=== PATIENT | female | born 1950 ===

== ENCOUNTER 2020-08-11 16:35 | Emergency (ER) | payer OTHER, SELFPAY ==
--- NOTE | ~2020-08-11 | CT_ITS ---
EXAMINATION: CT ABDOMEN AND PELVIS WITHOUT CONTRAST CLINICAL INFORMATION: Left lower quadrant pain and rectal bleeding COMPARISON: Previous CT of the abdomen and pelvis July 2017 TECHNIQUE: Multidetector volumetric imaging was performed from the superior aspect of the liver through the pubic symphysis. Sagittal and coronal reformatted images were obtained on the technologist's workstation. This CT examination was performed using dose optimization techniques as appropriate, variously including the following: *Automated exposure control *Adjustment of mA and/or kV according to patient size (this includes techniques or standardized protocols for targeted exams where dose is matched to indication/reason for exam; i.e. extremities or head) *Use of iterative reconstruction technique DLP: 517 mGy-cm FINDINGS: LUNG BASES: The visualized lung bases are unremarkable. LIVER, GALLBLADDER, AND BILIARY TREE: There is a small calcification in the central liver. There are changes of cirrhosis. The gallbladder has been removed. There is no biliary duct dilatation. The gallbladder is unremarkable with no evidence of radiopaque gallstones, gallbladder wall thickening, or obvious pericholecystic inflammatory changes. PANCREAS: Unremarkable. SPLEEN: Unremarkable. ADRENAL GLANDS: Unremarkable. KIDNEYS AND URETERS: The kidneys are normal in size, shape, and attenuation. No hydronephrosis, hydroureter, or calculi seen. No perinephric stranding. BLADDER: Not optimally distended. GASTROINTESTINAL TRACT: There is diverticulosis of the colon. No evidence of diverticulitis is seen. Small and large bowel is otherwise unremarkable. The appendix is unremarkable. ABDOMINAL WALL: No significant hernia is appreciated. LYMPH NODES: Normal. VASCULAR: Unremarkable. PELVIC VISCERA: There is an enlarged fibroid uterus. OSSEOUS STRUCTURES: There are degenerative changes of the spine. There is a mild old-appearing L5 body compression fracture. This is new in the interval from [address]/CT abdomen pelvis wo con IMPRESSION: Cirrhotic-appearing liver. No focal liver lesion appreciated on noncontrast enhanced exam. Diverticulosis of the colon. No evidence of diverticulitis. Enlarged fibroid uterus.
[2020-08-11 16:39] VITALS: BP 126/68; PULSE 71; RESP 18; TEMP 36.7; O2SAT 97; BMI 32.3
[2020-08-11 17:03] LABS: Hematocrit 38.1 % (37-47); Hemoglobin 12.2 g/dl (12.0-16.0); Mean Corpuscular Hemoglobin 29.2 pg (27.0-33.0); Mean Corpuscular Volume 91.1 fL (80-98); Mean Platelet Volume 10.5 fL (9.4-12.3); Platelet Count 240 X10*3/uL (160-400); Red Blood Count 4.18 X10*6/uL (4.20-5.50); Red Cell Distribution Width 12.5 % (11.0-16.0); White Blood Count 6.3 X10*3/uL (4.8-10.8)
[2020-08-11 17:26] LABS: Anion Gap 13 (12-20); Blood Urea Nitrogen 18 mg/dL (9-16); Calcium 9.3 mg/dL (8.4-10.2); Carbon Dioxide 26 mmol/L (22-29); Chloride 103 mmol/L (96-108); Creatinine Clr Calc Pharmacy 47.4; Estimated Glomerular Filt Rate > 60; Glucose Random 180 mg/dL (60-115); Potassium 3.8 mmol/L (3.3-5.1); Sodium 138 mmol/L (135-145)
[2020-08-11 18:58] VITALS: BP 113/67; PULSE 62; RESP 20; TEMP 37.1; O2SAT 97
--- NOTE | 2020-08-11 18:59 | ED.GIBLEED ---
HPI - GI Bleed General Chief complaint: Abdominal Pain Stated complaint: Vaginal bleeding Time Seen by Provider: 08/11/20 18:59 Source: patient History of Present Illness HPI Narrative: patient history of hemorrhoids had colonoscopy 5 years ago comes here for lower abdominal pain and bright red bleeding per rectum since yesterday stool was brown had small bright red blood in the commode no nausea no vomiting feels good otherwise Related Data Previous Rx's Medication Instructions Recorded hydrocortisone acetate [Anusol-HC] 25 mg LA BID #1 ea 08/11/20 Allergies Allergy/AdvReac Type Severity Reaction Status Date / Time No Known Allergies Allergy Unverified 07/15/20 14:53 [No Known Allergies*] Review of Systems Review of Systems: Yes all other systems are reviewed and are negative FOR[facility]LY [facility] Past Medical History Medical History Arthritis Hypothyroid Social History Social History Advance Directives: No Advance Directives Information Provided: No Physical Exam Vital Signs: Vital Signs: Last Vital Signs Temp 98.7 F 08/11/20 18:58 Pulse 62 08/11/20 18:58 Resp 20 08/11/20 18:58 BP 113/67 08/11/20 18:58 Pulse Ox 97 08/11/20 18:58 Body Mass Index 32.3 Appearance: Alert. Oriented X3. No acute distress. Eyes: PERRLA, No Nystagmus ENT: Pharynx normal. Oral Mucosa moist Neck: Normal inspection. Neck supple. CVS: Normal heart rate and rhythm. Pulses normal. Respiratory: No respiratory distress. Equal air entry bilateral, no wheezing/rales/rhonchi Abdomen: Soft and mild tenderness left lower quadrant no rebound tenderness or guarding, Bowel sounds are present, no mass palpable, no CVA tenderness rectal; brown stool guaiac positive ,no hemorrhoids palpable Skin: Skin warm and dry. Normal skin color. Normal skin turgor. Extremities: No lower extremity edema. No calf tenderness Neuro: Oriented X 3. No motor deficit. No sensory deficit. MDM - GI Bleed MDM Narrative Medical decision making narrative: patient has stable H&H hemoglobin 12.[address] scan negative for any acute pathology showed only diverticulosis patient vitals stable will discharge patient home Differential Diagnosis Differential diagnosis: Likely hemorrhoids and Lower gastrointestinal hemorrhage Lab Data Attestation: I reviewed the patient's lab results. Result diagrams: 08/11/20 16:55 08/11/20 16:55 Labs: Lab Results 08/11/20 08/11/20 08/11/20 Range/Units 16:55 16:55 21:49 WBC 6.3 (4.8-10.8) X10*3/uL RBC 4.18 L (4.20-5.50) X10*6/uL Hgb 12.2 (12.0-16.0) g/dl Hct 38.1 (37-47) % MCV 91.1 (80-98) fL MCH 29.2 (27.0-33.0) pg MCHC 32.0 (31.0-35.0) g/dl RDW 12.5 (11.0-16.0) % Plt Count 240 (160-400) X10*3/uL MPV 10.5 (9.4-12.3) fL Absolute Nucleated RBC 0.000 (0.0-0.012) X10*3/uL Nucleated RBC % (auto) 0.0 (0.0-0.2) /100WBC Sodium 138 (135-145) mmol/L Potassium 3.8 (3.3-5.1) mmol/L Chloride 103 (96-108) mmol/L Carbon Dioxide 26 (22-29) mmol/L Anion Gap 13 (12-20) BUN 18 H (9-16) mg/dL Creatinine 0.81 (0.5-1.4) mg/dL Estim Creat Clear Calc 47.4 Estimated GFR > 60 Random Glucose 180 H (60-115) mg/dL Calcium 9.3 (8.4-10.2) mg/dL Urine Color YELLOW Urine Appearance CLEAR Urine pH 6.5 (5.0-8.0) Ur Specific [place] 1.015 (1.005-1.025) Urine Protein NEG (NEG-TRACE) MG/DL Urine Glucose (UA) 250 H (NEG) MG/DL Urine Ketones NEG (NEG) MG/DL Urine Blood NEG (NEG) Urine Nitrite NEG (NEG) Ur Leukocyte Esterase NEG (NEG) Stool Occult Blood (NEGATIVE) 08/11/20 Range/Units 21:49 WBC (4.8-10.8) X10*3/uL RBC (4.20-5.50) X10*6/uL Hgb (12.0-16.0) g/dl Hct (37-47) % MCV (80-98) fL MCH (27.0-33.0) pg MCHC (31.0-35.0) g/dl RDW (11.0-16.0) % Plt Count (160-400) X10*3/uL MPV (9.4-12.3) fL Absolute Nucleated RBC (0.0-0.012) X10*3/uL Nucleated RBC % (auto) (0.0-0.2) /100WBC Sodium (135-145) mmol/L Potassium (3.3-5.1) mmol/L Chloride (96-108) mmol/L Carbon Dioxide (22-29) mmol/L Anion Gap (12-20) BUN (9-16) mg/dL Creatinine (0.5-1.4) mg/dL Estim Creat Clear Calc Estimated GFR Random Glucose (60-115) mg/dL Calcium (8.4-10.2) mg/dL Urine Color Urine Appearance Urine pH (5.0-8.0) Ur Specific [place] (1.005-1.025) Urine Protein (NEG-TRACE) MG/DL Urine Glucose (UA) (NEG) MG/DL Urine Ketones (NEG) MG/DL Urine Blood (NEG) Urine Nitrite (NEG) Ur Leukocyte Esterase (NEG) Stool Occult Blood POSITIVE (NEGATIVE) Discharge Plan Discharge Clinical Impression: Bright red rectal bleeding Patient Disposition: Home, Self-Care Instructions: Hemorrhoids (ED), Rectal Bleeding (ED) Additional Instructions: Rectal bleeding is likely from internal hemorrhoids. Follow-up with PCP or report to ERif bleeding continues. Avoid constipation. Use suppository twice daily as advise Prescriptions: New hydrocortisone acetate [Anusol-HC] 25 mg suppository 25 mg LA BID Qty: 1 RF: 0
[2020-08-11 21:55] LABS: OBS Int Ctl Valid YES; OBS1 POSITIVE (NEGATIVE)
[2020-08-11 21:56] LABS: Glucose Urine UA 250 MG/DL (NEG); Leukocyte Esterase Urine NEG (NEG); Nitrite Urine NEG (NEG); PH 6.5 (5.0-8.0); Specific Gravity - Urine 1.015 (1.005-1.025); Urine Blood NEG (NEG); Urine Ketones NEG (NEG); Urine Protein NEG (NEG-TRACE)
[2020-08-11 21:57] LABS: Appearance Urine CLEAR; Color Urine YELLOW
[2020-08-11] MEDS: Acetaminophen 325 MG TABLET 650 MG PO (21:59)
[2020-08-11 22:00] VITALS: BP 139/70; PULSE 62; RESP 16; O2SAT 96
== END 2020-08-11 22:45 | disposition home or self-care (01) ==
PROVIDERS: Emergency Provider Internal Medicine; PCP Internal Medicine Geriatric Medicine
DX: K62.5 Hemorrhage of anus and rectum (principal); R10.30 Lower abdominal pain, unspecified; Z87.19 Personal history of other diseases of the digestive system
CPT/HCPCS: 36415; 74176; 80048; 81003; 82272; 85027; 99284

== ENCOUNTER 2021-07-04 14:06 | Outpatient (REF) | payer OTHER, SELFPAY ==
--- NOTE | ~2021-07-04 | MM_ITS ---
EXAMINATION: MM SCREENING DIGITAL BREAST TOMOSYNTHESIS, BILATERAL CLINICAL INFORMATION: Screening. Asymptomatic. The lifetime risk of breast cancer based on the Tyrer-Cuzick Model is 4%. COMPARISON: Mammography: 07/15/2018, 06/19/2017, 05/24/2016 TECHNIQUE: Digital breast tomosynthesis is performed in both the craniocaudal and mediolateral oblique views along with computer-aided detection (CAD). Synthesized 2D images are generated from the tomosynthesis. Additional right MLO view is provided. FINDINGS: There are scattered areas of fibroglandular density (ACR BI-RADS breast composition Category b). Left breast has grouped heterogeneous calcifications mid central breast approximately 4.5 cm from nipple. There are at least 10 calcifications. Calcifications may be circularly arranged which could suggest fibroadenomatous change. This represents change from prior exam 07/15/2018. Patient will be recalled for additional imaging with magnification views. There is no significant mass or architectural abnormality. Parenchymal pattern is otherwise similar to prior studies. The axilla are unremarkable. There is a dermal lesion again seen overlying the anterior upper left breast. MM/MM tomosynthesis screening BI IMPRESSION: Left: -Grouped heterogeneous calcifications central left breast. Right: -No mammographic evidence of malignancy. ASSESSMENT: BI-RADS 0: Incomplete - Need Additional Imaging Evaluation RECOMMENDATION: 1. Additional views of the left breast (magnification CC, magnification ML). 2. Targeted ultrasound if warranted after review of the additional views. 3. Radiology department staff will contact the patient for additional imaging. This patient's information was entered into a reminder system with a target due date for their next mammogram.
== END 2021-07-04 14:07 | disposition home or self-care (01) ==
LOC: HO.MAMMO 14:06
PROVIDERS: PCP Internal Medicine Geriatric Medicine; Visit Provider Internal Medicine Geriatric Medicine
DX: Z12.31 Encounter for screening mammogram for malignant neoplasm of breast (principal)
CPT/HCPCS: 77063; 77067

== ENCOUNTER 2021-07-21 14:19 | Outpatient (REF) | payer OTHER, SELFPAY ==
--- NOTE | ~2021-07-21 | US_ITS ---
EXAMINATION: MM DIAGNOSTIC DIGITAL MAMMOGRAPHY, LEFT US TARGETED BREAST, LEFT CLINICAL INFORMATION: Left breast calcifications. COMPARISON: Mammography: 07/04/2021 and studies dating back to 01/31/2011. TECHNIQUE: Digital mammography is performed in the following views: Spot magnification views of the left breast in craniocaudal and 90-degree mediolateral views. Targeted left breast ultrasound. FINDINGS: There are scattered areas of fibroglandular density (ACR BI-RADS breast composition category B). The grouping of calcifications about the slightly medial aspect of the left breast, approximately 4 cm from the nipple, has calcifications which are indeterminate in nature. There is a faint overlying soft tissue density seen and therefore, targeted left breast ultrasound was performed. Targeted ultrasound did not demonstrate any abnormal cystic or solid mass. No region of abnormal distal sound shadowing is identified. For this reason, stereotactic core biopsy of the calcifications is recommended. Results are discussed with the patient at time of visit. Regina at referring physician's office was notified of the above recommendation. US/US breast LT limited IMPRESSION: Indeterminate left breast calcifications for which stereotactic core biopsy is recommended. ASSESSMENT: BI-RADS 4: Suspicious RECOMMENDATION: Stereotactic core biopsy left breast calcifications.
== END 2021-07-21 14:20 | disposition home or self-care (01) ==
LOC: HO.MAMMO 14:19
PROVIDERS: Visit Provider Internal Medicine Geriatric Medicine
DX: R92.1 Mammographic calcification found on diagnostic imaging of breast (principal)
CPT/HCPCS: 76642; 77065

== ENCOUNTER 2021-07-27 08:47 | Outpatient (REF) | payer OTHER, SELFPAY ==
--- NOTE | ~2021-07-27 | MM_ITS ---
EXAMINATION: STEREOTACTIC TOMOSYNTHESIS-GUIDED VACUUM-ASSISTED BREAST BIOPSY, LEFT SPECIMEN RADIOGRAPH, LEFT POST PROCEDURE DIGITAL MAMMOGRAM, LEFT CLINICAL INFORMATION: Heterogeneous coarse calcifications central left breast. Age 70. TC score 4%. COMPARISON: Mammography 07/04/2021, 07/21/2021, ultrasound left breast 07/21/2021. TECHNIQUE/PROCEDURE: Informed consent was obtained from the patient after discussion of the benefits, risks, and alternatives to biopsy today. Patient appeared to understand. Gave opportunity for questions. Patient signed consent form. Hospital provided public relations director assisted for the consent and throughout the procedure. BIOPSY TABLE: [employer] Affirm Prone Biopsy System. LESION: Grouped heterogeneous coarse calcifications central left breast. LOCAL ANESTHESIA: 7 mL carbonated 1% lidocaine; 10 mL 1% lidocaine with epinephrine. DERMATOTOMY: Single skin velasquez dermatotomy performed. NEEDLE: [employer] 9-gauge vacuum assisted core biopsy device. APPROACH: Craniocaudal. TARGETING: Combination of digital breast tomosynthesis and stereotactic digital mammography used for targeting. CORES: 5. CLIP: [email or web address] T-shaped marker. SPECIMEN RADIOGRAPH: Specimen radiograph is taken in separate room using digital mammography. The index calcifications are in the excised cores. There are at least 5 calcifications in the cores. POST PROCEDURE UNILATERAL DIGITAL MAMMOGRAM: The post biopsy mammogram is performed in separate room using separate digital mammography equipment from the biopsy procedure. CC and ML views are obtained. There are scattered areas of fibroglandular density (breast composition category: b). The clip marker is in position. The calcifications are decreased at the biopsy site. No gross hematoma. The patient tolerated the procedure well. No immediate complications. Home instructions reviewed with the patient. Final pathology results are pending. MM/MM stereotactic biopsy LT IMPRESSION: 1. Digital tomosynthesis-guided core biopsy left breast with clip placement. 2. Specimen radiograph taken and post procedure mammogram. There is satisfactory positioning of the biopsy clip. 3. Final pathology results pending. An addendum report will be issued.
[2021-07-27] MEDS: Lidocaine HCl 1 % 20 ML VIAL 7 ML SUBCUT (10:20)
[2021-07-27] MEDS: Sodium Bicarbonate 8.4% 50 MEQ/50 ML VIAL SUBCUT (10:26)
== END 2021-07-27 08:48 | disposition home or self-care (01) ==
LOC: HO.MAMMO 08:47
PROVIDERS: Visit Provider Surgery
DX: R92.1 Mammographic calcification found on diagnostic imaging of breast (principal)
CPT/HCPCS: 19081; 88305; 99202; A4648

== ENCOUNTER → 2021-08-02 11:25 | Outpatient (BNVA) | payer OTHER, SELFPAY | PROVIDERS: PCP Internal Medicine Geriatric Medicine; Visit Provider Surgery | DX: R92.1 Mammographic calcification found on diagnostic imaging of breast (principal) | CPT/HCPCS: 99212 ==

== ENCOUNTER 2022-04-19 19:02 | Emergency (ER) | payer OTHER, SELFPAY ==
--- NOTE | ~2022-04-19 | CT_ITS ---
EXAMINATION: CT HEAD WITHOUT CONTRAST CT CERVICAL SPINE WITHOUT CONTRAST CLINICAL INFORMATION: Fall. COMPARISON: CT head 10/08/2019 TECHNIQUE: Imaging was performed from the skull base to vertex without intravenous administration of contrast. In addition, helical noncontrast CT imaging was acquired through the cervical spine and source images were reviewed along with axial reconstructions and sagittal and coronal MPRs. [This CT examination was performed using dose optimization techniques as appropriate, variously including the following: *Automated exposure control *Adjustment of mA and/or kV according to patient size (this includes techniques or standardized protocols for targeted exams where dose is matched to indication/reason for exam; i.e. extremities or head) *Use of iterative reconstruction technique] DLP: 890 mGy-cm FINDINGS: HEAD: No intracranial mass, hemorrhage, or midline shift is visualized. The ventricles and sulci are proportional. No extra-axial collections are identified. Retention cyst in right maxillary sinus measuring 1.7 cm. Mastoid air cells and middle ear cavities are normally aerated. CERVICAL SPINE: There is no evidence of acute cervical spine fracture. Vertebral bodies remain normal in height. Cervical vertebrae have normal alignment. Cervical disc heights are normal. Mild facet joint arthrosis at the left C4-C5 disc level. No pre- or paravertebral soft tissue abnormality is identified. Limited assessment of the lung apices is unremarkable. CT/CT cervical spine wo IV con IMPRESSION: 1. No acute intracranial pathology. 2. No CT evidence of acute cervical spine fracture or traumatic subluxation
--- NOTE | ~2022-04-19 | CT_ITS ---
EXAMINATION: CT HEAD WITHOUT CONTRAST CT CERVICAL SPINE WITHOUT CONTRAST CLINICAL INFORMATION: Fall. COMPARISON: CT head 10/08/2019 TECHNIQUE: Imaging was performed from the skull base to vertex without intravenous administration of contrast. In addition, helical noncontrast CT imaging was acquired through the cervical spine and source images were reviewed along with axial reconstructions and sagittal and coronal MPRs. [This CT examination was performed using dose optimization techniques as appropriate, variously including the following: *Automated exposure control *Adjustment of mA and/or kV according to patient size (this includes techniques or standardized protocols for targeted exams where dose is matched to indication/reason for exam; i.e. extremities or head) *Use of iterative reconstruction technique] DLP: 890 mGy-cm FINDINGS: HEAD: No intracranial mass, hemorrhage, or midline shift is visualized. The ventricles and sulci are proportional. No extra-axial collections are identified. Retention cyst in right maxillary sinus measuring 1.7 cm. Mastoid air cells and middle ear cavities are normally aerated. CERVICAL SPINE: There is no evidence of acute cervical spine fracture. Vertebral bodies remain normal in height. Cervical vertebrae have normal alignment. Cervical disc heights are normal. Mild facet joint arthrosis at the left C4-C5 disc level. No pre- or paravertebral soft tissue abnormality is identified. Limited assessment of the lung apices is unremarkable. CT/CT head/brain wo IV con IMPRESSION: 1. No acute intracranial pathology. 2. No CT evidence of acute cervical spine fracture or traumatic subluxation
[2022-04-19 19:14] VITALS: BP 110/70; BP 115/63; PULSE 74; PULSE 76; RESP 16; TEMP 36.9; O2SAT 95; O2SAT 96; BMI 27.2
--- NOTE | 2022-04-19 19:58 | ED.FALL ---
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 without using walker tripped and fell hitting her left side of the head to the edge of the table no loss of consciousness no other injuries no loss of consciousness no other injuries patient not on any blood thinner able to ambulate came with small laceration to the left part of the temporal scalp Related Data Previous Rx's Medication Instructions Recorded hydrocortisone acetate 25 mg 25 mg [place] BID #1 ea 08/11/20 rectal suppository (Anusol-HC) acetaminophen 325 mg tablet 650 mg PO Q6H PRN pain #60 tabs 04/19/22 (Tylenol) Allergies Allergy/AdvReac Type Severity Reaction Status Date / Time No Known Allergies Allergy Verified 04/19/22 19:28 [No Known Allergies*] Review of Systems Review of Systems: Yes all other systems are reviewed and are negative FORMERLY [facility], [facility] Past Medical History Medical History Arthritis Hypothyroid Family History Family History Family/Other Breast cancer Maternal Grandfather Throat cancer Social History Social History Advance Directives: No Advance Directives Information Provided: No Physical Exam Vital Signs: Vital Signs: Last Vital Signs Temp 98.1 F 04/19/22 20:41 Pulse 69 04/19/22 20:41 Resp 18 04/19/22 20:41 BP 117/54 L 04/19/22 20:41 Pulse Ox 98 04/19/22 20:41 O2 Del Method 04/19/22 20:41 BMI result Body Mass Index 27.2 Appearance: Alert. Oriented X3. No acute distress. Eyes: PERRLA, No Nystagmus HEENT: Pharynx normal. Oral Mucosa moist 1 cm laceration left temporal area no active bleeding Neck: Normal inspection. Neck supple. CVS: Normal heart rate and rhythm. Pulses normal. Respiratory: No respiratory distress. Equal air entry bilateral, no wheezing/rales/rhonchi Abdomen: Soft and nontender. Bowel sounds are present, no mass palpable, no CVA tenderness Skin: Skin warm and dry. Normal skin color. Normal skin turgor. Extremities: No lower extremity edema. No calf tenderness pelvis stable with movement at the hip area bilateral Neuro: Oriented X 3. No motor deficit. No sensory deficit.No cerebellar signs , cranial nerves II-XII intact Medications Administered Discontinued Medications Generic Name Dose Route Start Last Admin Trade Name Freq PRN Reason Stop Dose Admin Ibuprofen 600 mg 04/19/22 20:30 04/19/22 20:42 Ibuprofen 600 Mg Tablet PO 04/19/22 20:31 600 mg ONCE ONE Administration Procedures Laceration Laceration 1: Site: scalp Side (If applicable): left Size (cm): 1 Description: linear Depth: simple, single layer Skin layer closed with: other (Staple) Number of sutures: 2 Medical Decision Making Medical Decision Making MDM Narrative: Patient status post mechanical fall head CT C-spine CT negative laceration was stapled Discharge Plan Discharge Clinical Impression: Fall, Laceration of scalp Patient Disposition: Home, Self-Care Instructions: Laceration (ED), Fall Prevention for Older Adults (ED) Additional Instructions: Local care as advised staple removal in 7-10 days Prescriptions: New acetaminophen [Tylenol] 325 mg tablet 650 mg PO Q6H PRN (Reason: pain) Qty: 60 0RF No Action hydrocortisone acetate [Anusol-HC] 25 mg suppository 25 mg [place] BID Qty: 1 0RF Interventions: ED Discharge Assessment Last Done: 04/19/22 21:06 Discharge Date/Time: 04/19/22 21:06 Print Language: Indonesian
--- NOTE | 2022-04-19 20:12 | PC.NURSE ---
CT scan results came back negative. C-collar removed from pt at provider's request.
[2022-04-19 20:41] VITALS: BP 117/54; PULSE 69; RESP 18; TEMP 36.7; O2SAT 98
[2022-04-19] MEDS: Ibuprofen 600 MG TABLET PO (20:42)
== END 2022-04-19 21:06 | disposition home or self-care (01) ==
PROVIDERS: Emergency Provider Internal Medicine
DX: S01.01XA Laceration without foreign body of scalp, initial encounter (principal); M54.2 Cervicalgia; R51.9 Headache, unspecified; W01.0XXA Fall on same level from slipping, tripping and stumbling without subsequent striking against object, initial encounter; Y93.9 Activity, unspecified; Y92.9 Unspecified place or not applicable; Y99.9 Unspecified external cause status
CPT/HCPCS: 12001; 70450; 72125; 99284

== ENCOUNTER 2022-05-23 12:10 | Inpatient (IN) | payer OTHER, SELFPAY ==
[2022-05-23] VITALS (17 sets, daily range): BP systolic 103–156; BP diastolic 46–84; PULSE 79–98; RESP 16–36; TEMP 36.8–37.5; O2SAT 93–100; BMI 33.8
--- NOTE | ~2022-05-23 | XR_ITS ---
EXAMINATION: XR CHEST CLINICAL INFORMATION: Hypoxia. COMPARISON: Most recent chest CT dated 05/23/2022. TECHNIQUE: Frontal view of the chest was obtained. FINDINGS: Minimal patchy bibasilar opacities, unchanged. Previously seen trace pleural effusions are not appreciated on plain radiographs. No pneumothorax. Stable cardiomediastinal silhouette. XR/XR chest 1V IMPRESSION: 1. Minimal patchy bibasilar opacities, unchanged. 2. Previously seen trace pleural effusions are not appreciated on plain radiographs.
--- NOTE | ~2022-05-23 | XR_ITS ---
EXAMINATION: XR CHEST CLINICAL INFORMATION: Dyspnea on exertion COMPARISON: 10/08/2019 TECHNIQUE: 2 views of the chest were obtained. FINDINGS: Central vascular congestion with interstitial prominence and small bilateral pleural effusions. Stable cardiomediastinal silhouette. No focal consolidation. XR/XR chest 2V IMPRESSION: Probable mild CHF with small bilateral pleural effusions.
--- NOTE | ~2022-05-23 | CT_ITS ---
EXAMINATION: CT CHEST WITH IV CONTRAST CT ABDOMEN AND PELVIS WITHOUT AND WITH IV CONTRAST (GI BLEED) CLINICAL INFORMATION: Weight loss. Anemia. Diffuse abdominal pain for one month. Concern regarding GI bleed. COMPARISON: CT abdomen and pelvis from 08/11/2020. TECHNIQUE: Multidetector CT imaging examination of the chest, abdomen and pelvis was performed. The images of the chest are obtained after use of intravenous contrast. The images of the abdomen and pelvis are obtained prior to and following intravenous administration of the intravenous contrast with images acquired in the arterial and venous phases. Intravenous contrast: 80 mL Omnipaque 350. Axial images are displayed at 0.6 mm, 2 mm and 5 mm slice thickness. Coronal and sagittal reformatted images were generated at the technologist's workstation and submitted for review. This CT examination was performed using dose optimization techniques as appropriate, variously including the following: *Automated exposure control *Adjustment of mA and/or kV according to patient size (this includes techniques or standardized protocols for targeted exams where dose is matched to indication/reason for exam; i.e. extremities or head) *Use of iterative reconstruction technique DLP: 1365 mGy-cm FINDINGS: CHEST - LUNGS AND PLEURA: Trachea and central airways widely patent and normal in caliber. Mild thickening of the peribronchial interstitium and smooth thickening of interlobular septa in both lungs. Findings are consistent with mild interstitial edema. Small bilateral pleural effusions are present. Mild atelectasis in dependent aspect of each lower lobe as well as within lingula and right middle lobe adjacent to distal major fissure. No overt consolidation. No pneumothorax. There is no suspicious lung nodule or mass. MEDIASTINUM/LOWER NECK: Cardiac chambers are in the normal size range. No pericardial effusion. Pulmonary arteries are unremarkable. Mild atherosclerotic calcification of the thoracic aorta without aneurysm or dissection. LYMPHATICS: Borderline enlarged lower right paratracheal and right hilar lymph nodes are 1 cm short axis dimension. Note that mildly enlarged lymph nodes can be observed in patients with congestive failure. CHEST WALL/BONES OF THORAX: No chest wall mass or hematoma. No acute findings within the degenerated thoracic spine. Hemangioma of T7 vertebral body. Chronic mild concavity of the T9 superior endplate and chronic mild height loss of T11 vertebral body. No acute fractures. ABDOMEN AND PELVIS - HEPATOBILIARY: Liver has lobulated, nodular surface contour from cirrhosis. No focal liver lesion. Cholecystectomy. No dilated bile ducts. PANCREAS: No edema, mass or pancreatic ductal dilatation. SPLEEN: Normal. ADRENAL GLANDS: Normal. KIDNEYS AND URETERS: Kidneys are normal in size and attenuation. No nephrolithiasis, hydronephrosis or perinephric fluid collection. BOWEL AND PERITONEUM: No dilated bowel loops. Stomach is unremarkable. Diverticula of the sigmoid colon without evidence of diverticulitis. No pericolonic fat stranding, free fluid or free air. No evidence of contrast extravasation into the lumen of the gastrointestinal tract on the arterial or venous phase postcontrast images. ABDOMINAL WALL: Obese body habitus. No abdominal wall hernia or hematoma. VESSELS: Abdominal aorta is normal in size. The celiac artery, SMA, MERNA and renal arteries are widely patent. The common hepatic artery has origin from the SMA. Inferior vena cava is normal. No retroperitoneal hematoma. LYMPH NODES: No pathologic sized lymph nodes in the abdomen or pelvis. No inguinal lymphadenopathy. BLADDER AND PELVIC VISCERA: Urinary bladder has normal wall thickness. No bladder calculi or perivesical edema. Lobulated, calcified leiomyomatous uterus. No adnexal mass. No pelvic free fluid. OTHER MUSCULOSKELETAL: There is a hemangioma of the L3 vertebral body. Chronic mild height loss of L5 vertebral body. No acute fractures. Pelvic bones and proximal femurs are intact. CT/CT gi bleed abd pel wo/w IVcon IMPRESSION: * Interstitial pulmonary edema and small pleural effusions. * Cirrhotic liver without evidence of hepatocellular carcinoma. * No evidence of an active gastrointestinal bleed, hemoperitoneum or retroperitoneal bleed. * Diverticulosis of the sigmoid colon without diverticulitis. * Large, lobulated calcified leiomyomatous uterus.
--- NOTE | 2022-05-23 12:20 | ED_ITS ---
HPI - Abdominal Pain General Chief Complaint: Abdominal Pain <Blanca Patton NP - Last Filed: 05/30/22 11:10> Stated Complaint: Epigastric Pain <Blanca Patton NP - Last Filed: 05/30/22 11:10> Time Seen by Provider: 05/23/22 14:02 <Blanca Patton NP - Last Filed: 05/30/22 11:10> Source: patient and other (ENGINEERING INTERN) <Mame Mercedes MD - Last Filed: 05/23/22 20:05> Mode of arrival: ambulatory <Mame Mercedes MD - Last Filed: 05/23/22 20:05> Limitations: no limitations <Mame Mercedes MD - Last Filed: 05/23/22 20:05> History of Present Illness HPI narrative: Patient comes to the emergency room complaining of 1 month of diffuse abdominal pain, intermittent. Also, complaining of fatigue, generalized malaise that started even before the UTI. Her symptoms have gradually gotten worse over the last 2-3 weeks. At baseline, patient has trouble communicating her needs, patient comes in with her ENGINEERING INTERN who explains that all of her symptoms started approximately 1 month ago with a UTI. Patient was treated with antibiotics, patient started developing abdominal pain since then. Initially, it was thought that the patient's symptoms were secondary to intolerance to the antibiotics. However, patient completed her course of antibiotics and the abdominal pain continued. Patient states that is not necessarily related to food intake. Also, patient reports that she has had anemia in the past, several months ago she was prescribed iron but unclear reasons why she discontinued taking her medications. Patient also states that she has history of hemorrhoids. The ENGINEERING INTERN states that she was not aware that the patient has been having rectal bleeding until a day that the patient said that she has been seen blood intermittently in the stool when she wipes. Patient denies rectal pain. The ENGINEERING INTERN reports that the patient has lost 8 lb in approximately 2 months. Patient is eating less than usual. Normally, patient is active, gets out of bed and interacts with her ENGINEERING INTERN, but lately patient just wants to stay bed. According to the ENGINEERING INTERN, patient does not take ibuprofen or naproxen and large amounts, very seldom she takes 1-2 tablets. <Mame Mercedes MD - Last Filed: 05/23/22 20:05> Related Data Home Medications: Home Medications Medication Instructions Recorded Confirmed acetaminophen 500 mg tablet 500 mg PO Q8H PRN Mild Pain (Scale 05/23/22 05/23/22 Score 1-4) albuterol sulfate 90 mcg/actuation 2 puff inhalation Q6H PRN Wheezing 05/23/22 05/23/22 aerosol inhaler clotrimazole-betamethasone 1 1 appl topical BID 05/23/22 05/23/22 %-0.05 % topical cream cyanocobalamin (vitamin B-12) 1,000 mcg PO DAILY 05/23/22 05/23/22 1,000 mcg tablet diclofenac sodium 1 % topical gel 2 g topical BID PRN Pain 05/23/22 05/23/22 gabapentin 300 mg capsule 300 mg PO BEDTIME 05/23/22 05/23/22 levothyroxine 75 mcg tablet 75 mcg PO DAILY 05/23/22 05/23/22 omeprazole 20 mg capsule,delayed 20 mg PO DAILY 05/23/22 05/23/22 release trazodone 50 mg tablet 50 mg PO BEDTIME 05/23/22 05/23/22 Previous Rx's Medication Instructions Recorded omeprazole 40 mg capsule,delayed 40 mg PO DAILY@0630 30 days #30 05/27/22 release caps <Blanca Patton NP - Last Filed: 05/30/22 11:10> Allergies/Adverse Reactions: Allergies Allergy/AdvReac Type Severity Reaction Status Date / Time No Known Allergies Allergy Verified 04/19/22 19:28 [No Known Allergies*] <Blanca Patton NP - Last Filed: 05/30/22 11:10> Review of Systems Review of Systems Constitutional : Complaining of weight loss, no fever chills, complaining of fatigue and generalized malaise ENT/Mouth : No Hearing loss, No Ear Pain, No Nasal Congestion, No Sinus Pain, No Hoarseness, No sore throat, No Rhinorrhea, No Swallowing Difficulty Eyes: No Eye Pain, No Swelling, No Redness, No Foreign Body, No Discharge, No Vision Changes Cardiovascular : No Chest Pain, no palpitations, complaining of shortness of breath with exertion, no orthopnea Respiratory : No Cough, No Sputum, No Wheezing, No Smoke Exposure Gastrointestinal : No Nausea, No Vomiting, No Diarrhea, No Constipation, c omplaining of diffuse abdominal pain for 1 month, complaining of intermittent rectal bleeding Genitourinary : no irregular bleeding, complaining of Dysuria, No Urinary Frequency, No Hematuria, No Urinary Incontinence, No Urgency, No Flank Pain, No Urinary Flow Changes, No Hesitancy Musculoskeletal : No joint pain, No Myalgias, No Joint Swelling Skin : No Skin Lesions, No rash Neuro : No Weakness, No Numbness, No Paresthesias, No Loss of Consciousness, No Dizziness, No Headache Psych : No Anxiety/Panic, No Depression, No SI/HI/AH/VH, No Social Issues, Heme/Lymph: No Bruising, No Bleeding,No Lymphadenopathy Endocrine : No Polyuria, No Polydipsia, No Temperature Intolerance <Mame Mercedes MD - Last Filed: 05/23/22 20:05> [facility] Past Medical History Medical History: Medical History Arthritis FH: breast cancer FH: cholecystectomy Hepatic cirrhosis Hypothyroid <Blanca Patton NP - Last Filed: 05/30/22 11:10> Surgical History: Surgical History Hx of cholecystectomy <Blanca Patton NP - Last Filed: 05/30/22 11:10> Family History Family History: Family History Family/Other Breast cancer Maternal Grandfather Throat cancer <Blanca Patton NP - Last Filed: 05/30/22 11:10> Social History Social History: Social History Household Members: None Housing: Apartment Do you presently have visiting nurse or other home services: Yes (ENGINEERING INTERN every other day) Alcohol intake: never Patient Tobacco Use Status: Never used Tobacco Second Hand Smoke Exposure: No service: No Current occupational status: retired <Blanca Patton NP - Last Filed: 05/30/22 11:10> Physical Exam ED Vital Signs: Vital Signs - 24 hr 05/23/22 12:20 05/23/22 14:00 05/23/22 15:12 Temperature 98.2 F 98.8 F Pulse Rate 98 87 81 Respiratory Rate 20 16 23 H Blood Pressure 111/46 L 108/58 L 103/59 L Pulse Oximetry 95 96 93 Oxygen Delivery Method Room Air Room Air Room Air Oxygen Flow Rate 05/23/22 15:28 05/23/22 15:47 05/23/22 17:23 Temperature 98.6 F 98.7 F Pulse Rate 90 80 81 Respiratory Rate 30 H 36 H 30 H Blood Pressure 103/59 L 105/56 L 104/59 L Pulse Oximetry Oxygen Delivery Method Oxygen Flow Rate 05/23/22 18:04 05/23/22 18:38 05/23/22 18:50 Temperature 99.2 F 98.6 F Pulse Rate 79 90 91 Respiratory Rate 30 H 35 H 33 H Blood Pressure 156/84 H 139/75 123/60 Pulse Oximetry 100 Oxygen Delivery Method Non-Rebreather Mask Oxygen Flow Rate 15 05/23/22 18:51 Temperature 98.6 F Pulse Rate 91 Respiratory Rate 33 H Blood Pressure 123/60 Pulse Oximetry 97 Oxygen Delivery Method Oxymask Oxygen Flow Rate 7 BMI result Body Mass Index 33.8 <Blanca Patton SENIOR SUPPORT ANALYST - Last Filed: 05/30/22 11:10> Vital Signs - 24 hr 05/23/22 12:20 05/23/22 14:00 05/23/22 15:12 Temperature 98.2 F 98.8 F Pulse Rate 98 87 81 Respiratory Rate 20 16 23 H Blood Pressure 111/46 L 108/58 L 103/59 L Pulse Oximetry 95 96 93 Oxygen Delivery Method Room Air Room Air Room Air Oxygen Flow Rate 05/23/22 15:28 05/23/22 15:47 05/23/22 17:23 Temperature 98.6 F 98.7 F Pulse Rate 90 80 81 Respiratory Rate 30 H 36 H 30 H Blood Pressure 103/59 L 105/56 L 104/59 L Pulse Oximetry Oxygen Delivery Method Oxygen Flow Rate 05/23/22 18:04 05/23/22 18:38 05/23/22 18:50 Temperature 99.2 F 98.6 F Pulse Rate 79 90 91 Respiratory Rate 30 H 35 H 33 H Blood Pressure 156/84 H 139/75 123/60 Pulse Oximetry 100 Oxygen Delivery Method Non-Rebreather Mask Oxygen Flow Rate 15 05/23/22 18:51 Temperature 98.6 F Pulse Rate 91 Respiratory Rate 33 H Blood Pressure 123/60 Pulse Oximetry 97 Oxygen Delivery Method Oxymask Oxygen Flow Rate 7 BMI result Body Mass Index 33.8 <Mame Mercedes MD - Last Filed: 05/23/22 20:05> Const Other: Appearance: Alert. Oriented X3. No acute distress. Eyes: Pupils equal, round and reactive to light. ENT: Pharynx normal. Neck: Normal inspection. Neck supple. No lymph nodes noted. No crepitus CVS: Normal heart rate and rhythm. Pulses normal. Normal S1 and S2 Respiratory: No respiratory distress. Breath sounds normal. No Wheezing. No ral es Abdomen: Soft , no rigidity, no distention, no acute abdomen, mild discomfort to palpation in all 4 quadrants Skin: Skin warm and dry. pale Extremities: No lower extremity edema. No Lacerations. No Rash Neuro: Oriented X 3. No motor deficit. No sensory deficit. Moving all extremities. No slurred speech. CN 2 through 12 grossly intact Psych: calm, cooperative, normal affect <Mame Mercedes MD - Last Filed: 05/23/22 20:05> Course Course Course Narrative: This is a rapid medical exam. Defer additional HPI, ROS, PE to primary provider. 71 yo female with a history of hypothyroidism, asthma here with complaints of 2 weeks of upper abdominal pain, FAGAN/chest tightness with exertion. +nausea. No vomiting, diarrhea, fever, cough, leg swelling or pain. Will obtain labs, UA, COVID, EKG. VSS <Blanca Patton NP - Last Filed: 05/30/22 11:10> Medical Decision Making Medical Decision Making MDM Narrative: -I discussed with the patient and her ENGINEERING INTERN the risks versus benefits of a blood transfusion. Patient agreeable. -blood transfusion was started. As we started getting labs back, since the patient has mild CHF exacerbation. This is new to the patient. Patient will be given Lasix in between blood transfusions. -17:45, I was informed by the patient's nurse that the patient oxygen saturation dropped to the high 70s after the patient returned from CT scan and laying flat. Patient was put on a non-rebreather, oxygen improved to 100%, patient breathing comfortably. The desaturation likely secondary to pulmonary edema worsened by lying flat for the CT scan. Results pending -it is unclear why patient is having abdominal pain. -My interpretation of the CT scan of the chest and abdomen, patient has a large calcified uterine myoma, CT scan of the chest shows pulmonary edema. -patient was weaned off to an OxyMask, patient's saturation 97%, starting to feel better with the blood transfusion. -I discussed the patient with Dr. Morris, patient being admitted <Mame Mercedes MD - Last Filed: 05/23/22 20:05> Differential Diagnosis Differential Diagnoses: The differential diagnosis associated with the presentation includes (Internal hemorrhoids, GI bleed, iron deficiency anemia) <Mame Mercedes MD - Last Filed: 05/23/22 20:05> Admission/Observation Consideration of admission/observation: Escalation of care including admission/observation considered <Mame Mercedes MD - Last Filed: 05/23/22 20:05> Lab Data MDM Lab Attestation statement: I reviewed the patient's lab results. <Mame Mercedes MD - Last Filed: 05/23/22 20:05> Result Diagrams: 05/23/22 12:57 05/23/22 12:57 <Blanca Patton NP - Last Filed: 05/30/22 11:10> Labs: Lab Results 05/23/22 05/23/22 05/23/22 Range/Units 12:57 12:57 12:57 WBC 7.1 (4.8-10.8) X10*3/uL RBC 2.92 L (4.20-5.50) X10*6/uL Hgb 5.1 L* (12.0-16.0) g/dl Hct 18.7 L* (37.0-47.0) % MCV 64.0 L (80.0-98.0) fL MCH 17.5 L (27.0-33.0) pg MCHC 27.3 L (31.0-35.0) g/dl RDW 18.7 H (11.0-16.0) % Plt Count 405 H (160-400) X10*3/uL MPV 9.9 (9.4-12.3) fL Immature Gran % (Auto) 1.6 H (0.0-0.4) % Neut % (Auto) 79.2 H (45-73) % Lymph % (Auto) 8.1 L (20-40) % [place] % (Auto) 7.6 (2-11) % Eos % (Auto) 2.8 (0-4) % Baso % (Auto) 0.7 (0-2) % Lymph # (Auto) 0.6 L (1.2-4.9) X10*3/uL [place] # (Auto) 0.5 (0.1-1.2) X10*3/uL Eos # (Auto) 0.2 (0.0-0.4) X10*3/uL Baso # (Auto) 0.1 (0.0-0.2) X10*3/uL Abs Immat Gran (auto) 0.11 H (0.00-0.03) X10*3/uL Absolute Neuts (auto) 5.6 (2.0-8.3) x10*3/uL Absolute Nucleated RBC 0.040 H (0.0-0.012) X10*3/uL Nucleated RBC % (auto) 0.6 H (0.0-0.2) /100WBC Smear Path Review SEE NOTE PT (10.0-13.1) SEC INR (0.9-1.1) Sodium 136 (135-145) mmol/L Potassium 3.4 (3.3-5.1) mmol/L Chloride 103 (96-108) mmol/L Carbon Dioxide 25 (22-29) mmol/L Anion Gap 11 L (12-20) BUN 15 (9-16) mg/dL Creatinine 0.74 (0.5-1.4) mg/dL Estim Creat Clear Calc 68.0 Estimated GFR > 60 Random Glucose 207 H (60-115) mg/dL Calcium 8.7 D (8.4-10.2) mg/dL Iron 10 L (30-160) mcg/dL TIBC 358 (228-428) mcg/dL % Saturation 3 L (15-50) % Unsat Iron Binding 348 ug/dL Ferritin 7 L (10-250) ng/mL Total Bilirubin 0.6 (0.0-1.0) mg/dL Direct Bilirubin 0.2 (0.0-0.5) mg/dL AST 16 (5-31) U/L ALT 9 (0-31) U/L Alkaline Phosphatase 93 (39-117) U/L Troponin I High Sens (<3.5-17.0) ng/L B-Natriuretic Peptide (<100) pg/mL Total Protein 6.9 (6.5-8.0) g/dL Albumin 3.7 (3.5-5.0) g/dL Lipase 22 (8-78) U/L Urine Color Urine Appearance Urine pH (5.0-9.0) Ur Specific [place] (1.005-1.025) Urine Protein (Neg-Trace) mg/dL Urine Glucose (UA) (Negative) mg/dL Urine Ketones (Negative) mg/dL Urine Blood (Negative) Urine Nitrite (Negative) Ur Leukocyte Esterase (Negative) Urine RBC (0-2) /HPF Urine WBC (0-5) /HPF Ur Squamous Epith Cells (0-2) /HPF Urine Bacteria (None Seen) Hyaline Casts (0-2) /LPF Stool Occult Blood (NEGATIVE) COVID-19 ([facility]) Negative (Negative) COVID-19 Clin Com See Note Blood Type Antibody Screen Crossmatch 05/23/22 05/23/22 05/23/22 Range/Units 12:57 12:57 12:57 WBC (4.8-10.8) X10*3/uL RBC (4.20-5.50) X10*6/uL Hgb (12.0-16.0) g/dl Hct (37.0-47.0) % MCV (80.0-98.0) fL MCH (27.0-33.0) pg MCHC (31.0-35.0) g/dl RDW (11.0-16.0) % Plt Count (160-400) X10*3/uL MPV (9.4-12.3) fL Immature Gran % (Auto) (0.0-0.4) % Neut % (Auto) (45-73) % Lymph % (Auto) (20-40) % [place] % (Auto) (2-11) % Eos % (Auto) (0-4) % Baso % (Auto) (0-2) % Lymph # (Auto) (1.2-4.9) X10*3/uL [place] # (Auto) (0.1-1.2) X10*3/uL Eos # (Auto) (0.0-0.4) X10*3/uL Baso # (Auto) (0.0-0.2) X10*3/uL Abs Immat Gran (auto) (0.00-0.03) X10*3/uL Absolute Neuts (auto) (2.0-8.3) x10*3/uL Absolute Nucleated RBC (0.0-0.012) X10*3/uL Nucleated RBC % (auto) (0.0-0.2) /100WBC Smear Path Review PT 13.0 (10.0-13.1) SEC INR 1.1 (0.9-1.1) Sodium (135-145) mmol/L Potassium (3.3-5.1) mmol/L Chloride (96-108) mmol/L Carbon Dioxide (22-29) mmol/L Anion Gap (12-20) BUN (9-16) mg/dL Creatinine (0.5-1.4) mg/dL Estim Creat Clear Calc Estimated GFR Random Glucose (60-115) mg/dL Calcium (8.4-10.2) mg/dL Iron (30-160) mcg/dL TIBC (228-428) mcg/dL % Saturation (15-50) % Unsat Iron Binding ug/dL Ferritin (10-250) ng/mL Total Bilirubin (0.0-1.0) mg/dL Direct Bilirubin (0.0-0.5) mg/dL AST (5-31) U/L ALT (0-31) U/L Alkaline Phosphatase (39-117) U/L Troponin I High Sens < 2.7 (<3.5-17.0) ng/L B-Natriuretic Peptide 113 H (<100) pg/mL Total Protein (6.5-8.0) g/dL Albumin (3.5-5.0) g/dL Lipase (8-78) U/L Urine Color Urine Appearance Urine pH (5.0-9.0) Ur Specific [place] (1.005-1.025) Urine Protein (Neg-Trace) mg/dL Urine Glucose (UA) (Negative) mg/dL Urine Ketones (Negative) mg/dL Urine Blood (Negative) Urine Nitrite (Negative) Ur Leukocyte Esterase (Negative) Urine RBC (0-2) /HPF Urine WBC (0-5) /HPF Ur Squamous Epith Cells (0-2) /HPF Urine Bacteria (None Seen) Hyaline Casts (0-2) /LPF Stool Occult Blood (NEGATIVE) COVID-19 ([facility]) (Negative) COVID-19 Clin Com Blood Type Antibody Screen Crossmatch 05/23/22 05/23/22 05/23/22 Range/Units 14:11 14:11 14:15 WBC 8.3 (4.8-10.8) X10*3/uL RBC 3.03 L (4.20-5.50) X10*6/uL Hgb 5.2 L* (12.0-16.0) g/dl Hct 19.4 L* (37.0-47.0) % MCV 64.0 L (80.0-98.0) fL MCH 17.2 L (27.0-33.0) pg MCHC 26.8 L (31.0-35.0) g/dl RDW 18.9 H (11.0-16.0) % Plt Count 435 H (160-400) X10*3/uL MPV 9.6 (9.4-12.3) fL Immature Gran % (Auto) 1.5 H (0.0-0.4) % Neut % (Auto) 74.1 H (45-73) % Lymph % (Auto) 11.7 L (20-40) % [place] % (Auto) 8.8 (2-11) % Eos % (Auto) 3.1 (0-4) % Baso % (Auto) 0.8 (0-2) % Lymph # (Auto) 1.0 L (1.2-4.9) X10*3/uL [place] # (Auto) 0.7 (0.1-1.2) X10*3/uL Eos # (Auto) 0.3 (0.0-0.4) X10*3/uL Baso # (Auto) 0.1 (0.0-0.2) X10*3/uL Abs Immat Gran (auto) 0.12 H (0.00-0.03) X10*3/uL Absolute Neuts (auto) 6.1 (2.0-8.3) x10*3/uL Absolute Nucleated RBC 0.040 H (0.0-0.012) X10*3/uL Nucleated RBC % (auto) 0.5 H (0.0-0.2) /100WBC Smear Path Review PT (10.0-13.1) SEC INR (0.9-1.1) Sodium (135-145) mmol/L Potassium (3.3-5.1) mmol/L Chloride (96-108) mmol/L Carbon Dioxide (22-29) mmol/L Anion Gap (12-20) BUN (9-16) mg/dL Creatinine (0.5-1.4) mg/dL Estim Creat Clear Calc Estimated GFR Random Glucose (60-115) mg/dL Calcium (8.4-10.2) mg/dL Iron (30-160) mcg/dL TIBC (228-428) mcg/dL % Saturation (15-50) % Unsat Iron Binding ug/dL Ferritin (10-250) ng/mL Total Bilirubin (0.0-1.0) mg/dL Direct Bilirubin (0.0-0.5) mg/dL AST (5-31) U/L ALT (0-31) U/L Alkaline Phosphatase (39-117) U/L Troponin I High Sens (<3.5-17.0) ng/L B-Natriuretic Peptide (<100) pg/mL Total Protein (6.5-8.0) g/dL Albumin (3.5-5.0) g/dL Lipase (8-78) U/L Urine Color Yellow Urine Appearance Cloudy Urine pH 5.5 (5.0-9.0) Ur Specific [place] >= 1.030 H (1.005-1.025) Urine Protein 30 (1+) H (Neg-Trace) mg/dL Urine Glucose (UA) 500 H (Negative) mg/dL Urine Ketones Trace (Negative) mg/dL Urine Blood Negative (Negative) Urine Nitrite Negative (Negative) Ur Leukocyte Esterase Small (1+) H (Negative) Urine RBC 0-2 (0-2) /HPF Urine WBC 0-5 (0-5) /HPF Ur Squamous Epith Cells 3-5 (0-2) /HPF Urine Bacteria Trace (None Seen) Hyaline Casts 0-2 (0-2) /LPF Stool Occult Blood (NEGATIVE) COVID-19 ([facility]) (Negative) COVID-19 Clin Com Blood Type O Positive Antibody Screen NEGATIVE Crossmatch See Detail 05/23/22 Range/Units 14:30 WBC (4.8-10.8) X10*3/uL RBC (4.20-5.50) X10*6/uL Hgb (12.0-16.0) g/dl Hct (37.0-47.0) % MCV (80.0-98.0) fL MCH (27.0-33.0) pg MCHC (31.0-35.0) g/dl RDW (11.0-16.0) % Plt Count (160-400) X10*3/uL MPV (9.4-12.3) fL Immature Gran % (Auto) (0.0-0.4) % Neut % (Auto) (45-73) % Lymph % (Auto) (20-40) % [place] % (Auto) (2-11) % Eos % (Auto) (0-4) % Baso % (Auto) (0-2) % Lymph # (Auto) (1.2-4.9) X10*3/uL [place] # (Auto) (0.1-1.2) X10*3/uL Eos # (Auto) (0.0-0.4) X10*3/uL Baso # (Auto) (0.0-0.2) X10*3/uL Abs Immat Gran (auto) (0.00-0.03) X10*3/uL Absolute Neuts (auto) (2.0-8.3) x10*3/uL Absolute Nucleated RBC (0.0-0.012) X10*3/uL Nucleated RBC % (auto) (0.0-0.2) /100WBC Smear Path Review PT (10.0-13.1) SEC INR (0.9-1.1) Sodium (135-145) mmol/L Potassium (3.3-5.1) mmol/L Chloride (96-108) mmol/L Carbon Dioxide (22-29) mmol/L Anion Gap (12-20) BUN (9-16) mg/dL Creatinine (0.5-1.4) mg/dL Estim Creat Clear Calc Estimated GFR Random Glucose (60-115) mg/dL Calcium (8.4-10.2) mg/dL Iron (30-160) mcg/dL TIBC (228-428) mcg/dL % Saturation (15-50) % Unsat Iron Binding ug/dL Ferritin (10-250) ng/mL Total Bilirubin (0.0-1.0) mg/dL Direct Bilirubin (0.0-0.5) mg/dL AST (5-31) U/L ALT (0-31) U/L Alkaline Phosphatase (39-117) U/L Troponin I High Sens (<3.5-17.0) ng/L B-Natriuretic Peptide (<100) pg/mL Total Protein (6.5-8.0) g/dL Albumin (3.5-5.0) g/dL Lipase (8-78) U/L Urine Color Urine Appearance Urine pH (5.0-9.0) Ur Specific [place] (1.005-1.025) Urine Protein (Neg-Trace) mg/dL Urine Glucose (UA) (Negative) mg/dL Urine Ketones (Negative) mg/dL Urine Blood (Negative) Urine Nitrite (Negative) Ur Leukocyte Esterase (Negative) Urine RBC (0-2) /HPF Urine WBC (0-5) /HPF Ur Squamous Epith Cells (0-2) /HPF Urine Bacteria (None Seen) Hyaline Casts (0-2) /LPF Stool Occult Blood NEGATIVE (NEGATIVE) COVID-19 ([facility]) (Negative) COVID-19 Clin Com Blood Type Antibody Screen Crossmatch <Blanca Patton NP - Last Filed: 05/30/22 11:10> Lab Results 05/23/22 05/23/22 05/23/22 Range/Units 12:57 12:57 12:57 WBC 7.1 (4.8-10.8) X10*3/uL RBC 2.92 L (4.20-5.50) X10*6/uL Hgb 5.1 L* (12.0-16.0) g/dl Hct 18.7 L* (37.0-47.0) % MCV 64.0 L (80.0-98.0) fL MCH 17.5 L (27.0-33.0) pg MCHC 27.3 L (31.0-35.0) g/dl RDW 18.7 H (11.0-16.0) % Plt Count 405 H (160-400) X10*3/uL MPV 9.9 (9.4-12.3) fL Immature Gran % (Auto) 1.6 H (0.0-0.4) % Neut % (Auto) 79.2 H (45-73) % Lymph % (Auto) 8.1 L (20-40) % [place] % (Auto) 7.6 (2-11) % Eos % (Auto) 2.8 (0-4) % Baso % (Auto) 0.7 (0-2) % Lymph # (Auto) 0.6 L (1.2-4.9) X10*3/uL [place] # (Auto) 0.5 (0.1-1.2) X10*3/uL Eos # (Auto) 0.2 (0.0-0.4) X10*3/uL Baso # (Auto) 0.1 (0.0-0.2) X10*3/uL Abs Immat Gran (auto) 0.11 H (0.00-0.03) X10*3/uL Absolute Neuts (auto) 5.6 (2.0-8.3) x10*3/uL Absolute Nucleated RBC 0.040 H (0.0-0.012) X10*3/uL Nucleated RBC % (auto) 0.6 H (0.0-0.2) /100WBC Smear Path Review SEE NOTE PT (10.0-13.1) SEC INR (0.9-1.1) Sodium 136 (135-145) mmol/L Potassium 3.4 (3.3-5.1) mmol/L Chloride 103 (96-108) mmol/L Carbon Dioxide 25 (22-29) mmol/L Anion Gap 11 L (12-20) BUN 15 (9-16) mg/dL Creatinine 0.74 (0.5-1.4) mg/dL Estim Creat Clear Calc 68.0 Estimated GFR > 60 Random Glucose 207 H (60-115) mg/dL Calcium 8.7 D (8.4-10.2) mg/dL Iron 10 L (30-160) mcg/dL TIBC 358 (228-428) mcg/dL % Saturation 3 L (15-50) % Unsat Iron Binding 348 ug/dL Ferritin 7 L (10-250) ng/mL Total Bilirubin 0.6 (0.0-1.0) mg/dL Direct Bilirubin 0.2 (0.0-0.5) mg/dL AST 16 (5-31) U/L ALT 9 (0-31) U/L Alkaline Phosphatase 93 (39-117) U/L Troponin I High Sens (<3.5-17.0) ng/L B-Natriuretic Peptide (<100) pg/mL Total Protein 6.9 (6.5-8.0) g/dL Albumin 3.7 (3.5-5.0) g/dL Lipase 22 (8-78) U/L Urine Color Urine Appearance Urine pH (5.0-9.0) Ur Specific [place] (1.005-1.025) Urine Protein (Neg-Trace) mg/dL Urine Glucose (UA) (Negative) mg/dL Urine Ketones (Negative) mg/dL Urine Blood (Negative) Urine Nitrite (Negative) Ur Leukocyte Esterase (Negative) Urine RBC (0-2) /HPF Urine WBC (0-5) /HPF Ur Squamous Epith Cells (0-2) /HPF Urine Bacteria (None Seen) Hyaline Casts (0-2) /LPF Stool Occult Blood (NEGATIVE) COVID-19 ([facility]) Negative (Negative) COVID-19 Clin Com See Note Blood Type Antibody Screen Crossmatch 05/23/22 05/23/22 05/23/22 Range/Units 12:57 12:57 12:57 WBC (4.8-10.8) X10*3/uL RBC (4.20-5.50) X10*6/uL Hgb (12.0-16.0) g/dl Hct (37.0-47.0) % MCV (80.0-98.0) fL MCH (27.0-33.0) pg MCHC (31.0-35.0) g/dl RDW (11.0-16.0) % Plt Count (160-400) X10*3/uL MPV (9.4-12.3) fL Immature Gran % (Auto) (0.0-0.4) % Neut % (Auto) (45-73) % Lymph % (Auto) (20-40) % [place] % (Auto) (2-11) % Eos % (Auto) (0-4) % Baso % (Auto) (0-2) % Lymph # (Auto) (1.2-4.9) X10*3/uL [place] # (Auto) (0.1-1.2) X10*3/uL Eos # (Auto) (0.0-0.4) X10*3/uL Baso # (Auto) (0.0-0.2) X10*3/uL Abs Immat Gran (auto) (0.00-0.03) X10*3/uL Absolute Neuts (auto) (2.0-8.3) x10*3/uL Absolute Nucleated RBC (0.0-0.012) X10*3/uL Nucleated RBC % (auto) (0.0-0.2) /100WBC Smear Path Review PT 13.0 (10.0-13.1) SEC INR 1.1 (0.9-1.1) Sodium (135-145) mmol/L Potassium (3.3-5.1) mmol/L Chloride (96-108) mmol/L Carbon Dioxide (22-29) mmol/L Anion Gap (12-20) BUN (9-16) mg/dL Creatinine (0.5-1.4) mg/dL Estim Creat Clear Calc Estimated GFR Random Glucose (60-115) mg/dL Calcium (8.4-10.2) mg/dL Iron (30-160) mcg/dL TIBC (228-428) mcg/dL % Saturation (15-50) % Unsat Iron Binding ug/dL Ferritin (10-250) ng/mL Total Bilirubin (0.0-1.0) mg/dL Direct Bilirubin (0.0-0.5) mg/dL AST (5-31) U/L ALT (0-31) U/L Alkaline Phosphatase (39-117) U/L Troponin I High Sens < 2.7 (<3.5-17.0) ng/L B-Natriuretic Peptide 113 H (<100) pg/mL Total Protein (6.5-8.0) g/dL Albumin (3.5-5.0) g/dL Lipase (8-78) U/L Urine Color Urine Appearance Urine pH (5.0-9.0) Ur Specific [place] (1.005-1.025) Urine Protein (Neg-Trace) mg/dL Urine Glucose (UA) (Negative) mg/dL Urine Ketones (Negative) mg/dL Urine Blood (Negative) Urine Nitrite (Negative) Ur Leukocyte Esterase (Negative) Urine RBC (0-2) /HPF Urine WBC (0-5) /HPF Ur Squamous Epith Cells (0-2) /HPF Urine Bacteria (None Seen) Hyaline Casts (0-2) /LPF Stool Occult Blood (NEGATIVE) COVID-19 (YASMEEN) (Negative) COVID-19 Clin Com Blood Type Antibody Screen Crossmatch 05/23/22 05/23/22 05/23/22 Range/Units 14:11 14:11 14:15 WBC 8.3 (4.8-10.8) X10*3/uL RBC 3.03 L (4.20-5.50) X10*6/uL Hgb 5.2 L* (12.0-16.0) g/dl Hct 19.4 L* (37.0-47.0) % MCV 64.0 L (80.0-98.0) fL MCH 17.2 L (27.0-33.0) pg MCHC 26.8 L (31.0-35.0) g/dl RDW 18.9 H (11.0-16.0) % Plt Count 435 H (160-400) X10*3/uL MPV 9.6 (9.4-12.3) fL Immature Gran % (Auto) 1.5 H (0.0-0.4) % Neut % (Auto) 74.1 H (45-73) % Lymph % (Auto) 11.7 L (20-40) % [place] % (Auto) 8.8 (2-11) % Eos % (Auto) 3.1 (0-4) % Baso % (Auto) 0.8 (0-2) % Lymph # (Auto) 1.0 L (1.2-4.9) X10*3/uL [place] # (Auto) 0.7 (0.1-1.2) X10*3/uL Eos # (Auto) 0.3 (0.0-0.4) X10*3/uL Baso # (Auto) 0.1 (0.0-0.2) X10*3/uL Abs Immat Gran (auto) 0.12 H (0.00-0.03) X10*3/uL Absolute Neuts (auto) 6.1 (2.0-8.3) x10*3/uL Absolute Nucleated RBC 0.040 H (0.0-0.012) X10*3/uL Nucleated RBC % (auto) 0.5 H (0.0-0.2) /100WBC Smear Path Review PT (10.0-13.1) SEC INR (0.9-1.1) Sodium (135-145) mmol/L Potassium (3.3-5.1) mmol/L Chloride (96-108) mmol/L Carbon Dioxide (22-29) mmol/L Anion Gap (12-20) BUN (9-16) mg/dL Creatinine (0.5-1.4) mg/dL Estim Creat Clear Calc Estimated GFR Random Glucose (60-115) mg/dL Calcium (8.4-10.2) mg/dL Iron (30-160) mcg/dL TIBC (228-428) mcg/dL % Saturation (15-50) % Unsat Iron Binding ug/dL Ferritin (10-250) ng/mL Total Bilirubin (0.0-1.0) mg/dL Direct Bilirubin (0.0-0.5) mg/dL AST (5-31) U/L ALT (0-31) U/L Alkaline Phosphatase (39-117) U/L Troponin I High Sens (<3.5-17.0) ng/L B-Natriuretic Peptide (<100) pg/mL Total Protein (6.5-8.0) g/dL Albumin (3.5-5.0) g/dL Lipase (8-78) U/L Urine Color Yellow Urine Appearance Cloudy Urine pH 5.5 (5.0-9.0) Ur Specific [place] >= 1.030 H (1.005-1.025) Urine Protein 30 (1+) H (Neg-Trace) mg/dL Urine Glucose (UA) 500 H (Negative) mg/dL Urine Ketones Trace (Negative) mg/dL Urine Blood Negative (Negative) Urine Nitrite Negative (Negative) Ur Leukocyte Esterase Small (1+) H (Negative) Urine RBC 0-2 (0-2) /HPF Urine WBC 0-5 (0-5) /HPF Ur Squamous Epith Cells 3-5 (0-2) /HPF Urine Bacteria Trace (None Seen) Hyaline Casts 0-2 (0-2) /LPF Stool Occult Blood (NEGATIVE) COVID-19 ([facility]) (Negative) COVID-19 Clin Com Blood Type O Positive Antibody Screen NEGATIVE Crossmatch See Detail 05/23/22 Range/Units 14:30 WBC (4.8-10.8) X10*3/uL RBC (4.20-5.50) X10*6/uL Hgb (12.0-16.0) g/dl Hct (37.0-47.0) % MCV (80.0-98.0) fL MCH (27.0-33.0) pg MCHC (31.0-35.0) g/dl RDW (11.0-16.0) % Plt Count (160-400) X10*3/uL MPV (9.4-12.3) fL Immature Gran % (Auto) (0.0-0.4) % Neut % (Auto) (45-73) % Lymph % (Auto) (20-40) % [place] % (Auto) (2-11) % Eos % (Auto) (0-4) % Baso % (Auto) (0-2) % Lymph # (Auto) (1.2-4.9) X10*3/uL [place] # (Auto) (0.1-1.2) X10*3/uL Eos # (Auto) (0.0-0.4) X10*3/uL Baso # (Auto) (0.0-0.2) X10*3/uL Abs Immat Gran (auto) (0.00-0.03) X10*3/uL Absolute Neuts (auto) (2.0-8.3) x10*3/uL Absolute Nucleated RBC (0.0-0.012) X10*3/uL Nucleated RBC % (auto) (0.0-0.2) /100WBC Smear Path Review PT (10.0-13.1) SEC INR (0.9-1.1) Sodium (135-145) mmol/L Potassium (3.3-5.1) mmol/L Chloride (96-108) mmol/L Carbon Dioxide (22-29) mmol/L Anion Gap (12-20) BUN (9-16) mg/dL Creatinine (0.5-1.4) mg/dL Estim Creat Clear Calc Estimated GFR Random Glucose (60-115) mg/dL Calcium (8.4-10.2) mg/dL Iron (30-160) mcg/dL TIBC (228-428) mcg/dL % Saturation (15-50) % Unsat Iron Binding ug/dL Ferritin (10-250) ng/mL Total Bilirubin (0.0-1.0) mg/dL Direct Bilirubin (0.0-0.5) mg/dL AST (5-31) U/L ALT (0-31) U/L Alkaline Phosphatase (39-117) U/L Troponin I High Sens (<3.5-17.0) ng/L B-Natriuretic Peptide (<100) pg/mL Total Protein (6.5-8.0) g/dL Albumin (3.5-5.0) g/dL Lipase (8-78) U/L Urine Color Urine Appearance Urine pH (5.0-9.0) Ur Specific [place] (1.005-1.025) Urine Protein (Neg-Trace) mg/dL Urine Glucose (UA) (Negative) mg/dL Urine Ketones (Negative) mg/dL Urine Blood (Negative) Urine Nitrite (Negative) Ur Leukocyte Esterase (Negative) Urine RBC (0-2) /HPF Urine WBC (0-5) /HPF Ur Squamous Epith Cells (0-2) /HPF Urine Bacteria (None Seen) Hyaline Casts (0-2) /LPF Stool Occult Blood NEGATIVE (NEGATIVE) COVID-19 ([facility]) (Negative) COVID-19 Clin Com Blood Type Antibody Screen Crossmatch <Mame Mercedes MD - Last Filed: 05/23/22 20:05> Radiology Impression Discussion of test interpretation with radiology: I have reviewed the radiologist's reading. <Mame Mercedes MD - Last Filed: 05/23/22 20:05> Radiologist Impression: CHEST - LUNGS AND PLEURA:? Trachea and central airways widely patent and normal in caliber. Mild thickening of the peribronchial interstitium and smooth thickening of interlobular septa in both lungs. Findings are consistent with mild interstitial edema. Small bilateral pleural effusions are present. Mild atelectasis in dependent aspect of each lower lobe as well as within lingula and right middle lobe adjacent to distal major fissure. No overt consolidation. No pneumothorax. There is no suspicious lung nodule or mass. MEDIASTINUM/LOWER NECK: Cardiac chambers are in the normal size range. No pericardial effusion. Pulmonary arteries are unremarkable. Mild atherosclerotic calcification of the thoracic aorta without aneurysm or dissection. LYMPHATICS: Borderline enlarged lower right paratracheal and right hilar lymph nodes are 1 cm short axis dimension. Note that mildly enlarged lymph nodes can be observed in patients with congestive failure. CHEST WALL/BONES OF THORAX: No chest wall mass or hematoma. No acute findings within the degenerated thoracic spine. Hemangioma of T7 vertebral body. Chronic mild concavity of the T9 superior endplate and chronic mild height loss of T11 vertebral body. No acute fractures. ABDOMEN AND PELVIS - HEPATOBILIARY: Liver has lobulated, nodular surface contour from cirrhosis. No focal liver lesion. Cholecystectomy. No dilated bile ducts. PANCREAS: No edema, mass or pancreatic ductal dilatation. SPLEEN: Normal. ADRENAL GLANDS: Normal. KIDNEYS AND URETERS: Kidneys are normal in size and attenuation. No nephrolithiasis, hydronephrosis or perinephric fluid collection. BOWEL AND PERITONEUM: No dilated bowel loops. Stomach is unremarkable. Diverticula of the sigmoid colon without evidence of diverticulitis. No pericolonic fat stranding, free fluid or free air. No evidence of contrast extravasation into the lumen of the gastrointestinal tract on the arterial or venous phase postcontrast images. ABDOMINAL WALL: Obese body habitus. No abdominal wall hernia or hematoma. VESSELS: Abdominal aorta is normal in size. The celiac artery, SMA, MERNA and renal arteries are widely patent. The common hepatic artery has origin from the SMA. Inferior vena cava is normal. No retroperitoneal hematoma. LYMPH NODES: No pathologic sized lymph nodes in the abdomen or pelvis. No inguinal lymphadenopathy. BLADDER AND PELVIC VISCERA: Urinary bladder has normal wall thickness. No bladder calculi or perivesical edema. Lobulated, calcified leiomyomatous uterus. No adnexal mass. No pelvic free fluid. OTHER MUSCULOSKELETAL: There is a hemangioma of the L3 vertebral body. Chronic mild height loss of L5 vertebral body. No acute fractures. Pelvic bones and proximal femurs are intact. CT/CT gi bleed abd pel wo/w IVcon IMPRESSION: *? Interstitial pulmonary edema and small pleural effusions. *? Cirrhotic liver without evidence of hepatocellular carcinoma. *? No evidence of an active gastrointestinal bleed, hemoperitoneum or retroperitoneal bleed. *? Diverticulosis of the sigmoid colon without diverticulitis. *? Large, lobulated calcified leiomyomatous uterus.? ? <Mame Mercedes MD - Last Filed: 05/23/22 20:05> Medications Administered Discontinued Medications Generic Name Dose Route Start Last Admin Trade Name Freq PRN Reason Stop Dose Admin Acetaminophen 650 mg 05/23/22 21:03 05/26/22 23:47 Acetaminophen 325 Mg Tablet PO 650 mg Q6H PRN Administration Pain, Mild (Pain Scale 1-3) Bisacodyl 10 mg 05/24/22 17:00 05/24/22 16:09 Bisacodyl 5 Mg Tablet.Dr SCOTT 05/24/22 17:01 10 mg ONCE ONE Administration Cyanocobalamin 1,000 mcg 05/24/22 09:00 05/27/22 10:04 Cyanocobalamin (Vitamin B-12) 1,000 Mcg Tablet PO 1,000 mcg DAILY BRIE Administration Enoxaparin Sodium 40 mg 05/23/22 22:00 05/23/22 21:34 Enoxaparin Sodium 40 Mg/0.4 Ml Syringe SUBCUT 40 mg Q24H BRIE Administration Furosemide 40 mg 05/23/22 17:57 05/23/22 18:04 Furosemide 40 Mg/4 Ml Vial IVPUSH 05/23/22 17:58 40 mg ONCE ONE Administration Protocol Furosemide 40 mg 05/24/22 09:00 05/25/22 07:44 Furosemide 40 Mg/4 Ml Vial IVPUSH 40 mg DAILY BRIE Administration Protocol Furosemide 40 mg 05/23/22 21:24 05/23/22 21:34 Furosemide 40 Mg/4 Ml Vial IVPUSH 05/23/22 21:25 40 mg STAT STA Administration Protocol Gabapentin 300 mg 05/24/22 21:00 05/26/22 22:17 Gabapentin 300 Mg Capsule PO 300 mg BEDTIME BRIE Administration Potassium Chloride 10 meq in 100 mls @ 100 mls/hr 05/24/22 10:45 05/24/22 14:16 Potassium Chloride/H20 IV 05/24/22 14:44 Not Given Q1H BRIE Potassium Chloride 10 meq in 100 mls @ 100 mls/hr 05/25/22 08:00 05/25/22 18 :27 Potassium Chloride/H20 IV 05/25/22 11:59 Infused Q1H BRIE Infusion Lactated Ringer's 1,000 mls @ 50 mls/hr 05/25/22 14:00 05/26/22 07:16 Lr IVCONT Infused .Q20H BRIE Infusion Iohexol 100 ml 05/23/22 17:56 05/23/22 17:56 Iohexol 350 Mg/Ml 100 Ml Infus..Btl IV 05/23/22 17:57 80 ml ONCE ONE Administration Levothyroxine Sodium 75 mcg 05/24/22 06:30 05/27/22 06:36 Levothyroxine Sodium 75 Mcg Tablet PO 75 mcg DAILY@0630 [facility] Administration Morphine Sulfate 1 mg 05/23/22 18:05 05/23/22 20:03 Morphine Sulfate 2 Mg/Ml Cartridge IVPUSH 05/23/22 18:06 1 mg ONCE ONE Administration Protocol Nystatin 1 appl 05/26/22 21:20 05/27/22 10:54 Nystatin Ointment 15 Gm Tube TOPICAL 1 appl BID [facility] Administration Protocol Omeprazole 40 mg 05/25/22 16:27 05/27/22 06:36 Omeprazole 40 Mg Capsule.Dr PO 40 mg DAILY@0630 [facility] Administration Ondansetron HCl 4 mg 05/23/22 21:03 05/24/22 11:01 Ondansetron Hcl 4 Mg/2 Ml Vial IVPUSH 4 mg Q8H PRN Administration Nausea and Vomiting Ondansetron HCl 4 mg 05/24/22 16:36 05/24/22 17:05 Ondansetron Hcl 4 Mg/2 Ml Vial IVPUSH 4 mg Q4H PRN Administration Nausea and Vomiting Pantoprazole Sodium 80 mg 05/23/22 14:33 05/23/22 15:25 Pantoprazole Sodium 40 Mg/10 Ml Vial IVPUSH 05/23/22 14:34 80 mg ONCE ONE Administration Pantoprazole Sodium 40 mg 05/24/22 06:30 05/25/22 06:28 Pantoprazole Sodium 40 Mg/10 Ml Vial IVPUSH 40 mg BID@0630,1630 BRIE Administration Polyethylene Glycol/Electrolytes 4,000 ml 05/24/22 17:00 05/24/22 16:08 Peg 3350/Na Sulf,Bicarb,Cl/Kcl 4,000 Ml Soln.Recon PO 05/24/22 17:01 4,000 ml ONCE ONE Administration Potassium Chloride 40 meq 05/25/22 18:25 05/25/22 18:40 Potassium Chloride Packet 20 Meq Packet PO 05/25/22 18:26 40 meq ONCE ONE Administration Potassium Chloride 40 meq 05/26/22 09:10 05/26/22 10:35 Potassium Chloride Er 20 Meq Tab.Er.Prt PO 05/26/22 09:11 40 meq ONCE ONE Administration Sodium Chloride 3 ml 05/24/22 00:00 05/27/22 10:05 0.9 % Sodium Chloride Flush 3 Ml Syringe IVFLUSH 3 ml QSHIFT BRIE Administration Trazodone HCl 50 mg 05/24/22 21:00 05/26/22 22:17 Trazodone Hcl 50 Mg Tablet PO 50 mg BEDTIME BRIE Administration <Blanca Patton NP - Last Filed: 05/30/22 11:10> Medications Administered Discontinued Medications Generic Name Dose Route Start Last Admin Trade Name Freq PRN Reason Stop Dose Admin Acetaminophen 650 mg 05/23/22 21:03 05/26/22 23:47 Acetaminophen 325 Mg Tablet PO 650 mg Q6H PRN Administration Pain, Mild (Pain Scale 1-3) Bisacodyl 10 mg 05/24/22 17:00 05/24/22 16:09 Bisacodyl 5 Mg Tablet.Dr PO 05/24/22 17:01 10 mg ONCE ONE Administration Cyanocobalamin 1,000 mcg 05/24/22 09:00 05/27/22 10:04 Cyanocobalamin (Vitamin B-12) 1,000 Mcg Tablet PO 1,000 mcg DAILY BRIE Administration Enoxaparin Sodium 40 mg 05/23/22 22:00 05/23/22 21:34 Enoxaparin Sodium 40 Mg/0.4 Ml Syringe SUBCUT 40 mg Q24H BRIE Administration Furosemide 40 mg 05/23/22 17:57 05/23/22 18:04 Furosemide 40 Mg/4 Ml Vial IVPUSH 05/23/22 17:58 40 mg ONCE ONE Administration Protocol Furosemide 40 mg 05/24/22 09:00 05/25/22 07:44 Furosemide 40 Mg/4 Ml Vial IVPUSH 40 mg DAILY BRIE Administration Protocol Furosemide 40 mg 05/23/22 21:24 05/23/22 21:34 Furosemide 40 Mg/4 Ml Vial IVPUSH 05/23/22 21:25 40 mg STAT STA Administration Protocol Gabapentin 300 mg 05/24/22 21:00 05/26/22 22:17 Gabapentin 300 Mg Capsule PO 300 mg BEDTIME BRIE Administration Potassium Chloride 10 meq in 100 mls @ 100 mls/hr 05/24/22 10:45 05/24/22 14:16 Potassium Chloride/H20 IV 05/24/22 14:44 Not Given Q1H BRIE Potassium Chloride 10 meq in 100 mls @ 100 mls/hr 05/25/22 08:00 05/25/22 18:27 Potassium Chloride/H20 IV 05/25/22 11:59 Infused Q1H BRIE Infusion Lactated Ringer's 1,000 mls @ 50 mls/hr 05/25/22 14:00 05/26/22 07:16 Lr IVCONT Infused .Q20H BRIE Infusion Iohexol 100 ml 05/23/22 17:56 05/23/22 17:56 Iohexol 350 Mg/Ml 100 Ml Infus..Btl IV 05/23/22 17:57 80 ml ONCE ONE Administration Levothyroxine Sodium 75 mcg 05/24/22 06:30 05/27/22 06:36 Levothyroxine Sodium 75 Mcg Tablet PO 75 mcg DAILY@0630 BRIE Administration Morphine Sulfate 1 mg 05/23/22 18:05 05/23/22 20:03 Morphine Sulfate 2 Mg/Ml Cartridge IVPUSH 05/23/22 18:06 1 mg ONCE ONE Administration Protocol Nystatin 1 appl 05/26/22 21:20 05/27/22 10:54 Nystatin Ointment 15 Gm Tube TOPICAL 1 appl BID BRIE Administration Protocol Omeprazole 40 mg 05/25/22 16:27 05/27/22 06:36 Omeprazole 40 Mg Capsule. PO 40 mg DAILY@0630 BRIE Administration Ondansetron HCl 4 mg 05/23/22 21:03 05/24/22 11:01 Ondansetron Hcl 4 Mg/2 Ml Vial IVPUSH 4 mg Q8H PRN Administration Nausea and Vomiting Ondansetron HCl 4 mg 05/24/22 16:36 05/24/22 17:05 Ondansetron Hcl 4 Mg/2 Ml Vial IVPUSH 4 mg Q4H PRN Administration Nausea and Vomiting Pantoprazole Sodium 80 mg 05/23/22 14:33 05/23/22 15:25 Pantoprazole Sodium 40 Mg/10 Ml Vial IVPUSH 05/23/22 14:34 80 mg ONCE ONE Administration Pantoprazole Sodium 40 mg 05/24/22 06:30 05/25/22 06:28 Pantoprazole Sodium 40 Mg/10 Ml Vial IVPUSH 40 mg BID@0630,1630 BRIE Administration Polyethylene Glycol/Electrolytes 4,000 ml 05/24/22 17:00 05/24/22 16:08 Peg 3350/Na Sulf,Bicarb,Cl/Kcl 4,000 Ml Soln.Recon PO 05/24/22 17:01 4,000 ml ONCE ONE Administration Potassium Chloride 40 meq 05/25/22 18:25 05/25/22 18:40 Potassium Chloride Packet 20 Meq Packet PO 05/25/22 18:26 40 meq ONCE ONE Administration Potassium Chloride 40 meq 05/26/22 09:10 05/26/22 10:35 Potassium Chloride Er 20 Meq Tab.Er.Prt PO 05/26/22 09:11 40 meq ONCE ONE Administration Sodium Chloride 3 ml 05/24/22 00:00 05/27/22 10:05 0.9 % Sodium Chloride Flush 3 Ml Syringe IVFLUSH 3 ml QSHIFT BRIE Administration Trazodone HCl 50 mg 05/24/22 21:00 05/26/22 22:17 Trazodone Hcl 50 Mg Tablet PO 50 mg BEDTIME BRIE Administration <Mame Mercedes MD - Last Filed: 05/23/22 20:05> Critical Care Time Critical Care Time Critical Care Time: Yes <Mame Mercedes MD - Last Filed: 05/23/22 20:05> Total Critical Care Time: 60 <Mame Mercedes MD - Last Filed: 05/23/22 20:05> Attestation: I have personally provided critical care time. Time includes review of lab data, radiology results, discussion with consultants, and monitoring for potential decompensation. Intervention performed as documented. <Mame Mercedes MD - Last Filed: 05/23/22 20:05> Discharge Plan Discharge Clinical Impression: Anemia, New onset of congestive heart failure, Chronic abdominal pain <Blanca Patton NP - Last Filed: 05/30/22 11:10> Patient Disposition: Admitted As Inpatient <Blanca Patton NP - Last Filed: 05/30/22 11:10> Interventions: Admission Worksheet (ED) Last Done: 05/24/22 01:40 <Blanca Patton NP - Last Filed: 05/30/22 11:10> Discharge Date/Time: 05/24/22 01:45 <Blanca Patton NP - Last Filed: 05/30/22 11:10>
--- NOTE | 2022-05-23 12:21 | ECG_ITS ---
Test Reason : epigastric pain Blood Pressure : / mmHG Vent. Rate : 084 BPM Atrial Rate : 084 BPM P-R Int : 124 ms QRS Dur : 068 ms QT Int : 394 ms P-R-T Axes : 029 000 027 degrees QTc Int : 465 ms Normal sinus rhythm Normal ECG When compared with ECG of 08-OCT-2019 18:15, No significant change was found Referred By: Blanca Patton Electronically Signed By:FELISHA SCHMIDT MD
[2022-05-23 13:11] LABS: MANUAL DIFF FLAG NO
[2022-05-23 13:20] LABS: INTERNATIONAL NORM RATIO 1.1 (0.9-1.1)
[2022-05-23 13:22] LABS: Basophils Absolute Auto 0.1 X10*3/uL (0.0-0.2); Basophils Percent Auto 0.7 % (0-2); Eosinophils Absolute Auto 0.2 X10*3/uL (0.0-0.4); Eosinophils Percent Auto 2.8 % (0-4); Imm Gran Abs Auto 0.11 X10*3/uL (0.00-0.03); Imm Gran Pct Auto 1.6 % (0.0-0.4); Lymphocytes Absolute Auto 0.6 X10*3/uL (1.2-4.9); Lymphocytes Percent Auto 8.1 % (20-40); Mean Corpuscular HGB Conc 27.3 g/dl (31.0-35.0); Mean Corpuscular Hemoglobin 17.5 pg (27.0-33.0); Mean Platelet Volume 9.9 fL (9.4-12.3); Monocytes Absolute Auto 0.5 X10*3/uL (0.1-1.2); Monocytes Percent Auto 7.6 % (2-11); NRBC Pct Auto 0.6 /100WBC (0.0-0.2); Neutrophils Absolute Auto 5.6 x10*3/uL (2.0-8.3); Neutrophils Percent Auto 79.2 % (45-73); Platelet Count 405 X10*3/uL (160-400); Red Blood Count 2.92 X10*6/uL (4.20-5.50); Red Cell Distribution Width 18.7 % (11.0-16.0); White Blood Count 7.1 X10*3/uL (4.8-10.8)
[2022-05-23 13:27] LABS: COVID-19 Test Negative (Negative); Hematocrit 18.7 % (37.0-47.0); Hemoglobin 5.1 g/dl (12.0-16.0); IDNOW Serial# BCCEAD1C
[2022-05-23 13:31] LABS: Alanine Aminotransferase 9 U/L (0-31); Albumin Level 3.7 g/dL (3.5-5.0); Alkaline Phosphatase 93 U/L (39-117); Anion Gap 11 (12-20); Aspartate Amino Transferase 16 U/L (5-31); Bilirubin Direct 0.2 mg/dL (0.0-0.5); Bilirubin Total 0.6 mg/dL (0.0-1.0); Blood Urea Nitrogen 15 mg/dL (9-16); Calcium 8.7 mg/dL (8.4-10.2); Carbon Dioxide 25 mmol/L (22-29); Chloride 103 mmol/L (96-108); Estimated Glomerular Filt Rate > 60; Glucose Random 207 mg/dL (60-115); Lipase 22 U/L (8-78); Potassium 3.4 mmol/L (3.3-5.1); Sodium 136 mmol/L (135-145); Total Protein 6.9 g/dL (6.5-8.0)
[2022-05-23 13:34] LABS: B Type Natriuretic Peptide 113 pg/mL (<100)
[2022-05-23 13:51] LABS: Troponin-I High Sensitivity < 2.7 ng/L (<3.5-17.0)
[2022-05-23 14:27] LABS: MANUAL DIFF FLAG NO
[2022-05-23 14:30] LABS: Basophils Absolute Auto 0.1 X10*3/uL (0.0-0.2); Basophils Percent Auto 0.8 % (0-2); Eosinophils Absolute Auto 0.3 X10*3/uL (0.0-0.4); Eosinophils Percent Auto 3.1 % (0-4); Imm Gran Abs Auto 0.12 X10*3/uL (0.00-0.03); Imm Gran Pct Auto 1.5 % (0.0-0.4); Lymphocytes Percent Auto 11.7 % (20-40); Mean Corpuscular HGB Conc 26.8 g/dl (31.0-35.0); Mean Corpuscular Hemoglobin 17.2 pg (27.0-33.0); Mean Platelet Volume 9.6 fL (9.4-12.3); Monocytes Absolute Auto 0.7 X10*3/uL (0.1-1.2); Monocytes Percent Auto 8.8 % (2-11); NRBC Pct Auto 0.5 /100WBC (0.0-0.2); Neutrophils Absolute Auto 6.1 x10*3/uL (2.0-8.3); Neutrophils Percent Auto 74.1 % (45-73); Platelet Count 435 X10*3/uL (160-400); Red Blood Count 3.03 X10*6/uL (4.20-5.50); Red Cell Distribution Width 18.9 % (11.0-16.0); White Blood Count 8.3 X10*3/uL (4.8-10.8)
[2022-05-23 14:35] LABS: Appearance Urine Cloudy; Color Urine Yellow; Glucose Urine UA 500 mg/dL (Negative); Hematocrit 19.4 % (37.0-47.0); Hemoglobin 5.2 g/dl (12.0-16.0); Leukocyte Esterase Urine Small (1+) (Negative); Nitrite Urine Negative (Negative); PH 5.5 (5.0-9.0); Specific Gravity - Urine >= 1.030 (1.005-1.025); UMIC TRIGGER UACC YES; Urine Blood Negative (Negative); Urine Ketones Trace mg/dL (Negative); Urine Protein 30 (1+) mg/dL (Neg-Trace)
[2022-05-23 14:45] LABS: OBS Int Ctl Valid YES; OBS1 NEGATIVE (NEGATIVE)
[2022-05-23 14:48] LABS: Bacteria Urine Trace (None Seen); Hyaline Casts Urine 0-2 /LPF (0-2); RBC Urine 0-2 /HPF (0-2); UACC Culture Trigger YES; WBC Urine 0-5 /HPF (0-5)
[2022-05-23] MEDS: Pantoprazole Sodium 40 MG/10 ML VIAL 80 MG IVPUSH (15:25)
--- NOTE | 2022-05-23 15:32 | PC.NURSE ---
Blood transfusion started on patient, patient is calm and cooperative, resting on stretcher no s/s of distress at this time.
[2022-05-23] MEDS: iohexoL 350 MG/ML 100 ML INFUS..BTL IV (17:56)
--- NOTE | 2022-05-23 17:59 | PC.NURSE ---
PT NOTED ON MONITOR TO HAVE SPO2 DESAT TO 78%. PT PLACED ON NON REBREATHER, SECOND IV PLACED. PROVIDER TO BEDSIDE.
[2022-05-23] MEDS: Furosemide 40 MG/4 ML VIAL IVPUSH ×2 (18:04→21:34)
--- NOTE | 2022-05-23 18:07 | PC.NURSE ---
Patient went to CT for scan upon returning to the room patient was stating that she was having trouble feeling her legs and that she was feeling short of breath. service desk technician hooked patient up to monitor and noted that her O2 was low and pulse was high. This nurse was brought into room and noted that the patient looked like she was struggling to take a breath; patient placed on O2 via non-rebreather, respiratory and provider called to room as well. On the non-rebreather patient sat came up to 100% and patient started to breather lower and more evenly. Attempted to transition patient to Oxymask at a lower rate and patients sat started to decrease again. Patient placed back on Non-rebreather at this time starting at 15L, was able to decrease it to 10L. Lung sounds are diminished.
--- NOTE | 2022-05-23 18:40 | PC.NURSE ---
Lasix given per MD order. Patient started on 2 unit of blood. Patient breathing without issue on non-rebreather.
--- NOTE | 2022-05-23 18:51 | PC.NURSE ---
Patient transitioned to oxymask at 7L. Patient is sating 97% at this time.
--- NOTE | 2022-05-23 19:12 | PHA.MEDREC ---
MED REC COMPLETE, NO ISSUES Pharmacy Consult ? Medication Reconciliation Pharmacy has completed the medication reconciliation.
[2022-05-23] MEDS: Morphine Sulfate 2 MG/ML CARTRIDGE 1 MG IVPUSH (20:03)
--- NOTE | 2022-05-23 20:08 | MHC.EDTECH ---
2000 rounding done ,vitals sign taken ,900 ml urine empty from pure wick .
--- NOTE | 2022-05-23 20:39 | PC.NURSE ---
2nd unit PRBC transfused. pt tolerated well. vss. no s/s of transfusion reaction. pt resting on stretcher at this time
--- NOTE | 2022-05-23 21:09 | P.HPHOSP_ITS ---
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 She states when symptoms began, she was also diagnosed with UTI which she was treated for but the symptoms persisted. There has also been dyspnea on exertion, orthopnea. She does report bright red blood per rectum over the last week as well as diffuse at times severe abdominal pain that has been ongoing for several months. She has noted an 8 lb unintentional weight loss over 2 months with decreased appetite and p.o. intake. She denies any fevers, chills, nausea, vomiting, melena, diarrhea, constipation, vaginal bleeding, palpitations, or chest pain. No known history CHF. No personal or family history of GI cancer. No etoh use, has never smoked cigarettes, or drug use. She did have a colonoscopy about 4 years ago which showed hemorrhoids, but no other abnormality. On arrival, pt tachypneic to 36 and developed hypoxia placed on OxyMask at 7 L maintaining oximetry 97%. She is afebrile and without and hemodynamically stable. There is no leukocytosis. On arrival, H/H 5.1/18.7% (last recorded H/H 12.2/38.1% in 08/2020), MCV 64.0. Iron studies pending. Renal function normal, electrolyte levels normal. Troponin below detectable limits. BNP 113. Stool occult blood negative. UA showing 1+ leukocytes, negative nitrites, negative urinary sediment, trace bacteria. EKG showing NSR, rate 84, no ST/T-wave abnormality. CXR showing probable mild CHF with small bilateral pleural effus ions. Subsequent chest CT showing interstitial pulmonary edema and small bilateral pleural effusions. CT abdomen/pelvis showing cirrhotic liver without evidence of hepatocellular carcinoma and no evidence of an active GI bleed, hemoperitoneum, or retroperitoneal bleed. There is a large lobulated calcified leiomyomatous uterus and diverticulosis without diverticulitis. In the ED, transfused 3 units packed red blood cells with 40 mg furosemide administered between units 1 into and 20 units furosemide administered between units 2-3. Also given 80 mg IV PPI and 1 mg morphine. Review of Systems Review of Systems: General: No fevers. +fatigue, +malaise, + unintentional weight loss HEENT: No blurred vision, diplopia. No sore throat, nasal congestion, rhinorrhea, sinus pain, ear pain Cardiovascular: No chest pain, palpitations, or leg edema Respiratory: + dyspnea on exertion, + orthopnea. No wheezing, cough GI: +abd pain, + hematochezia. No nausea, vomiting, diarrhea, constipation, melena, hematochezia : No dysuria, hematuria, increased urinary frequency, decreased urinary output MSK: No myalgia, back pain Neuro: No headaches, weakness, paresthesias Skin: No rashes or lesions [facility] Medical History Arthritis FH: breast cancer FH: cholecystectomy Hepatic cirrhosis Hypothyroid Family History Family/Other Breast cancer Maternal Grandfather Throat cancer Surgical History Hx of cholecystectomy Social History Alcohol intake: never Smoked in Last 30 Days: No Use of substances other than those prescribed or required for medical reasons: No Advance Directives: No Meds Allergies Allergy/AdvReac Type Severity Reaction Status Date / Time No Known Allergies Allergy Verified 04/19/22 19:28 [No Known Allergies*] Active Medications: Current Medications Pharmacy Consult (Consult Rx Perform Med Rec) 1 each MISCELLANE ONCE PRN PRN Reason: Consult order Home Medications Medication Instructions Recorded Confirmed Last Taken Type acetaminophen 500 mg tablet 500 mg PO Q8H PRN Mild Pain (Scale 05/23/22 05/23/22 Unknown History Score 1-4) albuterol sulfate 90 mcg/actuation 2 puff inhalation Q6H PRN Wheezing 05/23/22 05/23/22 Unknown History aerosol inhaler clotrimazole-betamethasone 1 1 appl topical BID 05/23/22 05/23/22 Unknown History %-0.05 % topical cream cyanocobalamin (vitamin B-12) 1,000 mcg PO DAILY 05/23/22 05/23/22 Unknown History 1,000 mcg tablet diclofenac sodium 1 % topical gel 2 g topical BID PRN Pain 05/23/22 05/23/22 Unknown History gabapentin 300 mg capsule 300 mg PO BEDTIME 05/23/22 05/23/22 Unknown History levothyroxine 75 mcg tablet 75 mcg PO DAILY 05/23/22 05/23/22 Unknown History omeprazole 20 mg capsule,delayed 20 mg PO DAILY 05/23/22 05/23/22 Unknown Hist ory release trazodone 50 mg tablet 50 mg PO BEDTIME 05/23/22 05/23/22 Unknown History Physical Exam Vital Signs and Narrative: Vital Signs: Last Vital Signs Temp 99.4 F 05/23/22 20:39 Pulse 82 05/23/22 20:39 Resp 23 H 05/23/22 20:39 BP 124/67 05/23/22 20:39 Pulse Ox 98 05/23/22 20:00 O2 Del Method Oxymask 05/23/22 20:00 O2 Flow Rate 7 05/23/22 20:00 BMI result Body Mass Index 33.8 Constitutional - Awake and Alert, No apparent distress Eyes - PERRLA, EOMI Cardiovascular - S1S2, RRR, 1+ edema BLE Respiratory - Normal lung expansion, Normal respiratory effort, No respiratory distress, diffuse crackles bilateral lower lobes Gastrointestinal - moderately distended and diffusely ttp without guarding or rebound. +BS. No fluid wave - No CVA tenderness Extremities - no calf tenderness bilaterally, no swelling Skin - Warm/Dry Neurological - Alert & oriented x3, CN II-XII in tact, 5/5 strength BUE and BLE Results Labs 05/23/22 14:11 05/23/22 12:57 Labs: Laboratory Results - last 24 hr 05/23/22 05/23/22 05/23/22 12:57 12:57 12:57 MCV 64.0 L MCH 17.5 L MCHC 27.3 L RDW 18.7 H Plt Count 405 H MPV 9.9 Immature Gran % (Auto) 1.6 H Neut % (Auto) 79.2 H Lymph % (Auto) 8.1 L Gos[place] % (Auto) 7.6 Eos % (Auto) 2.8 Baso % (Auto) 0.7 Lymph # (Auto) 0.6 L Gos[place] # (Auto) 0.5 Eos # (Auto) 0.2 Baso # (Auto) 0.1 Abs Immat Gran (auto) 0.11 H Absolute Neuts (auto) 5.6 Absolute Nucleated RBC 0.040 H Nucleated RBC % (auto) 0.6 H PT INR Anion Gap 11 L Estim Creat Clear Calc 68.0 Estimated GFR > 60 Random Glucose 207 H Calcium 8.7 D Total Bilirubin 0.6 Direct Bilirubin 0.2 AST 16 ALT 9 Alkaline Phosphatase 93 Troponin I High Sens B-Natriuretic Peptide Total Protein 6.9 Albumin 3.7 Lipase 22 Urine Color Urine Appearance Urine pH Ur Specific [place] Urine Protein Urine Glucose (UA) Urine Ketones Urine Blood Urine Nitrite Ur Leukocyte Esterase Urine RBC Urine WBC Ur Squamous Epith Cells Urine Bacteria Hyaline Casts Stool Occult Blood COVID-19 (YASMEEN) Negative COVID-19 [employer] See Note Blood Type Antibody Screen Crossmatch 05/23/22 05/23/22 05/23/22 12:57 12:57 12:57 MCV MCH MCHC RDW Plt Count MPV Immature Gran % (Auto) Neut % (Auto) Lymph % (Auto) Gos[place] % (Auto) Eos % (Auto) Baso % (Auto) Lymph # (Auto) Gos[place] # (Auto) Eos # (Auto) Baso # (Auto) Abs Immat Gran (auto) Absolute Neuts (auto) Absolute Nucleated RBC Nucleated RBC % (auto) PT 13.0 INR 1.1 Anion Gap Estim Creat Clear Calc Estimated GFR Random Glucose Calcium Total Bilirubin Direct Bilirubin AST ALT Alkaline Phosphatase Troponin I High Sens < 2.7 B-Natriuretic Peptide 113 H Total Protein Albumin Lipase Urine Color Urine Appearance Urine pH Ur Specific [place] Urine Protein Urine Glucose (UA) Urine Ketones Urine Blood Urine Nitrite Ur Leukocyte Esterase Urine RBC Urine WBC Ur Squamous Epith Cells Urine Bacteria Hyaline Casts Stool Occult Blood COVID-19 (YASMEEN) COVID-19 [employer] Blood Type Antibody Screen Crossmatch 05/23/22 05/23/22 05/23/22 14:11 14:11 14:15 MCV 64.0 L MCH 17.2 L MCHC 26.8 L RDW 18.9 H Plt Count 435 H MPV 9.6 Immature Gran % (Auto) 1.5 H Neut % (Auto) 74.1 H Lymph % (Auto) 11.7 L Gos[place] % (Auto) 8.8 Eos % (Auto) 3.1 Baso % (Auto) 0.8 Lymph # (Auto) 1.0 L Gos[place] # (Auto) 0.7 Eos # (Auto) 0.3 Baso # (Auto) 0.1 Abs Immat Gran (auto) 0.12 H Absolute Neuts (auto) 6.1 Absolute Nucleated RBC 0.040 H Nucleated RBC % (auto) 0.5 H PT INR Anion Gap Estim Creat Clear Calc Estimated GFR Random Glucose Calcium Total Bilirubin Direct Bilirubin AST ALT Alkaline Phosphatase Troponin I High Sens B-Natriuretic Peptide Total Protein Albumin Lipase Urine Color Yellow Urine Appearance Cloudy Urine pH 5.5 Ur Specific [place] >= 1.030 H Urine Protein 30 (1+) H Urine Glucose (UA) 500 H Urine Ketones Trace Urine Blood Negative Urine Nitrite Negative Ur Leukocyte Esterase Small (1+) H Urine RBC 0-2 Urine WBC 0-5 Ur Squamous Epith Cells 3-5 Urine Bacteria Trace Hyaline Casts 0-2 Stool Occult Blood COVID-19 ([facility]ASMEEN) COVID-[facility] Blood Type O Positive Antibody Screen NEGATIVE Crossmatch See Detail 05/23/22 14:30 MCV MCH MCHC RDW Plt Count MPV Immature Gran % (Auto) Neut % (Auto) Lymph % (Auto) Gos[place] % (Auto) Eos % (Auto) Baso % (Auto) Lymph # (Auto) Gosper # (Auto) Eos # (Auto) Baso # (Auto) Abs Immat Gran (auto) Absolute Neuts (auto) Absolute Nucleated RBC Nucleated RBC % (auto) PT INR Anion Gap Estim Creat Clear Calc Estimated GFR Random Glucose Calcium Total Bilirubin Direct Bilirubin AST ALT Alkaline Phosphatase Troponin I High Sens B-Natriuretic Peptide Total Protein Albumin Lipase Urine Color Urine Appearance Urine pH Ur Specific [place] Urine Protein Urine Glucose (UA) Urine Ketones Urine Blood Urine Nitrite Ur Leukocyte Esterase Urine RBC Urine WBC Ur Squamous Epith Cells Urine Bacteria Hyaline Casts Stool Occult Blood NEGATIVE COVID-19 ([facility]ASMEEN) COVID-19 [facility] Blood Type Antibody Screen Crossmatch Imaging Radiologist's Impressions: Impressions Chest X-Ray 05/23/22 12:42 IMPRESSION: Probable mild CHF with small bilateral pleural effusions. Abdomen/Pelvis CT 05/23/22 18:02 IMPRESSION: * Interstitial pulmonary edema and small pleural effusions. * Cirrhotic liver without evidence of hepatocellular carcinoma. * No evidence of an active gastrointestinal bleed, hemoperitoneum or retroperitoneal bleed. * Diverticulosis of the sigmoid colon without diverticulitis. * Large, lobulated calcified leiomyomatous uterus. Chest CT 05/23/22 18:02 IMPRESSION: * Interstitial pulmonary edema and small pleural effusions. * Cirrhotic liver without evidence of hepatocellular carcinoma. * No evidence of an active gastrointestinal bleed, hemoperitoneum or retroperitoneal bleed. * Diverticulosis of the sigmoid colon without diverticulitis. * Large, lobulated calcified leiomyomatous uterus. Assessment and Plan (1) Anemia: Status: Acute (2) New onset of congestive heart failure: Status: Acute Plan 71-year-old female with history of hypothyroidism, GERD, and osteoarthritis of multiple sites admitted for management of suspected GI bleed with symptomatic anemia and new onset CHF. #Symptomatic blood loss anemia, unspecified chronicity -H/H 5.1/18.7% -Pt endorsing small amount hematochezia x1 week, stool occult blood negative -CT abdomen/pelvis negative for acute GI bleeding source -transfuse 3 units in the ED -appreciate GI input -IV PPI b.i.d. -clear liquid diet -admit to telemetry -Follow CBC # new onset CHF, unspecified EF -Given IV furosemide in between blood transfusion units in ED -Continue 40mg IV furosemide -Strict I&O -Advance to cardiac diet -Apprecaite cardiology input -Echo ordered -Monitor on telemetry #Unintentional weight loss -8 pounds x 2 months, with anorexia -Chest CT and CT abd/pelvis negative for malignancy -Appreciate GI input #New diagnosis hepatic cirrhosis- compensated -Appreciate GI input #GERD -continue ppi #hypothyroidism -continue levothyroxine #Calcified leiomyomas -no vaginal bleeding -outpt follow up DVT prophylaxis-Lovenox DNI Patient requires inpatient stay of at least 2 midnights for management of symptomatic anemia requiring blood transfusions with new onset CHF requiring IV diuresis, close monitoring for cardiopulmonary decompensation, close monitoring blood counts, and expert consultation. Time Spent With Patient Time: Total time managing care of this patient today ____ minutes. Quality Stroke Does the patient have a stroke diagnosis?: No VTE Prior VTE?: No VTE Risk Level:: Medical - moderate - high VTE Device Contraindication: Treatment Not Indicated VTE Drug Contraindication: N/A - Med Ordered
[2022-05-23] MEDS: Enoxaparin Sodium 40 MG/0.4 ML SYRINGE SUBCUT (21:34)
[2022-05-23 21:36] LABS: Iron 10 mcg/dL (30-160); Percent Iron Saturation 3 % (15-50); Total Iron Binding Capacity 358 mcg/dL (228-428); Unsaturated Iron Binding 348 ug/dL
[2022-05-23 21:56] LABS: Ferritin 7 ng/mL (10-250)
--- NOTE | 2022-05-23 22:00 | PC.NURSE ---
late entry- pt reports to this rn bilateral leg pain and numbness pt reports this happens on occasion, as well as mild sob and cp. bio medical technician utilized. this rn made dr hurley aware. pt medicated according to martell
--- NOTE | 2022-05-23 22:01 | PC.NURSE ---
3 rd unit of PRBC transfusion initiated VSS. pt resting on stretcher at this time. this rn remains at bedside
--- NOTE | 2022-05-23 22:06 | PC.NURSE ---
erwin wick remains in place. urinary output as pt utilized periwick at this time 150ml
--- NOTE | 2022-05-23 22:11 | PC.NURSE ---
3rd unit PRBC continues to transfuse. VSS. pt denies sob and itching. pt resting comfortably on stretcher at this time. temp 98.7 rr 20 bp 118/66 spo2 96% 2LPM NC
[2022-05-23] MEDS: Acetaminophen 325 MG TABLET 650 MG PO (22:34)
[2022-05-24] VITALS (9 sets, daily range): BP systolic 99–152; BP diastolic 53–73; PULSE 71–84; RESP 18–28; TEMP 36.4–37.2; O2SAT 90–96; BMI 22.8
[2022-05-24] MEDS: 0.9 % Sodium Chloride Flush 3 ML SYRINGE IVFLUSH ×4 (01:29→20:34)
--- NOTE | 2022-05-24 02:34 | PC.NURSE ---
Pt arrived on unit from ED ar 01:18. Pt A&OX3, pleasant and cooperative. [place] speaking. Admission assessment completed-see charting. VSS. Telemetry SR. IV's intact. Abdomen distended/round. No c/o pain/sob. Pt is 1 assist and walker. Voiding in BSC. I&O's maintained. Bed alarm on for patient safety. Pt sleeping at present time. Call tijerina within reach. Will continue to monitor.
[2022-05-24] MEDS: Pantoprazole Sodium 40 MG/10 ML VIAL IVPUSH ×2 (06:03→16:08)
[2022-05-24] MEDS: Levothyroxine Sodium 75 MCG TABLET PO (06:03)
[2022-05-24] MEDS: Acetaminophen 325 MG TABLET 650 MG PO (06:07)
--- NOTE | 2022-05-24 06:32 | PC.NURSE ---
When bathing pt this am, pt stating her back was itchey. At first it appeared she has large bruise on her back (that we did not see last night) but when we changed the lighting, it looks like she had either been scratching or her skin is becoming irritated by something. Will pass along in report to keep an eye on it.
--- NOTE | 2022-05-24 07:00 | CA_ITS ---
Transthoracic Echocardiogram Patient (Last, First, Middle): Lena Judd, Gender: Female Date of : 1950 Age: 71 Procedure Date: 05/24/2022 Procedure Type: Transthoracic Echocardiogram Location: [facility] [place] Height: 157.48 cm Weight: 56.25 kg BSA: 1.56 m2 Heart Rate: 72 bpm BP: 99 / 54 mmHg Shovel Engineer: OSEI Goodrich MD: Nesha RUBI Dedicated Local Truck Driver: Jeremias Pino MD Symptoms: new onset chf Study Quality: Adequate ECG Rhythm: Sinus Conclusions: - 1. Normal LV ejection fraction at 60 65% with normal filling pattern 2. Trivial aortic regurgitation 3. Normal RV systolic pressure 4. No gross pericardial effusion Findings Left Ventricle Normal left ventricular size, thickness, and systolic function. The visually estimated ejection fraction is between 60-65%. Spectral Doppler is indicative of a normal filling pattern. Right Ventricle Normal right ventricular cavity size and systolic function. Atria Both atria are normal in size. Interatrial shunt cannot be excluded. Aortic Valve There is mild calcification of the aortic valve. There is no aortic valve stenosis. There is trace (trivial) aortic valve regurgitation. Mitral Valve Likely normal mitral valve structure and function. There is trace mitral valve regurgitation. There is no mitral valve stenosis. Pulmonic Valve The pulmonic valve was not well visualized. Tricuspid Valve Normal tricuspid valve structure. There is trace tricuspid valve regurgitation. The right ventricular systolic pressure is normal. The right ventricular systolic pressure is 20 mmHg. Normal right atrial pressure. There is no evidence of pulmonary hypertension. Great Vessels All visible segments of the aorta are normal in size. The pulmonary artery was not well visualized. Venous The inferior vena cava is normal in size and collapses greater than 50% with inspiration. Pericardium/Pleural There is no evidence of pericardial effusion. Prior Study Comparison No prior study available for comparison. Measurements 2D Linear Measurements IVSd: 1.01 0.6-0.9/0.6-1.0 cm LVIDd: 4.40 3.9-5.3/4.2-5.9 cm LVIDd Index: 2.82 2.4-3.2/2.2-3.1 cm/m2 LVIDs: 2.61 2.0-3.6 cm LVPWd: 0.95 0.7-1.1 cm LA Diam: 3.00 2.7-3.8/3.0-4.0 cm LAIDs Index: 1.92 1.5-2.3 cm/m2 LV Mass: 179.08 67-162/88-224 g LV Mass Index: 114.80 43-95/49-115 g/m2 LVOT Diam: 1.80 3.0+(-)1.3 cm 2D Systolic Function EF 4C: 68.00 >55% EF 2C: 55.70 >55% EF BiP: 62.20 >55% Mitral Valve MV Pk E: 0.88 MV PK A: 0.72 MV Decel Time: 164.00 E/A: 1.20 E'Lateral: 8.92 E'Medial: 6.42 E/E' Med: 13.70 E/E' Lat: 9.80 PHT: 48.00 MVA PHT: 4.58 Decel [place]: 5.36 Aortic Valve AoV Pk Cristóbal: 1.56 AoV Mn Cristóbal: 1.09 AoV VTI: 0.33 AoV Pk Grad: 10.00 Aov Mn Grad: 5.00 LACY Cont.VTI: 1.77 LVOT LVOT Pk Cristóbal: 1.29 LVOT Mn Cristóbal: 0.85 LVOT VTI: 0.23 LVOT Pk Grad: 7.00 LVOT Mn Grad: 3.00 LVOT Diam: 1.80 LVOT Area: 2.54 Diastolic Function MV Pk E: 0.88 MV Pk A: 0.72 E/A: 1.20 E'Medial: 6.42 E/E' Med: 13.70 E' Laterial: 8.92 E/E' Lat: 9.80 Right Ventricle TAPSE (mm): 30.00 TVS' Cristóbal: 16.10 Tricuspid Valve TR Pk Cristóbal: 2.09 TR Pk Grad: 17.00 RA Press: 3.00 RVSP: 20.00 Great Vessels Aorta Sinus of Valsalva: 2.90 2.0-3.5 cm Ao Asc: 3.60 2.1-3.4 cm Pulmonary Valve PV Pk Cristóbal: 1.09 Peak PV Grad: 5.00 Updated in Other Vendor System with Status of Final Jeremias Pino MD electronically signed on 05/24/2022 5:03:07 PM with status of Final
[2022-05-24 07:25] LABS: MANUAL DIFF FLAG NO
[2022-05-24 07:29] LABS: Basophils Absolute Auto 0.1 X10*3/uL (0.0-0.2); Basophils Percent Auto 0.9 % (0-2); Eosinophils Absolute Auto 0.1 X10*3/uL (0.0-0.4); Hematocrit 31.8 % (37.0-47.0); Hemoglobin 9.9 g/dl (12.0-16.0); Imm Gran Abs Auto 0.33 X10*3/uL (0.00-0.03); Imm Gran Pct Auto 2.9 % (0.0-0.4); Lymphocytes Absolute Auto 0.9 X10*3/uL (1.2-4.9); Lymphocytes Percent Auto 8.1 % (20-40); Mean Corpuscular HGB Conc 31.1 g/dl (31.0-35.0); Mean Corpuscular Hemoglobin 22.4 pg (27.0-33.0); Mean Corpuscular Volume 71.9 fL (80.0-98.0); Mean Platelet Volume 9.5 fL (9.4-12.3); Monocytes Percent Auto 8.4 % (2-11); Neutrophils Absolute Auto 9.1 x10*3/uL (2.0-8.3); Neutrophils Percent Auto 78.7 % (45-73); Platelet Count 410 X10*3/uL (160-400); Red Blood Count 4.42 X10*6/uL (4.20-5.50); Red Cell Distribution Width 25.8 % (11.0-16.0); White Blood Count 11.6 X10*3/uL (4.8-10.8)
[2022-05-24 07:51] LABS: Alanine Aminotransferase 20 U/L (0-31); Albumin Level 3.9 g/dL (3.5-5.0); Alkaline Phosphatase 150 U/L (39-117); Anion Gap 12 (12-20); Aspartate Amino Transferase 39 U/L (5-31); Bilirubin Total 5.4 mg/dL (0.0-1.0); Blood Urea Nitrogen 17 mg/dL (9-16); Calcium 8.5 mg/dL (8.4-10.2); Carbon Dioxide 32 mmol/L (22-29); Chloride 96 mmol/L (96-108); Creatinine Clr Calc Pharmacy 53.6; Estimated Glomerular Filt Rate > 60; Glucose Random 107 mg/dL (60-115); Sodium 137 mmol/L (135-145); Total Protein 7.1 g/dL (6.5-8.0)
[2022-05-24] MEDS: Furosemide 40 MG/4 ML VIAL IVPUSH (09:08)
--- NOTE | 2022-05-24 10:35 | HO.PM.IMPN ---
Subjective Subjective Date of Service: 05/24/22 Interval History: feeling better Physical Exam Vital Signs: Vital Signs: Last Vital Signs Temp 97.9 F 05/24/22 07:52 Pulse 76 05/24/22 07:52 Resp 22 H 05/24/22 07:52 BP 108/53 L 05/24/22 07:52 Pulse Ox 96 05/24/22 07:52 O2 Del Method Room Air 05/24/22 07:52 O2 Flow Rate 2 05/24/22 04:00 BMI result Body Mass Index 22.8 General: AO X 3, no acute distress Resp: CTA bilateral, no accessory muscles used CVS: S1,S2,RRR GI: soft, non tender, non distended Objective Data Active Medications Acetaminophen (Acetaminophen 325 Mg Tablet) 650 mg PO Q6H PRN PRN Reason: Pain, Mild (Pain Scale 1-3) Last Admin: 05/24/22 06:07 Dose: 350 mg Documented By: DARNELL Comments: Pt was unable to swallow the second tablet-she was gagging. Albuterol Sulfate (Albuterol Sulfate 90 Mcg 8 Gm Inhaler) 2 puff INHALE Q6H PRN PRN Reason: Wheezing Cyanocobalamin (Cyanocobalamin (Vitamin B-12) 1,000 Mcg Tablet) 1,000 mcg PO DAILY [facility] Last Admin: 05/24/22 09:02 Dose: Not Given Documented By: YANDEL Non-Admin Reason: Physician Held Med Docusate Sodium (Docusate Sodium 100 Mg Capsule) 100 mg PO DAILY PRN PRN Reason: Constipation Furosemide (Furosemide 40 Mg/4 Ml Vial) 40 mg IVPUSH DAILY [facility]; Protocol Last Admin: 05/24/22 09:08 Dose: 40 mg Documented By: YANDEL Gabapentin (Gabapentin 300 Mg Capsule) 300 mg PO BEDTIME [facility] Potassium Chloride (Potassium Chloride/H20) 10 meq in 100 mls @ 100 mls/hr IV Q1H [facility] Stop: 05/24/22 14:44 Levothyroxine Sodium (Levothyroxine Sodium 75 Mcg Tablet) 75 mcg PO DAILY@0630 [facility] Last Admin: 05/24/22 06:03 Dose: 75 mcg Documented By: DARNELL Ondansetron HCl (Ondansetron Hcl 4 Mg/2 Ml Vial) 4 mg IVPUSH Q8H PRN PRN Reason: Nausea and Vomiting Pantoprazole Sodium (Pantoprazole Sodium 40 Mg/10 Ml Vial) 40 mg IVPUSH BID@9430,2310 [facility] Last Admin: 05/24/22 06:03 Dose: 40 mg Documented By: DARNELL Pharmacy Consult (Consult Rx Perform Med Rec) 1 each MISCELLANE ONCE PRN PRN Reason: Consult order Sodium Chloride (0.9 % Sodium Chloride Flush 3 Ml Syringe) 3 ml IVFLUSH QSHIFT [facility] Last Admin: 05/24/22 09:09 Dose: 3 ml Documented By: YANDEL Trazodone HCl (Trazodone Hcl 50 Mg Tablet) 50 mg PO BEDTIME [facility] Labs 05/24/22 06:45 05/24/22 06:45 Labs: Laboratory Results - last 24 hr 05/23/22 05/23/22 05/23/22 12:57 12:57 12:57 MCV 64.0 L MCH 17.5 L MCHC 27.3 L RDW 18.7 H Plt Count 405 H MPV 9.9 Immature Gran % (Auto) 1.6 H Neut % (Auto) 79.2 H Lymph % (Auto) 8.1 L Barton % (Auto) 7.6 Eos % (Auto) 2.8 Baso % (Auto) 0.7 Lymph # (Auto) 0.6 L Barton # (Auto) 0.5 Eos # (Auto) 0.2 Baso # (Auto) 0.1 Abs Immat Gran (auto) 0.11 H Absolute Neuts (auto) 5.6 Absolute Nucleated RBC 0.040 H Nucleated RBC % (auto) 0.6 H Smear Path Review SEE NOTE PT INR Anion Gap 11 L Estim Creat Clear Calc 68.0 Estimated GFR > 60 Random Glucose 207 H Calcium 8.7 D Iron 10 L TIBC 358 % Saturation 3 L Unsat Iron Binding 348 Ferritin 7 L Total Bilirubin 0.6 Direct Bilirubin 0.2 AST 16 ALT 9 Alkaline Phosphatase 93 Troponin I High Sens B-Natriuretic Peptide Total Protein 6.9 Albumin 3.7 Lipase 22 Urine Color Urine Appearance Urine pH Ur Specific Smoot Urine Protein Urine Glucose (UA) Urine Ketones Urine Blood Urine Nitrite Ur Leukocyte Esterase Urine RBC Urine WBC Ur Squamous Epith Cells Urine Bacteria Hyaline Casts Stool Occult Blood COVID-19 (YASMEEN) Negative COVID-19 Clin Com See Note Blood Type Antibody Screen Crossmatch 05/23/22 05/23/22 05/23/22 12:57 12:57 12:57 MCV MCH MCHC RDW Plt Count MPV Immature Gran % (Auto) Neut % (Auto) Lymph % (Auto) Barton % (Auto) Eos % (Auto) Baso % (Auto) Lymph # (Auto) Barton # (Auto) Eos # (Auto) Baso # (Auto) Abs Immat Gran (auto) Absolute Neuts (auto) Absolute Nucleated RBC Nucleated RBC % (auto) Smear Path Review PT 13.0 INR 1.1 Anion Gap Estim Creat Clear Calc Estimated GFR Random Glucose Calcium Iron TIBC % Saturation Unsat Iron Binding Ferritin Total Bilirubin Direct Bilirubin AST ALT Alkaline Phosphatase Troponin I High Sens < 2.7 B-Natriuretic Peptide 113 H Total Protein Albumin Lipase Urine Color Urine Appearance Urine pH Ur Specific Smoot Urine Protein Urine Glucose (UA) Urine Ketones Urine Blood Urine Nitrite Ur Leukocyte Esterase Urine RBC Urine WBC Ur Squamous Epith Cells Urine Bacteria Hyaline Casts Stool Occult Blood COVID-19 (YASMEEN) COVID-[address] [facility] Blood Type Antibody Screen Crossmatch 05/23/22 05/23/22 05/23/22 14:11 14:11 14:15 MCV 64.0 L MCH 17.2 L MCHC 26.8 L RDW 18.9 H Plt Count 435 H MPV 9.6 Immature Gran % (Auto) 1.5 H Neut % (Auto) 74.1 H Lymph % (Auto) 11.7 L Barton % (Auto) 8.8 Eos % (Auto) 3.1 Baso % (Auto) 0.8 Lymph # (Auto) 1.0 L Barton # (Auto) 0.7 Eos # (Auto) 0.3 Baso # (Auto) 0.1 Abs Immat Gran (auto) 0.12 H Absolute Neuts (auto) 6.1 Absolute Nucleated RBC 0.040 H Nucleated RBC % (auto) 0.5 H Smear Path Review PT INR Anion Gap Estim Creat Clear Calc Estimated GFR Random Glucose Calcium Iron TIBC % Saturation Unsat Iron Binding Ferritin Total Bilirubin Direct Bilirubin AST ALT Alkaline Phosphatase Troponin I High Sens B-Natriuretic Peptide Total Protein Albumin Lipase Urine Color Yellow Urine Appearance Cloudy Urine pH 5.5 Ur Specific Smoot >= 1.030 H Urine Protein 30 (1+) H Urine Glucose (UA) 500 H Urine Ketones Trace Urine Blood Negative Urine Nitrite Negative Ur Leukocyte Esterase Small (1+) H Urine RBC 0-2 Urine WBC 0-5 Ur Squamous Epith Cells 3-5 Urine Bacteria Trace Hyaline Casts 0-2 Stool Occult Blood COVID-19 (YASMEEN) COVID-19 Clin Com Blood Type O Positive Antibody Screen NEGATIVE Crossmatch See Detail 05/23/22 05/24/22 05/24/22 14:30 06:45 06:45 MCV 71.9 L D MCH 22.4 L MCHC 31.1 RDW 25.8 H Plt Count 410 H MPV 9.5 Immature Gran % (Auto) 2.9 H Neut % (Auto) 78.7 H Lymph % (Auto) 8.1 L Barton % (Auto) 8.4 Eos % (Auto) 1.0 Baso % (Auto) 0.9 Lymph # (Auto) 0.9 L Barton # (Auto) 1.0 Eos # (Auto) 0.1 Baso # (Auto) 0.1 Abs Immat Gran (auto) 0.33 H Absolute Neuts (auto) 9.1 H Absolute Nucleated RBC 0.120 H Nucleated RBC % (auto) 1.0 H Smear Path Review PT INR Anion Gap 12 Estim Creat Clear Calc 53.6 Estimated GFR > 60 Random Glucose 107 Calcium 8.5 Iron TIBC % Saturation Unsat Iron Binding Ferritin Total Bilirubin 5.4 H Direct Bilirubin AST 39 H ALT 20 Alkaline Phosphatase 150 H Troponin I High Sens B-Natriuretic Peptide Total Protein 7.1 Albumin 3.9 Lipase Urine Color Urine Appearance Urine pH Ur Specific Smoot Urine Protein Urine Glucose (UA) Urine Ketones Urine Blood Urine Nitrite Ur Leukocyte Esterase Urine RBC Urine WBC Ur Squamous Epith Cells Urine Bacteria Hyaline Casts Stool Occult Blood NEGATIVE COVID-19 (YASMEEN) COVID-19 Clin Com Blood Type Antibody Screen Crossmatch Microbiology Microbiology Results: Microbiology 05/23/22 Unknown Urine Culture - Final Urine clean catch - Urine whitman top Assessment and Plan (1) Anemia: Status: Acute Plan 71F PMH of hypothyroidism, GERD, and osteoarthritis presented with malaise, found to have severe iron defeciency anemia Symptomatic blood loss anemia, unspecified chronicity iv ppi hgb improved appropriately monitor cbc gi eval new onset CHF, unspecified EF iv lasix echo Unintentional weight loss -8 pounds x 2 months, with anorexia -Chest CT and CT abd/pelvis negative for malignancy liver cirrhosis noted on CT gi eval hypothyroidism -continue levothyroxine Calcified leiomyomas -no vaginal bleeding -outpt follow up DVT prophylaxis-mechanical due to gi bleed DNI reason for continued hospitalization:work up significant anemia Time Spent With Patient Time: Total time managing care of this patient today ____ minutes. Quality Stroke Does the patient have a stroke diagnosis?: No VTE Prior VTE?: No VTE Risk Level:: Medical - moderate - high VTE Device Contraindication: Treatment Not Indicated VTE Drug Contraindication: N/A - Med Ordered
--- NOTE | 2022-05-24 10:38 | PM.CNCAR ---
History of Present Illness History of Present Illness Date of Service: 05/24/22 Requesting physician: Manny Garcia Consult reason: congestive heart failure Chief complaint: Acute GI bleed,symptomatic anemia,new onset chf Narrative: I was consulted to see Lena in cardiology consultation today for congestive heart failure. History was obtained with help of a certified gas plant worker at bedside. Patient came to the hospital because she has been having symptoms of exertional fatigue, shortness of breath, tiredness all the last few weeks along with lightheadedness and myalgia. Patient also notice some bright red blood per rectum in the last few days. Patient denies any chest pain or palpitations. She has not had any syncopal episodes. She also complains of ongoing abdominal discomfort. On presentation she was noted to be markedly anemic with hemoglobin of 5.1. Chest x-ray as well as CT scan finding consistent with CHF although BNP was in the low 100 range. She has received multiple units of transfusion and hematocrit has improved. She feels better but still complains of abdominal pain. Still feels tired. She does not complain of any shortness of breath orthopnea. Her negative balance listed in the chart is at about 800 cc, not sure this is accurate. She denies any prior cardiac history Review of Systems Constitutional: Constitutional: Reports body ache(s), Reports malaise, Reports weakness and Reports weight loss Eyes: Eyes: Reports no additional eye complaints Cardiovascular: Cardiovascular: Denies chest pain, Reports lightheadedness, Denies Loss of Consciousness, Denies palpitations, Reports dyspnea on exertion and Denies orthopnea Respiratory: Respiratory: Reports no additional respiratory complaints and Reports dyspnea on exertion Gastrointestinal: Gastrointestinal: Reports abdominal pain and Reports hematochezia Musculoskeletal: Musculoskeletal: Reports no additional musculoskeletal complaints Neurologic: Reports system reviewed and no additional complaints, except as documented and Reports weakness Psychiatric: Psychiatric: Reports no additional psychiatric complaints Endocrine: Endocrine: Reports no additional endocrine complaints and Denies palpitations Hematologic/Lymphatic: Hematologic/Lymphatic: Reports no additional hematologic/lymphatic complaints Allergic/Immunologic: Allergic/Immunologic: Reports no additional allergic/immunologic complaints [facility] Past Medical History Medical History Arthritis FH: breast cancer FH: cholecystectomy Hepatic cirrhosis Hypothyroid Family History Family History Family/Other Breast cancer Maternal Grandfather Throat cancer Surgical History Surgical History Hx of cholecystectomy Social History Social History Household Members: None Housing: Apartment Do you presently have visiting nurse or other home services: Yes ([employer] every other day) Alcohol intake: never Patient Tobacco Use Status: Never used Tobacco Meds Allergies Allergy/AdvReac Type Severity Reaction Status Date / Time No Known Allergies Allergy Verified 04/19/22 19:28 [No Known Allergies*] Active Medications: Current Medications Acetaminophen (Acetaminophen 325 Mg Tablet) 650 mg PO Q6H PRN PRN Reason: Pain, Mild (Pain Scale 1-3) Last Admin: 05/24/22 06:07 Dose: 350 mg Albuterol Sulfate (Albuterol Sulfate 90 Mcg 8 Gm Inhaler) 2 puff INHALE Q6H PRN PRN Reason: Wheezing Cyanocobalamin (Cyanocobalamin (Vitamin B-12) 1,000 Mcg Tablet) 1,000 mcg PO DAILY [facility] Last Admin: 05/24/22 09:02 Dose: Not Given Docusate Sodium (Docusate Sodium 100 Mg Capsule) 100 mg PO DAILY PRN PRN Reason: Constipation Furosemide (Furosemide 40 Mg/4 Ml Vial) 40 mg IVPUSH DAILY [facility]; Protocol Last Admin: 05/24/22 09:08 Dose: 40 mg Gabapentin (Gabapentin 300 Mg Capsule) 300 mg PO BEDTIME [facility] Potassium Chloride (Potassium Chloride/H20) 10 meq in 100 mls @ 100 mls/hr IV Q1H [facility] Stop: 05/24/22 14:44 Levothyroxine Sodium (Levothyroxine Sodium 75 Mcg Tablet) 75 mcg PO DAILY@0630 [facility] Last Admin: 05/24/22 06:03 Dose: 75 mcg Ondansetron HCl (Ondansetron Hcl 4 Mg/2 Ml Vial) 4 mg IVPUSH Q8H PRN PRN Reason: Nausea and Vomiting Pantoprazole Sodium (Pantoprazole Sodium 40 Mg/10 Ml Vial) 40 mg IVPUSH BID@0630,1630 [facility] Last Admin: 05/24/22 06:03 Dose: 40 mg Pharmacy Consult (Consult Rx Perform Med Rec) 1 each MISCELLANE ONCE PRN PRN Reason: Consult order Sodium Chloride (0.9 % Sodium Chloride Flush 3 Ml Syringe) 3 ml IVFLUSH QSHIFT [facility] Last Admin: 05/24/22 09:09 Dose: 3 ml Trazodone HCl (Trazodone Hcl 50 Mg Tablet) 50 mg PO BEDTIME [facility] Home Medications Medication Instructions Recorded Confirmed Last Taken Type acetaminophen 500 mg tablet 500 mg PO Q8H PRN Mild Pain (Scale 05/23/22 05/23/22 Unknown History Score 1-4) albuterol sulfate 90 mcg/actuation 2 puff inhalation Q6H PRN Wheezing 05/23/22 05/23/22 Unknown History aerosol inhaler clotrimazole-betamethasone 1 1 appl topical BID 05/23/22 05/23/22 Unknown History %-0.05 % topical cream cyanocobalamin (vitamin B-12) 1,000 mcg PO DAILY 05/23/22 05/23/22 Unknown History 1,000 mcg tablet diclofenac sodium 1 % topical gel 2 g topical BID PRN Pain 05/23/22 05/23/22 Unknown History gabapentin 300 mg capsule 300 mg PO BEDTIME 05/23/22 05/23/22 Unknown History levothyroxine 75 mcg tablet 75 mcg PO DAILY 05/23/22 05/23/22 Unknown History omeprazole 20 mg capsule,delayed 20 mg PO DAILY 05/23/22 05/23/22 Unknown History release trazodone 50 mg tablet 50 mg PO BEDTIME 05/23/22 05/23/22 Unknown History Physical Exam Vital Signs: Vital Signs: Last Vital Signs Temp 97.9 F 05/24/22 07:52 Pulse 76 05/24/22 07:52 Resp 22 H 05/24/22 07:52 BP 108/53 L 05/24/22 07:52 Pulse Ox 96 05/24/22 07:52 O2 Del Method Room Air 05/24/22 07:52 O2 Flow Rate 2 05/24/22 04:00 BMI result Body Mass Index 22.8 Const: General: cooperative, comfortable, no acute distress, alert, awake and tired appearing Nutritional Appearance: thin Orientation/consciousness: patient oriented x3 HEENT: Head: Yes normocephalic and Yes atraumatic Neck: Neck: Yes trachea midline, Yes supple and Yes no JVD Resp: Effort & Inspection: normal respiratory effort Auscultation: clear to auscultation bilaterally Cardio: Jugular venous distension: no JVD Palpation: normal PMI Rate: regular rate Rhythm: regular rhythm Heart sounds: S1 normal heart sound present, S2 normal heart sound present, no click, no gallops, no murmurs and no rubs GI: Auscultation: normal bowel sounds Skin: General skin exam: no rashes or lesions noted Neuro: General: patient oriented x3 and no focal motor deficits Extrem: General: Yes no clubbing, cyanosis or edema Objective Labs and Meds 05/24/22 06:45 05/24/22 06:45 Lab results: Laboratory Results - last 24 hr 05/23/22 05/23/22 05/23/22 12:57 12:57 12:57 WBC 7.1 RBC 2.92 L Hgb 5.1 L* Hct 18.7 L* MCV 64.0 L MCH 17.5 L MCHC 27.3 L RDW 18.7 H Plt Count 405 H MPV 9.9 Immature Gran % (Auto) 1.6 H Neut % (Auto) 79.2 H Lymph % (Auto) 8.1 L Christian % (Auto) 7.6 Eos % (Auto) 2.8 Baso % (Auto) 0.7 Lymph # (Auto) 0.6 L Christian # (Auto) 0.5 Eos # (Auto) 0.2 Baso # (Auto) 0.1 Abs Immat Gran (auto) 0.11 H Absolute Neuts (auto) 5.6 Absolute Nucleated RBC 0.040 H Nucleated RBC % (auto) 0.6 H Smear Path Review SEE NOTE PT INR Sodium 136 Potassium 3.4 Chloride 103 Carbon Dioxide 25 Anion Gap 11 L BUN 15 Creatinine 0.74 Estim Creat Clear Calc 68.0 Estimated GFR > 60 Random Glucose 207 H Calcium 8.7 D Iron 10 L TIBC 358 % Saturation 3 L Unsat Iron Binding 348 Ferritin 7 L Total Bilirubin 0.6 Direct Bilirubin 0.2 AST 16 ALT 9 Alkaline Phosphatase 93 Troponin I High Sens B-Natriuretic Peptide Total Protein 6.9 Albumin 3.7 Lipase 22 Urine Color Urine Appearance Urine pH Ur Specific Herrick Urine Protein Urine Glucose (UA) Urine Ketones Urine Blood Urine Nitrite Ur Leukocyte Esterase Urine RBC Urine WBC Ur Squamous Epith Cells Urine Bacteria Hyaline Casts Stool Occult Blood COVID-19 (YASMEEN) Negative COVID-19 Clin Com See Note Blood Type Antibody Screen Crossmatch 05/23/22 05/23/22 05/23/22 12:57 12:57 12:57 WBC RBC Hgb Hct MCV MCH MCHC RDW Plt Count MPV Immature Gran % (Auto) Neut % (Auto) Lymph % (Auto) Christian % (Auto) Eos % (Auto) Baso % (Auto) Lymph # (Auto) Christian # (Auto) Eos # (Auto) Baso # (Auto) Abs Immat Gran (auto) Absolute Neuts (auto) Absolute Nucleated RBC Nucleated RBC % (auto) Smear Path Review PT 13.0 INR 1.1 Sodium Potassium Chloride Carbon Dioxide Anion Gap BUN Creatinine Estim Creat Clear Calc Estimated GFR Random Glucose Calcium Iron TIBC % Saturation Unsat Iron Binding Ferritin Total Bilirubin Direct Bilirubin AST ALT Alkaline Phosphatase Troponin I High Sens < 2.7 B-Natriuretic Peptide 113 H Total Protein Albumin Lipase Urine Color Urine Appearance Urine pH Ur Specific Herrick Urine Protein Urine Glucose (UA) Urine Ketones Urine Blood Urine Nitrite Ur Leukocyte Esterase Urine RBC Urine WBC Ur Squamous Epith Cells Urine Bacteria Hyaline Casts Stool Occult Blood COVID-19 (YASMEEN) COVID-19 Clin Com Blood Type Antibody Screen Crossmatch 05/23/22 05/23/22 05/23/22 14:11 14:11 14:15 WBC 8.3 RBC 3.03 L Hgb 5.2 L* Hct 19.4 L* MCV 64.0 L MCH 17.2 L MCHC 26.8 L RDW 18.9 H Plt Count 435 H MPV 9.6 Immature Gran % (Auto) 1.5 H Neut % (Auto) 74.1 H Lymph % (Auto) 11.7 L Christian % (Auto) 8.8 Eos % (Auto) 3.1 Baso % (Auto) 0.8 Lymph # (Auto) 1.0 L Christian # (Auto) 0.7 Eos # (Auto) 0.3 Baso # (Auto) 0.1 Abs Immat Gran (auto) 0.12 H Absolute Neuts (auto) 6.1 Absolute Nucleated RBC 0.040 H Nucleated RBC % (auto) 0.5 H Smear Path Review PT INR Sodium Potassium Chloride Carbon Dioxide Anion Gap BUN Creatinine Estim Creat Clear Calc Estimated GFR Random Glucose Calcium Iron TIBC % Saturation Unsat Iron Binding Ferritin Total Bilirubin Direct Bilirubin AST ALT Alkaline Phosphatase Troponin I High Sens B-Natriuretic Peptide Total Protein Albumin Lipase Urine Color Yellow Urine Appearance Cloudy Urine pH 5.5 Ur Specific Herrick >= 1.030 H Urine Protein 30 (1+) H Urine Glucose (UA) 500 H Urine Ketones Trace Urine Blood Negative Urine Nitrite Negative Ur Leukocyte Esterase Small (1+) H Urine RBC 0-2 Urine WBC 0-5 Ur Squamous Epith Cells 3-5 Urine Bacteria Trace Hyaline Casts 0-2 Stool Occult Blood COVID-19 ([facility]ASMEEN) COVID-19 Clin Com Blood Type O Positive Antibody Screen NEGATIVE Crossmatch See Detail 05/23/22 05/24/22 05/24/22 14:30 06:45 06:45 WBC 11.6 H RBC 4.42 D Hgb 9.9 L D Hct 31.8 L D MCV 71.9 L D MCH 22.4 L MCHC 31.1 RDW 25.8 H Plt Count 410 H MPV 9.5 Immature Gran % (Auto) 2.9 H Neut % (Auto) 78.7 H Lymph % (Auto) 8.1 L Christian % (Auto) 8.4 Eos % (Auto) 1.0 Baso % (Auto) 0.9 Lymph # (Auto) 0.9 L Christian # (Auto) 1.0 Eos # (Auto) 0.1 Baso # (Auto) 0.1 Abs Immat Gran (auto) 0.33 H Absolute Neuts (auto) 9.1 H Absolute Nucleated RBC 0.120 H Nucleated RBC % (auto) 1.0 H Smear Path Review PT INR Sodium 137 Potassium 3.0 L Chloride 96 Carbon Dioxide 32 H Anion Gap 12 BUN 17 H Creatinine 0.74 Estim Creat Clear Calc 53.6 Estimated GFR > 60 Random Glucose 107 Calcium 8.5 Iron TIBC % Saturation Unsat Iron Binding Ferritin Total Bilirubin 5.4 H Direct Bilirubin AST 39 H ALT 20 Alkaline Phosphatase 150 H Troponin I High Sens B-Natriuretic Peptide Total Protein 7.1 Albumin 3.9 Lipase Urine Color Urine Appearance Urine pH Ur Specific Herrick Urine Protein Urine Glucose (UA) Urine Ketones Urine Blood Urine Nitrite Ur Leukocyte Esterase Urine RBC Urine WBC Ur Squamous Epith Cells Urine Bacteria Hyaline Casts Stool Occult Blood NEGATIVE COVID-19 (YASMEEN) COVID-19 Clin Com Blood Type Antibody Screen Crossmatch EKG shows normal sinus rhythm with normal EKG Imaging Radiologist's impression: Impressions Chest X-Ray 05/23/22 12:42 IMPRESSION: Probable mild CHF with small bilateral pleural effusions. Abdomen/Pelvis CT 05/23/22 18:02 IMPRESSION: * Interstitial pulmonary edema and small pleural effusions. * Cirrhotic liver without evidence of hepatocellular carcinoma. * No evidence of an active gastrointestinal bleed, hemoperitoneum or retroperitoneal bleed. * Diverticulosis of the sigmoid colon without diverticulitis. * Large, lobulated calcified leiomyomatous uterus. Chest CT 05/23/22 18:02 IMPRESSION: * Interstitial pulmonary edema and small pleural effusions. * Cirrhotic liver without evidence of hepatocellular carcinoma. * No evidence of an active gastrointestinal bleed, hemoperitoneum or retroperitoneal bleed. * Diverticulosis of the sigmoid colon without diverticulitis. * Large, lobulated calcified leiomyomatous uterus. Assessment and Plan (1) New onset of congestive heart failure: Status: Acute New onset congestive heart failure with symptoms and radiographic findings are with minimally elevated BNP most likely precipitated by severe anemia. Clinically today appears to be without any evidence of heart failure. Does not require further diuresis at this point time. Would obtain an echocardiogram to assess LV systolic and diastolic function to see she would have congestive heart failure with severe anemia. May require ischemic workup at some point in time. For now focus on pursuing GI workup for her significant anemia and bleeding. her blood pressure is optimized. If echo is looking good, will sign of the case and follow-up as outpatient for ischemic workup. Will follow with you if need be. Thank you for allowing me to partake in the care Time Spent With Patient Time: Total time managing care of this patient today ____ minutes. Procedures Date of Service Date of Service: 05/24/22
--- NOTE | 2022-05-24 10:48 | MHC.CM.PN ---
CM met with Patient at bedside with [place] Translation and addressed IMM with Patient, providing her with the original and placing a copy on the chart. Patient lives alone in an apartment and has a [employer]IST 4 hours/day. Home/resume said services is the goal and CM has initiated and will follow for dc planning. Patient is covid vax'd and the PCP is Dr. [email or web address] Jaeger.
[2022-05-24] MEDS: Cyanocobalamin (Vitamin B-12) 1,000 MCG TABLET 1000 MCG PO (10:56)
[2022-05-24] MEDS: Potassium Chloride/H20 10 MEQ/100 ML PIGGYBACK 100 MEQ IV ×2 (10:57→12:14)
[2022-05-24] MEDS: ondansetron HCL 4 MG/2 ML VIAL IVPUSH ×2 (11:01→17:05)
--- NOTE | 2022-05-24 15:15 | MHC.SHP ---
Pre-Procedural Eval Section A Date of Service: 05/25/22 The patient is an INPATIENT: Yes The History & Physical has been completed within 30 days and I have reviewed it.: Yes Section B Chief Complaint: Acute GI bleed,symptomatic anemia,new onset chf Allergies: Allergies Allergy/AdvReac Type Severity Reaction Status Date / Time No Known Allergies Allergy Verified 04/19/22 19:28 [No Known Allergies*] Plan I have reviewed the history and physical and performed a pertinent physical examination on my patient. No changes have occurred unless specified. Time Spent With Patient Time: Total time managing care of this patient today ____ minutes.
--- NOTE | 2022-05-24 15:45 | PC.NURSE ---
Pt alert anfd oriented x43 but is mostly turkish speaking. Potassium ordered and started but the pt was unable to tolerate and C/O of significant burning. Rate reduced and Lines flushed with NS but was still unable to tolerate. notified.
[2022-05-24] MEDS: PEG 3350/Na Sulf,Bicarb,Cl/KCL 4,000 ML SOLN.RECON 4000 ML PO (16:08)
[2022-05-24] MEDS: bisacodyL 5 MG TABLET.DR 10 MG PO (16:09)
--- NOTE | 2022-05-24 19:37 | P.EN_ITS ---
Event Note Date of Service: 05/24/22 Event Note: GI Consult-Full note dictated-History via patient with a director medical economics, her RN, and the EMR. Imp: 71 yo female with an underlying diagnosis of cirrhosis presenting with a new microcytic anemia, anorexia, and reported GI bleeding with both melena and hematochezia. She denies any vomiting. She has been stable here in the hospital without any active bleeding. She does not use any aspirin/NSAIDs/alcohol. She had a nonrevealing upper endoscopy and colonoscopy with me in 2015. Diff dx: Portal gastropathy, PUD, GI neoplasm, AVM's. This does not sound like a variceal bleed. Rec: Upper endoscopy and colonoscopy on 05/25. Full consent obtained from her for this, including risks of bleeding and perforation. Monitor Hgb and transfuse PRN. D/W patient in detail and she is comfortable with this plan. Thanks Time Spent With Patient Time: Total time managing care of this patient today ____ minutes.
[2022-05-24] MEDS: traZODone HCL 50 MG TABLET PO (20:28)
[2022-05-24] MEDS: Gabapentin 300 MG CAPSULE PO (20:28)
[2022-05-25] VITALS (12 sets, daily range): BP systolic 93–117; BP diastolic 55–67; PULSE 71–80; RESP 14–20; TEMP 36.1–37; O2SAT 92–99
--- NOTE | 2022-05-25 01:44 | CONS_ITS ---
DATE OF SERVICE: 05/24/2022 REASON FOR CONSULTATION: GI bleeding and anemia. HISTORY OF PRESENT ILLNESS: This has been obtained from the patient with a medical accountant, from her nurse, and the medical record. The patient is a 71-year-old female, well known to me from previous office visits with underlying history of cirrhosis, gastroesophageal reflux, and now presenting with reported GI bleeding and anemia. I last saw the patient in 2015, at which time she underwent an upper endoscopy and colonoscopy. Both of these studies were nonrevealing. The upper endoscopy revealed only a small hiatal hernia, but no sign of any diverticular disease nor portal gastropathy. The colonoscopy was negative other than some diverticulosis. She does have a history of fatty liver and cirrhosis on an intraoperative liver biopsy in 2004. She does have a previous history of anemia in 2001 where she also underwent a colonoscopy and upper endoscopy. Duodenal biopsies at that time were negative for celiac disease. The patient has recently described some anorexia, some intermittent upper abdominal discomfort, and intermittent bleeding. She has been reported to have both hematochezia with bright red blood per rectum as well as occasional dark stool. She has had some anorexia with about 10-pound weight loss. The patient denies any significant heartburn nor dysphagia. There has been no significant nausea and there has been no vomiting. The patient denies any diarrhea nor significant constipation. She does not notice any jaundice. She denies any fevers. She does not use any significant amount of aspirin, NSAIDs nor alcohol. There is family history of GI malignancy. When the patient was admitted here yesterday, she had a hemoglobin of 5.1 as compared to a hemoglobin of 12.2 in August 2020. She subsequently has received a total of 3 units of blood and her hemoglobin at this point was 9.9. MEDICATIONS: At home included acetaminophen p.r.n., albuterol inhaler p.r.n., vitamins, topical diclofenac, gabapentin, levothyroxine, omeprazole, and trazodone. Her medications here in the hospital include acetaminophen p.r.n., albuterol inhaler p.r.n., vitamins, Lasix, gabapentin, levothyroxine, Zofran p.r.n., IV pantoprazole 40 mg b.i.d., and trazodone. PAST MEDICAL HISTORY: Cholecystectomy. Fatty liver and cirrhosis as above. Hypothyroidism. She denies any history of NM, diabetes, nor stroke. She does have history of reflux. FAMILY HISTORY: Negative for GI malignancies. SOCIAL HISTORY: She does not smoke nor use of any alcohol. She is single, but lives with her significant other. REVIEW OF SYSTEMS: CONSTITUTIONAL: She has been feeling somewhat weak and anorectic at home. SKIN: No rash. No pruritus. CARDIAC: No chest pain. PULMONARY: No coughing or hemoptysis. GI: As above. URINARY: No dysuria. No hematuria. NEUROLOGIC: No headache or seizures. PSYCHIATRIC: Negative. PHYSICAL EXAMINATION: GENERAL: The patient is a pleasant, alert, comfortable appearing female, in no distress. HEENT: Anicteric sclerae. Moist mucous membranes. NECK: Supple without lymphadenopathy. CHEST: Clear. CARDIAC: Normal S1 and S2. ABDOMEN: Soft, nondistended, nontender without palpable mass. EXTREMITIES: No edema. NEUROLOGIC: She is alert and oriented. LABORATORY DATA: As above. She had a CT scan of her chest and abdomen on admission. It describes some interstitial pulmonary edema and small pleural effusions, cirrhosis but without any sign of mass nor biliary disease, diverticulosis without diverticulitis, and a calcified leiomyoma in the uterus. CBC from today showed a white blood cell count of 11.6, hemoglobin 9.9, MCV 72, platelets 410,000. PT 13.0 with INR 1.1. Sodium 137, potassium 3.0, chloride 96, CO2 of 32, BUN 17, creatinine 0.7, calcium 8.5. Iron of 10, iron saturation 3%, ferritin at 7. Total bilirubin is 0.6. AST 16, ALT 9, alk phos 93. Total bilirubin today was 5.4. Albumin 3.9. Lipase 22. Stool was hemoccult negative. IMPRESSION: In regard to her anemia with associated iron deficiency, this does raise suspicion for some chronic blood loss in addition to the reported bleeding that she described on admission with some associated melena and/or hematochezia. This could raise possibility of some type of GI neoplasm. Other possibilities could be in relation to possible portal gastropathy that has developed since her upper endoscopy in 2016. She may have angiodysplasias or peptic ulcer disease. Previous workup for celiac disease with duodenal biopsies was negative. In regard to the anemia and reported bleeding, I have recommended she undergo upper endoscopy and colonoscopy tomorrow with monitored anesthesia care. Full consent has been obtained for that, including risks of bleeding and perforation. In the meantime, she will have continued monitoring of her hemoglobin and be transfused as needed. I would continue her PPI in the meantime. In regard to the underlying liver disease, it does appear that she does have good liver function. Her LFTs were normal yesterday, but her total bilirubin did increase today which might be related to the transfusions and any component of hemolysis. We shall check a repeat liver profile tomorrow including a direct and indirect bilirubin. This has all been discussed in detail with the patient with the medical accountant, and she is comfortable with this plan. Thank you for the consultation. MD NIA Herrmann/LIDA / [id number] MTDD
[2022-05-25 06:10] LABS: Hemoglobin 9.7 g/dl (12.0-16.0); Mean Corpuscular HGB Conc 30.3 g/dl (31.0-35.0); Mean Corpuscular Volume 72.6 fL (80.0-98.0); Mean Platelet Volume 9.3 fL (9.4-12.3); NRBC Pct Auto 0.3 /100WBC (0.0-0.2); Platelet Count 439 X10*3/uL (160-400); Red Blood Count 4.41 X10*6/uL (4.20-5.50); Red Cell Distribution Width 26.4 % (11.0-16.0); White Blood Count 11.3 X10*3/uL (4.8-10.8)
[2022-05-25 06:23] LABS: Alanine Aminotransferase 19 U/L (0-31); Albumin Level 3.8 g/dL (3.5-5.0); Alkaline Phosphatase 131 U/L (39-117); Anion Gap 14 (12-20); Aspartate Amino Transferase 28 U/L (5-31); Bilirubin Direct 0.4 mg/dL (0.0-0.5); Bilirubin Total 1.4 mg/dL (0.0-1.0); Blood Urea Nitrogen 20 mg/dL (9-16); Calcium 8.5 mg/dL (8.4-10.2); Carbon Dioxide 33 mmol/L (22-29); Chloride 99 mmol/L (96-108); Creatinine Clr Calc Pharmacy 48.9; Estimated Glomerular Filt Rate > 60; Glucose Fasting 101 mg/dL (60-99); Potassium 2.9 mmol/L (3.3-5.1); Sodium 143 mmol/L (135-145)
[2022-05-25] MEDS: Pantoprazole Sodium 40 MG/10 ML VIAL IVPUSH (06:28)
[2022-05-25] MEDS: Levothyroxine Sodium 75 MCG TABLET PO (06:28)
[2022-05-25] MEDS: Cyanocobalamin (Vitamin B-12) 1,000 MCG TABLET 1000 MCG PO (07:43)
[2022-05-25] MEDS: Furosemide 40 MG/4 ML VIAL IVPUSH (07:44)
[2022-05-25] MEDS: 0.9 % Sodium Chloride Flush 3 ML SYRINGE IVFLUSH ×2 (07:44→21:16)
[2022-05-25] MEDS: Potassium Chloride/H20 10 MEQ/100 ML PIGGYBACK 100 MEQ IV ×2 (09:33→11:43)
--- NOTE | 2022-05-25 09:53 | HO.PM.IMPN ---
Subjective Subjective Date of Service: 05/25/22 Interval History: feeling better Physical Exam Vital Signs: Vital Signs: Last Vital Signs Temp 97.6 F 05/25/22 07:14 Pulse 80 05/25/22 07:14 Resp 20 05/25/22 07:14 BP 105/58 L 05/25/22 07:14 Pulse Ox 95 05/25/22 07:14 O2 Del Method Nasal Cannula 05/25/22 07:14 O2 Flow Rate 2.5 05/25/22 07:14 BMI result Body Mass Index 22.8 Const: General: cooperative, comfortable, no acute distress, alert, awake and tired appearing Nutritional Appearance: thin Orientation/consciousness: patient oriented x3 HEENT: Head: Yes normocephalic and Yes atraumatic Neck: Neck: Yes trachea midline, Yes supple and Yes no JVD Resp: Effort & Inspection: normal respiratory effort Auscultation: clear to auscultation bilaterally Cardio: Jugular venous distension: no JVD Palpation: normal PMI Rate: regular rate Rhythm: regular rhythm Heart sounds: S1 normal heart sound present, S2 normal heart sound present, no click, no gallops, no murmurs and no rubs GI: Auscultation: normal bowel sounds Skin: General skin exam: no rashes or lesions noted Neuro: General: patient oriented x3 and no focal motor deficits Extrem: General: Yes no clubbing, cyanosis or edema Objective Data Active Medications Acetaminophen (Acetaminophen 325 Mg Tablet) 650 mg PO Q6H PRN PRN Reason: Pain, Mild (Pain Scale 1-3) Last Admin: 05/24/22 06:07 Dose: 350 mg Documented By: DARNELL Comments: Pt was unable to swallow the second tablet-she was gagging. Albuterol Sulfate (Albuterol Sulfate 90 Mcg 8 Gm Inhaler) 2 puff INHALE Q6H PRN PRN Reason: Wheezing Cyanocobalamin (Cyanocobalamin (Vitamin B-12) 1,000 Mcg Tablet) 1,000 mcg PO DAILY [facility] Last Admin: 05/25/22 07:43 Dose: 1,000 mcg Documented By: SONNY Docusate Sodium (Docusate Sodium 100 Mg Capsule) 100 mg PO DAILY PRN PRN Reason: Constipation Furosemide (Furosemide 40 Mg/4 Ml Vial) 40 mg IVPUSH DAILY [facility]; Protocol Last Admin: 05/25/22 07:44 Dose: 40 mg Documented By: SONNY Gabapentin (Gabapentin 300 Mg Capsule) 300 mg PO BEDTIME [facility] Last Admin: 05/24/22 20:28 Dose: 300 mg Documented By: PRIYANK Potassium Chloride (Potassium Chloride/H20) 10 meq in 100 mls @ 100 mls/hr IV Q1H [facility] Stop: 05/25/22 11:59 Last Admin: 05/25/22 09:33 Dose: 100 mls/hr Documented By: SONNY Levothyroxine Sodium (Levothyroxine Sodium 75 Mcg Tablet) 75 mcg PO DAILY@0630 [facility] Last Admin: 05/25/22 06:28 Dose: 75 mcg Documented By: PRIYANK Ondansetron HCl (Ondansetron Hcl 4 Mg/2 Ml Vial) 4 mg IVPUSH Q4H PRN PRN Reason: Nausea and Vomiting Last Admin: 05/24/22 17:05 Dose: 4 mg Documented By: YANDEL Pantoprazole Sodium (Pantoprazole Sodium 40 Mg/10 Ml Vial) 40 mg IVPUSH BID@0630,1630 [facility] Last Admin: 05/25/22 06:28 Dose: 40 mg Documented By: PRIYANK Pharmacy Consult (Consult Rx Perform Med Rec) 1 each MISCELLANE ONCE PRN PRN Reason: Consult order Sodium Chloride (0.9 % Sodium Chloride Flush 3 Ml Syringe) 3 ml IVFLUSH QSHIFT [facility] Last Admin: 05/25/22 07:44 Dose: 3 ml Documented By: SONNY Trazodone HCl (Trazodone Hcl 50 Mg Tablet) 50 mg PO BEDTIME [facility] Last Admin: 05/24/22 20:28 Dose: 50 mg Documented By: PRIYANK Labs 05/25/22 05:57 05/25/22 05:57 Labs: Laboratory Results - last 24 hr 05/25/22 05/25/22 05:57 05:57 MCV 72.6 L MCH 22.0 L MCHC 30.3 L RDW 26.4 H Plt Count 439 H MPV 9.3 L Absolute Nucleated RBC 0.030 H Nucleated RBC % (auto) 0.3 H Anion Gap 14 Estim Creat Clear Calc 48.9 Estimated GFR > 60 Fasting Glucose 101 H Calcium 8.5 Total Bilirubin 1.4 H Direct Bilirubin 0.4 AST 28 ALT 19 Alkaline Phosphatase 131 H Total Protein 7.0 Albumin 3.8 Microbiology Microbiology Results: Microbiology 05/23/22 Unknown Urine Culture - Final Urine clean catch - Urine whitman top Assessment and Plan (1) Anemia: Status: Acute Plan 71F PMH of hypothyroidism, GERD, and osteoarthritis presented with malaise, found to have severe iron defeciency anemia Symptomatic blood loss anemia, unspecified chronicity iv ppi hgb improved appropriately monitor cbc gi appreciated, plan for egd/colonoscopy hypokalemia replace, monitor new onset CHF, unspecified EF iv lasix echo Unintentional weight loss -8 pounds x 2 months, with anorexia -Chest CT and CT abd/pelvis negative for malignancy liver cirrhosis - compensated gi following hypothyroidism -continue levothyroxine Calcified leiomyomas -no vaginal bleeding -outpt follow up DVT prophylaxis-mechanical due to gi bleed DNI reason for continued hospitalization:work up significant anemia Time Spent With Patient Time: Total time managing care of this patient today ____ minutes. Quality Stroke Does the patient have a stroke diagnosis?: No VTE Prior VTE?: No VTE Risk Level:: Medical - moderate - high VTE Device Contraindication: Treatment Not Indicated VTE Drug Contraindication: N/A - Med Ordered
--- NOTE | 2022-05-25 10:04 | P.CONAN_ITS ---
[facility] Active Problems Active Problems: All Active Problems (Updated 05/23/22 @ 21:19 by GREYSON Wells) Anemia (Acute) New onset of congestive heart failure (Acute) Chronic abdominal pain (Acute) Breast calcification, left (Acute) Past Medical History Medical History Arthritis FH: breast cancer FH: cholecystectomy Hepatic cirrhosis Hypothyroid Family History Family History Family/Other Breast cancer Maternal Grandfather Throat cancer Family history of problems with anesthesia: No Surgical History Surgical History Hx of cholecystectomy History of Problems with Anesthesia: No Social History Social History Household Members: None Housing: Apartment Do you presently have visiting nurse or other home services: Yes ([employer] every other day) Alcohol intake: never Patient Tobacco Use Status: Never used Tobacco Second Hand Smoke Exposure: No service: No Current occupational status: [employer] Allergies Allergy/AdvReac Type Severity Reaction Status Date / Time No Known Allergies Allergy Verified 04/19/22 19:28 [No Known Allergies*] Active Medications: Current Medications Acetaminophen (Acetaminophen 325 Mg Tablet) 650 mg PO Q6H PRN PRN Reason: Pain, Mild (Pain Scale 1-3) Last Admin: 05/24/22 06:07 Dose: 350 mg Albuterol Sulfate (Albuterol Sulfate 90 Mcg 8 Gm Inhaler) 2 puff INHALE Q6H PRN PRN Reason: Wheezing Cyanocobalamin (Cyanocobalamin (Vitamin B-12) 1,000 Mcg Tablet) 1,000 mcg PO DAILY [facility] Last Admin: 05/25/22 07:43 Dose: 1,000 mcg Docusate Sodium (Docusate Sodium 100 Mg Capsule) 100 mg PO DAILY PRN PRN Reason: Constipation Furosemide (Furosemide 40 Mg/4 Ml Vial) 40 mg IVPUSH DAILY [facility]; Protocol Last Admin: 05/25/22 07:44 Dose: 40 mg Gabapentin (Gabapentin 300 Mg Capsule) 300 mg PO BEDTIME [facility] Last Admin: 05/24/22 20:28 Dose: 300 mg Potassium Chloride (Potassium Chloride/H20) 10 meq in 100 mls @ 100 mls/hr IV Q1H [facility] Stop: 05/25/22 11:59 Last Admin: 05/25/22 09:33 Dose: 100 mls/hr Levothyroxine Sodium (Levothyroxine Sodium 75 Mcg Tablet) 75 mcg PO DAILY@0630 [facility] Last Admin: 05/25/22 06:28 Dose: 75 mcg Ondansetron HCl (Ondansetron Hcl 4 Mg/2 Ml Vial) 4 mg IVPUSH Q4H PRN PRN Reason: Nausea and Vomiting Last Admin: 05/24/22 17:05 Dose: 4 mg Pantoprazole Sodium (Pantoprazole Sodium 40 Mg/10 Ml Vial) 40 mg IVPUSH BID@0630,1630 [facility] Last Admin: 05/25/22 06:28 Dose: 40 mg Pharmacy Consult (Consult Rx Perform Med Rec) 1 each MISCELLANE ONCE PRN PRN Reason: Consult order Sodium Chloride (0.9 % Sodium Chloride Flush 3 Ml Syringe) 3 ml IVFLUSH QSHIFT [facility] Last Admin: 05/25/22 07:44 Dose: 3 ml Trazodone HCl (Trazodone Hcl 50 Mg Tablet) 50 mg PO BEDTIME [facility] Last Admin: 05/24/22 20:28 Dose: 50 mg Home Medications Medication Instructions Recorded Confirmed Last Taken Type acetaminophen 500 mg tablet 500 mg PO Q8H PRN Mild Pain (Scale 05/23/22 05/23/22 Unknown History Score 1-4) albuterol sulfate 90 mcg/actuation 2 puff inhalation Q6H PRN Wheezing 05/23/22 05/23/22 Unknown History aerosol inhaler clotrimazole-betamethasone 1 1 appl topical BID 05/23/22 05/23/22 Unknown History %-0.05 % topical cream cyanocobalamin (vitamin B-12) 1,000 mcg PO DAILY 05/23/22 05/23/22 Unknown History 1,000 mcg tablet diclofenac sodium 1 % topical gel 2 g topical BID PRN Pain 05/23/22 05/23/22 Unknown History gabapentin 300 mg capsule 300 mg PO BEDTIME 05/23/22 05/23/22 Unknown History levothyroxine 75 mcg tablet 75 mcg PO DAILY 05/23/22 05/23/22 Unknown History omeprazole 20 mg capsule,delayed 20 mg PO DAILY 05/23/22 05/23/22 Unknown History release trazodone 50 mg tablet 50 mg PO BEDTIME 05/23/22 05/23/22 Unknown History Exam Exam Date and Time: May 25, 2022 1004 Height,Weight and Vital Signs: Height 5 ft 2 in Weight 56.6 kg Last Vital Signs Temp 97.6 F 05/25/22 07:14 Pulse 80 05/25/22 07:14 Resp 20 05/25/22 07:14 BP 105/58 L 05/25/22 07:14 Pulse Ox 95 05/25/22 07:14 O2 Del Method Nasal Cannula 05/25/22 07:14 O2 Flow Rate 2.5 05/25/22 07:14 Pertinent Lab Results Pertinent Lab Results: Laboratory Tests 05/23/22 05/23/22 05/23/22 12:57 12:57 12:57 WBC 7.1 RBC 2.92 L Hgb 5.1 L* Hct 18.7 L* MCV 64.0 L MCH 17.5 L MCHC 27.3 L RDW 18.7 H Plt Count 405 H MPV 9.9 Immature Gran % (Auto) 1.6 H Neut % (Auto) 79.2 H Lymph % (Auto) 8.1 L [place] % (Auto) 7.6 Eos % (Auto) 2.8 Baso % (Auto) 0.7 Lymph # (Auto) 0.6 L [place] # (Auto) 0.5 Eos # (Auto) 0.2 Baso # (Auto) 0.1 Abs Immat Gran (auto) 0.11 H Absolute Neuts (auto) 5.6 Absolute Nucleated RBC 0.040 H Nucleated RBC % (auto) 0.6 H Smear Path Review SEE NOTE PT INR Sodium 136 Potassium 3.4 Chloride 103 Carbon Dioxide 25 Anion Gap 11 L BUN 15 Creatinine 0.74 Estim Creat Clear Calc 68.0 Estimated GFR > 60 Random Glucose 207 H Fasting Glucose Calcium 8.7 D Iron 10 L TIBC 358 % Saturation 3 L Unsat Iron Binding 348 Ferritin 7 L Total Bilirubin 0.6 Direct Bilirubin 0.2 AST 16 ALT 9 Alkaline Phosphatase 93 Troponin I High Sens B-Natriuretic Peptide Total Protein 6.9 Albumin 3.7 Lipase 22 Urine Color Urine Appearance Urine pH Ur Specific [place] Urine Protein Urine Glucose (UA) Urine Ketones Urine Blood Urine Nitrite Ur Leukocyte Esterase Urine RBC Urine WBC Ur Squamous Epith Cells Urine Bacteria Hyaline Casts Stool Occult Blood COVID-19 ([facility]ASMEEN) Negative COVID-19 Clin Com See Note Blood Type Antibody Screen Crossmatch 05/23/22 05/23/22 05/23/22 12:57 12:57 12:57 WBC RBC Hgb Hct MCV MCH MCHC RDW Plt Count MPV Immature Gran % (Auto) Neut % (Auto) Lymph % (Auto) [place] % (Auto) Eos % (Auto) Baso % (Auto) Lymph # (Auto) [place] # (Auto) Eos # (Auto) Baso # (Auto) Abs Immat Gran (auto) Absolute Neuts (auto) Absolute Nucleated RBC Nucleated RBC % (auto) Smear Path Review PT 13.0 INR 1.1 Sodium Potassium Chloride Carbon Dioxide Anion Gap BUN Creatinine Estim Creat Clear Calc Estimated GFR Random Glucose Fasting Glucose Calcium Iron TIBC % Saturation Unsat Iron Binding Ferritin Total Bilirubin Direct Bilirubin AST ALT Alkaline Phosphatase Troponin I High Sens < 2.7 B-Natriuretic Peptide 113 H Total Protein Albumin Lipase Urine Color Urine Appearance Urine pH Ur Specific [place] Urine Protein Urine Glucose (UA) Urine Ketones Urine Blood Urine Nitrite Ur Leukocyte Esterase Urine RBC Urine WBC Ur Squamous Epith Cells Urine Bacteria Hyaline Casts Stool Occult Blood COVID-19 (YASMEEN) COVID-19 Clin Com Blood Type Antibody Screen Crossmatch 05/23/22 05/23/22 05/23/22 14:11 14:11 14:15 WBC 8.3 RBC 3.03 L Hgb 5.2 L* Hct 19.4 L* MCV 64.0 L MCH 17.2 L MCHC 26.8 L RDW 18.9 H Plt Count 435 H MPV 9.6 Immature Gran % (Auto) 1.5 H Neut % (Auto) 74.1 H Lymph % (Auto) 11.7 L [place] % (Auto) 8.8 Eos % (Auto) 3.1 Baso % (Auto) 0.8 Lymph # (Auto) 1.0 L [place] # (Auto) 0.7 Eos # (Auto) 0.3 Baso # (Auto) 0.1 Abs Immat Gran (auto) 0.12 H Absolute Neuts (auto) 6.1 Absolute Nucleated RBC 0.040 H Nucleated RBC % (auto) 0.5 H Smear Path Review PT INR Sodium Potassium Chloride Carbon Dioxide Anion Gap BUN Creatinine Estim Creat Clear Calc Estimated GFR Random Glucose Fasting Glucose Calcium Iron TIBC % Saturation Unsat Iron Binding Ferritin Total Bilirubin Direct Bilirubin AST ALT Alkaline Phosphatase Troponin I High Sens B-Natriuretic Peptide Total Protein Albumin Lipase Urine Color Yellow Urine Appearance Cloudy Urine pH 5.5 Ur Specific [place] >= 1.030 H Urine Protein 30 (1+) H Urine Glucose (UA) 500 H Urine Ketones Trace Urine Blood Negative Urine Nitrite Negative Ur Leukocyte Esterase Small (1+) H Urine RBC 0-2 Urine WBC 0-5 Ur Squamous Epith Cells 3-5 Urine Bacteria Trace Hyaline Casts 0-2 Stool Occult Blood COVID-19 ([facility]ASMEEN) COVID-19 Clin Com Blood Type O Positive Antibody Screen NEGATIVE Crossmatch See Detail 05/23/22 05/24/22 05/24/22 14:30 06:45 06:45 WBC 11.6 H RBC 4.42 D Hgb 9.9 L D Hct 31.8 L D MCV 71.9 L D MCH 22.4 L MCHC 31.1 RDW 25.8 H Plt Count 410 H MPV 9.5 Immature Gran % (Auto) 2.9 H Neut % (Auto) 78.7 H Lymph % (Auto) 8.1 L [place] % (Auto) 8.4 Eos % (Auto) 1.0 Baso % (Auto) 0.9 Lymph # (Auto) 0.9 L [place] # (Auto) 1.0 Eos # (Auto) 0.1 Baso # (Auto) 0.1 Abs Immat Gran (auto) 0.33 H Absolute Neuts (auto) 9.1 H Absolute Nucleated RBC 0.120 H Nucleated RBC % (auto) 1.0 H Smear Path Review PT INR Sodium 137 Potassium 3.0 L Chloride 96 Carbon Dioxide 32 H Anion Gap 12 BUN 17 H Creatinine 0.74 Estim Creat Clear Calc 53.6 Estimated GFR > 60 Random Glucose 107 Fasting Glucose Calcium 8.5 Iron TIBC % Saturation Unsat Iron Binding Ferritin Total Bilirubin 5.4 H Direct Bilirubin AST 39 H ALT 20 Alkaline Phosphatase 150 H Troponin I High Sens B-Natriuretic Peptide Total Protein 7.1 Albumin 3.9 Lipase Urine Color Urine Appearance Urine pH Ur Specific [place] Urine Protein Urine Glucose (UA) Urine Ketones Urine Blood Urine Nitrite Ur Leukocyte Esterase Urine RBC Urine WBC Ur Squamous Epith Cells Urine Bacteria Hyaline Casts Stool Occult Blood NEGATIVE COVID-19 ([facility]ASMEEN) COVID-19 Clin Com Blood Type Antibody Screen Crossmatch 05/25/22 05/25/22 05:57 05:57 WBC 11.3 H RBC 4.41 Hgb 9.7 L Hct 32.0 L MCV 72.6 L MCH 22.0 L MCHC 30.3 L RDW 26.4 H Plt Count 439 H MPV 9.3 L Immature Gran % (Auto) Neut % (Auto) Lymph % (Auto) [place] % (Auto) Eos % (Auto) Baso % (Auto) Lymph # (Auto) [place] # (Auto) Eos # (Auto) Baso # (Auto) Abs Immat Gran (auto) Absolute Neuts (auto) Absolute Nucleated RBC 0.030 H Nucleated RBC % (auto) 0.3 H Smear Path Review PT INR Sodium 143 Potassium 2.9 L Chloride 99 Carbon Dioxide 33 H Anion Gap 14 BUN 20 H Creatinine 0.81 Estim Creat Clear Calc 48.9 Estimated GFR > 60 Random Glucose Fasting Glucose 101 H Calcium 8.5 Iron TIBC % Saturation Unsat Iron Binding Ferritin Total Bilirubin 1.4 H Direct Bilirubin 0.4 AST 28 ALT 19 Alkaline Phosphatase 131 H Troponin I High Sens B-Natriuretic Peptide Total Protein 7.0 Albumin 3.8 Lipase Urine Color Urine Appearance Urine pH Ur Specific [place] Urine Protein Urine Glucose (UA) Urine Ketones Urine Blood Urine Nitrite Ur Leukocyte Esterase Urine RBC Urine WBC Ur Squamous Epith Cells Urine Bacteria Hyaline Casts Stool Occult Blood COVID-19 ([facility]) COVID-19 Clin Com Blood Type Antibody Screen Crossmatch Airway Mallampati Class: II TM Dist: >3cm Neck ROM: Full Denture: Upper and Lower Heart: rrr Lungs: cta Assessment and Plan Assessment Anesthesia Assessment: Anesthesia Plan Discussed and Chart Reviewed Final Anesthetic Review Family History of Problems with Anesthesia: No History of Problems with Anesthesia: No NPO: Yes ASA Class: III Final Preanesthetic Review: No Changes in Pt Med Stat, Meds/Allgs Chart Reviewed and Consent Obtained/Reviewed Patient Risk: Intermediate Procedure Risk: Intermediate Anesthetic Plan Anesthetic Plan: MAC: Disposition: Standard PACU
--- NOTE | 2022-05-25 10:10 | PM.PNCARD ---
Subjective Subjective Date of Service: 05/25/22 Principal diagnosis: CHF Interval history: Patient no cardiac symptoms today. Echocardiogram shows normal LV systolic function. She has been transfused and hematocrit is stable. She is scheduled to undergo endoscopy today. Review of Systems Constitutional: Reports fatigue Eyes: Reports no additional eye complaints Cardiovascular: Reports no additional cardiovascular complaints Respiratory: Reports no additional respiratory complaints Genitourinary: Reports no additional female genitourinary complaints Musculoskeletal: Reports no additional musculoskeletal complaints Endocrine: Reports fatigue Physical Exam Vital Signs: Last Vital Signs Temp 97.6 F 05/25/22 07:14 Pulse 80 05/25/22 07:14 Resp 20 05/25/22 07:14 BP 105/58 L 05/25/22 07:14 Pulse Ox 95 05/25/22 07:14 O2 Del Method Nasal Cannula 05/25/22 07:14 O2 Flow Rate 2.5 05/25/22 07:14 BMI result Body Mass Index 22.8 Const General: cooperative, comfortable, no acute distress, alert, awake and tired appearing Nutritional Appearance: thin Neck Neck: Yes trachea midline, Yes supple and Yes no JVD Resp Effort & Inspection: normal respiratory effort Auscultation: clear to auscultation bilaterally Cardio Jugular venous distension: no JVD Palpation: normal PMI Rate: regular rate Rhythm: regular rhythm Heart sounds: S1 normal heart sound present, S2 normal heart sound present, no click, no gallops, no murmurs and no rubs GI Auscultation: normal bowel sounds Extrem General: Yes no clubbing, cyanosis or edema Objective Labs and Meds 05/25/22 05:57 05/25/22 05:57 Lab results: Laboratory Results - last 24 hr 05/25/22 05/25/22 05:57 05:57 WBC 11.3 H RBC 4.41 Hgb 9.7 L Hct 32.0 L MCV 72.6 L MCH 22.0 L MCHC 30.3 L RDW 26.4 H Plt Count 439 H MPV 9.3 L Absolute Nucleated RBC 0.030 H Nucleated RBC % (auto) 0.3 H Sodium 143 Potassium 2.9 L Chloride 99 Carbon Dioxide 33 H Anion Gap 14 BUN 20 H Creatinine 0.81 Estim Creat Clear Calc 48.9 Estimated GFR > 60 Fasting Glucose 101 H Calcium 8.5 Total Bilirubin 1.4 H Direct Bilirubin 0.4 AST 28 ALT 19 Alkaline Phosphatase 131 H Total Protein 7.0 Albumin 3.8 Progress Note: A&P Assessment and plan (1) New onset of congestive heart failure: Status: Acute Assessment and Plan: New onset congestive heart failure most likely related to severe anemia. Ischemic etiology needs to be ruled out. Will follow-up as outpatient after myocardial perfusion imaging. No inpatient workup is required. Continue maintain hematocrit over 30. Continue to find a source for her acute anemia. No need for diuretic regimen. Heart failure syndrome has resolved. LV systolic function is normal. Will sign of the case and follow-up as outpatient. Time Spent With Patient Time: Total time managing care of this patient today ____ minutes. Progress Note: Quality Stroke Does the patient have a stroke diagnosis?: No Procedures Date of Service Date of Service: 05/25/22
--- NOTE | 2022-05-25 11:07 | PC.NURSE ---
advertising writer recieved a phone call from [facility] regarding a covid PCR test pt was given before coming to ED on 05/23. Result was positive. Dr. Garcia reccommended checking with infections disease, so Dr. Ellington was contacted. Infection control then decided that since pt tested negative upon arrival, precautions were not needed. , [place], etc aware.
--- NOTE | 2022-05-25 14:24 | PC.NURSE ---
1415-ONE FLEET ENEMA GIVEN PER MD DYE. LAYING ON LEFT LATERAL SIDE. SYLVIA WELL. YELLOW LIQUID OUTPUT SMALL AMOUNT. CROP FARM WORKERS BY BEDSIDE TO EXPLAIN THE PROCEDURE. NO BLOOD NOTED.
--- NOTE | 2022-05-25 15:49 | P.BOP_ITS ---
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
--- NOTE | 2022-05-25 15:54 | P.EN_ITS ---
Event Note Date of Service: 05/25/22 Event Note: GI-Full note dictated EGD 1. Inflammatory proximal gastric polyp--no bleeding 2. Minimal changes of gastric antral vascular ectasia and/or gastritis--no bleeding 3. Small hiatal hernia 4. No varices, no portal gastropathy Colonoscopy to the cecum and TI 1. Sigmoid diverticulosis 2. Internal hemorrhoids 3. No bleeding, no old blood Overall, I suspect the GI bleed was due to a diverticular bleed based on her history and today's findings, and perhaps some component of UGI blood loss from the EGD findings.. Rec: Advance diet, change to po PPI long term care phlebotomist, avoid aspirin/NSAIDs fpc. D/W her ELECTRICAL RESEARCH ENGINEER, Ana Rosa. Time Spent With Patient Time: Total time managing care of this patient today ____ minutes.
[2022-05-25] MEDS: Omeprazole 40 MG CAPSULE.DR PO (17:21)
[2022-05-25] MEDS: Lactated Ringers 1,000 ML 50 ML IVCONT (17:27)
[2022-05-25] MEDS: Potassium Chloride Packet 20 MEQ PACKET 40 MEQ PO (18:40)
[2022-05-25] MEDS: Gabapentin 300 MG CAPSULE PO (21:16)
[2022-05-25] MEDS: traZODone HCL 50 MG TABLET PO (21:16)
[2022-05-26] VITALS (8 sets, daily range): BP systolic 95–110; BP diastolic 52–58; PULSE 72–85; RESP 14–20; TEMP 36.1–36.8; O2SAT 93–98
--- NOTE | 2022-05-26 02:31 | OP_ITS ---
DATE OF SERVICE: 05/25/2022 SURGEON: Clarence Perry MD INDICATIONS: The patient presents for evaluation of GI bleeding and anemia. Full consent has been obtained from her for this, including risks of bleeding and perforation. PREOPERATIVE DIAGNOSIS: Gastrointestinal bleeding and anemia. POSTOPERATIVE DIAGNOSIS: PROCEDURE PERFORMED: Esophagogastroduodenoscopy and colonoscopy to the cecum and terminal ileum. ESTIMATED BLOOD LOSS: COMPLICATIONS: ANESTHESIA: Monitored anesthesia care. ASSISTANTS: SPECIMENS: POSTOPERATIVE DIAGNOSES: 1. Gastrointestinal bleeding and anemia. 2. Inflammatory proximal gastric polyp. 3. Small hiatal hernia. 4. Question of mild gastric antral vascular ectasia and/or mild gastric antral gastritis. 5. Diverticulosis. 6. Internal hemorrhoids. DESCRIPTION OF PROCEDURE: The patient was placed in the left lateral decubitus position. The Olympus video gastroscope was passed in the posterior oropharynx and upper esophagus under direct vision. The scope was passed slowly to the distal esophagus. The gastroesophageal junction appeared at 35 cm. There was no signs of any esophagitis nor any varices. The scope entered the stomach, there was a small hiatal hernia. Just beneath the EG junction was an approximately 5 mm inflammatory appearing gastric polyp but without any signs of visible vessel nor any sign of bleeding. The scope was advanced to the pylorus and the duodenum was cannulated to the descending portion. The duodenum including the bulb appeared normal without mass or ulceration. The scope was withdrawn back in the stomach. In the prepyloric antrum was some edema, erythema, and small areas of what appeared to be possible vascular ectasia. This may have also represented some mild gastritis. Biopsies were not obtained. There was good peristalsis. Scope was retroflexed visualizing the proximal stomach carefully, which appeared normal, other than the other mentioned inflammatory gastric polyp in the very proximal stomach. There were no varices nor portal gastropathy. The scope was straightened and withdrawn back in the esophagus. I opted not to biopsy the gastric polyp given its inflammatory appearance and her recent bleeding. The esophageal mucosa appeared normal. The scope was withdrawn from the patient. She was turned around for the colonoscopy. The digital rectal exam revealed no abnormalities. The Olympus video pediatric colonoscope was entered into the rectum and advanced easily to the cecum. Once in the cecum, I did identify normal-appearing cecal pouch with appendiceal orifice and a normal-appearing ileocecal valve. The terminal ileum was cannulated and appeared normal. The scope was withdrawn back from the colon. The entire cecum and ileocecal valve appeared normal. Scope was then slowly withdrawn assessing all mucosal surface carefully. Preparation was excellent. I did not visualize any signs of polyps, colitis, nor angiodysplasias. There was mild amount of sigmoid diverticulosis. There was no blood in the colon. In the rectum, scope was retroflexed visualizing internal hemorrhoids, but no other pathology. The rectal mucosa appeared normal. The scope was straightened and withdrawn from the patient. She tolerated the procedures well, and she was returned to the recovery area in stable condition. IMPRESSION: 1. Sigmoid diverticulosis. 2. Internal hemorrhoids. 3. Inflammatory proximal gastric polyp. 4. Minimal changes of either gastric antral vascular ectasia or antral gastritis but without bleeding. 5. Small hiatal hernia. PLAN: At this point, she has been stable and her blood count has been much improved and stable after the transfusion. Her diet will be advanced. She will be changed from IV PPI to p.o. omeprazole. She should avoid all aspirin and NSAIDs. I do suspect her bleeding was a combination of both the diverticulosis given the report of hematochezia as well as perhaps some chronic blood loss in relation to the upper endoscopy findings. If iron deficient, she should start iron supplements as well. This has been discussed with her CONTRACT ADMINISTRATION SPECIALIST, Ana Rosa. MD NIA Herrmann/LIDA / [id number] MTDD
[2022-05-26] MEDS: Levothyroxine Sodium 75 MCG TABLET PO (05:35)
[2022-05-26] MEDS: Omeprazole 40 MG CAPSULE.DR PO (05:35)
[2022-05-26 07:20] LABS: Hematocrit 31.4 % (37.0-47.0); Hemoglobin 9.4 g/dl (12.0-16.0); Mean Corpuscular HGB Conc 29.9 g/dl (31.0-35.0); Mean Corpuscular Volume 73.5 fL (80.0-98.0); Mean Platelet Volume 9.2 fL (9.4-12.3); NRBC Pct Auto 0.3 /100WBC (0.0-0.2); Platelet Count 433 X10*3/uL (160-400); Red Blood Count 4.27 X10*6/uL (4.20-5.50); Red Cell Distribution Width 27.4 % (11.0-16.0); White Blood Count 8.8 X10*3/uL (4.8-10.8)
[2022-05-26 07:40] LABS: Anion Gap 12 (12-20); Blood Urea Nitrogen 20 mg/dL (9-16); Calcium 8.8 mg/dL (8.4-10.2); Carbon Dioxide 33 mmol/L (22-29); Chloride 98 mmol/L (96-108); Creatinine Clr Calc Pharmacy 54.2; Estimated Glomerular Filt Rate > 60; Glucose Fasting 89 mg/dL (60-99); Potassium 3.2 mmol/L (3.3-5.1); Sodium 140 mmol/L (135-145)
[2022-05-26] MEDS: 0.9 % Sodium Chloride Flush 3 ML SYRINGE IVFLUSH ×2 (08:07→22:17)
[2022-05-26] MEDS: Cyanocobalamin (Vitamin B-12) 1,000 MCG TABLET 1000 MCG PO (08:07)
--- NOTE | 2022-05-26 08:53 | HO.POSTANES ---
Post Anesthesia Evaluation Post Anesthesia Evaluation Vital Signs: Vital Signs Temp Pulse Resp BP Pulse Ox O2 Del Method O2 Flow Rate 05/26/22 07:20 97.9 F 75 18 95/52 L 95 Nasal Cannula 2 05/26/22 03:26 96.9 F 79 20 102/58 L 96 Nasal Cannula 2 05/26/22 00:00 97.2 F 72 20 108/55 L 95 Room Air 05/25/22 21:30 96 Nasal Cannula 2 Anesthesia: Monitored Mental Status: Awake Pain Control: Satisfactory Nausea/Vomiting: None Hydration: Adequate Anesthesia-Related Issues: No Anes. Related Issues
--- NOTE | 2022-05-26 08:56 | PC.NURSE ---
BPs run soft, automated BP of 95/52 this morning, recheck by manual BP of 92/38. pt asymptomatic, vitals otherwise within parameters; T 97.9, HR75, RR8 95% 2L WON. notified.
--- NOTE | 2022-05-26 08:58 | PC.NURSE ---
per MD to trial pt w/o O2, pt sating at 87% RA, came back up to 93% on 2L NC
--- NOTE | 2022-05-26 09:11 | HO.PM.IMPN ---
Subjective Subjective Date of Service: 05/26/22 Interval History: hypoxia on exertion Physical Exam Vital Signs: Vital Signs: Last Vital Signs Temp 97.9 F 05/26/22 07:20 Pulse 75 05/26/22 07:20 Resp 18 05/26/22 07:20 BP 95/52 L 05/26/22 07:20 Pulse Ox 95 05/26/22 07:20 O2 Del Method Nasal Cannula 05/26/22 07:20 O2 Flow Rate 2 05/26/22 07:20 Oxygen Flow Rate 2 05/25/22 10:03 BMI result Body Mass Index 22.8 Const: General: cooperative, comfortable, no acute distress, alert, awake and tired appearing Nutritional Appearance: thin Neck: Neck: Yes trachea midline, Yes supple and Yes no JVD Resp: Effort & Inspection: normal respiratory effort Auscultation: clear to auscultation bilaterally Cardio: Jugular venous distension: no JVD Palpation: normal PMI Rate: regular rate Rhythm: regular rhythm Heart sounds: S1 normal heart sound present, S2 normal heart sound present, no click, no gallops, no murmurs and no rubs GI: Auscultation: normal bowel sounds Extrem: General: Yes no clubbing, cyanosis or edema Objective Data Active Medications Acetaminophen (Acetaminophen 325 Mg Tablet) 650 mg PO Q6H PRN PRN Reason: Pain, Mild (Pain Scale 1-3) Last Admin: 05/24/22 06:07 Dose: 350 mg Documented By: DARNELL Comments: Pt was unable to swallow the second tablet-she was gagging. Albuterol Sulfate (Albuterol Sulfate 90 Mcg 8 Gm Inhaler) 2 puff INHALE Q6H PRN PRN Reason: Wheezing Cyanocobalamin (Cyanocobalamin (Vitamin B-12) 1,000 Mcg Tablet) 1,000 mcg PO DAILY [facility] Last Admin: 05/26/22 08:07 Dose: 1,000 mcg Documented By: JCARLOS Docusate Sodium (Docusate Sodium 100 Mg Capsule) 100 mg PO DAILY PRN PRN Reason: Constipation Gabapentin (Gabapentin 300 Mg Capsule) 300 mg PO BEDTIME [facility] Last Admin: 05/25/22 21:16 Dose: 300 mg Documented By: NAZIARISSenait Levothyroxine Sodium (Levothyroxine Sodium 75 Mcg Tablet) 75 mcg PO DAILY@0630 [facility] Last Admin: 05/26/22 05:35 Dose: 75 mcg Documented By: DWIGHT Omeprazole (Omeprazole 40 Mg Capsule.) 40 mg PO DAILY@629 [facility] Last Admin: 05/26/22 05:35 Dose: 40 mg Documented By: DWIGHT Ondansetron HCl (Ondansetron Hcl 4 Mg/2 Ml Vial) 4 mg IVPUSH Q4H PRN PRN Reason: Nausea and Vomiting Last Admin: 05/24/22 17:05 Dose: 4 mg Documented By: YANDEL Pharmacy Consult (Consult Rx Perform Med Rec) 1 each MISCELLANE ONCE PRN PRN Reason: Consult order Potassium Chloride (Potassium Chloride Er 20 Meq Tab.Er.Prt) 40 meq PO ONCE ONE Stop: 05/26/22 09:11 Sodium Chloride (0.9 % Sodium Chloride Flush 3 Ml Syringe) 3 ml IVFLUSH QSHIFT [facility] Last Admin: 05/26/22 08:07 Dose: 3 ml Documented By: JCARLOS Trazodone HCl (Trazodone Hcl 50 Mg Tablet) 50 mg PO BEDTIME [facility] Last Admin: 05/25/22 21:16 Dose: 50 mg Documented By: DWIGHT Labs 05/26/22 07:00 05/26/22 07:00 Labs: Laboratory Results - last 24 hr 05/26/22 05/26/22 07:00 07:00 MCV 73.5 L MCH 22.0 L MCHC 29.9 L RDW 27.4 H Plt Count 433 H MPV 9.2 L Absolute Nucleated RBC 0.030 H Nucleated RBC % (auto) 0.3 H Anion Gap 12 Estim Creat Clear Calc 54.2 Estimated GFR > 60 Fasting Glucose 89 Calcium 8.8 Assessment and Plan (1) Anemia: Status: Acute Plan 71F PMH of hypothyroidism, GERD, and osteoarthritis presented with malaise, found to have severe iron defeciency anemia Symptomatic blood loss anemia, unspecified chronicity s/p egd/colono 05/25/22 EGD 1. Inflammatory proximal gastric polyp--no bleeding 2. Minimal changes of? gastric antral vascular ectasia and/or gastritis--no bleeding 3. Small hiatal hernia 4. No varices, no portal gastropathy Colonoscopy to the cecum and TI 1. Sigmoid diverticulosis 2. Internal hemorrhoids 3. No bleeding, no old blood continue ppi po, monitor hgb improved and stable hypokalemia replace, monitor acute diastolic chf with acute hypoxic repsiratory failure now euvolemic still hypoxic, check repeat cxr Unintentional weight loss -8 pounds x 2 months, with anorexia -Chest CT and CT abd/pelvis negative for malignancy liver cirrhosis - compensated gi following hypothyroidism -continue levothyroxine Calcified leiomyomas -no vaginal bleeding -outpt follow up DVT prophylaxis-mechanical due to gi bleed DNI reason for continued hospitalization:still hypoxic, work up ongoing Time Spent With Patient Time: Total time managing care of this patient today ____ minutes. Quality Stroke Does the patient have a stroke diagnosis?: No VTE Prior VTE?: No VTE Risk Level:: Medical - moderate - high VTE Device Contraindication: Treatment Not Indicated VTE Drug Contraindication: N/A - Med Ordered
[2022-05-26] MEDS: Potassium Chloride ER 20 MEQ TAB.ER.PRT 40 MEQ PO (10:35)
[2022-05-26] MEDS: traZODone HCL 50 MG TABLET PO (22:17)
[2022-05-26] MEDS: Gabapentin 300 MG CAPSULE PO (22:17)
[2022-05-26] MEDS: Nystatin Ointment 15 GM TUBE 1 APPL TOPICAL (22:17)
[2022-05-26] MEDS: Acetaminophen 325 MG TABLET 650 MG PO (23:47)
[2022-05-27] VITALS: BP 108/52; PULSE 74; RESP 20; TEMP 36.2; O2SAT 95
[2022-05-27 04:00] VITALS: BP 101/59; PULSE 67; RESP 20; TEMP 36.2; O2SAT 97
[2022-05-27] MEDS: Omeprazole 40 MG CAPSULE.DR PO (06:36)
[2022-05-27] MEDS: Levothyroxine Sodium 75 MCG TABLET PO (06:36)
[2022-05-27 06:56] LABS: Hematocrit 31.5 % (37.0-47.0); Hemoglobin 9.4 g/dl (12.0-16.0); Mean Corpuscular HGB Conc 29.8 g/dl (31.0-35.0); Mean Corpuscular Hemoglobin 22.3 pg (27.0-33.0); Mean Corpuscular Volume 74.8 fL (80.0-98.0); Mean Platelet Volume 9.5 fL (9.4-12.3); Platelet Count 406 X10*3/uL (160-400); Red Blood Count 4.21 X10*6/uL (4.20-5.50); Red Cell Distribution Width 28.6 % (11.0-16.0); White Blood Count 7.3 X10*3/uL (4.8-10.8)
[2022-05-27 07:04] LABS: Anion Gap 11 (12-20); Blood Urea Nitrogen 21 mg/dL (9-16); Carbon Dioxide 30 mmol/L (22-29); Chloride 102 mmol/L (96-108); Creatinine Clr Calc Pharmacy 56.6; Estimated Glomerular Filt Rate > 60; Glucose Fasting 84 mg/dL (60-99); Potassium 3.7 mmol/L (3.3-5.1); Sodium 139 mmol/L (135-145)
--- NOTE | 2022-05-27 07:23 | PC.NURSE ---
During assessment this RN noticed the pt had a rash under her R breast and R side of her groin. Notified Dr. Morris who put in an order for nystain cream. Will continue to monitor.
[2022-05-27 07:52] VITALS: BP 100/59; PULSE 66; RESP 16; TEMP 36.8; O2SAT 97
--- NOTE | 2022-05-27 08:57 | PM.DS ---
DS: Providers Provider Date of Service: 05/27/22 Date of admission: 05/23/22 21:03 Primary care physician: Joseluis Jaeger MD Consults: 05/23/22 21:03 Consult to Cardiology Routine Consulting Provider: [facility] Cardiovascular Services Reason for consultation: new onset chf Has provider been notified: Yes Consult to Gastroenterology Routine Consulting Provider: Clarence Perry Reason for consultation: GI bleed, new dx cirrhosis DS: Diagnosis Discharge Diagnosis (1) Anemia: Status: Acute DS: Summary Hospital Course Hospital Course: from initil hpi: 71-year-old female with history of hypothyroidism, GERD, and osteoarthritis of multiple sites presents to the ED today with her BOTTOM TURNER and anesthesiologist/physician patient registration supervisor for evaluation of lightheadedness, myalgia, and fatigue ongoing for 3 weeks.? She states when symptoms began, she was also diagnosed with UTI which she was treated for but the symptoms persisted.? There has also been dyspnea on exertion, orthopnea.? She does report bright red blood per rectum over the last week as well as diffuse at times severe abdominal pain that has been ongoing for several months.? She has noted an 8 lb unintentional weight loss over 2 months with decreased appetite and p.o. intake.? She denies any fevers, chills, nausea, vomiting, melena, diarrhea, constipation, vaginal bleeding, palpitations, or chest pain. No known history CHF. No personal or family history of GI cancer. No etoh use, has never smoked cigarettes, or drug use. She did have a colonoscopy about 4 years ago which showed hemorrhoids, but no other abnormality. On arrival, pt tachypneic to 36 and developed hypoxia placed on OxyMask at 7 L maintaining oximetry 97%.? She is afebrile and without and hemodynamically stable.? There is no leukocytosis.? On arrival, H/H 5.1/18.7% (last recorded H/H 12.2/38.1% in 08/2020), MCV 64.0.? Iron studies pending.? Renal function normal, electrolyte levels normal.? Troponin below detectable limits.? BNP 113.? Stool occult blood negative. UA showing 1+ leukocytes, negative nitrites, negative urinary sediment, trace bacteria.? EKG showing NSR, rate 84, no ST/T-wave abnormality.? CXR showing probable mild CHF with small bilateral pleural effusions.? Subsequent chest CT showing interstitial pulmonary edema and small bilateral pleural effusions.? CT abdomen/pelvis showing cirrhotic liver without evidence of hepatocellular carcinoma and no evidence of an active GI bleed, hemoperitoneum, or retroperitoneal bleed.? There is a large lobulated calcified leiomyomatous uterus and diverticulosis without diverticulitis.? In the ED, transfused 3 units packed red blood cells with 40 mg furosemide administered between units 1 into and 20 units furosemide administered between units 2-3.? Also given 80 mg IV PPI and 1 mg morphine. hospital course: Patient was admitted for symptomatic blood loss anemia of unspecified chronicity. She underwent EGD and colonoscopy on 05/25/2022 which showed inflammatory proximal gastric polyp without bleeding, minimal changes of gave and/or gastritis, small hiatal hernia, no varices. Her colonoscopy showed sigmoid diverticulosis, internal hemorrhoids without active bleeding or old blood. Recommendations were for PPI. Hemoglobin remained stable after transfusion. She had hypokalemia which was replaced. Course was complicated by acute diastolic CHF with acute hypoxic respiratory failure, after IV diuresis patient was able to be weaned off oxygen. For compensated liver cirrhosis patient will follow up with GI as outpatient. For hypothyroidism she was continued on Synthroid. For calcified leiomyoma she can follow up with telephone clerk telegraph office outpatient. Patient is now stable will be discharged home. Time Spent with Patient Time attestation: Total time managing care of this patient today ____ minutes. Discharge coordination time: Greater than 30 minutes Quality: Safe Use of Opioids Does Pt have an Active Cancer Diagnosis on the Problem List?: No Quality: Stroke Does the patient have a stroke diagnosis?: No Physical Exam Vital Signs: Vital Signs: Last Vital Signs Temp 98.2 F 05/27/22 07:52 Pulse 66 05/27/22 07:52 Resp 16 05/27/22 07:52 BP 100/59 L 05/27/22 07:52 Pulse Ox 97 05/27/22 07:52 O2 Del Method Nasal Cannula 05/27/22 07:52 O2 Flow Rate 2 05/27/22 07:52 Oxygen Flow Rate 1 05/26/22 13:52 BMI result Body Mass Index 22.8 Const: General: cooperative, comfortable, no acute distress, alert, awake and tired appearing Nutritional Appearance: thin Neck: Neck: Yes trachea midline, Yes supple and Yes no JVD Resp: Effort & Inspection: normal respiratory effort Auscultation: clear to auscultation bilaterally Cardio: Jugular venous distension: no JVD Palpation: normal PMI Rate: regular rate Rhythm: regular rhythm Heart sounds: S1 normal heart sound present, S2 normal heart sound present, no click, no gallops, no murmurs and no rubs GI: Auscultation: normal bowel sounds Extrem: General: Yes no clubbing, cyanosis or edema DS: Data Data Completed and Pending Labs on day of discharge: Laboratory Results - last 24 hr 05/27/22 05/27/22 06:32 06:32 WBC 7.3 RBC 4.21 Hgb 9.4 L Hct 31.5 L MCV 74.8 L MCH 22.3 L MCHC 29.8 L RDW 28.6 H Plt Count 406 H MPV 9.5 Absolute Nucleated RBC 0.000 Nucleated RBC % (auto) 0.0 Sodium 139 Potassium 3.7 Chloride 102 Carbon Dioxide 30 H Anion Gap 11 L BUN 21 H Creatinine 0.70 Estim Creat Clear Calc 56.6 Estimated GFR > 60 Fasting Glucose 84 Calcium 9.0 Discharge Plan Discharge Anticipated Discharge Date/Time: 05/27/22 08:54 Patient Disposition: Home Health Service Discharge Diagnosis: anemia Referrals: Name,MD Joseluis [Primary Care Provider] - 1 Week Discharge Medications: New omeprazole 40 mg Capsule,Delayed Release(Dr/Ec) 40 mg PO DAILY@0630 30 Days Qty: 30 0RF Continued trazodone 50 mg Tablet 50 mg PO BEDTIME cyanocobalamin (vitamin B-12) 1,000 mcg Tablet 1,000 mcg PO DAILY levothyroxine 75 mcg Tablet 75 mcg PO DAILY clotrimazole-betamethasone 1-0.05 % cream 1 appl topical BID omeprazole 20 mg Capsule,Delayed Release(Dr/Ec) 20 mg PO DAILY diclofenac sodium 1 % Gel 2 g TOPICAL BID PRN (Reason: Pain) Rx Instructions: apply to single elbow, wrist or hand; for hand includes palm/fingers/back of hand acetaminophen 500 mg Tablet 500 mg PO Q8H PRN (Reason: Mild Pain (Scale Score 1-4)) gabapentin 300 mg Capsule 300 mg PO BEDTIME albuterol sulfate 90 mcg/actuation Hfa Aerosol Inhaler 2 puff INHALATION Q6H PRN (Reason: Wheezing) Discharge Orders: Discharge Order (Routine); Ordered 05/27/22 Ordered By: Manny Garcia Diet: Advance to usual diet Activity on Discharge: As tolerated Stand Alone Forms: Patient Portal Discharge page Care Plan Goals: avoid bleeds Health Concerns: gi bleed Plan of Treatment: ppi, follow up gi Assessment: see above
[2022-05-27] MEDS: Cyanocobalamin (Vitamin B-12) 1,000 MCG TABLET 1000 MCG PO (10:04)
[2022-05-27] MEDS: 0.9 % Sodium Chloride Flush 3 ML SYRINGE IVFLUSH (10:05)
[2022-05-27] MEDS: Nystatin Ointment 15 GM TUBE 1 APPL TOPICAL (10:54)
--- NOTE | 2022-05-27 11:33 | W.MHC.F2F ---
Service Date Service Date: 05/27/22 Encounter Date of encounter: 05/27/22 Reasons for Services Signs and symptoms assessed: weakness Reason for intermediate: medication management, medication treatment and teach disease management Homebound: Leaving the home is medically contraindicated at this time without the asist of a device and/or another person due th the listed conditions above and below. Reason homebound: unsteady gait / fall risk Certification: Based on the above findings, I certify that this patient is confined to the home and needs intermittent intermediate care, physical therapy and/or speech therapy, or continues to need occupational therapy. The patient is under my care, and I have initiated the establishment of the plan of care. The patient will be followed by a physician who will periodically review the plan of care. Time Spent With Patient Time: Total time managing care of this patient today ____ minutes.
--- NOTE | 2022-05-27 11:48 | PC.NURSE ---
pt A&O, vitals stable with DELIVERY AND MAIL SORTER/proxy in room with translator and interpreter (Malgorzata) at bedside. discharge instructions given and both pt and DELIVERY AND MAIL SORTER verbalized understanding. Question and concerns addressed. IV out, Tele off. DELIVERY AND MAIL SORTER to transport pt upon discharge.
== END 2022-05-27 12:00 | disposition home health service (06) | DRG 377 ==
LOC: HO.ED 20:05 → HO.EDOVER 21:12 → HO.IMC 23:56
PROVIDERS: Internal Medicine; Nurse Practitioner Family; Physician Assistant; Admitting Provider Physician Assistant; Emergency Provider Emergency Medicine; PCP Internal Medicine Geriatric Medicine; Visit Provider Internal Medicine
PROC: 0DJ08ZZ Inspection of Upper Intestinal Tract, Via Natural or Artificial Opening Endoscopic (ICD-10-PCS; principal; 2022-05-25 13:20)
DX: K31.811 Angiodysplasia of stomach and duodenum with bleeding (principal); I50.31 Acute diastolic (congestive) heart failure; J96.01 Acute respiratory failure with hypoxia; K57.31 Diverticulosis of large intestine without perforation or abscess with bleeding; M15.9 Polyosteoarthritis, unspecified; K31.7 Polyp of stomach and duodenum; K44.9 Diaphragmatic hernia without obstruction or gangrene; K21.9 Gastro-esophageal reflux disease without esophagitis; D50.0 Iron deficiency anemia secondary to blood loss (chronic); E87.6 Hypokalemia; D25.9 Leiomyoma of uterus, unspecified; E03.9 Hypothyroidism, unspecified; K74.60 Unspecified cirrhosis of liver; Z20.822 Contact with and (suspected) exposure to COVID-19; Z91.148 Patient's other noncompliance with medication regimen for other reason; Z79.890 Hormone replacement therapy; Z79.899 Other long term (current) drug therapy
CPT/HCPCS: 36415; 71045; 71046; 71260; 74178; 80048; 80053; 80076; 81001; 82272; 82728; 83540; 83690; 83880; 84484; 85025; 85027; 85610; 86850; 86900; 86901; 86923; 87086; 87635; 93005; 93306; 99285; J1650; J1940; J2270; J2405; P9016; Q9957; Q9967

== ENCOUNTER 2022-06-05 10:23 | Emergency (ER) | payer OTHER, SELFPAY ==
[2022-06-05 10:57] VITALS: BP 118/59; PULSE 79; RESP 16; TEMP 36.6; O2SAT 97; BMI 30.2
--- NOTE | 2022-06-05 11:30 | MHC.EDTECH ---
Labs drawn and sent
[2022-06-05 11:33] LABS: MANUAL DIFF FLAG NO
[2022-06-05 11:34] LABS: Basophils Absolute Auto 0.1 X10*3/uL (0.0-0.2); Basophils Percent Auto 1.7 % (0-2); Eosinophils Absolute Auto 0.4 X10*3/uL (0.0-0.4); Eosinophils Percent Auto 5.7 % (0-4); Hemoglobin 9.7 g/dl (12.0-16.0); Imm Gran Abs Auto 0.04 X10*3/uL (0.00-0.03); Imm Gran Pct Auto 0.6 % (0.0-0.4); Lymphocytes Absolute Auto 0.8 X10*3/uL (1.2-4.9); Lymphocytes Percent Auto 10.8 % (20-40); Mean Corpuscular HGB Conc 29.4 g/dl (31.0-35.0); Mean Corpuscular Hemoglobin 22.9 pg (27.0-33.0); Mean Platelet Volume 9.8 fL (9.4-12.3); Monocytes Absolute Auto 0.7 X10*3/uL (0.1-1.2); Neutrophils Absolute Auto 5.2 x10*3/uL (2.0-8.3); Neutrophils Percent Auto 71.2 % (45-73); Platelet Count 431 X10*3/uL (160-400); Red Blood Count 4.23 X10*6/uL (4.20-5.50); White Blood Count 7.2 X10*3/uL (4.8-10.8)
[2022-06-05 11:46] LABS: Anion Gap 10 (12-20); Blood Urea Nitrogen 13 mg/dL (9-16); Calcium 9.2 mg/dL (8.4-10.2); Carbon Dioxide 29 mmol/L (22-29); Chloride 103 mmol/L (96-108); Creatinine Clr Calc Pharmacy 50.7; Estimated Glomerular Filt Rate > 60; Glucose Random 143 mg/dL (60-115); Potassium 3.8 mmol/L (3.3-5.1); Sodium 138 mmol/L (135-145)
--- NOTE | 2022-06-05 13:22 | ED.GENADULT ---
HPI - General Adult General Chief complaint: General Medical Stated complaint: R leg pain Time Seen by Provider: 06/05/22 12:09 Source: patient and cloth weigher Mode of arrival: ambulatory History of Present Illness HPI narrative: 71-year-old female is brought in for complaints of back pain, reports of blood in stool yesterday, bilateral leg discomfort every day for weeks, occasional abdominal discomfort. Patient otherwise denies any fever, chills, chest pain. Related Data Home Medications Medication Instructions Recorded Confirmed acetaminophen 500 mg tablet 500 mg PO Q8H PRN Mild Pain (Scale 05/23/22 05/23/22 Score 1-4) albuterol sulfate 90 mcg/actuation 2 puff inhalation Q6H PRN Wheezing 05/23/22 05/23/22 aerosol inhaler clotrimazole-betamethasone 1 1 appl topical BID 05/23/22 05/23/22 %-0.05 % topical cream cyanocobalamin (vitamin B-12) 1,000 mcg PO DAILY 05/23/22 05/23/22 1,000 mcg tablet diclofenac sodium 1 % topical gel 2 g topical BID PRN Pain 05/23/22 05/23/22 gabapentin 300 mg capsule 300 mg PO BEDTIME 05/23/22 05/23/22 levothyroxine 75 mcg tablet 75 mcg PO DAILY 05/23/22 05/23/22 omeprazole 20 mg capsule,delayed 20 mg PO DAILY 05/23/22 05/23/22 release trazodone 50 mg tablet 50 mg PO BEDTIME 05/23/22 05/23/22 Previous Rx's Medication Instructions Recorded omeprazole 40 mg capsule,delayed 40 mg PO DAILY@0630 30 days #30 05/27/22 release caps cephalexin 500 mg capsule 500 mg PO BID 5 days #10 caps 06/05/22 Allergies Allergy/AdvReac Type Severity Reaction Status Date / Time No Known Allergies Allergy Verified 04/19/22 19:28 [No Known Allergies*] Review of Systems Review of Systems: Pertinent positives and negatives as stated in HPI [facility] Past Medical History Source: nursing notes reviewed Medical History Arthritis FH: breast cancer FH: cholecystectomy Hepatic cirrhosis Hypothyroid Surgical History Hx of cholecystectomy Family History Family History Family/Other Breast cancer Maternal Grandfather Throat cancer Social History Social History Household Members: None Housing: Apartment Do you presently have visiting nurse or other home services: Yes ([employer] OPER[employer] every other day) Alcohol intake: never Patient Tobacco Use Status: Never used Tobacco Second Hand Smoke Exposure: No Advance Directives: Yes Advance Directives Information Provided: Yes Advance Directives on File: No service: No Current occupational status: retired Physical Exam ED Vital Signs: Vital Signs - 24 hr 06/05/22 10:57 06/05/22 15:02 Temperature 97.8 F 98.6 F Pulse Rate 79 68 Respiratory Rate 16 13 Blood Pressure 118/59 L 106/56 L Pulse Oximetry 97 94 Oxygen Delivery Method Room Air Room Air BMI result Body Mass Index 30.2 VITAL SIGNS: Reviewed. GENERAL: Well developed, well nourished, in no acute distress. HEAD: Normocephalic/atraumatic EYES: PERRLA, EOMI EARS: Ext canals without abnormality NOSE: Nares patent bilateral OROPHARYNX: no oral lesions noted, posterior pharynx clear NECK: Supple, no adenopathy LUNGS: Normal breath sounds. No adventitious sounds or accessory muscle use. SpO2<97> CARDIOVASCULAR: Regular rate and rhythm without noted murmurs, no JVD or lower extremity edema. ABDOMEN: Soft, non-tender, non-distended with bowel sounds. GINA: Heart brown stool within the rectal vault, no gross blood MUSCULOSKELETAL: No tenderness, deformities, or effusions noted on gross inspection. EXTREMITIES: No cyanosis, clubbing or edema. SKIN: Inspection of the skin reveals no rashes NEUROLOGIC: Alert and oriented x 3. Strength and sensation to light touch were grossly intact x 4. Medical Decision Making Medical Decision Making MDM Narrative: 71-year-old female with history and clinical presentation appears to be some chronic bilateral lower leg discomfort but of reports of blood in stool, rectal exam was negative with hard brown stool in the rectal vault. Will obtain initial labs and reassess. I did review prior lab work which shows is chronically stable hemoglobin values from 05/24-05/27. I reviewed all investigations, patient's lab work is chronically stable with what appears to be suggestion of a UTI and will be started on cephalexin 500 mg b.i.d. for 5 days. Patient was also offered combination analgesics for chronic pain, guaiac was noted to be negative and hemoglobin is otherwise stable. All results discussed with her bedside she is discharged home in stable condition. Differential Diagnosis Please see the discussion above Lab Data Please see the discussion above 06/05/22 11:28 06/05/22 11:28 Labs: Lab Results 06/05/22 06/05/22 06/05/22 Range/Units 11:28 11:28 11:28 WBC 7.2 (4.8-10.8) X10*3/uL RBC 4.23 (4.20-5.50) X10*6/uL Hgb 9.7 L (12.0-16.0) g/dl Hct 33.0 L (37.0-47.0) % MCV 78.0 L (80.0-98.0) fL MCH 22.9 L (27.0-33.0) pg MCHC 29.4 L (31.0-35.0) g/dl RDW Not Reportable Plt Count 431 H (160-400) X10*3/uL MPV 9.8 (9.4-12.3) fL Immature Gran % (Auto) 0.6 H (0.0-0.4) % Neut % (Auto) 71.2 (45-73) % Lymph % (Auto) 10.8 L (20-40) % Burleigh % (Auto) 10.0 (2-11) % Eos % (Auto) 5.7 H (0-4) % Baso % (Auto) 1.7 (0-2) % Lymph # (Auto) 0.8 L (1.2-4.9) X10*3/uL [place]leigh # (Auto) 0.7 (0.1-1.2) X10*3/uL Eos # (Auto) 0.4 (0.0-0.4) X10*3/uL Baso # (Auto) 0.1 (0.0-0.2) X10*3/uL Abs Immat Gran (auto) 0.04 H (0.00-0.03) X10*3/uL Absolute Neuts (auto) 5.2 (2.0-8.3) x10*3/uL Absolute Nucleated RBC 0.000 (0.0-0.012) X10*3/uL Nucleated RBC % (auto) 0.0 (0.0-0.2) /100WBC Sodium 138 (135-145) mmol/L Potassium 3.8 (3.3-5.1) mmol/L Chloride 103 (96-108) mmol/L Carbon Dioxide 29 (22-29) mmol/L Anion Gap 10 L (12-20) BUN 13 (9-16) mg/dL Creatinine 0.69 (0.5-1.4) mg/dL Estim Creat Clear Calc 50.7 Estimated GFR > 60 Random Glucose 143 H (60-115) mg/dL Calcium 9.2 (8.4-10.2) mg/dL B-Natriuretic Peptide 26 (<100) pg/mL Urine Color Urine Appearance Urine pH (5.0-9.0) Ur Specific [place] (1.005-1.025) Urine Protein (Neg-Trace) mg/dL Urine Glucose (UA) (Negative) mg/dL Urine Ketones (Negative) mg/dL Urine Blood (Negative) Urine Nitrite (Negative) Ur Leukocyte Esterase (Negative) Urine RBC (0-2) /HPF Urine WBC (0-5) /HPF Ur Squamous Epith Cells (0-2) /HPF Urine Bacteria (None Seen) Hyaline Casts (0-2) /LPF Stool Occult Blood (NEGATIVE) 06/05/22 06/05/22 Range/Units 13:21 15:10 WBC (4.8-10.8) X10*3/uL RBC (4.20-5.50) X10*6/uL Hgb (12.0-16.0) g/dl Hct (37.0-47.0) % MCV (80.0-98.0) fL MCH (27.0-33.0) pg MCHC (31.0-35.0) g/dl RDW Plt Count (160-400) X10*3/uL MPV (9.4-12.3) fL Immature Gran % (Auto) (0.0-0.4) % Neut % (Auto) (45-73) % Lymph % (Auto) (20-40) % Burleigh % (Auto) (2-11) % Eos % (Auto) (0-4) % Baso % (Auto) (0-2) % Lymph # (Auto) (1.2-4.9) X10*3/uL [place]leigh # (Auto) (0.1-1.2) X10*3/uL Eos # (Auto) (0.0-0.4) X10*3/uL Baso # (Auto) (0.0-0.2) X10*3/uL Abs Immat Gran (auto) (0.00-0.03) X10*3/uL Absolute Neuts (auto) (2.0-8.3) x10*3/uL Absolute Nucleated RBC (0.0-0.012) X10*3/uL Nucleated RBC % (auto) (0.0-0.2) /100WBC Sodium (135-145) mmol/L Potassium (3.3-5.1) mmol/L Chloride (96-108) mmol/L Carbon Dioxide (22-29) mmol/L Anion Gap (12-20) BUN (9-16) mg/dL Creatinine (0.5-1.4) mg/dL Estim Creat Clear Calc Estimated GFR Random Glucose (60-115) mg/dL Calcium (8.4-10.2) mg/dL B-Natriuretic Peptide (<100) pg/mL Urine Color Yellow Urine Appearance Clear Urine pH 7.5 (5.0-9.0) Ur Specific [place] 1.010 (1.005-1.025) Urine Protein Negative (Neg-Trace) mg/dL Urine Glucose (UA) Negative (Negative) mg/dL Urine Ketones Negative (Negative) mg/dL Urine Blood Negative (Negative) Urine Nitrite Negative (Negative) Ur Leukocyte Esterase Trace H (Negative) Urine RBC 0-2 (0-2) /HPF Urine WBC 0-5 (0-5) /HPF Ur Squamous Epith Cells 0-2 (0-2) /HPF Urine Bacteria None Seen (None Seen) Hyaline Casts 0-2 (0-2) /LPF Stool Occult Blood NEGATIVE (NEGATIVE) External Record Review External record reviewed: Outpatient record and Prior outpatient labs Discharge Plan Discharge Clinical Impression: Chronic pain, Acute UTI Patient Disposition: Home, Self-Care Instructions: Chronic Pain (ED), Urinary Tract Infection in Older Adults (ED) Additional Instructions: 1. Reanudar todos los medicamentos caseros seg?n lo prescrito. 2. Complete el ciclo de antibi?ticos seg?n lo indicado. 3. Maurizio un seguimiento con pablo proveedor de atenci?n primaria llamando a la oficina por la ma?kemi para programar akua costa para akua reevaluaci?n. Regrese a la ariana de emergencias si los s?ntomas empeoran. 1. Resume all home medications as prescribed. 2. Complete the course of antibiotics as ordered. 3. Follow-up with your primary care provider by calling the office in the morning to set up an appointment for re-evaluation. Return to the ER for any worsening symptoms. Prescriptions: New cephalexin 500 mg capsule 500 mg PO BID 5 Days Qty: 10 0RF No Action trazodone 50 mg Tablet 50 mg PO BEDTIME cyanocobalamin (vitamin B-12) 1,000 mcg Tablet 1,000 mcg PO DAILY levothyroxine 75 mcg Tablet 75 mcg PO DAILY clotrimazole-betamethasone 1-0.05 % cream 1 appl topical BID omeprazole 20 mg Capsule,Delayed Release(Dr/Ec) 20 mg PO DAILY diclofenac sodium 1 % Gel 2 g TOPICAL BID PRN (Reason: Pain) Rx Instructions: apply to single elbow, wrist or hand; for hand includes palm/fingers/back of hand acetaminophen 500 mg Tablet 500 mg PO Q8H PRN (Reason: Mild Pain (Scale Score 1-4)) gabapentin 300 mg Capsule 300 mg PO BEDTIME albuterol sulfate 90 mcg/actuation Hfa Aerosol Inhaler 2 puff INHALATION Q6H PRN (Reason: Wheezing) omeprazole 40 mg Capsule,Delayed Release(Dr/Ec) 40 mg PO DAILY@0630 30 Days Qty: 30 0RF Referrals: Name,MD Joseluis [Primary Care Provider] - Print Language: [place]
[2022-06-05 13:26] LABS: OBS Int Ctl Valid YES; OBS1 NEGATIVE (NEGATIVE)
[2022-06-05 14:04] LABS: B Type Natriuretic Peptide 26 pg/mL (<100)
[2022-06-05 15:02] VITALS: BP 106/56; PULSE 68; RESP 13; TEMP 37; O2SAT 94
[2022-06-05 15:24] LABS: Appearance Urine Clear; Color Urine Yellow; Glucose Urine UA Negative (Negative); Leukocyte Esterase Urine Trace (Negative); Nitrite Urine Negative (Negative); PH 7.5 (5.0-9.0); UMIC TRIGGER UACC YES; Urine Blood Negative (Negative); Urine Ketones Negative (Negative); Urine Protein Negative (Neg-Trace)
[2022-06-05 15:29] LABS: Bacteria Urine None Seen (None Seen); Hyaline Casts Urine 0-2 /LPF (0-2); RBC Urine 0-2 /HPF (0-2); Squamous Epithelial Cell Urine 0-2 /HPF (0-2); WBC Urine 0-5 /HPF (0-5)
[2022-06-05 15:42] VITALS: BP 105/64; PULSE 65; RESP 16; TEMP 36.9; O2SAT 97
[2022-06-05] MEDS: Ibuprofen 400 MG TABLET PO (15:47)
[2022-06-05] MEDS: cephALEXin 500 MG CAPSULE PO (15:48)
[2022-06-05] MEDS: Acetaminophen 325 MG TABLET 975 MG PO (15:48)
== END 2022-06-05 16:35 | disposition home or self-care (01) ==
PROVIDERS: Emergency Provider Student in an Organized Health Care Education/Training Program; PCP Internal Medicine Geriatric Medicine
DX: G89.29 Other chronic pain (principal); M79.604 Pain in right leg; N39.0 Urinary tract infection, site not specified; M54.50 Low back pain, unspecified; R06.02 Shortness of breath; Z79.899 Other long term (current) drug therapy
CPT/HCPCS: 36415; 80048; 81001; 82272; 83880; 85025; 99284

== ENCOUNTER → 2022-06-15 09:03 | Outpatient (REF) | payer OTHER, SELFPAY ==
--- NOTE | ~2022-06-15 | NM_ITS ---
Myocardial perfusion study Indication: Heart failure to evaluate for myocardial ischemia Technique: The patient was brought in for a Lexiscan perfusion study on 06/15/2022. Patient performed low-level exercise and was injected 0.4 mg of Lexiscan intravenously. Within a minute of injection, 25 mCi of sestamibi was given intravenously. Images were obtained using the SPECT gamma camera interlaced with the gating device. Images were obtained in supine position. Resting perfusion study was performed on 06/18/2022. Patient was administered 25 mCi of sestamibi intravenously at rest. Images were then obtained in supine position. Images obtained with and without CT attenuation. Total DLP 97 mGy-cm. Images were processed with the software and compared side to side in short axis, horizontal long axis and vertical long axis views. Findings: The stress perfusion study showed both attenuated as well as non attenuated corrected images show mildly reduced uptake in the apex of the LV myocardium. Remainder of the LV myocardium is normally perfused. There is suggestion of left ventricle hypertrophy. The gated study shows normal LV systolic function with calculated LVEF of 55%. LV cavity is normal in size. The gated study shows normal systolic wall thickening and contraction of segments. Resting study shows no change in perfusion pattern compared to stress perfusion study. Gating at rest reveals normal systolic wall motion with ejection fraction at 59%. The findings are consistent with normal myocardial perfusion. NM/NM brynn perf SPECT rest & str Impression: 1. Myocardial perfusion imaging study shows normal myocardial perfusion 2. Gated LVEF is 55% 3. Transient ischemic dilatation not present EKG is nondiagnostic for ischemia
--- NOTE | 2022-06-15 09:07 | CA_ITS ---
Acquisition Time: 2022-06-15 09:29:05 Total Exercise Time: 00:02:00 Test Indications: CHF, SOB Medications: SEE H Protocol: LEXISCAN Max HR: 100 BPM 68% of Pred: 147 BPM Max BP: 114/060 mmHG Max Work Load: 1.0 METS Pharmacological stress test with Lexiscan injection while sitting and kicking her legs, without anginal symptoms, without arrythmia, with normotensive response to injection, without EKG changes. In recovery reported nausea and Aminophylline 75mg IVP given to reverse Lexiscan. Nuclear images pending. Test reviewed with Dr. Pino. Referred By: Jeremias Pino Overread By: ERI LEON
== END ==
LOC: HO.CARD 09:03
PROVIDERS: PCP Internal Medicine Geriatric Medicine; Visit Provider Internal Medicine Cardiovascular Disease
DX: I50.9 Heart failure, unspecified (principal)
CPT/HCPCS: 78452; 93017; A9500; J0280; J2785

== ENCOUNTER 2022-09-05 11:24 | Outpatient (AMB) | payer OTHER, SELFPAY ==
[2022-09-05 11:27] VITALS: BP 104/58; PULSE 60; RESP 16; TEMP 36.6; O2SAT 96
--- NOTE | 2022-09-05 11:27 | MHC.OFFVIS ---
Intake Vital Signs 09/05/22 11:27 Height 4 ft 7.2 in Weight 130 lb BMI 30.0 BP 104/58 L Blood Pressure Location Lt brachial Position Sitting Respiration 16 Pulse 60 Pulse Source Pulse Oximeter Temp 97.9 F Temp Source Temporal Artery Scan Pulse Oximetry (%) 96 Oxygen Delivery Method Room Air Intake Visit Reasons: + WILLARD Phlebotomist Supervisor/Instructor Required: Yes Phlebotomist Supervisor/Instructor Name: Joanna [id number] Allergies percocet Allergy (Mild, Uncoded 09/05/22 11:34) Vomiting Medication List - Last Reconciled 09/05/22 by Jonathan Obando MD acetaminophen 500 mg PO Q8H PRN albuterol sulfate 90 mcg/actuation 2 puffs inhalation Q6H PRN clotrimazole-betamethasone 1-0.05 % 1 appl topical BID cyanocobalamin (vitamin B-12) 1,000 mcg PO DAILY diclofenac sodium 1% 2 grams topical BID PRN gabapentin 300 mg PO BEDTIME levothyroxine 75 mcg PO DAILY omeprazole 40 mg PO DAILY@0630 30 days tramadol 50 mg PO DAILY PRN trazodone 50 mg PO BEDTIME HPI HPI Comments History of Present Illness Details The patient presents with complaints of widespread pain. Her WIPING CLOTH CUTTER accompanies her. The [employer] translating service is used to facilitate the visit. Most of the history is from the WIPING CLOTH CUTTER as the patient seems to have little to say. The WIPING CLOTH CUTTER indicates that she often does not speak for hours on end. The patient had been seen in past in Rheumatology and had a trial of treatment with methotrexate that was not helpful. She was last seen more than 3 years ago. She had a positive WILLARD but negative anti DNA and AREN antibodies. Rheumatoid factor and CCP antibody was also negative. The WIPING CLOTH CUTTER notes a decline in her functioning over the past year or so. She is having more difficulty walking, mostly complaining of foot and knee pain. The patient keeps saying she has pain all over but cannot really describe whether it is in muscles, bones or joints. She does take occasional acetaminophen without any benefit. She also was prescribed tramadol, 10 tablets every 2 weeks by her primary doctor but that did not help much. She takes some gap gabapentin apparently at night. She is on some levothyroxine. She was hospitalized in May with a hemoglobin of 5, pleural effusions and what sounds like was congestive heart failure. It was felt to be due to her anemia. She had some polyps in the stomach on endoscopy that were not bleeding and she also had some notable diverticuli in the colon. The presumption was that she had had some diverticular bleeding. Recently she has noted no blood in the stool. COUNT INCLUDES THE [facility] Medical History Arthritis FH: breast cancer FH: cholecystectomy Hepatic cirrhosis Hypothyroid Surgical History Hx of cholecystectomy Family History Family/Other Breast cancer Maternal Grandfather Throat cancer Social History Household Members: None Housing: Apartment Do you presently have visiting nurse or other home services: Yes (WIPING CLOTH CUTTER every other day) Alcohol intake: never Patient Tobacco Use Status: Never used Tobacco Second Hand Smoke Exposure: No service: No Current occupational status: retired Review of Systems Const Details: The patient is described as having low energy by the WIPING CLOTH CUTTER. Negative for appetite change, weight change, fever, chills, malaise Eyes Details: Occasional headache. Negative for vision change, dry eyes and dizziness ENT Details: Negative for hearing change, tinnitus, oral ulcer, nose bleeds and oral dryness. Card Details: Negative chest pain, edema and syncope Resp Details: She was short of breath when admitted to the hospital in May. More recently negative for SOB, cough and wheezing GI Details: Some constipation at times. Negative indigestion/heartburn, nausea, abdominal pain, bowel changes, diarrhea, and bloody stool. Details: Negative for dysuria, hematuria, nocturia, decreased force/flow and genital discharge Skin/Breast Details: Negative for itching, rash, hives, Raynaud's symptoms, sun sensitivity, and skin cancer Neuro Details: So some troubles with memory at times. Negative for epilepsy, palsy, stroke, changes in speech, tingling and weakness Psych Details: Negative for anxiety, depression and stress Endo Details: Negative for polyuria and polydypsia Parish/Lymph Details: Negative for excessive bruising or bleeding. Physical Exam Vital Signs: Last Vital Signs Temp 97.9 F 09/05/22 11:27 Pulse 60 09/05/22 11:27 Resp 16 09/05/22 11:27 BP 104/58 L 09/05/22 11:27 Pulse Ox 96 09/05/22 11:27 Oxygen Delivery Method Room Air 09/05/22 11:27 BMI result Body Mass Index 30.0 APPEARANCE: Patient in no acute distress EYES no redness, pupils equal and reactive to light, eyelids normal EARS: External ear normal, canal clear and tympanic membrane normal. NOSE/SINUS: Airflow through both nares, no nasal discharge, no bleeding THROAT: Oral mucosa moist, no ulcerations NECK: No thyromegaly or masses, no adenopathy, trachea midline. HEART: Regulrar rhythm, S1-S2 heard, no murmurs, rubs or gallops. LUNG: Clear to percussion and auscultation ABD: Normal bowel sounds, no organomegaly, masses or tenderness. EXTREMITIES: No edema, no calf tenderness, normal peripheral pulses. NEURO: Oriented and alert x3. No focal weakness. Reflexes symmetric. Gait normal. SKIN: No inflammatory or neoplastic lesions. Normal color and turgor JOINT EXAM: Cervical Spine:? Mild pain with extremes of normal range of motion. Some cervical muscle tenderness. Thoracic Spine:.? No scoliosis.? No tenderness on palpation. Lumbar Spine:.? Alignment normal.? Mild pain with extremes of flexion extension. No tenderness. Chest Wall:.? No tenderness, swelling, increased warmth or erythema. Hands:.? Normal pain-free range of motion. There seems to be rather diffuse pains across the fingers over the PIP and the IP regions although this seems to be tenderness in between the joint spaces. There is no swelling however. There is no flexor tendon triggering, thenar atrophy or sensory loss.. Wrists:.? Normal pain-free range of motion without tenderness, swelling, increased warmth or erythema. Elbows:. Right: Mild pain with full extension. There is some slight lateral epicondylar tenderness but no tenderness or swelling over the joint space. Left: Normal pain-free range of motion without tenderness, swelling, increased warmth or erythema. Shoulders:.?? Full range of motion without pain. No tenderness, weakness, swelling, increased warmth or erythema. Hips:.? Full range of motion with mild lumbar pain at the extremes of range of motion. No groin pain with motion. Hip bursa:. Mild trochanteric tenderness. Knees:.?? Mild pain with more than 45 degrees flexion extension. There is mild medial tenderness without redness or effusion. Ankles:.? Normal pain-free range of motion without tenderness, swelling, increased warmth or erythema. Feet:.? Normal pain-free range of motion with mild tenderness across the instep and MTP regions. There is some slight 1st MTP P bony enlargement. No soft tissue swelling, increased warmth or erythema. Tender points:.? Mild tenderness to digital palpation at the occiput, trapezius, second rib, lateral epicondyle, knees, greater trochanter and gluteal area bilaterally. ? Results Reviewed Results Reviewed: Laboratory Tests 08/11/20 05/23/22 06/05/22 16:55 14:11 11:28 WBC 7.2 Hgb 12.2 5.2 L* 9.7 L MCV 78.0 L Laboratory Tests 05/23/22 06/05/22 12:57 11:28 Creatinine 0.69 Iron 10 L % Saturation 3 L Assessment & Plan Assessment & Plan (1) WILLARD positive: Code(s): R76.8 - Other specified abnormal immunological findings in serum (2) Osteoarthritis, knee: Code(s): M17.9 - Osteoarthritis of knee, unspecified (3) Foot pain, bilateral: Code(s): M79.671 - Pain in right foot; M79.672 - Pain in left foot Plan The patient does complain of widespread pain but on exam today there are no signs of an active inflammatory arthritis. Workup in the past with serologies to look into the WILLARD did not show evidence of lupus or RA type serologies. She has many tender points today so I think she has some underlying on elements of fibromyalgia. There is also likely some osteoarthritis in hands, knees and feet. She was further likely de-conditioned when she developed a severe anemia sign that made it more difficult for her to get to be walking. She needs to have further monitoring of her blood counts to see if they remain stable. At this point I think she should be encouraged to walk. We will set up some physical therapy time see if they can help her with some balance exercises and quadriceps strengthening exercises. We will get x-rays of the feet and knees to assess the severity of her OA. We would certainly stay away from NSAIDs in her case because of the possibility of GI bleeding. The WIPING CLOTH CUTTER wants to have her on stronger pain medicine but I think given her age and potential for memory loss is I do not think adding high doses of narcotics would be safe for her. I do not think we need to follow-up unless she gets joint swelling. We might consider knee injections in the future with corticosteroids. Orders: Orders XR knee LT 3V Today M17.9 - Osteoarthritis of knee, unspecified XR knee RT 3V Today M17.9 - Osteoarthritis of knee, unspecified XR foot LT min 3V Today M79.671 - Pain in right foot, M79.672 - Pain in left foot XR foot RT min 3V Today M79.671 - Pain in right foot, M79.672 - Pain in left foot PT Evaluation and Treatment Today M17.9 - Osteoarthritis of knee, unspecified Coding Level of Care Code New Pt Level 3 (44577) Diagnoses WILLARD positive R76.8 Osteoarthritis, knee M17.9 Foot pain, bilateral M79.671; M79.672
== END 2022-09-05 12:39 | disposition home or self-care (01) ==
PROVIDERS: PCP Internal Medicine Geriatric Medicine; Visit Provider Internal Medicine Rheumatology
DX: R76.8 Other specified abnormal immunological findings in serum (principal); M17.9 Osteoarthritis of knee, unspecified; M79.671 Pain in right foot; M79.672 Pain in left foot
CPT/HCPCS: 99203

== ENCOUNTER 2022-09-05 11:24 | Outpatient (REF) | payer OTHER, SELFPAY ==
--- NOTE | ~2022-09-05 | XR_ITS ---
EXAMINATION: XR FOOT, LEFT CLINICAL INFORMATION: Pain COMPARISON: None available. TECHNIQUE: AP, lateral, and oblique views of the left foot. FINDINGS: The bones and soft tissues are normal. No fracture. Alignment is anatomic. Joint spaces are maintained. There is plantar and superior calcaneal spurs. XR/XR foot LT min 3V IMPRESSION: Plantar and superior calcaneal spurs
--- NOTE | ~2022-09-05 | XR_ITS ---
EXAMINATION: XR FOOT, RIGHT CLINICAL INFORMATION: Pain COMPARISON: None available. TECHNIQUE: AP, lateral, and oblique views of the right foot. FINDINGS: There is plantar and superior calcaneal spurring. There is no fracture or soft tissue abnormalities. There are mild degenerative changes in the interphalangeal joints of second-fifth toes. XR/XR foot RT min 3V IMPRESSION: Calcaneal spurring and mild degenerative changes.
--- NOTE | ~2022-09-05 | XR_ITS ---
EXAMINATION: XR KNEE, LEFT CLINICAL INFORMATION: Pain in left knee COMPARISON: 09/20/2016 TECHNIQUE: Four views of the left knee. FINDINGS: No fracture or joint effusion. Alignment is anatomic. Joint spaces are maintained. No abnormal soft tissue calcification. XR/XR knee LT 3V IMPRESSION: Normal left knee.
--- NOTE | ~2022-09-05 | XR_ITS ---
EXAMINATION: XR KNEE, RIGHT CLINICAL INFORMATION: Right knee pain COMPARISON: 10/08/2019 TECHNIQUE: Four views of the right knee. FINDINGS: When compared to the previous study there is no interval change in appearance of enthesopathy and spurring of the patella. There is no joint space narrowing or joint effusion seen. XR/XR knee RT 3V IMPRESSION: Enthesopathy and spurring of the patella
== END 2022-09-05 11:25 | disposition home or self-care (01) ==
LOC: HO.XRAY 11:24
PROVIDERS: PCP Internal Medicine Geriatric Medicine; Visit Provider Internal Medicine Rheumatology
DX: M79.671 Pain in right foot (principal); M79.672 Pain in left foot; R76.8 Other specified abnormal immunological findings in serum; M25.561 Pain in right knee; M25.562 Pain in left knee; Z79.899 Other long term (current) drug therapy
CPT/HCPCS: 73562; 73630; 99202

== ENCOUNTER 2022-09-17 08:41 | Outpatient (AMB) | payer OTHER, SELFPAY ==
--- NOTE | 2022-09-17 08:47 | A.OFFVIS_ITS ---
Intake Vital Signs 09/17/22 08:49 Height 4 ft 7 in Weight 127 lb 13.89 oz BMI 29.7 BP 110/62 Intake Visit Reasons: calcified leimyoma/PCP Referral Visual Basic .Net Developer Required: Yes Visual Basic .Net Developer Language: Warehouse Administrative Assistant Name: Aimee HANSEN Information Interpreted: non-clinical & clinical Manager Clinical Informatics: Manager Clinical Informatics Present (Aimee HANSEN) Accompanied by: Employee Allergies percocet Allergy (Mild, Uncoded 09/17/22 08:51) Vomiting Post menopausal: Yes HPI HPI Comments History of Present Illness Details Presenting referred from PCP for abnormal CT finding showing enlarged calcified myomatous uterus. Patient had a CT scan in 08/30 which showed an enlarged uterus, pelvic ultrasound in 3 showed an enlarged uterus measuring 12 x 6.5 cm in 2 calcified myomas 2.5 cm anterior and 3 cm on the right side. The patient has no pelvic pressure, pain or vaginal bleeding No history of abnormal Pap smear, last co testing was in 2016 was negative , negative Pap in 2012 in 2009 Last screening mammogram in 08/02 was BI-RADS 4 suspicious, biopsy was benign Last colonoscopy was in 06/03 Patient is complaining of bilateral vulvar itching no discharge or any other concerns PFSH Medical History Arthritis FH: breast cancer FH: cholecystectomy Hepatic cirrhosis Hypothyroid Surgical History Hx of cholecystectomy Family History Family/Other Breast cancer Maternal Grandfather Throat cancer Social History Household Members: None Housing: Apartment Do you presently have visiting nurse or other home services: Yes (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) Alcohol intake: never Patient Tobacco Use Status: Never used Tobacco Second Hand Smoke Exposure: No service: No Current occupational status: retired Review of Systems Const All systems reviewed & are unremarkable except as noted in HPI and below Card Reports as per HPI Resp Reports as per HPI GI Reports as per HPI and Reports no additional complaints Reports as per HPI Physical Exam Vital Signs: BMI result Body Mass Index 29.7 Const General: cooperative, healthy appearing and comfortable Chest Chest palpation & inspection: normal inspection of the chest and normal palpation of entire chest wall Breast/axilla inspection: normal inspection of the breasts and normal inspection of the axillae Breast/axilla palpation: normal palpation of the breasts, normal palpation of the axillae and no axillary lymphadenopathy Resp Effort & Inspection: normal respiratory effort Auscultation: clear to auscultation bilaterally Percussion: percussion normal Cardio Palpation: normal PMI Rate: regular rate Rhythm: regular rhythm Heart sounds: no murmurs and no rubs Peripheral pulses: Peripheral pulses 2+ throughout GI Inspection: Yes normal to inspection Palpation (GI): Soft to palpation, nontender, no guarding, not rigid and No hepatosplenomegaly present Percussion: Yes normal to percussion Auscultation: normal bowel sounds Rectal Exam - Female: deferred General: Yes bladder normal to palpation External Female Exam: lesion (Bilateral leukoplakias) Speculum Exam - Vagina: normal appearance of the vagina, normal palpation, normal vaginal discharge and not erythematous Speculum Exam - Cervix: normal appearance of the cervix and normal palpation Bimanual exam- vagina & uterus: normal bimanual exam, normal palpation, uterine size normal, bladder normal to palpation, consistency normal and normal palpation Bimanual Exam- Adnexa, other: normal adnexae, no masses and no tenderness Assessment & Plan Assessment & Plan (1) Uterine myoma: Code(s): D25.9 - Leiomyoma of uterus, unspecified Plan: Discussed with the patient the finding on her ultrasound in was [address] scan in [address] scan showing enlarged uterus with calcified myomas. Will order ultrasound to compare the size of the myoma to previous findings. Ultrasound ordered, instructions given the patient to schedule an ultrasound follow-up appointment (2) Well woman exam: Code(s): Z01.419 - Encounter for gynecological examination (general) (routine) without abnormal findings Plan: Co testing not indicated since the patient 's age is above 65 with no history of abnormal Pap smears last 25 years. Counseled the patient about the recommended dietary allowance of 1200 mg of Calcium & 800 IU of vitamin D. Mammogram ordered. Will order DEXA scan . The patient was instructed to perform monthly self-breast exams and to schedule a 2 week DEXA scan follow-up appointment and an annual exam in a year; all questions answered and the patient verbalized understanding. 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 Instructions given the patient to schedule vulvar biopsy appointment. All questions answered, the patient verbalized understanding Orders: Orders XR DEXA axial skeleton Today Z78.0 - Asymptomatic menopausal state MM screening mammo BI Today Z12.31 - Encounter for screening mammogram for malignant neoplasm of breast Coding Level of Care Code New Pt Level 3 (38772) Diagnoses Uterine myoma D25.9 Well woman exam Z01.419 Vulvar leukoplakia N90.4
[2022-09-17 08:49] VITALS: BP 110/62; BMI 29.7
== END 2022-09-17 09:27 | disposition home or self-care (01) ==
LOC: HO.HWS 08:41
PROVIDERS: PCP Internal Medicine Geriatric Medicine; Visit Provider Obstetrics & Gynecology
DX: D25.9 Leiomyoma of uterus, unspecified (principal); Z01.419 Encounter for gynecological examination (general) (routine) without abnormal findings; N90.4 Leukoplakia of vulva
CPT/HCPCS: 99203

== ENCOUNTER 2022-09-17 08:41 | Outpatient (REF) | payer OTHER, SELFPAY ==
[2022-09-17 09:28] LABS: MANUAL DIFF FLAG NO
[2022-09-17 10:24] LABS: Basophils Absolute Auto 0.1 X10*3/uL (0.0-0.2); Basophils Percent Auto 1.1 % (0-2); Eosinophils Absolute Auto 0.2 X10*3/uL (0.0-0.4); Eosinophils Percent Auto 4.4 % (0-4); Hematocrit 36.9 % (37.0-47.0); Hemoglobin 11.5 g/dl (12.0-16.0); Imm Gran Abs Auto 0.02 X10*3/uL (0.00-0.03); Imm Gran Pct Auto 0.4 % (0.0-0.4); Lymphocytes Absolute Auto 0.9 X10*3/uL (1.2-4.9); Mean Corpuscular HGB Conc 31.2 g/dl (31.0-35.0); Mean Corpuscular Hemoglobin 27.8 pg (27.0-33.0); Mean Corpuscular Volume 89.1 fL (80.0-98.0); Mean Platelet Volume 10.9 fL (9.4-12.3); Monocytes Absolute Auto 0.4 X10*3/uL (0.1-1.2); Neutrophils Absolute Auto 3.6 x10*3/uL (2.0-8.3); Neutrophils Percent Auto 68.1 % (45-73); Platelet Count 240 X10*3/uL (160-400); Red Blood Count 4.14 X10*6/uL (4.20-5.50); Red Cell Distribution Width 16.2 % (11.0-16.0); White Blood Count 5.2 X10*3/uL (4.8-10.8)
[2022-09-17 11:06] LABS: Alanine Aminotransferase 18 U/L (0-31); Albumin Level 3.9 g/dL (3.5-5.0); Alkaline Phosphatase 74 U/L (39-117); Aspartate Amino Transferase 23 U/L (5-31); Bilirubin Direct 0.1 mg/dL (0.0-0.5); Bilirubin Total 0.3 mg/dL (0.0-1.0); Iron 60 mcg/dL (30-160); Percent Iron Saturation 20 % (15-50); Total Iron Binding Capacity 307 mcg/dL (228-428); Total Protein 7.4 g/dL (6.5-8.0); Unsaturated Iron Binding 247 ug/dL
[2022-09-17 11:25] LABS: Ferritin 22 ng/mL (10-250)
[2022-09-17 11:28] LABS: Vitamin B12 1121 pg/mL (200-900)
== END 2022-09-17 08:42 | disposition home or self-care (01) ==
LOC: HO.LAB 08:41
PROVIDERS: Absent Provider Internal Medicine; PCP Internal Medicine Geriatric Medicine; Visit Provider Obstetrics & Gynecology
DX: D50.0 Iron deficiency anemia secondary to blood loss (chronic) (principal); D25.9 Leiomyoma of uterus, unspecified; N90.4 Leukoplakia of vulva
CPT/HCPCS: 36415; 80076; 82607; 82728; 82746; 83540; 85025; 99202

== ENCOUNTER 2022-09-24 13:14 | Outpatient (REF) | payer OTHER, SELFPAY ==
--- NOTE | ~2022-09-24 | US_ITS ---
EXAMINATION: US PELVIS CLINICAL INFORMATION: Leiomyoma of uterus, unspecified Postmenopausal COMPARISON: CT scan chest, abdomen and pelvis 05/23/2022 TECHNIQUE: Ultrasound of the pelvis is performed using both transabdominal and transvaginal transducers along with Doppler. Transvaginal imaging is performed due to inadequate visualization transabdominally. FINDINGS: Uterus: The uterus is retroverted and measures 12.0 x 8.1 x 8.1 cm. There is shadowing in the area of the uterus likely related to calcified fibroids. It is not possible to distinguish/measure the fibroids. Extensive calcification was seen in the region of the uterus on CT scan 05/23/2022. The endometrium is not seen. The ovaries are not seen. US/US pelvic and transvaginal IMPRESSION: Enlarged uterus with shadowing due to calcified fibroids. Extensive calcification was seen in the region of the uterus on CT scan 05/23/2022.
== END 2022-09-24 13:15 | disposition home or self-care (01) ==
LOC: HO.US 13:14
PROVIDERS: PCP Internal Medicine Geriatric Medicine; Visit Provider Obstetrics & Gynecology
DX: D25.9 Leiomyoma of uterus, unspecified (principal)
CPT/HCPCS: 76830; 76856

== ENCOUNTER 2022-10-10 13:30 | Outpatient (REF) | payer OTHER, SELFPAY ==
--- NOTE | ~2022-10-10 | MM_ITS ---
EXAMINATION: BONE DENSITOMETRY CLINICAL INDICATION: Menopause. COMPARISON: This is the patient's baseline examination. TECHNIQUE: Using a Reddit DXA System (software version: 13.1) manufactured by [employer], dual-energy x-ray absorptiometry was performed of the lumbar spine and left hip. The images are of good technical quality. Summary results are attached. FINDINGS: LEFT FEMUR, NECK: BMD 0.687 g/cm2, Z-score -0.6, T-score -2.5, osteoporosis. LEFT FEMUR, TOTAL: BMD 0.889 g/cm2, Z-score 0.8, T-score -0.9, normal. AP SPINE L1-L4: BMD 0.759 g/cm2, Z-score -1.6, T-score -3.5, osteoporosis. IDENTIFIED RISK FACTORS: Menopause, history of fracture (adult), osteoporosis, rheumatoid arthritis, secondary osteoporosis. HISTORY OF FRACTURE: Other. MEDICATIONS: Vitamin D. MM/XR DEXA axial skeleton IMPRESSION: 1. DIAGNOSIS: Osteoporosis based on the lowest T-score value of -3.5 in the lumbar spine applying World Health Organization criteria. 2. 10-YEAR FRACTURE RISK PREDICTION, FRAX: According to the guidelines, FRAX calculation should only be performed on patients in the osteopenia bone density category. Therefore, FRAX was not performed on this patient. 3. Treatment Recommendations: NOF guidelines recommend consideration for treatment in postmenopausal women and men age 50 and older presenting with the following: -A hip or vertebral (clinical or morphometric) fracture. -T-score less than or equal to -2.5 at the femoral neck or spine after appropriate evaluation to exclude secondary causes. -Low bone mass at the hip or spine and a 10-year fracture probability by FRAX of greater than or equal to 3% for hip fracture or greater than or equal to 20% for major osteoporotic fracture based on the [place] adapted WHO algorithm. 4. Other Recommendations: All treatment decisions require clinical judgment and consideration of individual patient factors, including patient preferences, comorbidities, previous drug use, risk factors not captured in the FRAX model (e.g. frailty, falls, vitamin D deficiency, increased bone turnover, interval significant decline in bone density) and possible under or overestimation of fracture risk by FRAX. Additional medical evaluation for secondary cause of low bone mineral density may be appropriate. FUTURE SCAN RECOMMENDATION: People with diagnosed cases of osteoporosis or at high risk for fracture should have regular bone mineral density tests. For patients eligible for Medicare, routine testing is allowed once every 2 years. The testing frequency can be increased to one year for patients who have rapidly progressing disease, those who are receiving or discontinuing medical therapy to restore bone mass, or have additional risk factors.
--- NOTE | ~2022-10-10 | MM_ITS ---
EXAMINATION: MM SCREENING DIGITAL BREAST TOMOSYNTHESIS, BILATERAL CLINICAL INFORMATION: Screening. Asymptomatic. COMPARISON: Mammography: This study is compared with prior exams dating back to 2017. TECHNIQUE: Digital breast tomosynthesis is performed in both the craniocaudal and mediolateral oblique views along with computer-aided detection (CAD). Synthesized 2D images are generated from the tomosynthesis. FINDINGS: There are scattered areas of fibroglandular density (ACR BI-RADS breast composition Category b). There are no significant masses, abnormal calcifications, or other abnormalities. There is tissue marker associated with a small, oval benign mass in the central portion of the left breast. This is a site of prior benign percutaneous biopsy. Few, bilateral, coarse calcifications are also present. MM/MM tomosynthesis screening BI IMPRESSION: No mammographic evidence of malignancy. ASSESSMENT: BI-RADS BI-RADS 2 - Benign Findings RECOMMENDATION: Routine annual mammography screening. 1 year F/U This examination should not preclude the clinical evaluation of a suspicious palpable abnormality. This patient's information was entered into a reminder system with a target due date for their next mammogram.
== END 2022-10-10 13:31 | disposition home or self-care (01) ==
LOC: HO.MAMMO 13:30
PROVIDERS: PCP Internal Medicine Geriatric Medicine; Visit Provider Obstetrics & Gynecology
DX: Z12.31 Encounter for screening mammogram for malignant neoplasm of breast (principal); Z13.820 Encounter for screening for osteoporosis; Z78.0 Asymptomatic menopausal state
CPT/HCPCS: 77063; 77067; 77080

== ENCOUNTER → 2022-10-10 14:00 | Outpatient (BNV) | payer OTHER, SELFPAY | PROVIDERS: PCP Internal Medicine Geriatric Medicine; Visit Provider Radiology Diagnostic Radiology | DX: Z12.31 Encounter for screening mammogram for malignant neoplasm of breast (principal) | CPT/HCPCS: 77063; 77067; 77080 ==

== ENCOUNTER 2022-10-17 14:28 | Outpatient (REF) | payer OTHER, SELFPAY | END 2022-10-17 14:29 | disposition home or self-care (01) | LOC: HO.LNP 14:28 | PROVIDERS: PCP Internal Medicine Geriatric Medicine; Visit Provider Obstetrics & Gynecology | DX: N90.4 Leukoplakia of vulva (principal); M81.0 Age-related osteoporosis without current pathological fracture | CPT/HCPCS: 56605; 88305; 88312; 99212 ==

== ENCOUNTER 2022-10-17 14:28 | Outpatient (AMB) | payer OTHER, SELFPAY ==
--- NOTE | 2022-10-17 14:40 | A.OFFVIS_ITS ---
Intake Vital Signs 10/17/22 14:41 Height 4 ft 7 in Weight 128 lb BMI 29.7 BP 108/68 Intake Visit Reasons: Vulva BX/U/S and Dexa Results Malt Liquors Sales Supervisor Required: Yes Malt Liquors Sales Supervisor Language: Software Quality Automation Engineer Name: Aimee Thorne Information Interpreted: non-clinical & clinical Catia Designer: Catia Designer Present (Aimee) Allergies percocet Allergy (Mild, Uncoded 10/17/22 14:42) Vomiting Is last menstrual period known: No Post menopausal: Yes Patient : No HPI HPI Comments History of Present Illness Details Presenting for vulvar biopsy and DEXA scan follow-up. 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) Alcohol intake: never Patient Tobacco Use Status: Never used Tobacco Second Hand Smoke Exposure: No Patient : No service: No Current occupational status: retired Female Reproductive History Menstrual control method: none Date of last pap smear: 05/25/16 (negative) History of abnormal pap smear: Yes Date of Mammogram: 10/10/22 Date of last Bone Density Screenin10/10/22 Physical Exam Vital Signs: Last Vital Signs BP 108/68 10/17/22 14:41 BMI result Body Mass Index 29.7 Office Procedures DATA PROCESSOR Biopsy Before the procedure was started d/w patient the procedure, alternatives ( do nothing, medical rx), & all the risks associated with the procedure ( bleeding , infection, vulvar scarring, painful intercourse, injury to vessels, possible need for transfusion with all its risks) then patient signed the consent. Preop dx: Left vulvar leukoplakia Op: Left vulvar leukoplakia biopsy Post op: Same Anesthesia: Lidocaine 1% 3cc used Procedure: Using betadine the area was scrubbed and draped in the usual manner. 3 cc of lidocaine was used for anesthesia at the left vulvar lesion area ; using punch biopsy forceps and pickup the Left vulvar leukoplakia was biopsy. Pressure was used for hemostasis. The patient tolerated the procedure well. Discharge Instructions: The patient was instructed to schedule an appointment in 2 weeks for follow-up and to call if temp>100.4, area of the biopsy redness or pain, nausea/vomiting. This note was generated with a voice recognition program. Some errors may have been overlooked during the review of this note. Sometimes these errors may affect the content or meaning of a given sentence. [id number] of Vulva/Perineum Procedure code (CPT) selection complete Assessment & Plan Assessment & Plan (1) Osteoporosis: Code(s): M81.0 - Age-related osteoporosis without current pathological fracture Plan: Discussed with the patient the results of DEXA scan showing is severe osteoporosis T-score of -3.5. 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
[2022-10-17 14:41] VITALS: BP 108/68; BMI 29.7
== END 2022-10-17 15:09 | disposition home or self-care (01) ==
PROVIDERS: PCP Internal Medicine Geriatric Medicine; Visit Provider Obstetrics & Gynecology
DX: M81.0 Age-related osteoporosis without current pathological fracture (principal); N90.4 Leukoplakia of vulva
CPT/HCPCS: 56605; 99213

== ENCOUNTER 2022-11-13 10:09 | Outpatient (AMB) | payer OTHER, SELFPAY ==
--- NOTE | 2022-11-13 10:10 | A.OFFVIS_ITS ---
Intake Vital Signs 11/13/22 10:11 Height 4 ft 7 in Weight 127 lb 13.89 oz BMI 29.7 BP 110/58 L Intake Visit Reasons: vulva biopsy results Estate Agent Required: Yes Estate Agent Language: Curb Setter Helper Name: Aimee HANSEN Information Interpreted: non-clinical & clinical Accompanied by: Daughter Allergies percocet Allergy (Mild, Uncoded 11/13/22 10:12) Vomiting Post menopausal: Yes HPI HPI Comments History of Present Illness Details Presenting for follow-up regarding vulvar biopsy and ultrasound of the pelvis . The pathology of the vulvar biopsy showed the following: Vulva, left, lesion: Vulvitis with parakeratosis, lymphocytic and histiocytic infiltrate and few multinucleated giant cells without granulomas, and scattered melanophages; negative for dysplasia Pelvic ultrasound showed the following: Uterus: The uterus is retroverted and measures 12.0 x 8.1 x 8.1 cm. There is shadowing in the area of the uterus likely related to calcified fibroids. It is not possible to distinguish/measure the fibroids. Extensive calcification was seen in the region of the uterus on CT scan 05/23/2022. The endometrium is not seen. The ovaries are not seen. 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) Alcohol intake: never Patient Tobacco Use Status: Never used Tobacco Second Hand Smoke Exposure: No service: No Current occupational status: retired Review of Systems Const All systems reviewed & are unremarkable except as noted in HPI and below Reports as per HPI and Reports no additional complaints GI Reports no additional complaints Reports no additional complaints Assessment & Plan Assessment & Plan (1) 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 All questions answered, the patient verbalized understanding (2) Uterine myoma: Code(s): D25.9 - Leiomyoma of uterus, unspecified Plan: Discussed with the patient the findings on pelvic ultrasound & the risk of myosarcoma; discussed with the patient the options of treatment including expectant management versus hysterectomy; the pros and cons, risks benefits of each approach were discussed with the patient including the fact that in cases of myosarcoma, surgical treatment can lead to early diagnosis and positively affects the prognosis; after further discussion, the patient decided to proceed with expectant management. Will repeat pelvic ultrasound in 6. Instructions given to patient to call in case any of the following occurs: pressure symptoms, abnormal uterine bleeding, pelvic pain; and to schedule a 6 month follow-up appointment for reassessment and to order a repeat ultrasound . All questions answered, the patient verbalized understanding and agreed with the plan . Orders: Orders US pelvic and transvaginal 6 Months D25.9 - Leiomyoma of uterus, unspecified Coding Level of Care Code Est Pt Level 3 (61908) Diagnoses Vulvar leukoplakia N90.4 Uterine myoma D25.9
[2022-11-13 10:11] VITALS: BP 110/58; BMI 29.7
== END 2022-11-13 10:19 | disposition home or self-care (01) ==
LOC: HO.HWS 10:09
PROVIDERS: PCP Internal Medicine Geriatric Medicine; Visit Provider Obstetrics & Gynecology
DX: N90.4 Leukoplakia of vulva (principal); D25.9 Leiomyoma of uterus, unspecified
CPT/HCPCS: 99213

== ENCOUNTER → 2022-11-13 10:09 | Outpatient (BNVA) | payer OTHER, SELFPAY | PROVIDERS: PCP Internal Medicine Geriatric Medicine; Visit Provider Obstetrics & Gynecology | DX: N90.4 Leukoplakia of vulva (principal); D25.9 Leiomyoma of uterus, unspecified; Z98.890 Other specified postprocedural states | CPT/HCPCS: 99212 ==

== ENCOUNTER 2022-11-15 11:00 | Outpatient (RCR) | payer OTHER, SELFPAY ==
--- NOTE | 2022-10-16 17:39 | MHC.PT.EP ---
[facility] [place] Office [place] Office [place] Office [address] [place] [address] [phone] F: [phone] F: [phone] F: [phone] F: [phone] Physical Therapy Plan of Care Date of Evaluation: 10/16/22 Date of Surgery: Diagnosis: bilateral knee osteoarthritis Assessment: Patient is a pleasant, Danish speaking 72 y.o. female who is referred to PT by Dr. Jonathan Obando MD, with Dx of bilateral knee osteoarthritis. Patient impairments include pain in knees and LEs, generalized deconditioning, weakness in LEs, antalgic gait. Patient current functional limitations are stairs, walking, squat (get on/off toilet), prolonged standing. Patient will benefit from skilled PT to address aforementioned impairments and functional limitations to meet established goals. Frequency and Duration: The patient will be seen 2x/week for 4 weeks Short Term Goals: 2 weeks Patient demonstrates consistency and independence with HEP to self manage symptoms. Patient presents with increased bilateral ankle DF 0 degrees to restore heel to toe gait pattern to improve ambulation on level surfaces. Mcc Goals: 4 weeks Patient presents with increased L knee flexion 115 degrees to improve sit to stand from low surface. Patient presents with increased bilateral knee extension 4/5 to be able to ascend/descend 3 steps with railing for community use. Treatment Plan: Modalities to reduce pain, spasms and effusion. Manual therapy to restore motion and function. Therapeutic exercise to improve strength and flexibility. Neuromuscular re-education for posture and balance. Therapeutic activities to return to functional activities of daily living. Electronically signed by: Jeremi Sol, PT, DPT Please sign and return to therapist. Thank you for your referral.
--- NOTE | 2023-01-17 14:48 | MHC.PT.DC ---
[facility] [place] [facility] [place] [facility] [place] [facility] [address] [place] [address] [facility] [phone] F: [phone] F: [phone] F: [phone] F: [phone] Physical Therapy Discharge Report Diagnosis: bilateral knee osteoarthritis Date of Surgery: Date of Evaluation: 10/16/22 Date of Discharge: 01/17/23 Treatments to Date: 6 Cancellations to Date: 1 No Shows to Date: 1 Discharge Status: Independent with HEP Patient Elected to Stop Discharge Summary: Lena showed small improvements in ROM, strength and overall pain in her knees since starting PT. She ceased attending on her own accord after her last scheduled PT visit. She is discharged from PT at this time. Electronically signed by: Jeremi Sol, PT, DPT Please sign and return to therapist. Thank you for your referral.
== END 2023-01-17 14:50 | disposition home or self-care (01) ==
LOC: HO.PT 11:00
PROVIDERS: PCP Internal Medicine Geriatric Medicine; Visit Provider Internal Medicine Rheumatology
DX: M17.0 Bilateral primary osteoarthritis of knee (principal)
CPT/HCPCS: 97110; 97162; 97530

== ENCOUNTER 2022-12-06 11:03 | Outpatient (AMB) | payer OTHER, SELFPAY ==
--- NOTE | 2022-12-06 11:06 | A.OFFVIS_ITS ---
Intake Vital Signs 12/06/22 11:09 Height 4 ft 7 in Weight 134 lb 4.184 oz BMI 31.2 BP 110/70 Blood Pressure Location Rt brachial Position Sitting Pulse 72 Pulse Source Pulse Oximeter Temp 97.5 F Temp Source Skin Pulse Oximetry (%) 97 Oxygen Delivery Method Room Air Intake Visit Reasons: Osteoporosis Intake Note: Patient presents today for knee injections? c/o feet and hand pain Flight Radio Officer Required: Yes Flight Radio Officer Language: Steel Spar Operator Name: Adarsh Butler Information Interpreted: clinical only Accompanied by: stripping shovel operator Allergies percocet Allergy (Mild, Uncoded 12/06/22 11:12) Vomiting Medication List - Last Reconciled 12/06/22 by Jonathan Obando MD acetaminophen 500 mg PO Q8H PRN albuterol sulfate 90 mcg/actuation 2 puffs inhalation Q6H PRN clotrimazole-betamethasone 1-0.05 % 1 appl topical BID conjugated estrogens (Premarin) vaginal cyanocobalamin (vitamin B-12) 1,000 mcg PO DAILY diclofenac sodium 1% 2 grams topical BID PRN docusate sodium 100 mg PO BID ferrous sulfate (FeroSul) 325 mg PO DAILY gabapentin 300 mg PO BEDTIME levothyroxine 75 mcg PO DAILY omeprazole 40 mg PO DAILY@0630 30 days tramadol 50 mg PO DAILY PRN trazodone 50 mg PO BEDTIME HPI HPI Comments History of Present Illness Details The patient returns for evaluation of her difficulty walking and osteoarthritis. We used the telephone [employer] translating service. She has an aide with her today that spends most of her work day with the patient. The aide gives much of the responses here as the patient basically rarely answers any questions. She apparently has been that way since grade school. The aide reports that the patient does complain frequently of hand and foot pain. The patient remains relatively inactive. She is able to walk but walks very slowly and prefers not to most of the time. She is on acetaminophen 500 t.i.d. p.r.n. as well as diclofenac gel. She remains on gabapentin and trazodone at night. She takes the omeprazole for heartburn. She says the hospital chief executive officer did bone density test and patient was told she had severe osteoporosis. She does not recall any history of any bone fractures. 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 Negative for appetite change, weight change, fever, chills, malaise Eyes Details: Negative for vision change, dry eyes,headaches and dizziness Card Details: Negative chest pain, edema and syncope Resp Details: Negative for SOB, cough and wheezing GI Details: Negative indigestion/heartburn, nausea, abdominal pain, bowel changes, diarrhea, constipation and bloody stool. Parish/Lymph Details: Negative for excessive bruising or bleeding. Physical Exam Vital Signs: Last Vital Signs Temp 97.5 F 12/06/22 11:09 Pulse 72 12/06/22 11:09 BP 110/70 12/06/22 11:09 Pulse Ox 97 12/06/22 11:09 Oxygen Delivery Method Room Air 12/06/22 11:09 BMI result Body Mass Index 31.2 APPEARANCE: Patient in no acute distress. EYES no redness, pupils equal and reactive to light, eyelids normal. No temporal artery tenderness, redness or swelling. EXTREMITIES: No edema, no calf tenderness. There is some pretibial tenderness but no induration, redness or thickening of the skin. normal peripheral pulses. NEURO: Oriented and alert x3. No focal weakness. Reflexes symmetric. Gait this is slow. SKIN: No inflammatory or neoplastic lesions. Normal color and turgor JOINT EXAM: Patient does not say she has pain but does wince with certain aspects of the physical exam. I interpret these as she is experiencing some pain as noted below.?? Cervical Spine:? Mild pain with extremes of normal range of motion. Some cervical muscle tenderness. Thoracic Spine:.? No scoliosis.? No tenderness on palpation. Lumbar Spine:.? Alignment normal.? Mild pain with extremes of flexion extension. No tenderness. Chest Wall:.? No tenderness, swelling, increased warmth or erythema. Hands:.? Normal pain-free range of motion. There seems to be rather diffuse pains across the fingers over the PIP and the IP regions although this seems to be tenderness in between the joint spaces. There is no soft tissue swelling however. She has bony enlargement at the 2nd through 5th DIP joints and the thumb IP joint bilaterally. The 2nd 3rd PIP joints have mild tenderness. There is no flexor tendon triggering, thenar atrophy or sensory loss.. Wrists:.? Normal pain-free range of motion without tenderness, swelling, increased warmth or erythema. Elbows:. Right: Mild pain with full extension. There is some slight lateral epicondylar tenderness but no tenderness or swelling over the joint space. Left: Normal pain-free range of motion without tenderness, swelling, increased warmth or erythema. Shoulders:.?? Full range of motion without pain. No tenderness, weakness, swelling, increased warmth or erythema. Hips:.? Full range of motion with mild lumbar pain at the extremes of range of motion. No groin pain with motion. Hip bursa:. Mild trochanteric tenderness. Knees:.?? Mild pain with more than 45 degrees flexion extension. There is mild medial tenderness without redness or effusion. Ankles:.? Normal pain-free range of motion without tenderness, swelling, increased warmth or erythema. Feet:.? Normal pain-free range of motion with mild tenderness across the instep and MTP regions. There is some slight 1st MTP P bony enlargement. No soft tissue swelling, increased warmth or erythema. Tender points:? Mild tenderness to digital palpation at the occiput, trapezius, second rib, lateral epicondyle, knees, greater trochanter and gluteal area bilaterally. ? Results Reviewed Results Reviewed: Laboratory Tests 06/05/22 09/17/22 11:28 09:27 Hgb 11.5 L Creatinine 0.69 % Saturation 20 Vitamin B12 [address] [facility] [address] [place], [place] [address] Mammography Report Signed Patient: Lena Judd MR#: [id number] : 1950 Acct:[id number] Age/Sex: 72 / F ADM Date: 10/10/[address]: Tae Reyes MD Ordering Physician: Tae Reyes MD Date of Service: 10/10/22 Follow Up: Procedure(s): XR DEXA axial skeleton Accession Number(s): [id number] cc: Tae Reyes MD~ EXAMINATION: BONE DENSITOMETRY CLINICAL INDICATION: Menopause. COMPARISON: This is the patient's baseline examination. TECHNIQUE: Using a Altspace[employer] DXA System (software version: 13.1) manufactured by [employer], dual-energy x-ray absorptiometry was performed of the lumbar spine and left hip. The images are of good technical quality. Summary results are attached. FINDINGS: LEFT FEMUR, NECK: BMD 0.687 g/cm2, Z-score -0.6, T-score -2.5, osteoporosis. LEFT FEMUR, TOTAL: BMD 0.889 g/cm2, Z-score 0.8, T-score -0.9, normal. AP SPINE L1-L4: BMD 0.759 g/cm2, Z-score -1.6, T-score -3.5, osteoporosis. IDENTIFIED RISK FACTORS: Menopause, history of fracture (adult), osteoporosis, rheumatoid arthritis, secondary osteoporosis. HISTORY OF FRACTURE: Other. MEDICATIONS: Vitamin D. MM/XR DEXA axial skeleton IMPRESSION: 1. DIAGNOSIS: Osteoporosis based on the lowest T-score value of -3.5 in the lumbar spine applying World Health Organization criteria. 2. 10-YEAR FRACTURE RISK PREDICTION, FRAX: According to the guidelines, FRAX calculation should only be performed on patients in the osteopenia bone density category. Therefore, FRAX was not performed on this patient. 3. Treatment Recommendations: NOF guidelines recommend consideration for treatment in postmenopausal women and men age 50 and older presenting with the following: -A hip or vertebral (clinical or morphometric) fracture. -T-score less than or equal to -2.5 at the femoral neck or spine after appropriate evaluation to exclude secondary causes. -Low bone mass at the hip or spine and a 10-year fracture probability by FRAX of greater than or equal to 3% for hip fracture or greater than or equal to 20% for major osteoporotic fracture based on the [place] adapted WHO algorithm. 4. Other Recommendations: All treatment decisions require clinical judgment and consideration of individual patient factors, including patient preferences, comorbidities, previous drug use, risk factors not captured in the FRAX model (e.g. frailty, falls, vitamin D deficiency, increased bone turnover, interval significant decline in bone density) and possible under or overestimation of fracture risk by FRAX. Additional medical evaluation for secondary cause of low bone mineral density may be appropriate. FUTURE SCAN RECOMMENDATION: People with diagnosed cases of osteoporosis or at high risk for fracture should have regular bone mineral density tests. For patients eligible for Medicare, routine testing is allowed once every 2 years. The testing frequency can be increased to one year for patients who have rapidly progressing disease, those who are receiving or discontinuing medical therapy to restore bone mass, or have additional risk factors. Dictated By: Omar Walsh MD Assessment & Plan Assessment & Plan (1) Osteoporosis: Comment: 09/2022 T Scores: fem neck -2.5; femur -0.9; LS -3.5; alendronate started 11/2022 Code(s): M81.0 - Age-related osteoporosis without current pathological fracture (2) Osteoarthritis of knees, bilateral: Code(s): M17.0 - Bilateral primary osteoarthritis of knee (3) Fibromyalgia: Code(s): M79.7 - Fibromyalgia (4) Osteoarthritis, hand: Code(s): M19.049 - Primary osteoarthritis, unspecified hand Plan Once again I do not see signs of an active inflammatory arthritis. She does have some findings of osteoarthritis in the fingers. There is also radiographic evidence of OA in the lower back and left foot. She is very hard to assess as to her symptom level as she does only wince when she apparently has pains. She also has many tender points suggesting some element of fibromyalgia. I think for now she is best to stay with acetaminophen up to 1 g t.i.d. and topical diclofenac gel particularly for the hands. The bone density is low enough to be labeled as osteoporosis. She has no history that she can recall of any fractures. I think she should be on alendronate 70 mg weekly. I reviewed with the aide the ritual of taking it on an empty stomach, not lying down after meals, and waiting for least 30 minutes before eating. I again encouraged her to be ambulatory as much as she can during the day. A follow-up in 4 months seems reasonable. Medications: New alendronate 70 mg PO QWEEK 12 tabs 3RF M81.0 - Age-related osteoporosis without current pathological fracture Coding Level of Care Code Est Pt Level 3 (28661) Diagnoses Osteoporosis M81.0 Osteoarthritis of knees, bilateral M17.0 Fibromyalgia M79.7 Osteoarthritis, hand M19.049
[2022-12-06 11:09] VITALS: BP 110/70; PULSE 72; TEMP 36.4; O2SAT 97; BMI 31.2
== END 2022-12-06 11:42 | disposition home or self-care (01) ==
PROVIDERS: PCP Internal Medicine Geriatric Medicine; Visit Provider Internal Medicine Rheumatology
DX: M81.0 Age-related osteoporosis without current pathological fracture (principal); M17.0 Bilateral primary osteoarthritis of knee; M79.7 Fibromyalgia; M19.049 Primary osteoarthritis, unspecified hand
CPT/HCPCS: 99213

== ENCOUNTER → 2022-12-06 11:03 | Outpatient (BNVA) | payer OTHER, SELFPAY | PROVIDERS: PCP Internal Medicine Geriatric Medicine; Visit Provider Internal Medicine Rheumatology | DX: M81.0 Age-related osteoporosis without current pathological fracture (principal); M17.0 Bilateral primary osteoarthritis of knee; M79.7 Fibromyalgia; M19.049 Primary osteoarthritis, unspecified hand | CPT/HCPCS: 99212 ==

== ENCOUNTER 2023-01-08 10:33 | Outpatient (REF) | payer OTHER, MEDICAID, SELFPAY ==
[2023-01-08 11:01] LABS: MANUAL DIFF FLAG NO
[2023-01-08 11:21] LABS: Basophils Absolute Auto 0.1 X10*3/uL (0.0-0.2); Eosinophils Absolute Auto 0.2 X10*3/uL (0.0-0.4); Eosinophils Percent Auto 3.4 % (0-4); Hematocrit 36.9 % (37.0-47.0); Hemoglobin 11.9 g/dl (12.0-16.0); Imm Gran Abs Auto 0.03 X10*3/uL (0.00-0.03); Imm Gran Pct Auto 0.5 % (0.0-0.4); Lymphocytes Absolute Auto 1.1 X10*3/uL (1.2-4.9); Lymphocytes Percent Auto 18.9 % (20-40); Mean Corpuscular HGB Conc 32.2 g/dl (31.0-35.0); Mean Corpuscular Hemoglobin 29.2 pg (27.0-33.0); Mean Corpuscular Volume 90.4 fL (80.0-98.0); Monocytes Absolute Auto 0.4 X10*3/uL (0.1-1.2); Monocytes Percent Auto 7.5 % (2-11); Neutrophils Percent Auto 68.7 % (45-73); Platelet Count 253 X10*3/uL (160-400); Red Blood Count 4.08 X10*6/uL (4.20-5.50); Red Cell Distribution Width 12.7 % (11.0-16.0); White Blood Count 5.9 X10*3/uL (4.8-10.8)
[2023-01-08 12:37] LABS: Ferritin 26 ng/mL (10-250); Iron 42 mcg/dL (30-160); Percent Iron Saturation 14 % (15-50); TSH reflex Free T4 1.37 uIU/mL (0.32-4.0); Total Iron Binding Capacity 292 mcg/dL (228-428); Unsaturated Iron Binding 250 ug/dL
== END 2023-01-08 10:34 | disposition home or self-care (01) ==
LOC: HO.HHCL 10:33
PROVIDERS: Visit Provider Internal Medicine Geriatric Medicine
DX: E03.9 Hypothyroidism, unspecified (principal); D50.9 Iron deficiency anemia, unspecified
CPT/HCPCS: 36415; 82728; 83540; 84443; 85025

== ENCOUNTER 2023-03-05 10:46 | Outpatient (REF) | payer OTHER, SELFPAY ==
--- NOTE | ~2023-03-05 | XR_ITS ---
EXAMINATION: XR TIBIA AND FIBULA, LEFT CLINICAL INFORMATION: Pain in left lower leg. Pain in unspecified foot. COMPARISON: Left foot 09/05/2022, left lower leg 09/28/2016. TECHNIQUE: AP and lateral views of the left tibia and fibula were obtained. FINDINGS: The bones are diffusely demineralized with increased demineralization, particularly notable in the mid to distal aspect of the fibula, when compared with exam of 09/28/2016. Mild degenerative changes in the knee. Small spur along the anterior superior aspect of the patella. Moderate plantar and dorsal calcaneal spurs. XR/XR tibia fibula LT 2V IMPRESSION: 1. Increased demineralization, particularly in the mid to distal aspect of the fibula, when compared with exam of 09/28/2016. 2. Mild degenerative changes in the knee. 3. Moderate plantar and dorsal calcaneal spurs. 4. Correlation with clinical exam is recommended to determine further management including possible additional imaging with MRI. .
[2023-03-05 12:21] LABS: MANUAL DIFF FLAG NO
[2023-03-05 12:30] LABS: Basophils Absolute Auto 0.1 X10*3/uL (0.0-0.2); Basophils Percent Auto 1.3 % (0-2); Eosinophils Absolute Auto 0.2 X10*3/uL (0.0-0.4); Eosinophils Percent Auto 3.9 % (0-4); Hematocrit 33.1 % (37.0-47.0); Hemoglobin 10.9 g/dl (12.0-16.0); Imm Gran Abs Auto 0.02 X10*3/uL (0.00-0.03); Imm Gran Pct Auto 0.4 % (0.0-0.4); Lymphocytes Absolute Auto 0.6 X10*3/uL (1.2-4.9); Lymphocytes Percent Auto 11.4 % (20-40); Mean Corpuscular HGB Conc 32.9 g/dl (31.0-35.0); Mean Corpuscular Hemoglobin 30.4 pg (27.0-33.0); Mean Corpuscular Volume 92.2 fL (80.0-98.0); Mean Platelet Volume 10.4 fL (9.4-12.3); Monocytes Absolute Auto 0.5 X10*3/uL (0.1-1.2); Monocytes Percent Auto 8.9 % (2-11); Neutrophils Absolute Auto 3.9 x10*3/uL (2.0-8.3); Neutrophils Percent Auto 74.1 % (45-73); Platelet Count 240 X10*3/uL (160-400); Red Blood Count 3.59 X10*6/uL (4.20-5.50); Red Cell Distribution Width 12.8 % (11.0-16.0); White Blood Count 5.2 X10*3/uL (4.8-10.8)
[2023-03-05 13:07] LABS: Erythrocyte Sedimentation Rate 23 MM/HR (0-20)
[2023-03-05 13:25] LABS: Alanine Aminotransferase 11 U/L (0-31); Alkaline Phosphatase 59 U/L (39-117); Anion Gap 9 (12-20); Aspartate Amino Transferase 19 U/L (5-31); Bilirubin Total 0.4 mg/dL (0.0-1.0); Blood Urea Nitrogen 11 mg/dL (9-16); C Reactive Protein 0.46 mg/dL (< or = 0.50); Calcium 9.1 mg/dL (8.4-10.2); Carbon Dioxide 33 mmol/L (22-29); Chloride 102 mmol/L (96-108); Estimated Glomerular Filt Rate > 60; Glucose Random 86 mg/dL (60-115); Potassium 3.6 mmol/L (3.3-5.1); Sodium 140 mmol/L (135-145); Total Protein 7.4 g/dL (6.5-8.0); Uric Acid 3.9 mg/dL (2.4-5.7)
== END 2023-03-05 10:47 | disposition home or self-care (01) ==
LOC: HO.LAB 10:46
PROVIDERS: PCP Internal Medicine Geriatric Medicine; Visit Provider Nurse Practitioner Family
DX: M81.0 Age-related osteoporosis without current pathological fracture (principal); M17.0 Bilateral primary osteoarthritis of knee; M19.041 Primary osteoarthritis, right hand; M79.89 Other specified soft tissue disorders; M79.672 Pain in left foot; M25.572 Pain in left ankle and joints of left foot
CPT/HCPCS: 36415; 73590; 80053; 84550; 85025; 85652; 86140; 99212

== ENCOUNTER 2023-03-05 10:46 | Outpatient (AMB) | payer OTHER, SELFPAY ==
--- NOTE | 2023-03-05 10:53 | MHC.OFFVIS ---
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 Obando, presents today for follow up. Senior Quality Assurance Specialist Required: Yes Senior Quality Assurance Specialist Language: Kier Boiler Name: [id number] Information Interpreted: clinical only Accompanied by: PEGGER DOBBY LOOMS Allergies percocet Allergy (Mild, Uncoded 03/05/23 11:00) Vomiting HPI HPI Comments History of Present Illness Details The patient returns for evaluation of her difficulty walking and osteoarthritis. We used the telephone [employer] translating service. She has an aide with her today that spends most of her work day with the patient. The aide gives much of the responses here as the patient basically rarely answers any questions. She apparently has been that way since grade school. The aide reports that the patient does complain frequently of hand and foot pain. The patient remains relatively inactive. She is able to walk but walks very slowly and prefers not to most of the time. She is on Tramadol 50mg QD PRN, acetaminophen 500 t.i.d. p.r.n. as well as diclofenac gel and diclofenac tablets 100 mg BID. She remains on gabapentin and trazodone at night. She takes the omeprazole for heartburn. She denies falls or fractures since last visit. [facility] Medical History (Updated 03/05/23 @ 11:13 by ROYER York) Left leg swelling Foot and ankle pain FH: breast cancer Hepatic cirrhosis FH: cholecystectomy Hypothyroid Arthritis Surgical History Hx of cholecystectomy Family History Family/Other Breast cancer Maternal Grandfather Throat cancer Social History Household Members: None Housing: Apartment Do you presently have visiting nurse or other home services: Yes (PEGGER DOBBY LOOMS every other day) Alcohol intake: never Patient Tobacco Use Status: Never used Tobacco Second Hand Smoke Exposure: No service: No Current occupational status: retired Review of Systems Const All systems reviewed & are unremarkable except as noted in HPI and below Physical Exam APPEARANCE: Patient in no acute distress. EYES no redness, pupils equal and reactive to light, eyelids normal. No temporal artery tenderness, redness or swelling. HEART:? Regular rhythm, S1-S2 heard, no murmurs, rubs or gallops. LUNG:? Clear to percussion and auscultation EXTREMITIES: No edema, no calf tenderness. There is some pretibial tenderness but no induration, redness or thickening of the skin. normal peripheral pulses. NEURO: Oriented and alert x3. No focal weakness. Reflexes symmetric. Gait this is slow. SKIN: No inflammatory or neoplastic lesions. Normal color and turgor JOINT EXAM: Patient does not say she has pain but does wince with certain aspects of the physical exam. I interpret these as she is experiencing some pain as noted below.?? Chest Wall:.? No tenderness, swelling, increased warmth or erythema. Hands:.? Normal pain-free range of motion. There seems to be rather diffuse pains across the fingers over the PIP and the IP regions although this seems to be tenderness in between the joint spaces. There is no soft tissue swelling however. She has bony enlargement at the 2nd through 5th DIP joints and the thumb IP joint bilaterally. The 2nd 3rd PIP joints have mild tenderness and trace swelling. There is no flexor tendon triggering, thenar atrophy or sensory loss bur tenderness along the flexor of the right 4th digit.. Wrists:.? Normal pain-free range of motion without tenderness, swelling, increased warmth or erythema. Elbows:. Right: Mild pain with full extension. There is some slight lateral epicondylar tenderness but no tenderness or swelling over the joint space. Left: Normal pain-free range of motion without tenderness, swelling, increased warmth or erythema. Shoulders:.?? Full range of motion without pain. No tenderness, weakness, swelling, increased warmth or erythema. Hips:.? Full range of motion with mild lumbar pain at the extremes of range of motion. No groin pain with motion. Hip bursa:. Mild trochanteric tenderness. Knees:.?? Mild pain with more than 45 degrees flexion extension. There is mild medial tenderness without redness or effusion. The left lower leg is tender circumstantially with trace swelling Ankles:.? Normal range of motion with some discomfort. There is tenderness, trace swelling, increased warmth Left > Right. Feet:.? Normal pain-free range of motion with mild tenderness across the instep and MTP regions. There is some slight 1st MTP P bony enlargement. No soft tissue swelling, increased warmth or erythema. Tender points:? Mild tenderness to digital palpation at the occiput, trapezius, second rib, lateral epicondyle, knees, greater trochanter and gluteal area bilaterally. ? Results Reviewed Results Reviewed: Laboratory Tests 06/05/22 09/17/22 11:28 09:27 Hgb 11.5 L Creatinine 0.69 % Saturation 20 Vitamin B12 [address] [place] [address] Mammography Report Signed XAMINATION: XR KNEE, RIGHT CLINICAL INFORMATION: Right knee pain COMPARISON: 10/08/2019 TECHNIQUE: Four views of the right knee. FINDINGS: When compared to the previous study there is no interval change in appearance of enthesopathy and spurring of the patella. There is no joint space narrowing or joint effusion seen. XR/XR knee RT 3V IMPRESSION: Enthesopathy and spurring of the patella EXAMINATION: XR KNEE, LEFT CLINICAL INFORMATION: Pain in left knee COMPARISON: 09/20/2016 TECHNIQUE: Four views of the left knee. FINDINGS: No fracture or joint effusion. Alignment is anatomic. Joint spaces are maintained. No abnormal soft tissue calcification. XR/XR knee LT 3V IMPRESSION: Normal left knee. EXAMINATION: XR FOOT, LEFT CLINICAL INFORMATION: Pain COMPARISON: None available. TECHNIQUE: AP, lateral, and oblique views of the left foot. FINDINGS: The bones and soft tissues are normal. No fracture. Alignment is anatomic. Joint spaces are maintained. There is plantar and superior calcaneal spurs. XR/XR foot LT min 3V IMPRESSION: Plantar and superior calcaneal spurs EXAMINATION: XR FOOT, RIGHT CLINICAL INFORMATION: Pain COMPARISON: None available. TECHNIQUE: AP, lateral, and oblique views of the right foot. FINDINGS: There is plantar and superior calcaneal spurring. There is no fracture or soft tissue abnormalities. There are mild degenerative changes in the interphalangeal joints of second-fifth toes. XR/XR foot RT min 3V IMPRESSION: Calcaneal spurring and mild degenerative changes. Patient: Lena Judd MR#: [id number] : 1950 Acct:[id number] Age/Sex: 72 / F ADM Date: 10/10/[address]: Tae Reyes MD Ordering Physician: Tae Reyes MD Date of Service: 10/10/22 Follow Up: Procedure(s): XR DEXA axial skeleton Accession Number(s): [id number] cc: Tae Reyes MD~ EXAMINATION: BONE DENSITOMETRY CLINICAL INDICATION: Menopause. COMPARISON: This is the patient's baseline examination. TECHNIQUE: Using a E[employer]ruit DXA System (software version: 13.1) manufactured by [employer], dual-energy x-ray absorptiometry was performed of the lumbar spine and left hip. The images are of good technical quality. Summary results are attached. FINDINGS: LEFT FEMUR, NECK: BMD 0.687 g/cm2, Z-score -0.6, T-score -2.5, osteoporosis. LEFT FEMUR, TOTAL: BMD 0.889 g/cm2, Z-score 0.8, T-score -0.9, normal. AP SPINE L1-L4: BMD 0.759 g/cm2, Z-score -1.6, T-score -3.5, osteoporosis. IDENTIFIED RISK FACTORS: Menopause, history of fracture (adult), osteoporosis, rheumatoid arthritis, secondary osteoporosis. HISTORY OF FRACTURE: Other. MEDICATIONS: Vitamin D. MM/XR DEXA axial skeleton IMPRESSION: 1. DIAGNOSIS: Osteoporosis based on the lowest T-score value of -3.5 in the lumbar spine applying World Health Organization criteria. 2. 10-YEAR FRACTURE RISK PREDICTION, FRAX: According to the guidelines, FRAX calculation should only be performed on patients in the osteopenia bone density category. Therefore, FRAX was not performed on this patient. 3. Treatment Recommendations: NOF guidelines recommend consideration for treatment in postmenopausal women and men age 50 and older presenting with the following: -A hip or vertebral (clinical or morphometric) fracture. -T-score less than or equal to -2.5 at the femoral neck or spine after appropriate evaluation to exclude secondary causes. -Low bone mass at the hip or spine and a 10-year fracture probability by FRAX of greater than or equal to 3% for hip fracture or greater than or equal to 20% for major osteoporotic fracture based on the [place] adapted WHO algorithm. 4. Other Recommendations: All treatment decisions require clinical judgment and consideration of individual patient factors, including patient preferences, comorbidities, previous drug use, risk factors not captured in the FRAX model (e.g. frailty, falls, vitamin D deficiency, increased bone turnover, interval significant decline in bone density) and possible under or overestimation of fracture risk by FRAX. Additional medical evaluation for secondary cause of low bone mineral density may be appropriate. FUTURE SCAN RECOMMENDATION: People with diagnosed cases of osteoporosis or at high risk for fracture should have regular bone mineral density tests. For patients eligible for Medicare, routine testing is allowed once every 2 years. The testing frequency can be increased to one year for patients who have rapidly progressing disease, those who are receiving or discontinuing medical therapy to restore bone mass, or have additional risk factors. Dictated By: Omar Walsh MD Laboratory Tests 01/08/23 10:36 RBC 4.08 L Hgb 11.9 L Hct 36.9 L % Saturation 14 L TSH 1.37 Assessment & Plan Assessment & Plan (1) Osteoporosis: Comment: 09/2022 T Scores: fem neck -2.5; femur -0.9; LS -3.5; alendronate started 11/2022 Code(s): M81.0 - Age-related osteoporosis without current pathological fracture Qualifiers: Osteoporosis type: age-related Presence of current pathological fracture: without current pathological fracture Qualified Code(s): M81.0 - Age-related osteoporosis without current pathological fracture (2) Osteoarthritis of knees, bilateral: Code(s): M17.0 - Bilateral primary osteoarthritis of knee Qualifiers: Osteoarthritis type: primary Qualified Code(s): M17.0 - Bilateral primary osteoarthritis of knee (3) Osteoarthritis, hand: Code(s): M19.049 - Primary osteoarthritis, unspecified hand Qualifiers: Laterality: bilateral Osteoarthritis type: primary Qualified Code(s): M19.041 - Primary osteoarthritis, right hand; M19.042 - Primary osteoarthritis, left hand (4) Foot and ankle pain: Code(s): M79.673 - Pain in unspecified foot; M25.579 - Pain in unspecified ankle and joints of unspecified foot Plan #Osteoporosis: Lowest &Score -3.5 in Spine. She denies issues with Alendronate so we will continue Alendronate 70 mg weekly. We reviewed the requirements of taking it on an empty stomach, not lying down after meals, and waiting for least 30 minutes before eating. #Foot and Ankle Pain/Knee OA: Over the past years, the patient has had mutiple imaging done to assess the hands, feet, ankles and knees due to pain as far back as 2014 recent as 08/2022. The most significant change seen overtime is the bilateral calcaneal spurs and right patellofemoral enthesopathy. The hands have mild OA. On PE, there is warmth, swelling and tenderness to her ankles left greater than right and also trace swelling and tenderness along the lower left leg. The left ankle pain is more bother some because it discourages her from walking. The patient had a Rheum work-up done in 2017 and serology was positive for WILLARD with mild elevation in ESR/CRP. However it was negative for the ENAs, RF, CCP. I have not seen labs for URIC ACID so I will obtain and also do updates for ESR/CRP. It is evident that the ankles are bothersome to the patient and given the swelling and warmth suggest inflammation. I will give a course of prednisone over 4 weeks and reassess for improvement of foot and ankle pain and swelling resolution. She can continue to take Tramadol 50mg QD PRN, acetaminophen up to 1 g t.i.d PRN. and topical diclofenac gel particularly for the hands. #Hand IP Pain/Hand OA: There is tenderness along the right 4th flexor tendon and across the PIP joints bilaterally. This also is a longstanding issue. There is no dupuytren's contracted noted. It is the hope that the prednisone will offer some director long term care relief. I spent 40 minutes reviewing chart and historical records, evaluating patient and documenting. Follow-up in 5 weeks. Orders: Orders C Reactive Protein Today M25.579 - Pain in unspecified ankle and joints of unspecified foot, M79.673 - Pain in unspecified foot, M79.89 - Other specified soft tissue disorders Complete Blood Count Auto Diff Today M25.579 - Pain in unspecified ankle and joints of unspecified foot, M79.673 - Pain in unspecified foot, M79.89 - Other specified soft tissue disorders Uric Acid Today M25.579 - Pain in unspecified ankle and joints of unspecified foot, M79.673 - Pain in unspecified foot XR tibia fibula LT 2V Today M25.579 - Pain in unspecified ankle and joints of unspecified foot, M79.673 - Pain in unspecified foot, M79.89 - Other specified soft tissue disorders Erythrocyte Sedimentation Rate Today M25.579 - Pain in unspecified ankle and joints of unspecified foot, M79.673 - Pain in unspecified foot, M79.89 - Other specified soft tissue disorders Comprehensive Met. Panel Today M25.579 - Pain in unspecified ankle and joints of unspecified foot, M79.673 - Pain in unspecified foot, M79.89 - Other specified soft tissue disorders Medications: New prednisone Take 4 tablets x 7 days, 3 tablets x 7 days 2 tablets x 7 days, 1 tablets x 7 days and stop. 90 tabs 0RF M19.049 - Primary osteoarthritis, unspecified hand, M25.579 - Pain in unspecified ankle and joints of unspecified foot, M79.673 - Pain in unspecified foot, M79.89 - Other specified soft tissue disorders Coding Level of Care Code Est Pt Level 4 (07322) Diagnoses Age-related osteoporosis without current pathological fracture M81.0 Osteoporosis type: age-related Presence of current pathological fracture: without current pathological fracture Primary osteoarthritis of both knees M17.0 Osteoarthritis type: primary Primary osteoarthritis of both hands M19.041; M19.042 Laterality: bilateral Osteoarthritis type: primary Foot and ankle pain M79.673; M25.579
[2023-03-05 10:59] VITALS: BP 100/64; PULSE 62; TEMP 36.5; O2SAT 97; BMI 29.9
== END 2023-03-05 11:26 | disposition home or self-care (01) ==
PROVIDERS: PCP Internal Medicine Geriatric Medicine; Visit Provider Nurse Practitioner Family
DX: M81.0 Age-related osteoporosis without current pathological fracture (principal); M17.0 Bilateral primary osteoarthritis of knee; M19.041 Primary osteoarthritis, right hand; M19.042 Primary osteoarthritis, left hand; M79.673 Pain in unspecified foot; M25.579 Pain in unspecified ankle and joints of unspecified foot
CPT/HCPCS: 99214

== ENCOUNTER 2023-04-16 15:44 | Outpatient (AMB) | payer OTHER, SELFPAY ==
--- NOTE | 2023-04-16 15:46 | MHC.OFFVIS ---
Intake Vital Signs 04/16/23 15:54 Height 4 ft 7 in Weight 127 lb 13.89 oz BMI 29.7 BP 90/62 Blood Pressure Location Rt brachial Position Sitting Pulse 60 Pulse Source Pulse Oximeter Temp 97 F Temp Source Skin Pulse Oximetry (%) 96 Oxygen Delivery Method Room Air Intake Visit Reasons: Foot and Ankle swelling Intake Note: Patient last seen 03/05/23 by Yenny, presents today for follow up on ankle pain and swelling and test results. PROGRAM DIRECTOR/MORNING SHOW HOST reports prednisone taper did not help much. Early Childhood Special Educator Required: Yes Early Childhood Special Educator Language: Nailhead Puncher Name: Kim [id number] Information Interpreted: clinical only Accompanied by: PROGRAM DIRECTOR/MORNING SHOW HOST Allergies percocet Allergy (Mild, Uncoded 04/16/23 15:46) Vomiting HPI HPI Comments History of Present Illness Details Ms. Paredes 72 yoF returns for follow-up of her difficulty walking and osteoarthritis after prednisone treatment. We used the telephone iPad translating service. She is accompanied by her aide today. The aide gives much of the responses here as the patient basically rarely answers any questions. She apparently has been that way since grade school. The aide reports that the patient still does complain frequently of hand and foot pain. She is able to walk but walks very slowly and prefers not to most of the time. She is on Tramadol 50mg QD PRN, acetaminophen 500 t.i.d. p.r.n. as well as diclofenac gel and diclofenac tablets 100 mg BID. She remains on gabapentin and trazodone at night. She takes the omeprazole for heartburn. She denies falls or fractures since last visit. [facility] Medical History (Updated 03/05/23 @ 11:[address] [facility]) Left leg swelling Foot and ankle pain FH: breast cancer Hepatic cirrhosis FH: cholecystectomy Hypothyroid Arthritis Surgical History Hx of cholecystectomy Family History Family/Other Breast cancer Maternal Grandfather Throat cancer Social History Household Members: None Housing: Apartment Do you presently have visiting nurse or other home services: Yes (PROGRAM DIRECTOR/MORNING SHOW HOST every other day) Alcohol intake: never Patient Tobacco Use Status: Never used Tobacco Second Hand Smoke Exposure: No service: No Current occupational status: retired Review of Systems Const All systems reviewed & are unremarkable except as noted in HPI and below Physical Exam Vital Signs: Last Vital Signs Temp 97 F 04/16/23 15:54 Pulse 60 04/16/23 15:54 BP 90/62 04/16/23 15:54 Pulse Ox 96 04/16/23 15:54 Oxygen Delivery Method Room Air 04/16/23 15:54 BMI result Body Mass Index 29.7 APPEARANCE: Patient in no acute distress. EYES no redness, No temporal artery tenderness, redness or swelling. HEART:? Regular rhythm, S1-S2 heard, no murmurs, rubs or gallops. LUNG:? Clear to percussion and auscultation EXTREMITIES: L>R nonpitting edema with calf tenderness. There is some pretibial tenderness but no induration, redness or thickening of the skin. normal peripheral pulses. NEURO: Oriented and alert x3. No focal weakness. Reflexes symmetric. Gait this is slow. SKIN: No inflammatory or neoplastic lesions. Normal color and turgor JOINT EXAM: Patient does not say she has pain but does wince with certain aspects of the physical exam. I interpret these as she is experiencing some pain as noted below.?? Chest Wall:.? No tenderness, swelling, increased warmth or erythema. Hands:.? Normal pain-free range of motion. There seems to be a reduction in the prior diffuse pains across the fingers over the PIP and the IP regions although this seems to be tenderness in between the joint spaces. There is no more soft tissue swelling however. She has bony enlargement at the 2nd through 5th DIP joints and the thumb IP joint bilaterally. The 2nd 3rd PIP joints have no more mild tenderness and trace swelling. There is no flexor tendon triggering, thenar atrophy or sensory loss but tenderness along the flexor of the right 4th digit.. Wrists:.? Normal pain-free range of motion without tenderness, swelling, increased warmth or erythema. Elbows:. Right: Mild pain with full extension. There is some slight lateral epicondylar tenderness but no tenderness or swelling over the joint space. Left: Normal pain-free range of motion without tenderness, swelling, increased warmth or erythema. Shoulders:.?? Full range of motion without pain. No tenderness, weakness, swelling, increased warmth or erythema. Hips:.? Full range of motion with mild lumbar pain at the extremes of range of motion. No groin pain with motion. Hip bursa:. Mild trochanteric tenderness. Knees:.?? Mild pain with more than 45 degrees flexion extension. There is mild medial tenderness without redness or effusion. The left lower leg is tender circumstantially with trace swelling Ankles:.? Normal range of motion with some discomfort. There is reduced tenderness, trace swelling, increased warmth Left > Right. Feet:.? Normal pain-free range of motion with mild tenderness across the instep and MTP regions. There is some slight 1st MTP P bony enlargement. No soft tissue swelling, increased warmth or erythema. Tender points:? Mild tenderness to digital palpation at the occiput, trapezius, second rib, lateral epicondyle, knees, greater trochanter and gluteal area bilaterally. ? Results Reviewed Results Reviewed: Laboratory Tests 06/05/22 09/17/22 11:28 09:27 Hgb 11.5 L Creatinine 0.69 % Saturation 20 Vitamin B12 [address] [facility] [place] [address] Mammography Report Signed XAMINATION: XR KNEE, RIGHT CLINICAL INFORMATION: Right knee pain COMPARISON: 10/08/2019 TECHNIQUE: Four views of the right knee. FINDINGS: When compared to the previous study there is no interval change in appearance of enthesopathy and spurring of the patella. There is no joint space narrowing or joint effusion seen. XR/XR knee RT 3V IMPRESSION: Enthesopathy and spurring of the patella EXAMINATION: XR KNEE, LEFT CLINICAL INFORMATION: Pain in left knee COMPARISON: 09/20/2016 TECHNIQUE: Four views of the left knee. FINDINGS: No fracture or joint effusion. Alignment is anatomic. Joint spaces are maintained. No abnormal soft tissue calcification. XR/XR knee LT 3V IMPRESSION: Normal left knee. EXAMINATION: XR FOOT, LEFT CLINICAL INFORMATION: Pain COMPARISON: None available. TECHNIQUE: AP, lateral, and oblique views of the left foot. FINDINGS: The bones and soft tissues are normal. No fracture. Alignment is anatomic. Joint spaces are maintained. There is plantar and superior calcaneal spurs. XR/XR foot LT min 3V IMPRESSION: Plantar and superior calcaneal spurs EXAMINATION: XR FOOT, RIGHT CLINICAL INFORMATION: Pain COMPARISON: None available. TECHNIQUE: AP, lateral, and oblique views of the right foot. FINDINGS: There is plantar and superior calcaneal spurring. There is no fracture or soft tissue abnormalities. There are mild degenerative changes in the interphalangeal joints of second-fifth toes. XR/XR foot RT min 3V IMPRESSION: Calcaneal spurring and mild degenerative changes. Patient: Lena Judd MR#: [id number] : 1950 Acct:[id number] Age/Sex: 72 / F ADM Date: 10/10/[address]: Tae Reyes MD Ordering Physician: Tae Reyes MD Date of Service: 10/10/22 Follow Up: Procedure(s): XR DEXA axial skeleton Accession Number(s): [id number] cc: Tae Reyes MD~ EXAMINATION: BONE DENSITOMETRY CLINICAL INDICATION: Menopause. COMPARISON: This is the patient's baseline examination. TECHNIQUE: Using a [employer] DXA System (software version: 13.1) manufactured by [employer], dual-energy x-ray absorptiometry was performed of the lumbar spine and left hip. The images are of good technical quality. Summary results are attached. FINDINGS: LEFT FEMUR, NECK: BMD 0.687 g/cm2, Z-score -0.6, T-score -2.5, osteoporosis. LEFT FEMUR, TOTAL: BMD 0.889 g/cm2, Z-score 0.8, T-score -0.9, normal. AP SPINE L1-L4: BMD 0.759 g/cm2, Z-score -1.6, T-score -3.5, osteoporosis. IDENTIFIED RISK FACTORS: Menopause, history of fracture (adult), osteoporosis, rheumatoid arthritis, secondary osteoporosis. HISTORY OF FRACTURE: Other. MEDICATIONS: Vitamin D. MM/XR DEXA axial skeleton IMPRESSION: 1. DIAGNOSIS: Osteoporosis based on the lowest T-score value of -3.5 in the lumbar spine applying World Health Organization criteria. 2. 10-YEAR FRACTURE RISK PREDICTION, FRAX: According to the guidelines, FRAX calculation should only be performed on patients in the osteopenia bone density category. Therefore, FRAX was not performed on this patient. 3. Treatment Recommendations: NOF guidelines recommend consideration for treatment in postmenopausal women and men age 50 and older presenting with the following: -A hip or vertebral (clinical or morphometric) fracture. -T-score less than or equal to -2.5 at the femoral neck or spine after appropriate evaluation to exclude secondary causes. -Low bone mass at the hip or spine and a 10-year fracture probability by FRAX of greater than or equal to 3% for hip fracture or greater than or equal to 20% for major osteoporotic fracture based on the [place] adapted WHO algorithm. 4. Other Recommendations: All treatment decisions require clinical judgment and consideration of individual patient factors, including patient preferences, comorbidities, previous drug use, risk factors not captured in the FRAX model (e.g. frailty, falls, vitamin D deficiency, increased bone turnover, interval significant decline in bone density) and possible under or overestimation of fracture risk by FRAX. Additional medical evaluation for secondary cause of low bone mineral density may be appropriate. FUTURE SCAN RECOMMENDATION: People with diagnosed cases of osteoporosis or at high risk for fracture should have regular bone mineral density tests. For patients eligible for Medicare, routine testing is allowed once every 2 years. The testing frequency can be increased to one year for patients who have rapidly progressing disease, those who are receiving or discontinuing medical therapy to restore bone mass, or have additional risk factors. Dictated By: Omar Walsh MD Laboratory Tests 01/08/23 10:36 RBC 4.08 L Hgb 11.9 L Hct 36.9 L % Saturation 14 L TSH 1.37 Laboratory Tests 03/05/23 12:20 WBC 5.2 RBC 3.59 L Hgb 10.9 L Hct 33.1 L ESR 23 H Uric Acid 3.9 AST 19 ALT 11 C-Reactive Protein 0.46 Assessment & Plan Assessment & Plan (1) Osteoporosis: Comment: 09/2022 T Scores: fem neck -2.5; femur -0.9; LS -3.5; alendronate started 11/2022 Code(s): M81.0 - Age-related osteoporosis without current pathological fracture Qualifiers: Osteoporosis type: age-related Presence of current pathological fracture: without current pathological fracture Qualified Code(s): M81.0 - Age-related osteoporosis without current pathological fracture (2) Osteoarthritis of knees, bilateral: Code(s): M17.0 - Bilateral primary osteoarthritis of knee Qualifiers: Osteoarthritis type: primary Qualified Code(s): M17.0 - Bilateral primary osteoarthritis of knee (3) Osteoarthritis, hand: Code(s): M19.049 - Primary osteoarthritis, unspecified hand Qualifiers: Laterality: bilateral Osteoarthritis type: primary Qualified Code(s): M19.041 - Primary osteoarthritis, right hand; M19.042 - Primary osteoarthritis, left hand (4) Foot and ankle pain: Code(s): M79.673 - Pain in unspecified foot; M25.579 - Pain in unspecified ankle and joints of unspecified foot (5) Left leg swelling: Code(s): M79.89 - Other specified soft tissue disorders (6) History of acute congestive heart failure: Code(s): Z86.79 - Personal history of other diseases of the circulatory system Plan #Osteoporosis: Lowest &Score -3.5 in Spine. She denies issues with Alendronate so we will continue Alendronate 70 mg weekly. We reviewed the requirements of taking it on an empty stomach, not lying down after meals, and waiting for least 30 minutes before eating. #Foot and Ankle Pain/Knee OA: Over the past years, the patient has had mutiple imaging done to assess the hands, feet, ankles and knees due to pain as far back as 2015 recent as 08/2022. The most significant change seen overtime is the bilateral calcaneal spurs and right patellofemoral enthesopathy. The hands have mild OA. On PE, there is warmth, swelling and tenderness to her ankles left greater than right and also trace swelling and tenderness along the lower left leg. The left ankle pain is more bother some because it discourages her from walking. The patient had a Rheum work-up done in 2017 and serology was positive for WILLARD with mild elevation in ESR/CRP. However it was negative for the ENAs, RF, CCP. Recent labs for URIC ACID is also within normal range. It is evident that the ankles are bothersome to the patient. She can continue to take Tramadol 50mg QD PRN, acetaminophen up to 1 g t.i.d PRN. and topical diclofenac gel particularly for the hands. Patient may benefit from orthotics to help with walking, Jessika promises to call the office with the recommendation and I will write the script. #Swelling to Lower Extremities:I highly recommend that she have a cardiac consult given her history of new onset CHF in 05/2022 ER visit. An US was done at the visit with no adverse findings. I have created the referral but patient to discuss referral with PCP. There is calf tenderness and warmth. Per aid she has not seen a vascular consult. #Hand IP Pain/Hand OA: It appears that the Prednisone had some positive effect as there is reduced tenderness along the right 4th flexor tendon and across the PIP joints bilaterally. The patient did concede that they hurt a lot less and she is not wincing and pulling a way her hand as in prior visit. There is no dupuytren's contracted noted. 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 I spent 40 minutes reviewing chart and historical records, evaluating patient and documenting. Follow-up in 6 months. Orders: Orders Erythrocyte Sedimentation Rate 04/16/23 M19.049 - Primary osteoarthritis, unspecified hand, M25.579 - Pain in unspecified ankle and joints of unspecified foot, M79.673 - Pain in unspecified foot C Reactive Protein 04/16/23 M19.049 - Primary osteoarthritis, unspecified hand, M25.579 - Pain in unspecified ankle and joints of unspecified foot, M79.673 - Pain in unspecified foot Comprehensive Met. Panel 04/16/23 M19.049 - Primary osteoarthritis, unspecified hand, M25.579 - Pain in unspecified ankle and joints of unspecified foot, M79.673 - Pain in unspecified foot Complete Blood Count Auto Diff 04/16/23 M19.049 - Primary osteoarthritis, unspecified hand, M25.579 - Pain in unspecified ankle and joints of unspecified foot, M79.673 - Pain in unspecified foot Referrals Cardiology Referral M19.049 - Primary osteoarthritis, unspecified hand, M25.579 - Pain in unspecified ankle and joints of unspecified foot, M79.673 - Pain in unspecified foot, M79.89 - Other specified soft tissue disorders, Z86.79 - Personal history of other diseases of the circulatory system Coding Level of Care Code Est Pt Level 4 (58686) Diagnoses Age-related osteoporosis without current pathological fracture M81.0 Osteoporosis type: age-related Presence of current pathological fracture: without current pathological fracture Primary osteoarthritis of both knees M17.0 Osteoarthritis type: primary Primary osteoarthritis of both hands M19.041; M19.042 Laterality: bilateral Osteoarthritis type: primary Foot and ankle pain M79.673; M25.579 Left leg swelling M79.89 History of acute congestive heart failure Z86.79
[2023-04-16 15:54] VITALS: BP 90/62; PULSE 60; TEMP 36.1; O2SAT 96; BMI 29.7
== END 2023-04-16 16:27 | disposition home or self-care (01) ==
PROVIDERS: PCP Internal Medicine Geriatric Medicine; Visit Provider Nurse Practitioner Family
DX: M81.0 Age-related osteoporosis without current pathological fracture (principal); M17.0 Bilateral primary osteoarthritis of knee; M19.041 Primary osteoarthritis, right hand; M19.042 Primary osteoarthritis, left hand; M79.673 Pain in unspecified foot; M25.579 Pain in unspecified ankle and joints of unspecified foot; M79.89 Other specified soft tissue disorders; Z86.79 Personal history of other diseases of the circulatory system
CPT/HCPCS: 99214

== ENCOUNTER → 2023-04-16 15:44 | Outpatient (BNVA) | payer OTHER, SELFPAY | PROVIDERS: PCP Internal Medicine Geriatric Medicine; Visit Provider Nurse Practitioner Family | DX: M81.0 Age-related osteoporosis without current pathological fracture (principal); M17.0 Bilateral primary osteoarthritis of knee; M19.041 Primary osteoarthritis, right hand; M19.042 Primary osteoarthritis, left hand; M79.673 Pain in unspecified foot; M25.579 Pain in unspecified ankle and joints of unspecified foot; M79.89 Other specified soft tissue disorders; Z86.79 Personal history of other diseases of the circulatory system | CPT/HCPCS: 99212 ==

== ENCOUNTER 2023-05-07 12:41 | Outpatient (REF) | payer OTHER, SELFPAY ==
[2023-05-07 13:23] LABS: MANUAL DIFF FLAG NO
[2023-05-07 13:37] LABS: Basophils Absolute Auto 0.1 X10*3/uL (0.0-0.2); Basophils Percent Auto 1.3 % (0-2); Eosinophils Absolute Auto 0.2 X10*3/uL (0.0-0.4); Eosinophils Percent Auto 2.7 % (0-4); Hematocrit 37.3 % (37.0-47.0); Hemoglobin 12.3 g/dl (12.0-16.0); Imm Gran Abs Auto 0.01 X10*3/uL (0.00-0.03); Imm Gran Pct Auto 0.2 % (0.0-0.4); Lymphocytes Percent Auto 17.1 % (20-40); Mean Corpuscular Hemoglobin 29.1 pg (27.0-33.0); Mean Corpuscular Volume 88.4 fL (80.0-98.0); Mean Platelet Volume 10.8 fL (9.4-12.3); Monocytes Absolute Auto 0.4 X10*3/uL (0.1-1.2); Monocytes Percent Auto 6.6 % (2-11); Neutrophils Absolute Auto 4.3 x10*3/uL (2.0-8.3); Neutrophils Percent Auto 72.1 % (45-73); Platelet Count 262 X10*3/uL (160-400); Red Blood Count 4.22 X10*6/uL (4.20-5.50); Red Cell Distribution Width 12.7 % (11.0-16.0)
== END 2023-05-07 12:42 | disposition home or self-care (01) ==
LOC: HO.HHCL 12:41
PROVIDERS: Visit Provider Internal Medicine Geriatric Medicine
DX: D50.8 Other iron deficiency anemias (principal)
CPT/HCPCS: 36415; 85025

== ENCOUNTER 2023-05-23 13:01 | Outpatient (REF) | payer OTHER, SELFPAY ==
--- NOTE | ~2023-05-23 | US_ITS ---
EXAMINATION: US PELVIS CLINICAL INFORMATION: Uterine fibroid, 72 postmenopausal COMPARISON: 09/24/2022 TECHNIQUE: Ultrasound of the pelvis is performed using both transabdominal and transvaginal transducers along with Doppler. Transvaginal imaging is performed due to inadequate visualization transabdominally. FINDINGS: Uterus: The uterus is anteverted and measures 10.4 x 6.8 x 8.8 cm. Multiple shadowing regions of the uterus likely due to calcified fibroids, not possible to distinguish/measurable fibroids. Endometrium is not well visualized Adnexa: Bilateral ovaries are not visualized. No large adnexal mass. US/US pelvic and transvaginal IMPRESSION: Multiple shadowing regions of the uterus likely due to calcified fibroids, not possible to distinguish/measurable fibroids. Endometrium is not well visualized. If there is concern, consider CT or MRI for fibroid evaluation as clinically warranted.
== END 2023-05-23 13:02 | disposition home or self-care (01) ==
LOC: HO.US 13:01
PROVIDERS: PCP Internal Medicine Geriatric Medicine; Visit Provider Obstetrics & Gynecology
DX: D25.9 Leiomyoma of uterus, unspecified (principal)
CPT/HCPCS: 76830; 76856

== ENCOUNTER 2023-05-29 13:50 | Outpatient (AMB) | payer OTHER, SELFPAY ==
--- NOTE | 2023-05-29 13:55 | A.OFFVIS_ITS ---
Intake Vital Signs 05/29/23 13:57 Height 4 ft 7 in Weight 127 lb 13.89 oz BMI 29.7 BP 110/62 Intake Visit Reasons: Ultra sound follow up Public Improvement Inspector Required: Yes Public Improvement Inspector Language: Service Team Leader Name: Aimee HANSEN Information Interpreted: non-clinical & clinical Accompanied by: Employee Allergies percocet Allergy (Mild, Uncoded 05/29/23 13:58) Vomiting HPI HPI Comments History of Present Illness Details Presenting for ultrasound follow-up regarding myomatous uterus. No complaints no vaginal bleeding, pelvic pressure or pain Pelvic ultrasound done recently showed the following: Uterus: The uterus is anteverted and measures 10.4 x 6.8 x 8.8 cm. Multiple shadowing regions of the uterus likely due to calcified fibroids, not possible to distinguish/measurable fibroids. Endometrium is not well visualized Adnexa: Bilateral ovaries are not visualized. No large adnexal mass. PFS Medical History Left leg swelling Foot and ankle pain FH: breast cancer Hepatic cirrhosis FH: cholecystectomy Hypothyroid Arthritis Surgical History Hx of cholecystectomy Family History Family/Other Breast cancer Maternal Grandfather Throat cancer Social History Household Members: None Housing: Apartment Do you presently have visiting nurse or other home services: Yes (CARE CLINICIAN every other day) Alcohol intake: never Patient Tobacco Use Status: Never used Tobacco Second Hand Smoke Exposure: No service: No Current occupational status: retired Review of Systems Const All systems reviewed & are unremarkable except as noted in HPI and below Reports as per HPI and Reports no additional complaints GI Reports no additional complaints Reports no additional complaints Physical Exam Vital Signs: Last Vital Signs BP 110/62 05/29/23 13:57 BMI result Body Mass Index 29.7 Assessment & Plan Assessment & Plan (1) Uterine myoma: Code(s): D25.9 - Leiomyoma of uterus, unspecified Plan: Discussed with the patient the finding on ultrasound, the patient was reassured. Instructions given the patient to call in case of pelvic pain/pressure or vaginal bleeding, all questions answered, the patient verbalized understanding Coding Level of Care Code Est Pt Level 3 (26975) Diagnoses Uterine myoma D25.9
[2023-05-29 13:57] VITALS: BP 110/62; BMI 29.7
== END 2023-05-29 14:19 | disposition home or self-care (01) ==
LOC: HO.HWS 13:50
PROVIDERS: PCP Internal Medicine Geriatric Medicine; Visit Provider Obstetrics & Gynecology
DX: D25.9 Leiomyoma of uterus, unspecified (principal)
CPT/HCPCS: 99213

== ENCOUNTER → 2023-05-29 13:50 | Outpatient (BNVA) | payer OTHER, SELFPAY | PROVIDERS: PCP Internal Medicine Geriatric Medicine; Visit Provider Obstetrics & Gynecology | DX: D25.9 Leiomyoma of uterus, unspecified (principal) | CPT/HCPCS: 99212 ==

== ENCOUNTER 2023-11-19 11:09 | Outpatient (REF) | payer OTHER, SELFPAY ==
[2023-11-19 13:14] LABS: MANUAL DIFF FLAG NO
[2023-11-19 13:26] LABS: Basophils Absolute Auto 0.1 X10*3/uL (0.0-0.2); Basophils Percent Auto 1.7 % (0-2); Eosinophils Absolute Auto 0.2 X10*3/uL (0.0-0.4); Eosinophils Percent Auto 4.3 % (0-4); Hematocrit 37.2 % (37.0-47.0); Hemoglobin 12.6 g/dl (12.0-16.0); Imm Gran Abs Auto 0.01 X10*3/uL (0.00-0.03); Imm Gran Pct Auto 0.2 % (0.0-0.4); Lymphocytes Absolute Auto 0.8 X10*3/uL (1.2-4.9); Lymphocytes Percent Auto 19.5 % (20-40); Mean Corpuscular HGB Conc 33.9 g/dl (31.0-35.0); Mean Corpuscular Hemoglobin 30.6 pg (27.0-33.0); Mean Corpuscular Volume 90.3 fL (80.0-98.0); Monocytes Absolute Auto 0.3 X10*3/uL (0.1-1.2); Monocytes Percent Auto 7.4 % (2-11); Neutrophils Absolute Auto 2.8 x10*3/uL (2.0-8.3); Neutrophils Percent Auto 66.9 % (45-73); Platelet Count 234 X10*3/uL (160-400); Red Blood Count 4.12 X10*6/uL (4.20-5.50); White Blood Count 4.2 X10*3/uL (4.8-10.8)
[2023-11-19 14:01] LABS: Alanine Aminotransferase 14 U/L (0-31); Albumin Level 4.2 g/dL (3.5-5.0); Alkaline Phosphatase 60 U/L (39-117); Anion Gap 12 (12-20); Aspartate Amino Transferase 23 U/L (5-31); Bilirubin Total 0.5 mg/dL (0.0-1.0); Blood Urea Nitrogen 12 mg/dL (9-16); C Reactive Protein 0.28 mg/dL (< or = 0.50); Calcium 9.6 mg/dL (8.4-10.2); Carbon Dioxide 29 mmol/L (22-29); Chloride 105 mmol/L (96-108); Estimated Glomerular Filt Rate > 60; Glucose Random 79 mg/dL (60-115); Potassium 3.7 mmol/L (3.3-5.1); Sodium 142 mmol/L (135-145); Total Protein 7.6 g/dL (6.5-8.0)
[2023-11-19 14:08] LABS: TSH reflex Free T4 0.81 uIU/mL (0.32-4.0)
[2023-11-19 14:10] LABS: Erythrocyte Sedimentation Rate 14 MM/HR (0-20)
== END 2023-11-19 11:10 | disposition home or self-care (01) ==
LOC: HO.HHCL 11:09
PROVIDERS: Internal Medicine Geriatric Medicine; Visit Provider Nurse Practitioner Family
DX: M79.673 Pain in unspecified foot (principal); M25.579 Pain in unspecified ankle and joints of unspecified foot; M19.049 Primary osteoarthritis, unspecified hand; E03.9 Hypothyroidism, unspecified
CPT/HCPCS: 36415; 80053; 84443; 85025; 85652; 86140

== ENCOUNTER 2023-11-30 16:54 | Emergency (ER) | payer OTHER, SELFPAY ==
--- NOTE | 2023-11-30 | ECG_ITS ---
Test Reason : N/V MULTIPLE DAYS Blood Pressure : / mmHG Vent. Rate : 079 BPM Atrial Rate : 079 BPM P-R Int : 146 ms QRS Dur : 074 ms QT Int : 390 ms P-R-T Axes : 048 -19 042 degrees QTc Int : 448 ms Normal sinus rhythm Nonspecific T wave abnormality Abnormal ECG When compared with ECG of 23-MAY-2022 13:48, Nonspecific T wave abnormality now evident in Lateral leads Referred By: Generic ED Physician Electronically Signed By:KWADWO AARON
--- NOTE | ~2023-11-30 | CT_ITS ---
EXAMINATION: CT ABDOMEN AND PELVIS WITH CONTRAST CLINICAL INFORMATION: Diffuse abdominal pain COMPARISON: CT abdomen and pelvis on 05/23/2022 TECHNIQUE: Multidetector volumetric images were obtained from the superior aspect of the liver through the pubic symphysis following administration 85 mL of Omnipaque 350 intravenous contrast. Sagittal and coronal reformatted images were obtained on the technologist's workstation. Oral contrast: No This CT examination was performed using dose optimization techniques as appropriate, variously including the following: *Automated exposure control *Adjustment of mA and/or kV according to patient size (this includes techniques or standardized protocols for targeted exams where dose is matched to indication/reason for exam; i.e. extremities or head) *Use of iterative reconstruction technique DLP: 398 mGy-cm FINDINGS: LUNG BASES: The visualized lung bases are unremarkable. LIVER, GALLBLADDER, AND BILIARY TREE: The liver is normal in size. There is diffuse nodularity. There is a central calcification in the right hepatic lobe. No focal lesions or biliary ductal dilatation. Prior cholecystectomy. PANCREAS: Unremarkable. SPLEEN: Unremarkable. ADRENAL GLANDS: Unremarkable. KIDNEYS AND URETERS: The kidneys are normal in size, shape, and attenuation. No hydronephrosis, hydroureter, or calculi seen. No perinephric stranding. BLADDER: Unremarkable. GASTROINTESTINAL TRACT: The small and large bowel are unremarkable. Colonic diverticulosis is noted. ABDOMINAL WALL: No significant hernia is appreciated. LYMPH NODES: Normal. VASCULAR: Unremarkable. PELVIC VISCERA: Atrophic uterus with multiple calcified fibroids. OSSEOUS STRUCTURES: Unremarkable. CT/CT abdomen pelvis w IV con IMPRESSION: 1. No acute abnormality. 2. Cirrhotic liver. 3. Colonic diverticulosis. Fleischner guidelines were followed. Electronically signed by: Reyna Comer MD 11/30/2023 09:07 PM EDT
[2023-11-30 16:59] VITALS: BP 136/72; PULSE 79; O2SAT 98
[2023-11-30 17:06] VITALS: BP 132/65; PULSE 81; RESP 18; TEMP 37.1; O2SAT 97; BMI 22.8
[2023-11-30 17:34] LABS: MANUAL DIFF FLAG NO
[2023-11-30 17:41] LABS: Basophils Percent Auto 0.4 % (0-2); Eosinophils Percent Auto 0.1 % (0-4); Hematocrit 36.5 % (37.0-47.0); Hemoglobin 12.2 g/dl (12.0-16.0); Imm Gran Abs Auto 0.03 X10*3/uL (0.00-0.03); Imm Gran Pct Auto 0.4 % (0.0-0.4); Lymphocytes Absolute Auto 0.5 X10*3/uL (1.2-4.9); Mean Corpuscular HGB Conc 33.4 g/dl (31.0-35.0); Mean Corpuscular Hemoglobin 30.3 pg (27.0-33.0); Mean Corpuscular Volume 90.6 fL (80.0-98.0); Monocytes Absolute Auto 0.9 X10*3/uL (0.1-1.2); Monocytes Percent Auto 13.7 % (2-11); Neutrophils Absolute Auto 5.2 x10*3/uL (2.0-8.3); Neutrophils Percent Auto 77.4 % (45-73); Platelet Count 194 X10*3/uL (160-400); Red Blood Count 4.03 X10*6/uL (4.20-5.50); Red Cell Distribution Width 13.1 % (11.0-16.0); White Blood Count 6.7 X10*3/uL (4.8-10.8)
[2023-11-30 17:52] LABS: Anion Gap 12 (12-20); Blood Urea Nitrogen 18 mg/dL (9-16); Calcium 8.9 mg/dL (8.4-10.2); Carbon Dioxide 28 mmol/L (22-29); Chloride 102 mmol/L (96-108); Creatinine Clr Calc Pharmacy 72.1; Estimated Glomerular Filt Rate > 60; Glucose Random 113 mg/dL (60-115); Potassium 3.1 mmol/L (3.3-5.1); Sodium 139 mmol/L (135-145)
[2023-11-30 18:16] LABS: Influenza A PCR NEGATIVE (Negative); Influenza B PCR NEGATIVE (Negative); Resp Syncy Virus RNA Qual PCR NEGATIVE (Negative); SARS COV2 PCR INHOUSE NEGATIVE (Negative)
[2023-11-30 19:05] VITALS: BP 123/62; PULSE 84; RESP 18; TEMP 37.5; O2SAT 95
[2023-11-30] MEDS: Acetaminophen 325 MG TABLET 650 MG PO (19:06)
--- NOTE | 2023-11-30 19:17 | PC.NURSE ---
This RN assumed care of pt at 1900, visitor with pt very upset yelling at staff. Luggage Maker at bedside with t/w and visitor upset d/t pt being here for 2 hours and not being seen or given anything for pain. T/w apologized and explained that it is change of shift and t/w would try to talk to a provider and help her get more comfortable in the mean time. Visitor continued yelling at t/w stating that no one has healed her and he is very uncomfortable. T/w again apologized, spoke with Robert RUBI in regards to pt having at tleast Tylenol, ok per robert. Verbal order put in for 650mg Tylenol PO. Medication administered and pt given warm packs for stomach. Pt in bed call [place] within reach.
--- NOTE | 2023-11-30 20:22 | ED_ITS ---
HPI - General Adult General Chief complaint: Upper Respiratory Symptoms Stated complaint: H/A, DIARRHEA, VOMITING Time Seen by Provider: 11/30/23 19:37 Source: patient and EMS Mode of arrival: EMS Limitations: no limitations History of Present Illness ED Provider: Dr. Mame Mercedes HPI narrative: Patient comes to the emergency room complaining of diarrhea and abdominal pain for couple of days. Patient states that all day today she has been having diarrhea. Patient denies vomiting or nausea. Patient complaining of abdominal cramping. Denies fever chills, denies hematuria or dysuria or flank pain Related Data Home Medications ?Medication ?Instructions ?Recorded ?Confirmed acetaminophen 500 mg tablet 500 mg PO Q8H PRN Mild Pain (Scale 05/23/22 12/06/22 Score 1-4) albuterol sulfate 90 mcg/actuation 2 puff inhalation Q6H PRN Wheezing 05/23/22 12/06/22 aerosol inhaler clotrimazole-betamethasone 1 1 appl topical BID 05/23/22 12/06/22 %-0.05 % topical cream cyanocobalamin (vitamin B-12) 1,000 mcg PO DAILY 05/23/22 12/06/22 1,000 mcg tablet diclofenac sodium 1 % topical gel 2 g topical BID PRN Pain 05/23/22 12/06/22 gabapentin 300 mg capsule 300 mg PO BEDTIME 05/23/22 12/06/22 levothyroxine 75 mcg tablet 75 mcg PO DAILY 05/23/22 12/06/22 trazodone 50 mg tablet 50 mg PO BEDTIME 05/23/22 12/06/22 tramadol 50 mg tablet 50 mg PO DAILY PRN 09/05/22 12/06/22 conjugated estrogens 0.625 mg/gram vaginal 12/06/22 12/06/22 vaginal cream (Premarin) docusate sodium 100 mg capsule 100 mg PO BID 12/06/22 12/06/22 ferrous sulfate 325 mg (65 mg 325 mg PO DAILY 12/06/22 12/06/22 iron) tablet (FeroSul) lactulose 10 gram/15 mL oral ml PO 04/16/23 solution Previous Rx's ?Medication ?Instructions ?Recorded omeprazole 40 mg capsule,delayed 40 mg PO DAILY@0630 30 days #30 05/27/22 release caps prednisone 2.5 mg tablet See Rx Instructions PO DAILY #90 03/05/23 tabs alendronate 70 mg tablet 70 mg PO QWEEK #12 tabs 10/31/23 hyoscyamine sulfate 0.125 mg tablet 0.125 mg PO QID PRN dyspepsia #14 11/30/23 tabs loperamide 2 mg capsule 2 mg PO Q4H PRN loose stool #20 11/30/23 caps Allergies Allergy/AdvReac Type Severity Reaction Status Date / Time percocet Allergy Mild Vomiting Uncoded 11/30/23 17:09 Review of Systems 2 Review of Systems: Constitutional : No Weight loss, No Fever, No Chills, No Night Sweats, No Fatigue, No Malaise ENT/Mouth : No Hearing loss, No Ear Pain, No Nasal Congestion, No Sinus Pain, No Hoarseness, No sore throat, No Rhinorrhea, No Swallowing Difficulty Eyes: No Eye Pain, No Swelling, No Redness, No Foreign Body, No Discharge, No Vision Changes Cardiovascular : No Chest Pain, No SOB, No Dyspnea on Exertion, No Orthopnea, No Edema, No Palpitations Respiratory : No Cough, No Sputum, No Wheezing, No Smoke Exposure, No Dyspnea Gastrointestinal : No Nausea, No Vomiting, complaining of diarrhea and abdominal cramping Genitourinary : no irregular bleeding, No Dysuria, No Urinary Frequency, No Hematuria, No Urinary Incontinence, No Urgency, No Flank Pain, No Urinary Flow Changes, No Hesitancy Musculoskeletal : No joint pain, No Myalgias, No Joint Swelling Skin : No Skin Lesions, No rash Neuro : No Weakness, No Numbness, No Paresthesias, No Loss of Consciousness, No Dizziness, No Headache Psych : No Anxiety/Panic, No Depression, No SI/HI/AH/VH, No Social Issues, Heme/Lymph: No Bruising, No Bleeding,No Lymphadenopathy Endocrine : No Polyuria, No Polydipsia, No Temperature Intolerance [facility] Past Medical History Medical History Left leg swelling Foot and ankle pain FH: breast cancer Hepatic cirrhosis FH: cholecystectomy Hypothyroid Arthritis Surgical History Hx of cholecystectomy Family History Family History Family/Other Breast cancer Maternal Grandfather Throat cancer Social History Social History Household Members: None Housing: Apartment Do you presently have visiting nurse or other home services: Yes ([employer]GER every other day) Alcohol intake: never Patient Tobacco Use Status: Never used Tobacco Second Hand Smoke Exposure: No Advance Directives: No Advance Directives Information Provided: No Do you have a plan to hurt others: No Plan service: No Current occupational status: retired Physical Exam ED Vital Signs: Vital Signs - 24 hr 11/30/23 17:06 11/30/23 19:05 11/30/23 21:36 Temperature 98.7 F 99.5 F 98.3 F Pulse Rate 81 84 84 Respiratory Rate 18 18 16 Blood Pressure 132/65 123/62 132/67 Pulse Oximetry 97 95 95 Oxygen Delivery Method Room Air Room Air Room Air BMI result Body Mass Index 22.8 Const Other: Appearance: Alert. Oriented X3. No acute distress. Eyes: Pupils equal, round and reactive to light. ENT: Pharynx normal. Neck: Normal inspection. Neck supple. No lymph nodes noted. No crepitus CVS: Normal heart rate and rhythm. Pulses normal. Normal S1 and S2 Respiratory: No respiratory distress. Breath sounds normal. No Wheezing. No rales Abdomen: Soft , slightly distended, nontender, no rebound or guarding. Skin: Skin warm and dry. Normal skin color. Normal skin turgor. Extremities: No lower extremity edema. No Lacerations. No Rash Neuro: Oriented X 3. No motor deficit. No sensory deficit. Moving all extremities. No slurred speech. CN 2 through 12 grossly intact Psych: calm, cooperative, normal affect Medications Administered Discontinued Medications Generic Name Dose Route Start Last Admin Trade Name Freq PRN Reason Stop Dose Admin Acetaminophen 650 mg 11/30/23 19:00 11/30/23 19:06 Acetaminophen 325 Mg Tablet PO 11/30/23 19:01 650 mg ONCE ONE Administration Sodium Chloride 1,000 mls @ 999 mls/hr 11/30/23 20:17 11/30/23 22:14 Ns IVCONT 11/30/23 21:17 Infused .Q1H1M ONE Infusion Iohexol 100 ml 11/30/23 20:55 11/30/23 20:55 Iohexol 350 Mg/Ml 100 Ml Infus..Btl IV 11/30/23 20:56 85 ml ONCE ONE Administration Loperamide HCl 4 mg 11/30/23 20:17 11/30/23 20:27 Loperamide Hcl 2 Mg Capsule PO 11/30/23 20:18 4 mg ONCE ONE Administration Potassium Chloride 40 meq 11/30/23 20:07 11/30/23 20:27 Potassium Chloride Packet 20 Meq Packet PO 11/30/23 20:08 40 meq ONCE ONE Administration Medical Decision Making Medical Decision Making [facility] Narrative: My interpretation of labs: Patient's white blood cell count within normal limits, hematology at baseline, chemistry shows a potassium of 3.1 which was orally repleted. LFTs and lipase normal -urinalysis negative for UTI. Serology negative for COVID and influenza. -my interpretation of CT scan, no obvious abnormality. -patient was given 4 mg p.o. loperamide, patient no longer having any diarrhea, overall feeling better. -patient eating and drinking tolerating p.o. Differential Diagnosis Differential Diagnoses: The differential diagnosis associated with the presentation includes (Gastritis, gastroenteritis, viral syndrome) Admission/Observation Consideration of admission/observation: Escalation of care including admission/observation considered (Given patient's age, symptoms and presentation, observation was considered) Lab Data [facility] Lab Attestation statement: I reviewed the patient's lab results. 11/30/23 17:29 11/30/23 17:29 Labs: Lab Results 11/30/23 11/30/23 Range/Units 17:29 21:30 WBC 6.7 (4.8-10.8) X10*3/uL RBC 4.03 L (4.20-5.50) X10*6/uL Hgb 12.2 (12.0-16.0) g/dl Hct 36.5 L (37.0-47.0) % MCV 90.6 (80.0-98.0) fL MCH 30.3 (27.0-33.0) pg MCHC 33.4 (31.0-35.0) g/dl RDW 13.1 (11.0-16.0) % Plt Count 194 (160-400) X10*3/uL MPV 10.0 (9.4-12.3) fL Immature Gran % (Auto) 0.4 (0.0-0.4) % Neut % (Auto) 77.4 H (45-73) % Lymph % (Auto) 8.0 L (20-40) % Mineral % (Auto) 13.7 H (2-11) % Eos % (Auto) 0.1 (0-4) % Baso % (Auto) 0.4 (0-2) % Lymph # (Auto) 0.5 L (1.2-4.9) X10*3/uL Mineral # (Auto) 0.9 (0.1-1.2) X10*3/uL Eos # (Auto) 0.0 (0.0-0.4) X10*3/uL Baso # (Auto) 0.0 (0.0-0.2) X10*3/uL Abs Immat Gran (auto) 0.03 (0.00-0.03) X10*3/uL Absolute Neuts (auto) 5.2 (2.0-8.3) x10*3/uL Absolute Nucleated RBC 0.000 (0.0-0.012) X10*3/uL Nucleated RBC % (auto) 0.0 (0.0-0.2) /100WBC Sodium 139 (135-145) mmol/L Potassium 3.1 L (3.3-5.1) mmol/L Chloride 102 (96-108) mmol/L Carbon Dioxide 28 (22-29) mmol/L Anion Gap 12 (12-20) BUN 18 H (9-16) mg/dL Creatinine 0.68 (0.5-1.4) mg/dL Estim Creat Clear Calc 72.1 Estimated GFR > 60 Random Glucose 113 (60-115) mg/dL Calcium 8.9 D (8.4-10.2) mg/dL Magnesium 2.0 (1.6-2.6) mg/dL Total Bilirubin 0.7 (0.0-1.0) mg/dL Direct Bilirubin 0.2 (0.0-0.5) mg/dL AST 20 (5-31) U/L ALT 16 (0-31) U/L Alkaline Phosphatase 75 (39-117) U/L Total Protein 7.6 (6.5-8.0) g/dL Albumin 4.2 (3.5-5.0) g/dL Lipase 17 (8-78) U/L Urine Color Yellow Urine Appearance Clear Urine pH 6.0 (5.0-9.0) Ur Specific Garrison >= 1.030 H (1.005-1.025) Urine Protein 30 (1+) H (Neg-Trace) mg/dL Urine Glucose (UA) Negative (Negative) mg/dL Urine Ketones 15 (Negative) mg/dL Urine Blood Trace H (Negative) Urine Nitrite Negative (Negative) Ur Leukocyte Esterase Negative (Negative) Urine RBC 0-2 (0-2) /HPF Urine WBC 0-5 (0-5) /HPF Ur Squamous Epith Cells 3-5 (0-2) /HPF Urine Bacteria Trace (None Seen) Hyaline Casts 0-2 (0-2) /LPF Influenza Type A (PCR) NEGATIVE (Negative) Influenza Type B (PCR) NEGATIVE (Negative) RSV RNA Qual (PCR) NEGATIVE (Negative) SARS-CoV-2 RNA (RT-PCR) NEGATIVE (Negative) Independent Interpretation I performed an independent interpretation of an: CT Scan Radiology Impression Discussion of test interpretation with radiology: I have reviewed the radiologist's reading. Radiologist Impression: INDINGS: LUNG BASES: The visualized lung bases are unremarkable. LIVER, GALLBLADDER, AND BILIARY TREE: The liver is normal in size. There is diffuse nodularity. There is a central calcification in the right hepatic lobe. No focal lesions or biliary ductal dilatation. Prior cholecystectomy. PANCREAS: Unremarkable. SPLEEN: Unremarkable. ADRENAL GLANDS: Unremarkable. KIDNEYS AND URETERS: The kidneys are normal in size, shape, and attenuation. No hydronephrosis, hydroureter, or calculi seen. No perinephric stranding. BLADDER: Unremarkable. GASTROINTESTINAL TRACT: The small and large bowel are unremarkable. Colonic diverticulosis is noted. ABDOMINAL WALL: No significant hernia is appreciated. LYMPH NODES: Normal. VASCULAR: Unremarkable. PELVIC VISCERA: Atrophic uterus with multiple calcified fibroids. OSSEOUS STRUCTURES: Unremarkable. CT/CT abdomen pelvis w IV con IMPRESSION: 1. No acute abnormality. 2. Cirrhotic liver. 3. Colonic diverticulosis. Critical Care Time Critical Care Time Critical Care Time: Yes Total Critical Care Time: 45 Attestation: I have personally provided critical care time. Time includes review of lab data, radiology results, discussion with consultants, and monitoring for potential decompensation. Intervention performed as documented. Discharge Plan Discharge Clinical Impression: Abdominal pain, Diarrhea, Acute hypokalemia Patient Disposition: Home, Self-Care Instructions: Acute Diarrhea (ED), Abdominal Pain (ED) Additional Instructions: Please follow-up with your primary care physician tomorrow. If you have any worsening or new symptoms, please return to the emergency room or call 911 Prescriptions: New loperamide 2 mg capsule 2 mg PO Q4H PRN (Reason: loose stool) Qty: 20 0RF Rx Instructions: administer after each loose stool until symptoms controlled; do not exceed 8 mg per 24 hrs hyoscyamine sulfate 0.125 mg tablet 0.125 mg PO QID PRN (Reason: dyspepsia) Qty: 14 0RF No Action alendronate 70 mg tablet 70 mg PO QWEEK Qty: 12 0RF Rx Instructions: Take 1 tab once weekly, 1st thing in the morning, on an empty stomach, with a large glass of water (at least 6 oz) and stay upright for 30 minutes trazodone 50 mg Tablet 50 mg PO BEDTIME cyanocobalamin (vitamin B-12) 1,000 mcg Tablet 1,000 mcg PO DAILY levothyroxine 75 mcg Tablet 75 mcg PO DAILY clotrimazole-betamethasone 1-0.05 % cream 1 appl topical BID diclofenac sodium 1 % Gel 2 g TOPICAL BID PRN (Reason: Pain) Rx Instructions: apply to single elbow, wrist or hand; for hand includes palm/fingers/back of hand acetaminophen 500 mg Tablet 500 mg PO Q8H PRN (Reason: Mild Pain (Scale Score 1-4)) gabapentin 300 mg Capsule 300 mg PO BEDTIME albuterol sulfate 90 mcg/actuation Hfa Aerosol Inhaler 2 puff INHALATION Q6H PRN (Reason: Wheezing) omeprazole 40 mg Capsule,Delayed Release(Dr/Ec) 40 mg PO DAILY@0630 30 Days Qty: 30 0RF ferrous sulfate [FeroSul] 325 mg (65 mg iron) tablet 325 mg PO DAILY docusate sodium 100 mg capsule 100 mg PO BID Premarin 0.625 mg/gram cream vaginal prednisone 2.5 mg tablet See Rx Instructions PO DAILY Qty: 90 0RF Rx Instructions: Take 4 tablets x 7 days, 3 tablets x 7 days 2 tablets x 7 days, 1 tablets x 7 days and stop. tramadol 50 mg tablet 50 mg PO DAILY PRN lactulose 10 gram/15 mL solution PO Print Language: Jordanian
[2023-11-30] MEDS: 0.9 % Sodium Chloride 1,000 ML 999 ML IVCONT (20:26)
[2023-11-30] MEDS: Loperamide HCl 2 MG CAPSULE 4 MG PO (20:27)
[2023-11-30] MEDS: Potassium Chloride Packet 20 MEQ PACKET 40 MEQ PO (20:27)
[2023-11-30 20:40] LABS: Alanine Aminotransferase 16 U/L (0-31); Albumin Level 4.2 g/dL (3.5-5.0); Alkaline Phosphatase 75 U/L (39-117); Aspartate Amino Transferase 20 U/L (5-31); Bilirubin Direct 0.2 mg/dL (0.0-0.5); Bilirubin Total 0.7 mg/dL (0.0-1.0); Lipase 17 U/L (8-78); Total Protein 7.6 g/dL (6.5-8.0)
[2023-11-30] MEDS: iohexoL 350 MG/ML 100 ML INFUS..BTL IV (20:55)
[2023-11-30 21:36] VITALS: BP 132/67; PULSE 84; RESP 16; TEMP 36.8; O2SAT 95
[2023-11-30 21:39] LABS: Appearance Urine Clear; Color Urine Yellow; Glucose Urine UA Negative (Negative); Leukocyte Esterase Urine Negative (Negative); Nitrite Urine Negative (Negative); Specific Gravity - Urine >= 1.030 (1.005-1.025); UMIC TRIGGER UACC YES; Urine Blood Trace (Negative); Urine Ketones 15 mg/dL (Negative); Urine Protein 30 (1+) mg/dL (Neg-Trace)
[2023-11-30 21:44] LABS: Bacteria Urine Trace (None Seen); Hyaline Casts Urine 0-2 /LPF (0-2); RBC Urine 0-2 /HPF (0-2); WBC Urine 0-5 /HPF (0-5)
[2023-11-30] MEDS: traMADoL HCL 50 MG TABLET PO (23:34)
[2023-11-30 23:45] VITALS: BP 132/67; PULSE 84; RESP 16; TEMP 36.8; O2SAT 95
== END 2023-11-30 23:46 | disposition home or self-care (01) ==
PROVIDERS: Emergency Provider Emergency Medicine; PCP Internal Medicine Geriatric Medicine
DX: R10.9 Unspecified abdominal pain (principal); R19.7 Diarrhea, unspecified; E87.6 Hypokalemia; Z03.818 Encounter for observation for suspected exposure to other biological agents ruled out
CPT/HCPCS: 0241U; 74177; 80048; 80076; 81001; 83690; 83735; 85025; 93005; 96360; 96361; 99284; 99285; Q9967

== ENCOUNTER → 2023-11-30 17:11 | Outpatient (BNV) | payer OTHER, SELFPAY | PROVIDERS: Emergency Provider Emergency Medicine; PCP Internal Medicine Geriatric Medicine; Visit Provider Internal Medicine | DX: R94.31 Abnormal electrocardiogram [ECG] [EKG] (principal); R11.2 Nausea with vomiting, unspecified | CPT/HCPCS: 93010 ==

== ENCOUNTER 2023-12-17 10:43 | Outpatient (AMB) | payer OTHER, SELFPAY ==
[2023-12-17 10:42] VITALS: BP 128/86; BMI 22.8
--- NOTE | 2023-12-17 10:42 | MHC.OFFVIS ---
Vital Signs 12/17/23 10:42 Height 5 ft 8 in Weight 150 lb BMI 22.8 BP 128/86 Blood Pressure Location Rt brachial Position Sitting Intake Visit Reasons: annual/DO NOT RS Supervisor Pipeline Required: Yes Supervisor Pipeline Services: Supervisor Pipeline Present Supervisor Pipeline Name: UNDERGRADUATE ADVISOR Ana Rosa Allergies percocet Allergy (Mild, Uncoded 12/17/23 10:43) Vomiting HPI Comments Details: Presenting for annual exam. Complaining of pelvic pain over the last few weeks with no associated urinary or GI symptoms no vaginal bleeding Last Pap/HPV was negative in 05/28, the patient was adequately screenmed with negative cervical cytology between the age of 55-64 Last Mammogram was in 10/03 was BI-RADS 2 Last Colonoscopy was in 06/03 Last DEXA scan was in 10/03 the patient has been on alendronate [facility] Medical History Left leg swelling Foot and ankle pain FH: breast cancer Hepatic cirrhosis FH: cholecystectomy Hypothyroid Arthritis Surgical History Hx of cholecystectomy Family History Family/Other Breast cancer Maternal Grandfather Throat cancer Social History Household Members: None Housing: Apartment Do you presently have visiting nurse or other home services: Yes (UNDERGRADUATE ADVISOR every other day) Alcohol intake: never Patient Tobacco Use Status: Never used Tobacco Second Hand Smoke Exposure: No service: No Current occupational status: retired Female Reproductive History Menstrual Date of last pap smear: 05/24/16 Date of Mammogram: 10/10/22 Date of last Bone Density Screenin10/10/22 Review of Systems Const All systems reviewed & are unremarkable except as noted in HPI and below Card Reports as per HPI Resp Reports as per HPI GI Reports as per HPI and Reports no additional complaints Reports as per HPI Physical Exam Vital Signs: Last Vital Signs BP 128/86 12/17/23 10:42 BMI result Body Mass Index 22.8 Const General: cooperative, healthy appearing and comfortable Chest Chest palpation & inspection: normal inspection of the chest and normal palpation of entire chest wall Breast/axilla inspection: normal inspection of the breasts and normal inspection of the axillae Breast/axilla palpation: normal palpation of the breasts, normal palpation of the axillae and no axillary lymphadenopathy Resp Effort & Inspection: normal respiratory effort Auscultation: clear to auscultation bilaterally Percussion: percussion normal Cardio Palpation: normal PMI Rate: regular rate Rhythm: regular rhythm Heart sounds: no murmurs and no rubs Peripheral pulses: Peripheral pulses 2+ throughout GI Inspection: Yes normal to inspection Palpation (GI): Soft to palpation, nontender, no guarding, not rigid and No hepatosplenomegaly present Percussion: Yes normal to percussion Auscultation: normal bowel sounds Rectal Exam - Female: deferred General: Yes bladder normal to palpation and Yes no CVA tenderness External Female Exam: lesion (Left labia minora upper lesion) Speculum Exam - Vagina: normal appearance of the vagina, normal palpation, normal vaginal discharge and not erythematous Speculum Exam - Cervix: normal appearance of the cervix and normal palpation Bimanual exam- vagina & uterus: normal bimanual exam, normal palpation, uterine size normal, bladder normal to palpation, consistency normal and normal palpation Bimanual Exam- Adnexa, other: normal adnexae, no masses and no tenderness Back/Spine/Pelvis Back: no CVA tenderness Results AMB Urinalysis, Automated UA Leukoctes 15 Kiara/uL Last Edit by Stefania Mejia CMA on 12/17/23 11:15 UA Nitrite Negative Last Edit by Stefania Mejia CMA on 12/17/23 11:15 UA Urobilinogen 17 mg/dL Last Edit by Stefania Mejia CMA on 12/17/23 11:15 UA Protein 1 mg/dL Last Edit by Stefania Mejia CMA on 12/17/23 11:15 UA pH 6.0 Last Edit by Stefania Mejia CMA on 12/17/23 11:15 UA Blood 10 Michael/uL Last Edit by Stefania Mejia CMA on 12/17/23 11:15 UA Specific Elton 1.020 Last Edit by Stefania Mejia CMA on 12/17/23 11:15 UA Ketone Positive Last Edit by Stefania Mejia CMA on 12/17/23 11:15 UA Bilirubin 17 mg/dL Last Edit by Stefania Mejia CMA on 12/17/23 11:15 UA Glucose 0 mg/dL Last Edit by Stefania Mejia CMA on 12/17/23 11:15 Assessment & Plan Assessment & Plan (1) Well woman exam: Code(s): Z01.419 - Encounter for gynecological examination (general) (routine) without abnormal findings Category: Medical Plan: Co testing not indicated since the patient 's age is above 65 with no history of abnormal Pap smears last 25 years. Counseled the patient about the recommended dietary allowance of 1200 mg of Calcium & 800 IU of vitamin D. Mammogram ordered. The patient was instructed to perform monthly self-breast exams and to schedule an annual exam in a year; All questions answered and the patient verbalized understanding. (2) Pelvic pain: Code(s): R10.2 - Pelvic and perineal pain Category: Medical Plan: Urine dip adone in the office showed microscopic hematuria. pelvic ultrasound ordered. Discussed with the patient the differential diagnosis of pelvic pain including but not limited to adnexal, uterine masses, pelvic infections (PID), GI the (Irritable bowel syndrome, diverticulitis, others), musculoskeletal, myofascial pain abdominal wall , adhesions, endometriosis, psychological and others causes. Will check results and treat accordingly. All questions answered, the patient verbalized understanding. Instructed the patient to schedule follow-up appointment in 2 weeks (3) Labial lesion: Comment: Left upper labia minora Code(s): N90.89 - Other specified noninflammatory disorders of vulva and perineum Category: Medical Plan: Discussed with the patient the finding on pelvic exam left upper labia minora lesion, instructions given the patient to schedule a 2 week vulvar biopsy appointment. All questions answered, the patient verbalized understanding (4) Microscopic hematuria: Code(s): R31.29 - Other microscopic hematuria Category: Medical Plan: Urine dip showed microscopic hematuria, urine culture sent. Will repeat urine dip in 2 weeks. Discussed with the patient the possible causes of microscopic hematuria including but not limited to: interstitial cystitis, polyps, stones, masses, urethral inflammatory processes and others. If Urine Culture is negative and repeat urine dip in 2 weeks shows persistent microscopic hematuria, will proceed with CT abdomen/pelvis and urology referral. Instructions given the patient to schedule a 2 week urine dip follow-up appointment. All questions answered and the patient verbalized understanding. Orders: Orders MM tomosynthesis screening BI Today Z12.31 - Encounter for screening mammogram for malignant neoplasm of breast US pelvic and transvaginal Today N90.89 - Other specified noninflammatory disorders of vulva and perineum, R10.2 - Pelvic and perineal pain Coding Level of Care Code Est Pt Level 3 (13963) Est Pt Prev Care >65y(24692) Diagnoses Well woman exam Z01.419 Pelvic pain R10.2 Labial lesion N90.89 Microscopic hematuria R31.29
== END 2023-12-17 11:18 | disposition home or self-care (01) ==
LOC: HO.HWS 10:43
PROVIDERS: PCP Internal Medicine Geriatric Medicine; Visit Provider Obstetrics & Gynecology
DX: Z01.419 Encounter for gynecological examination (general) (routine) without abnormal findings (principal); R10.2 Pelvic and perineal pain; N90.89 Other specified noninflammatory disorders of vulva and perineum; R31.29 Other microscopic hematuria
CPT/HCPCS: 99213; 99397

== ENCOUNTER 2023-12-17 10:43 | Outpatient (REF) | payer OTHER, SELFPAY | END 2023-12-17 10:44 | disposition home or self-care (01) | LOC: HO.LAB 10:43 | PROVIDERS: PCP Internal Medicine Geriatric Medicine; Visit Provider Obstetrics & Gynecology | DX: Z01.419 Encounter for gynecological examination (general) (routine) without abnormal findings (principal); R10.2 Pelvic and perineal pain; N90.89 Other specified noninflammatory disorders of vulva and perineum; R31.29 Other microscopic hematuria | CPT/HCPCS: 81003; 87086; 99212; 99397 ==

== ENCOUNTER 2023-12-19 14:30 | Outpatient (REF) | payer OTHER, SELFPAY | END 2023-12-19 14:31 | disposition home or self-care (01) | LOC: HO.US 14:30 | PROVIDERS: PCP Internal Medicine Geriatric Medicine; Visit Provider Obstetrics & Gynecology | DX: R10.2 Pelvic and perineal pain (principal); N90.89 Other specified noninflammatory disorders of vulva and perineum | CPT/HCPCS: 76830; 76856 ==

== ENCOUNTER → 2023-12-19 14:33 | Outpatient (BNV) | payer OTHER, SELFPAY | PROVIDERS: PCP Internal Medicine Geriatric Medicine; Visit Provider Radiology Diagnostic Radiology | DX: D25.9 Leiomyoma of uterus, unspecified (principal) | CPT/HCPCS: 76830; 76856 ==

== ENCOUNTER 2023-12-25 10:09 | Outpatient (AMB) | payer OTHER, SELFPAY ==
--- NOTE | 2023-12-25 10:25 | A.OFFVIS_ITS ---
Vital Signs 12/25/23 10:28 Height 4 ft 8 in Weight 112 lb BMI 25.1 BP 122/80 Blood Pressure Location Lt brachial Position Sitting Pulse 72 Pulse Source Pulse Oximeter Pulse Oximetry (%) 97 Oxygen Delivery Method Room Air Intake Visit Reasons: Foot and Ankle swelling/CM Intake Note: Patient presents today for follow up on foot and and ankle swelling today, she was last seen in the office by Valarie Ramon on 04/16/23. Textiles And Clothing Teacher Required: Yes Textiles And Clothing Teacher Services: Textiles And Clothing Teacher Present Textiles And Clothing Teacher Name: Bridger [phone] Accompanied by: LOSS PREVENTION RESEARCH ENGINEER/Friend Allergies percocet Allergy (Mild, Uncoded 12/25/23 10:30) Vomiting Medication List - Last Reconciled 12/25/23 by Sallie Gimenez MD acetaminophen 500 mg PO Q8H PRN albuterol sulfate 90 mcg/actuation 2 puffs inhalation Q6H PRN alendronate 70 mg PO QWEEK clotrimazole-betamethasone 1-0.05 % 1 appl topical BID conjugated estrogens (Premarin) vaginal cyanocobalamin (vitamin B-12) 1,000 mcg PO DAILY diclofenac sodium 1% 2 grams topical BID PRN docusate sodium 100 mg PO BID ferrous sulfate (FeroSul) 325 mg PO DAILY gabapentin 300 mg PO BEDTIME hyoscyamine sulfate 0.125 mg PO QID PRN lactulose mL PO levothyroxine 75 mcg PO DAILY loperamide 2 mg PO Q4H PRN omeprazole 40 mg PO DAILY@0630 30 days tramadol 50 mg PO DAILY PRN trazodone 50 mg PO BEDTIME HPI Comments Details: Patient is a 73-year-old female with heart failure with reduced ejection fraction, polyarticular osteoarthritis complicated by fibromyalgia here today for follow-up Interval History: Last seen 04/2023 at that time had improvement after prednisone taper for ankles Today, patient is stable reports some pain to the ankles but no further swelling Rheumatologic History: Patient was initially seen 09/05/2022. At that time she was complaining of widespread pain. Of note she had seen rheumatology in the past and had a trial of treatment with methotrexate that was not helpful. This was back in 2019. She had a positive WILLARD but negative anti DNA and AREN antibodies. Rheumatoid factor and CCP was also negative. Have that evaluation in August there was no evidence of synovitis and the assessment was likely osteoarthritis On re-evaluation 12/06/2022 it was again confirmed that her pain was likely from osteoarthritis of the were no signs of active inflammatory arthritis. She was started on alendronate 70 mg weekly given DEXA scan 10/10/2022 showing osteoporosis with highest T-score -3.5 at the spine At the visit in February 2023 she was given a trial of prednisone for foot and ankle pain with improvement on follow-up in April. At this time she does not have a formal diagnosis of inflammatory arthritis Current Rheumatology Medication(s): Alendronate 70mg weekly [facility] Medical History Left leg swelling Foot and ankle pain FH: breast cancer Hepatic cirrhosis FH: cholecystectomy Hypothyroid Arthritis Surgical History Hx of cholecystectomy Family History Family/Other Breast cancer Maternal Grandfather Throat cancer Social History Household Members: None Housing: Apartment Do you presently have visiting nurse or other home services: Yes (LOSS PREVENTION RESEARCH ENGINEER every other day) Alcohol intake: never Patient Tobacco Use Status: Never used Tobacco Second Hand Smoke Exposure: No service: No Current occupational status: retired Review of Systems Const Details: Review of Systems Constitutional: Denies fever, chills, weight loss ENT: Denies vision changes, eye pain or eye redness, dental caries, dry mouth GI: Denies nausea, vomiting, diarrhea, abdominal pain, change in BM Pulm: Denies SOB, FAGAN, hemoptysis, wheezing Cards: Denies chest pain, palpitations Skin: Denies Raynaud's, rash, nail changes, photosensitivity, CHARGE ACCOUNTS AUDIT CLERK: Denies headaches, weakness, paresthesias, recurrent falls MSK: as per HPI All other systems reviewed and are unremarkable except noted above Physical Exam Vital Signs: Last Vital Signs Pulse 72 12/25/23 10:28 BP 122/80 12/25/23 10:28 Pulse Ox 97 12/25/23 10:28 Oxygen Delivery Method Room Air 12/25/23 10:28 BMI result Body Mass Index 25.1 Physical Examination CONSTITUITIONAL Patient alert and cooperative. Well appearing and in no apparent painful distress HEENT Conjunctiva and sclera clear. ? CHEST/RESPIRATORY SYSTEM Normal respiratory effort and able to speak in complete sentences. ?Clear to auscultation bilaterally. ?No crackles, rales, rhonchi, wheezes heard. CARDIAC SYSTEM Regular rate and rhythm. ?S1 and S2 heard no murmurs. ?Radial pulses intact bilaterally MSK Hands: ?right 2nd digit with fingertip removed (2/2 old injury in [place]). No swelling or TTP of the PIPs, DIPs, or MCPs. Herbedens nodes noted Wrists: ?Unable to assess full wrist ROM due to pain with ROM. No swelling or erythema Elbows: Full range of motion without pain. No tenderness, weakness, swelling, increased warmth or erythema. Shoulders: Full range of motion without pain. No tenderness, weakness, swelling, increased warmth or erythema. Knees: ?Full range of motion. ?No tenderness, swelling, increased warmth or erythema.? crepitations bilaterally Ankles: Full range of motion. ?TTP on the ankle joint. TTP over the peroneal brevis tendon with mild swelling Feet: ?Negative squeeze test. ?No tenderness to palpation or swelling of the MTPs. SKIN Skin intact without rashes. Results Reviewed Results Reviewed: Laboratory Tests 11/19/23 11/30/23 11:11 17:29 WBC 6.7 RBC 4.03 L Hgb 12.2 Hct 36.5 L Plt Count 194 ESR 14 Sodium 139 Potassium 3.1 L Chloride 102 Carbon Dioxide 28 BUN 18 H Creatinine 0.68 AST 20 ALT 16 C-Reactive Protein 0.28 DEXA 10/10/22 INDINGS: LEFT FEMUR, NECK: BMD 0.687 g/cm2, Z-score -0.6, T-score -2.5, osteoporosis. LEFT FEMUR, TOTAL: BMD 0.889 g/cm2, Z-score 0.8, T-score -0.9, normal. AP SPINE L1-L4: BMD 0.759 g/cm2, Z-score -1.6, T-score -3.5, osteoporosis. Assessment & Plan Assessment & Plan (1) Peroneal tenosynovitis: Code(s): M65.979 - Unspecified synovitis and tenosynovitis, unspecified ankle and foot Plan: #Peroneal tenosynovitis Peroneal tenosynovitis differentials include CPPD, seronegative RA and OA of ankle with malpositioning Will trial colchicine. she also had some TTP of the wrists (2) Osteoporosis: Comment: 09/2022 T Scores: fem neck -2.5; femur -0.9; LS -3.5; alendronate started 11/2022 Code(s): M81.0 - Age-related osteoporosis without current pathological fracture Category: Medical Qualifiers: Osteoporosis type: age-related Presence of current pathological fracture: without current pathological fracture Qualified Code(s): M81.0 - Age- related osteoporosis without current pathological fracture Plan: #Osteoporosis Tolerating alendronate Next DEXA 09/2024 (3) Osteoarthritis, hand: Code(s): M19.049 - Primary osteoarthritis, unspecified hand Category: Medical Qualifiers: Osteoarthritis type: primary Laterality: bilateral Qualified Code(s): M19.041 - Primary osteoarthritis, right hand; M19.042 - Primary osteoarthritis, left hand Plan: #Polyarticular OA Stable (4) Osteoarthritis of knees, bilateral: Code(s): M17.0 - Bilateral primary osteoarthritis of knee Category: Medical Qualifiers: Osteoarthritis type: primary Qualified Code(s): M17.0 - Bilateral primary osteoarthritis of knee Plan: #Polyarticular OA Stable Plan I spent 30 minutes reviewing the record and labs, seeing the patient, discussing the treatment plan and documenting in the medical record ? Medications: New colchicine 0.6 mg PO DAILY 90 tabs 1RF M11.20 - Other chondrocalcinosis, unspecified site Refilled alendronate Take 1 tab once weekly, 1st thing in the morning, on an empty stomach, with a large glass of water (at least 6 oz) and stay upright for 30 minutes 70 mg PO QWEEK 12 tabs 0RF M81.0 - Age-related osteoporosis without current pathological fracture Coding Level of Care Code Est Pt Level 4 (14066) Diagnoses Peroneal tenosynovitis M65.979 Age-related osteoporosis without current pathological fracture M81.0 Osteoporosis type: age-related Presence of current pathological fracture: without current pathological fracture Primary osteoarthritis of both hands M19.041; M19.042 Osteoarthritis type: primary Laterality: bilateral Primary osteoarthritis of both knees M17.0 Osteoarthritis type: primary
[2023-12-25 10:28] VITALS: BP 122/80; PULSE 72; O2SAT 97; BMI 25.1
== END 2023-12-25 10:55 | disposition home or self-care (01) ==
PROVIDERS: PCP Internal Medicine Geriatric Medicine; Visit Provider Student in an Organized Health Care Education/Training Program
DX: M65.979 Unspecified synovitis and tenosynovitis, unspecified ankle and foot (principal); M81.0 Age-related osteoporosis without current pathological fracture; M19.041 Primary osteoarthritis, right hand; M19.042 Primary osteoarthritis, left hand; M17.0 Bilateral primary osteoarthritis of knee
CPT/HCPCS: 99214

== ENCOUNTER → 2023-12-25 10:09 | Outpatient (BNVA) | payer OTHER, SELFPAY | PROVIDERS: PCP Internal Medicine Geriatric Medicine; Visit Provider Student in an Organized Health Care Education/Training Program | DX: M65.979 Unspecified synovitis and tenosynovitis, unspecified ankle and foot (principal); M81.0 Age-related osteoporosis without current pathological fracture; M19.041 Primary osteoarthritis, right hand; M19.042 Primary osteoarthritis, left hand; M17.0 Bilateral primary osteoarthritis of knee; Z79.83 Long term (current) use of bisphosphonates | CPT/HCPCS: 99212 ==

== ENCOUNTER 2023-12-30 09:50 | Outpatient (AMB) | payer OTHER, SELFPAY ==
--- NOTE | 2023-12-30 09:57 | A.OFFVIS_ITS ---
Vital Signs 12/30/23 10:03 Height 4 ft 8 in Weight 110 lb 3.698 oz BMI 24.7 Intake Visit Reasons: Vulva Biopsy/urine dip Dental Lab Technician Required: Yes Dental Lab Technician Language: Master Craftsman Services: Dental Lab Technician Present (in person) Dental Lab Technician Name: Aimee HANSEN Information Interpreted: non-clinical & clinical Customer Care Manager: Customer Care Manager Present (Aimee HANSEN) Accompanied by: Self / Same As Patient Allergies percocet Allergy (Mild, Uncoded 12/30/23 10:16) Vomiting Post menopausal: Yes HPI Comments Details: Presenting for follow-up regarding her pelvic pain. The patient is doing well. The following workup was done so far: Last visit urine dip showed microscopic hematuria, urine culture was negative, repeat urine dip today was negative. Pelvic ultrasound report still pending. 06/04 pelvic ultrasound showed the following: Uterus: The uterus is anteverted and measures 10.4 x 6.8 x 8.8 cm. Multiple shadowing regions of the uterus likely due to calcified fibroids, not possible to distinguish/measurable fibroids. Endometrium is not well visualized 12/04 CT scan, pelvic viscera portion showed the following: PELVIC VISCERA: Atrophic uterus with multiple calcified fibroids. Since then the pain has improved markedly PFSH Medical History Left leg swelling Foot and ankle pain FH: breast cancer Hepatic cirrhosis FH: cholecystectomy Hypothyroid Arthritis Surgical History Hx of cholecystectomy Family History Family/Other Breast cancer Maternal Grandfather Throat cancer Social History Household Members: None Housing: Apartment Do you presently have visiting nurse or other home services: Yes (OIL PUMPER every other day) Alcohol intake: never Patient Tobacco Use Status: Never used Tobacco Second Hand Smoke Exposure: No service: No Current occupational status: retired Physical Exam Vital Signs: BMI result Body Mass Index 24.7 Office Procedures FLIGHT ENGINEER Biopsy Before the procedure was started d/w patient the procedure, alternatives ( do nothing, medical rx), & all the risks associated with the procedure ( bleeding , infection, vulvar scarring, painful intercourse, injury to vessels, possible need for transfusion with all its risks) then patient signed the consent. Preop dx: Left labia minora upper lesion Op: Left labia minora upper lesion biopsy Post op: Same Anesthesia: Lidocaine 1% 3cc used Procedure: Using betadine the area was scrubbed and draped in the usual manner. 3 cc of lidocaine was used for anesthesia at the Left labia minora upper lesion area ; using punch biopsy and pickup the left Left labia minora upper lesion was biopsied. Pressure was used for hemostasis. The patient tolerated the procedure well. Discharge Instructions: The patient was instructed to schedule an appointment in 2 weeks for follow-up and to call if temp>100.4, area of the biopsy redness or pain, nausea/vomiting. This note was generated with a voice recognition program. Some errors may have been overlooked during the review of this note. Sometimes these errors may affect the content or meaning of a given sentence. 83160-Rjspsz of Vulva/Perineum Procedure code (CPT) selection complete Assessment & Plan Assessment & Plan (1) Microscopic hematuria: Code(s): R31.29 - Other microscopic hematuria Category: Medical Plan: Repeat urine dip showed no evidence of microscopic hematuria, the patient was reassured. (2) Labial lesion: Comment: Left upper labia minora Code(s): N90.89 - Other specified noninflammatory disorders of vulva and perineum Category: Medical Plan: Left upper labia minora lesion biopsy done, see procedure note (3) Pelvic pain: Code(s): R10.2 - Pelvic and perineal pain Category: Medical Plan: Instructions given the patient to schedule ultrasound follow-up appointment within 2 weeks. All questions answered, the patient verbalized understanding Orders: Orders AMB FLIGHT ENGINEER Biopsy Today N90.89 - Other specified noninflammatory disorders of vulva and perineum Coding Level of Care Code Est Pt Level 3 (35196) Procedure Only Diagnoses Microscopic hematuria R31.29 Labial lesion N90.89 Pelvic pain R10.2 CPT Codes FLIGHT ENGINEER Biopsy - CPT: 11669-Bclqhb of Vulva/Perineum ([id number])
[2023-12-30 10:03] VITALS: BMI 24.7
== END 2023-12-30 11:07 | disposition home or self-care (01) ==
LOC: HO.HWS 09:50
PROVIDERS: PCP Internal Medicine Geriatric Medicine; Visit Provider Obstetrics & Gynecology
DX: R31.29 Other microscopic hematuria (principal); R10.2 Pelvic and perineal pain; N90.89 Other specified noninflammatory disorders of vulva and perineum
CPT/HCPCS: 56605; 99213

== ENCOUNTER 2023-12-30 09:50 | Outpatient (REF) | payer OTHER, SELFPAY | END 2023-12-30 09:51 | disposition home or self-care (01) | LOC: HO.LNP 09:50 | PROVIDERS: PCP Internal Medicine Geriatric Medicine; Visit Provider Obstetrics & Gynecology | DX: N90.89 Other specified noninflammatory disorders of vulva and perineum (principal); R31.29 Other microscopic hematuria; R10.2 Pelvic and perineal pain | CPT/HCPCS: 56605; 88305; 88312; 88341; 88342; 99212 ==

== ENCOUNTER 2024-01-17 13:42 | Outpatient (REF) | payer OTHER, SELFPAY ==
[2024-01-18 10:09] LABS: Adenovirus F 40/41 Not Detected (Not Detect.); Astrovirus Not Detected (Not Detect.); Campylobacter Not Detected (Not Detect.); Cryptosporidium Not Detected (Not Detect.); Cyclospora cayetanensis Not Detected (Not Detect.); E. coli EAEC Not Detected (Not Detect.); E. coli EPEC Not Detected (Not Detect.); E. coli ETEC Not Detected (Not Detect.); E. coli STEC Not Detected (Not Detect.); Entamoeba histolytica Not Detected (Not Detect.); Giardia lamblia Not Detected (Not Detect.); Norovirus GI/GII Not Detected (Not Detect.); Plesiomonas shigelloides Not Detected (Not Detect.); Rotavirus A Not Detected (Not Detect.); Salmonella Not Detected (Not Detect.); Sapovirus Not Detected (Not Detect.); Shigella sp./EIEC Not Detected (Not Detect.); Vibrio Not Detected (Not Detect.); Vibrio Cholerae Not Detected (Not Detect.); Yersinia enterocolitica Not Detected (Not Detect.)
== END 2024-01-17 13:43 | disposition home or self-care (01) ==
LOC: HO.HHCL 13:42
PROVIDERS: Visit Provider Internal Medicine Geriatric Medicine
DX: R10.30 Lower abdominal pain, unspecified (principal); R19.7 Diarrhea, unspecified
CPT/HCPCS: 87507

== ENCOUNTER 2024-01-20 09:09 | Outpatient (AMB) | payer OTHER, SELFPAY ==
--- NOTE | 2024-01-20 09:25 | MHC.OFFVIS ---
Intake Visit Reasons: biopsy results/ok per sarah Senior Maintenance Machinist Required: Yes Senior Maintenance Machinist Language: Technical Mgr Services: Senior Maintenance Machinist Present (in person) Senior Maintenance Machinist Name: JADE Maynard Information Interpreted: non-clinical & clinical Vendor Quality Supervisor: Vendor Quality Supervisor Present (Sarah JADE Thorne) Accompanied by: Daughter Allergies percocet Allergy (Mild, Uncoded 12/30/23 10:16) Vomiting HPI Comments Details: The patient is presenting for follow-up post vulvar biopsy. Doing well with no complaints. The pathology showed the following: Immunostains show negative p16 and patchy wild-type p53 (limited epithelium). Controls stain appropriately. There is no evidence of dysplasia. 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 Comment: The features raise the possibility of a lichenoid contact dermatitis or medication reaction. Postbiopsy changes could explain some of the lichenoid features. Mild epithelial atypia is present and is likely reactive. Immunostains pending; report to follow Pelvic ultrasound done on 12/17, report is still pending [facility] Medical History Left leg swelling Foot and ankle pain FH: breast cancer Hepatic cirrhosis FH: cholecystectomy Hypothyroid Arthritis Surgical History Hx of cholecystectomy Family History Family/Other Breast cancer Maternal Grandfather Throat cancer Social History Household Members: None Housing: Apartment Do you presently have visiting nurse or other home services: Yes (ROTARY SHEAR WORKER HELPER every other day) Alcohol intake: never Patient Tobacco Use Status: Never used Tobacco Second Hand Smoke Exposure: No service: No Current occupational status: retired Review of Systems Const All systems reviewed & are unremarkable except as noted in HPI and below Reports as per HPI and Reports no additional complaints GI Reports no additional complaints Reports no additional complaints Assessment & Plan Assessment & Plan (1) Labial lesion: Comment: Left upper labia minora Code(s): N90.89 - Other specified noninflammatory disorders of vulva and perineum Category: Medical Plan: Discussed with the patient the results the pathology, the patient was reassured. Instructions given the patient to call in case of any abnormal perineal lesions including but not limited to unhealed ulcer, hard Mirena areas or others. All questions answered, the patient verbalized understanding (2) Uterine myoma: Code(s): D25.9 - Leiomyoma of uterus, unspecified Category: Medical Plan: Message sent to the radiology department to the reading of the pelvic ultrasound done on 12/18/2023. Instructions given the patient to schedule a 2 week follow-up appointment to review the ultrasound and treat accordingly. All questions answered, the patient verbalized understanding Coding Level of Care Code Est Pt Level 3 (72294) Diagnoses Labial lesion N90.89 Uterine myoma D25.9
== END 2024-01-20 09:45 | disposition home or self-care (01) ==
LOC: HO.HWS 09:09
PROVIDERS: PCP Internal Medicine Geriatric Medicine; Visit Provider Obstetrics & Gynecology
DX: N90.89 Other specified noninflammatory disorders of vulva and perineum (principal); D25.9 Leiomyoma of uterus, unspecified
CPT/HCPCS: 99213

== ENCOUNTER → 2024-01-20 09:09 | Outpatient (BNVA) | payer OTHER, SELFPAY | PROVIDERS: PCP Internal Medicine Geriatric Medicine; Visit Provider Obstetrics & Gynecology | DX: D25.9 Leiomyoma of uterus, unspecified (principal); N90.89 Other specified noninflammatory disorders of vulva and perineum | CPT/HCPCS: 99212 ==

== ENCOUNTER 2024-01-29 13:56 | Outpatient (REF) | payer OTHER, SELFPAY | END 2024-01-29 13:57 | disposition home or self-care (01) | LOC: HO.MAMMO 13:56 | PROVIDERS: PCP Internal Medicine Geriatric Medicine; Visit Provider Obstetrics & Gynecology | DX: Z12.31 Encounter for screening mammogram for malignant neoplasm of breast (principal) | CPT/HCPCS: 77063; 77067 ==

== ENCOUNTER → 2024-01-29 14:30 | Outpatient (BNV) | payer OTHER, SELFPAY | PROVIDERS: PCP Internal Medicine Geriatric Medicine; Visit Provider Internal Medicine | DX: Z12.31 Encounter for screening mammogram for malignant neoplasm of breast (principal) | CPT/HCPCS: 77063; 77067 ==

== ENCOUNTER 2024-03-25 15:22 | Outpatient (AMB) | payer OTHER, SELFPAY ==
[2024-03-25 15:37] VITALS: BMI 24.7
--- NOTE | 2024-03-25 15:37 | MHC.OFFVIS ---
Vital Signs 03/25/24 15:37 Height 4 ft 8 in Weight 110 lb BMI 24.7 Intake Visit Reasons: ultrasound follow up Stevedore Dock Required: Yes Stevedore Dock Language: French Folding Machine Operator Services: Stevedore Dock Present (in person) Stevedore Dock Name: Aimee HANSEN Information Interpreted: non-clinical & clinical Accompanied by: Daughter Allergies percocet Allergy (Mild, Uncoded 03/25/24 15:40) Vomiting Post menopausal: Yes HPI Comments Details: Presenting for follow-up pelvic ultrasound done 12/19/2023 read on 02/16/2024 which showed the following: Uterus: The uterus is anteverted and measures 6 x 4 x 9 cm. Multiple irregular morphology mixed hyperechoic and isoechoic lesions throughout the parenchyma. The double wall endometrial thickness is not visualized. Adnexa: The ovaries are not identified by ultrasound.. No free fluid in the cul-de-sac. . The patient is doing well with no complaints no pelvic pain or pressure or vaginal bleeding. PFS Medical History Left leg swelling Foot and ankle pain FH: breast cancer Hepatic cirrhosis FH: cholecystectomy Hypothyroid Arthritis Surgical History Hx of cholecystectomy Family History Family/Other Breast cancer Maternal Grandfather Throat cancer Social History Household Members: None Housing: Apartment Do you presently have visiting nurse or other home services: Yes (JOURNEYMAN PIPE WELDER every other day) Alcohol intake: never Patient Tobacco Use Status: Never used Tobacco Second Hand Smoke Exposure: No service: No Current occupational status: retired Review of Systems Const All systems reviewed & are unremarkable except as noted in HPI and below Reports as per HPI and Reports no additional complaints GI Reports no additional complaints Reports no additional complaints Physical Exam Vital Signs: BMI result Body Mass Index 24.7 Assessment & Plan Assessment & Plan (1) Uterine myoma: Code(s): D25.9 - Leiomyoma of uterus, unspecified Category: Medical Plan: Discussed with the patient the finding on ultrasound, the patient was reassured. Instructions given the patient to call in case of pelvic pain/pressure or vaginal bleeding, all questions answered, the patient verbalized understanding Coding Level of Care Code Est Pt Level 3 (88035) Diagnoses Uterine myoma D25.9
--- OUTSIDE RECORDS SUMMARY | 2024-03-25 16:16 | XMS_ITS | Encounter Summary ---
Author Organization [employer] [facility] Address [address] [place] [address] Care Team Providers Care Parachute Line Tier Name Role Phone Name, Joseluis ZAMORA Primary Care Provider Encounter Details Date Type Department Care Team ([facility] Contact Info) Description 06/13/2022 Telephone [facility] MEDICINE [address] [place] [address] [phone] Serenity Lewis LPN Social History Tobacco Use Types Packs/Day Years Used Date Smoking Tobacco: Never Smokeless Tobacco: Never Alcohol Use Standard Drinks/Week Comments Never 0 (1 standard drink = 0.6 oz pur e alcohol) Depression Answer Date Recorded Patient Health Questionnaire-9 Score 0 05/11/2022 Depression Answer Date Recorded Patient Health Questionnaire-2 Score 0 05/11/2022 Comments Unknown Sex and Gender Information Value Date Recorded Sex Assigned at Female 12/11/2021 10:16 AM EDT Legal Sex Female 10:16 AM EDT Gender Identity Female 12/11/2021 10:16 AM EDT Sexual Orientation Straight 12/11/2021 10 :16 AM EDT COVID-19 Exposure Response Date Recorded In the last 10 days, have yo u been in contact with someone who was confirmed or suspected to have Coronavirus/COVID-19? No / Unsure 06/13/2022 9:33 AM EDT documented as of this encounter Plan of Treatment Upcoming Encounters Date Type Department Care Team (Late Contact Info) Description 05/01/2024 9:30 AM EDT Telemedicine [facility] MEDICINE [address] [place] [address] [phone] Gabriella Florez RN documented as of this encounter Visit Diagnoses Not on filedocumented in this encounter Additional Health Concerns Assessment Noted Time PHQ-9 Depression Total Score: 0 05/12/19 23 10:10 AM EDT documented as of this encounter Care Teams Parachute Line Tier Relationship Specialty Start Date End Date Name, MD Joseluis [address] [place] [address] PCP - General Family Medicine 04/14/15 documented as of this encounter
--- OUTSIDE RECORDS SUMMARY | 2024-03-25 16:16 | XMS_ITS | Encounter Summary ---
Author Organization [employer] Address [address] [place] [address] Care Team Providers Care Suction Worker Name Role Phone Name, Joseluis ZAMORA Primary Care Provider Reason for Visit * Reason Onset Date Comments Durable Medical Equipment 10/02/2023 Encounter Details Date Type Department Care Team ([facility] st Contact Info) Description 10/02/2023 Telephone [facility] MEDICINE [address], [place] [phone] Name, MD [address]el[address] [place] [address] Durable Medical Equipment Social History Tobacco Use Types Packs/Day Years Used Date Smoking Tobacco: Never Smokeless Tobacco: Never Alcohol Use Standard Drinks/Week Comments Never 0 (1 standard drink = 0.6 oz pur e alcohol) Depression Answer Date Recorded Patient Health Questionnaire-9 Score 0 05/11/2022 Housing Stability Answer Date Recorded What is your housing situation today? I have sonja perez 11/28/[address] you li ve. Do you have problems with any of the following? None of the above 11/28/2022 Food Insecurity Answer Date Recorded Within the past 12 months, y ou worried that your food would run out before you got money to buy more: Never True 11/28/2022 Within the past 12 months,th e food you bought just didn't last and you didn't have enough money to get more: Never True Transportation Answer Date Recorded In the past 12 months, has l ack of transportation kept you from medical appts, meetings, work or from getting things needed for daily living? No 11/28/2022 Utilities Answer Date Recorded In the past 12 months, has t he electric, gas, oil or water company threatened to shut off services in your home? No 11/28/2022 Depression Answer Date Recorded Patient Health Questionnaire-2 Score 0 05/11/2022 Comments Unknown Sex and Gender Information Value Date Recorded Sex Assigned at Female 12/11/2021 10:16 AM EDT Legal Sex Female 10:16 AM EDT Gender Identity Female 12/11/2021 10:16 AM EDT Sexual Orientation Straight 12/11/2021 10 :16 AM EDT documented as of this encounter Miscellaneous Notes * Telephone Encounter - Rosa Carrillo - 10/03/2023 3:50 PM EDT Rx for cane and walker generated for your review and signature; however, dme req for recliner, boost and incontinence products on hold pending dx and notes to support the need. Please advise. Thank you. * Telephone Encounter - Owen Whittington - 10/02/2023 4:19 PM EDT Tc from Tiffany Smith requesting DME: Pull ups (Size M 6 times daily) Walker with seat Melendez Ensure (vanilla and strawberry) Incontinence supply's Bed pads 3 times daily 2 boxes of XL gloves Recliner chair Tiffany also stated last year a recliner chair was requested but it was denied due to missing information. Documentation stated pt has arthritis of the hip or knee and or any muscular disease but therewas no further documentation/evidence stating that the member is not able to stand from any regularchair in the home. If any questions you can contact Tiffany at [phone]. documented in this encounter Plan of Treatment Upcoming Encounters Date Type Department Care Team (Late st Contact Info) Description 05/01/2024 9:30 AM EDT Telemedicine [facility] MEDICINE [address] [place] [phone] Gabriella Florez RN documented as of this encounter Visit Diagnoses Not on filedocumented in this encounter Additional Health Concerns Assessment Noted Time PHQ-9 Depression Total Score: 0 05/12/19 23 10:10 AM EDT documented as of this encounter Care Teams Suction Worker Relationship Specialty Start Date End Date Name, MD [address]el[address] [place] [address] PCP - General Family Medicine 04/14/15 documented as of this encounter
--- OUTSIDE RECORDS SUMMARY | 2024-03-25 16:16 | XMS_ITS | Encounter Summary ---
Author Organization [employer] Address [address] [facility] 7t [place] [address] Care Team Providers Care Map Colorer Name Role Phone Name, Joseluis ZAMORA Primary Care Provider [phone] Encounter Details Date Type Department Care Team (Late Contact Info) Description 03/20/2022 Orders Only [facility] MED & PEDS [address] [place], [place] [phone] Marielena Neff LPN Social History Tobacco Use Types Packs/Day Years Used Date Smoking Tobacco: Never Assessed Comments Unknown Sex and Gender Information Value [...] suspected to have Coronavirus/COVID-19? No / Unsure 03/13/2022 10:04 AM EST documented as of this encounter Plan of Treatment Upcoming Encounters Date Type Department Care Team (Late st Contact Info) Description 05/01/2024 9:30 AM EDT Telemedicine [facility] MEDICINE [address] [place] [address] Gabriella Florez RN documented as of this encounter Visit Diagnoses Not on filedocumented in this encounter Care Teams Map Colorer Relationship Specialty Start Date End Date Name, MD Joseluis [address] [place] [address] PCP - General Family Medicine 04/14/15 documented as of this encounter
--- OUTSIDE RECORDS SUMMARY | 2024-03-25 16:16 | XMS_ITS ---
Author Organization [facility] Address [address] [place] [address] Care Team Providers Care Plastic Eye Technician Name Role Phone Name Joseluis ZAMORA Primary Care Provider Clarence Crandall [phone] ALLERGIES No Known Allergies REASON FOR VISIT Patient presents today for gerd MEDICATIONS Medication SIG (Take, Route, Frequency, Duration) Notes Start Date End Date Status Colace 100 MG 1 capsule as needed Orally twice a day Active Dulcolax 10 MG 1 suppository as needed Rectal Once a day/as needed Active traZODone HCl 50 MG 1/2 to1 tablet at bedtime as needed Orally Once at hs prn insomnia Active Levothyroxine Sodium 75 MCG 1 tablet Orally Once a day Active Omeprazole 20 MG 2 tablets Orally Onc e a day Active Triamcinolone Acetonide 0.1 % 1 application to affected area Externally Twice a day Active Benadryl Allergy 25 MG 1 tablet as neede d Orally every 8 hrs as needed Active Clotrimazole 1 % 1 application to affected area Externally Twice a day Active Cyanocobalamin 1000 MCG 1 tablet Orally Once a day/with every 3 month injections Active Ibuprofen 400 MG 1 tablet Orally Thre e times a day Not-Taking VITAL SIGNS BMI 24.44 kg/m2 11/22/2023 Blood pressure systolic 00 mm Hg 11/22/19 24 Blood pressure diastolic 00 mm Hg 024 Height 59 in 11/22/2023 Weight 121 lbs 11/22/2023 Encounters Encounter Location Date Provider Diagnosis [facility] [address] [place] [address] 11/22/2023 Clarence Perry Other cirrhosis of liver K74.69 and Iron deficiency anemia due to chronic blood loss D50.0 ASSESSMENTS Encounter Date Diagnosis Assessment Notes Treatment Notes Treatment Clinical Notes 11/22/2023 Other cirrhosis of liver (ICD-10 - K74.69) 11/22/2023 Iron deficiency anemia due to chronic blood loss (ICD-10 - D50.0) PLAN OF TREATMENT Pending Test Test Name Order Date ALPHA-FETOPROTEIN,TUMOR MARKER Prothrombin Time INR 11/22/2023 Liver Fibrosis Pnl 11/22/2023 US abdomen comp w elastography Next Appt Details Follow Up: 1 Year, Reason: Provider Name:Clarence Perry , 11/24/2024 01:00:00 PM, [address] [facility], [address], [place], [address], Progress Notes * Examination Category Sub-Category Detail Notes General Examination GENERAL APPEARANCE: pleasant , well nourished, well developed, in no acute distress HEAD: EYES: sclera non-icteric EARS: NOSE: THROAT: NECK/THYROID: no cervical lymphade nopathy, neck supple HEART: S1, S2 normal CHEST: LUNGS: clear to auscultatio n bilaterally ABDOMEN: normal bowel sounds, no guarding or rigidity, no guarding or rigidity, no masses palpable, soft, nontender, nondistended NEUROLOGIC: alert and oriented SKIN: nonjaundiced, no spi germán angiomata EXTREMITIES: no edema PERIPHERAL PULSES: BACK: BREASTS: MUSCULOSKELETAL: MALE GENITOURINARY: LYMPH NODES: RECTAL EXAM: FEMALE GENITOURINARY: ORAL CAVITY: mucosa moist
--- OUTSIDE RECORDS SUMMARY | 2024-03-25 16:16 | XMS_ITS | Encounter Summary ---
Author Organization [employer] Address [address] [facility] 7[address] [place] [address] Care Team Providers Care Logging Shovel Operator Name Role Phone Name, Joseluis ZAMORA Primary Care Provider [phone] Encounter Details Date Type Department Care Team (Late st Contact Info) Description 07/16/2022 Abstract [facility] MEDICINE [address] [place] [address] Name, MD Joseluis [address] [place] [id number] Social History Tobacco Use Types Packs/Day Years [...] suspected to have Coronavirus/COVID-19? No / Unsure 07/11/2022 9:59 AM EDT documented as of this encounter Plan of Treatment Upcoming Encounters Date Type Department Care Team (Late st Contact Info) Description 05/01/2024 9:30 AM EDT Telemedicine [facility] MEDICINE [address] [place] [address] Gabriella Florez, RN documented as of this encounter Visit Diagnoses Not on filedocumented in this encounter Additional Health Concerns Assessment Noted Time PHQ-9 Depression Total Score: 0 05/12/19 23 10:10 AM EDT documented as of this encounter Care Teams Logging Shovel Operator Relationship Specialty Start Date End Date Name, MD Joseluis [address] [place] [address] PCP - General Family Medicine 04/14/15 documented as of this encounter
--- OUTSIDE RECORDS SUMMARY | 2024-03-25 16:16 | XMS_ITS | Encounter Summary ---
Author Organization [employer] Address [address] [facility] 7[address] [place] [address] Care Team Providers Care Boiler Shop Mechanic Name Role Phone Name, Joseluis ZAMORA Primary Care Provider [phone] Reason for Visit * Reason Comments Med Refill Encounter Details Date Type Department Care Team ([facility] st Contact Info) Description 02/18/[address] [facility] MEDICINE [address] [place], [place] [phone] Name, MD Joseluis [address] [place] [address] Osteoarthritis of left knee, unspecified osteoarthritis type Social History Tobacco Use Types Packs/Day Years Used Date Smoking Tobacco: Never Smokeless Tobacco: Never Alcohol Use Standard Drinks/Week Comments Never 0 (1 standard drink = 0.6 oz pur e alcohol) Depression Answer Date Recorded Patient Health Questionnaire-9 Score 4 11/01/2023 Patient Health Questionnaire-9 Score 4 11/01/2023 Last PHQ-9: Questionnaire Data Not on file 0 11/01/2023 Housing Stability Answer Date Recorded What is [...] Answer Date Recorded Patient Health Questionnaire-2 Score 2 11/01/2023 Comments Unknown Sex and Gender Information Value Date Recorded Sex Assigned at Female 12/11/2021 10:16 AM EDT Legal Sex Female 10:16 AM EDT Gender Identity Female 12/11/2021 10:16 AM EDT Sexual Orientation Straight 12/11/2021 10 :16 AM EDT documented as of this encounter Plan of Treatment Upcoming Encounters Date Type Department Care Team (Late st Contact Info) Description 05/01/2024 9:[address] [facility] MEDICINE [address] [place] [address] Gabriella Florez RN documented as of this encounter Visit Diagnoses Diagnosis Osteoarthritis of left knee, unspecified osteoarthritis type documented in this encounter Additional Health Concerns Assessment Noted Time PHQ-9 Depression Total Score: 4 11/01/19 24 4:22 PM EDT documented as of this encounter Care Teams Boiler Shop Mechanic Relationship Specialty Start Date End Date Name, MD Joseluis [address] [place] [address] PCP - General Family Medicine 04/14/15 documented as of this encounter
--- OUTSIDE RECORDS SUMMARY | 2024-03-25 16:16 | XMS_ITS | Encounter Summary ---
Author Organization [employer] Address [address] [facility] 7t [place] [address] Care Team Providers Care Test Hole Driller Name Role Phone Name, Joseluis ZAMORA Primary Care Provider [phone] Reason for Visit * Reason Comments Med Refill Encounter Details Date Type Department Care Team ([facility] st Contact Info) Description 02/25/2024 Refill [facility] MEDICINE [address] [place], [place] [phone] Name, MD Joseluis [address] [place] [address] Osteoarthritis of left knee, unspecified osteoarthritis type; Vitamin B12 deficiency; Osteoarthritis of left knee, unspecified osteoarthritis type [...] your housing situation today? I have sonja sing 11/28/[address] you li [...] Info) Description 05/01/2024 9:30 AM EDT Telemedicine [facility] MEDICINE [address] [place] [address] Gabriella Florez RN documented as of this encounter Visit Diagnoses Diagnosis Osteoarthritis of left knee, unspecified osteoarthritis type Vitamin B12 deficiency Other B-complex deficiencies documented in this encounter Additional Health Concerns Assessment Noted Time PHQ-9 Depression Total Score: 4 11/01/19 24 4:22 PM EDT documented as of this encounter Care Teams Test Hole Driller Relationship Specialty Start Date End Date Name, MD Joseluis [address] [place] [address] PCP - General Family Medicine 04/14/15 documented as of this encounter
--- OUTSIDE RECORDS SUMMARY | 2024-03-25 16:16 | XMS_ITS | Encounter Summary ---
Author Organization [employer] Address [address] [facility] 7t [place] [address] Care Team Providers Care Automatic Riveting Machine Operator Name Role Phone Name, Joseluis ZAMORA Primary Care Provider [phone] Encounter Details Date Type Department Care Team (Late Contact Info) Description 04/09/2022 Orders Only [facility] CH[facility] MED & PEDS [address] [place], [place] [phone] Marielena Neff LPN Social History Tobacco Use [...] 05/01/2024 9:30 AM EDT Telemedicine [facility] MEDICINE [address] [place] [address] Gabriella Florez RN documented as of this encounter Visit Diagnoses Not on filedocumented in this encounter Care Teams Automatic Riveting Machine Operator Relationship Specialty Start Date End Date Name, MD Joseluis [address] [place] [address] PCP - General Family Medicine 04/14/15 documented as of this encounter
--- OUTSIDE RECORDS SUMMARY | 2024-03-25 16:16 | XMS_ITS | Encounter Summary ---
Author Organization [employer] Address [address] [facility] 7t [place] [address] Care Team Providers Care Mine Surveyor Name Role Phone Name, Joseluis ZAMORA Primary Care Provider [phone] Encounter Details Date Type Department Care Team (Late st Contact Info) Description 02/14/2022 Orders Only [facility] CH[facility] MED & PEDS [address] [place] [address] Marielena Neff LPN Social History Tobacco Use [...] Info) Description 05/01/2024 9:30 AM EDT Telemedicine [facility] MEDICINE [address] [place] [address] Gabriella Florez, RN documented as of this encounter Visit Diagnoses Not on filedocumented in this encounter Care Teams Mine Surveyor Relationship Specialty Start Date End Date Name, MD Joseluis [address] [place] [address] PCP - General Family Medicine 04/14/15 documented as of this encounter
--- OUTSIDE RECORDS SUMMARY | 2024-03-25 16:16 | XMS_ITS | Encounter Summary ---
Author Organization [employer] Address [address] [facility] 7t [place] [address] Care Team Providers Care Satellite Dish Technician Name Role Phone Name, Joseluis ZAMORA Primary Care Provider [phone] Reason for Visit * Reason Comments Med Refill Encounter Details Date Type Department Care Team ([facility] st Contact Info) Description 06/26/2022 Refill [facility] [address] [place] [address] Carole Elena FNP [address] [place] [address] [employer] Social History Tobacco Use Types Packs/Day Years [...] suspected to have Coronavirus/COVID-19? No / Unsure 06/26/2022 2:46 PM EDT documented as of this encounter Miscellaneous Notes * Telephone Encounter - Elis Tierney RN - 06/28/2022 12:40 PM EDT Automatic refill. No action necessary documented in this encounter Plan of Treatment Upcoming Encounters Date Type Department Care Team (Late st Contact Info) Description 05/01/2024 9:30 AM EDT Telemedicine [facility] MEDICINE [address] [place] [address] Gabriella Florez RN documented as of this encounter Visit Diagnoses Diagnosis [employer] Other specified erythematous condition documented in this encounter Additional Health Concerns Assessment Noted Time PHQ-9 Depression Total Score: 0 05/12/19 23 10:10 AM EDT documented as of this encounter Care Teams Satellite Dish Technician Relationship Specialty Start Date End Date Name, MD Joseluis [address] [place] [address] PCP - General Family Medicine 04/14/15 documented as of this encounter
--- OUTSIDE RECORDS SUMMARY | 2024-03-25 16:16 | XMS_ITS | Encounter Summary ---
Author Organization [employer] Address [address] [facility] 7t [place] [address] Care Team Providers Care Wheelchair Driver Name Role Phone Name, Joseluis ZAMORA Primary Care Provider [phone] Reason for Visit * Reason Comments Med Refill Encounter Details Date Type Department Care Team ([facility] st Contact Info) Description 02/05/2023 Refill [facility] [address] [place], [place] [phone] Name, MD Joseluis [address] [place] [address] Osteoarthritis of left knee, unspecified osteoarthritis type; Osteoarthritis of left knee, unspecified osteoarthritis type [...] encounter Miscellaneous Notes * Telephone Encounter - Ashlee Zimmer RN - 02/06/2023 4:29 PM EST Per [facility] check 02/06/23 pt filled a 28 day supply of Tramadol 50mg on 01/15/23 and is due for refill 02/12/23. Acetaminophen 500 mg tab is not listed on pt's active meds. documented in this encounter Plan of Treatment Upcoming Encounters Date Type Department Care Team (Late st Contact Info) Description 05/01/2024 9:30 AM EDT Telemedicine [facility] MED[facility] [address] [place] [address] Gabriella Florez RN documented as of this encounter Visit Diagnoses Diagnosis Osteoarthritis of left knee, unspecified osteoarthritis type documented in this encounter Additional Health Concerns Assessment Noted Time PHQ-9 Depression Total Score: 0 05/12/19 10:10 AM EDT documented as of this encounter Care Teams Wheelchair Driver Relationship Specialty Start Date End Date Name, MD Joseluis [address] [place] [address] PCP - General Family Medicine 04/14/15 documented as of this encounter
--- OUTSIDE RECORDS SUMMARY | 2024-03-25 16:16 | XMS_ITS | Encounter Summary ---
Author Organization [employer] Address [address] [facility] 7t [place] [address] Care Team Providers Care Building Carpenter Helper Name Role Phone Name, Joseluis ZAMORA Primary Care Provider [phone] Reason for Visit * Reason Onset Date Comments Durable Medical Equipment 10/12/2022 Encounter Details Date Type Department Care Team ([facility] st Contact Info) Description 10/12/2022 Telephone [facility] MEDICINE [address] [place], [place] [phone] Name, MD Joseluis [address] [place] [address] Durable Medical Equipment Social History Tobacco Use [...] encounter Miscellaneous Notes * Telephone Encounter - Teresa Porter - 10/12/2022 12:54 PM EDT Please message below and advise * Telephone Encounter - Mandy Myles - 10/12/2022 12:05 PM EDT Tc from [facility] from [facility] requesting a new script for commode seat and also requesting status on script for shoes per patient request stated PCP placed a script however Ines is unsure if they are for diabetic shoes. Please contact at [phone] documented in this encounter Plan of Treatment Upcoming Encounters Date Type Department Care Team (Late st Contact Info) Description 05/01/2024 9:30 AM EDT Telemedicine [facility] MEDICINE [address] [place] [address] Gabriella Florez RN documented as of this encounter Visit Diagnoses Not on filedocumented in this encounter Additional Health Concerns Assessment Noted Time PHQ-9 Depression Total Score: 0 05/12/19 23 10:10 AM EDT documented as of this encounter Care Teams Building Carpenter Helper Relationship Specialty Start Date End Date Name, MD Joseluis [address] [place] [address] PCP - General Family Medicine 04/14/15 documented as of this encounter
--- OUTSIDE RECORDS SUMMARY | 2024-03-25 16:16 | XMS_ITS | Encounter Summary ---
Author Organization [employer] Address [address] [facility] 7t [place] [address] Care Team Providers Care Lode Miner Blasting Name Role Phone Name, Joseluis ZAMORA Primary Care Provider [phone] Encounter Details Date Type Department Care Team (Late st Contact Info) Description 12/30/2022 Abstract [facility] MEDICINE [address] [place] [address] Regina Enamorado Social History Tobacco Use Types Packs/Day Years [...] Info) Description 05/01/2024 9:30 AM EDT Telemedicine [facility] MEDICINE [address] [place] [address] Gabriella Florez, KARMEN documented as of this encounter Procedures Procedure Name Priority Date/Time Associated Diagnosis Comments COLONOSCOPY Routine 09/26/2015 documented in this encounter Results * Colonoscopy (09/26/2015) Colonoscopy Normal Normal Narrative Regina Enamorado - 09/26/2015 Repeat in 10 years Historical Provider HEALTH MAINTENANCE Final Result documented in this encounter Visit Diagnoses Not on filedocumented in this encounter Additional Health Concerns Assessment Noted Time PHQ-9 Depression Total Score: 0 05/12/19 23 10:10 AM EDT documented as of this encounter Care Teams Lode Miner Blasting Relationship Specialty Start Date End Date Name, MD Joseluis [address] [place] [address] PCP - General Family Medicine 04/14/15 documented as of this encounter
--- OUTSIDE RECORDS SUMMARY | 2024-03-25 16:16 | XMS_ITS | Clinical Summary ---
Author Organization [employer] Address [address] [facility] [address] [place] [address] Care Team Providers Care Home Care Specialist Name Role Phone Name, Joseluis ZAMORA Primary Care Provider [phone] Allergies No known active allergies Medications clotrimazole-beta methasone (Lotrisone) creamIndications: Intertrigo APPLY TO AFFECTED AREA(S) AND SURROUNDING AREA(S) TWICE DAILY IN THE MORNING AND EVENING 45 g 2 023 Active albuterol 108 (90 Base) MCG/ACT inhaler INHALE 2 PUFFS FOUR TIMES DAILY NEEDED FOR WHEEZING OR SHORTNESS OF BREATH 022 Active Blood Pressure kitIndications:Ho spital discharge follow-up 1 kit 2 times daily. 1 kit 023 Active Misc. Devices (Pulse Oximeter) miscIndications:H ospital discharge follow-up 1 Device 2 times daily. 1 each 023 Active Premarin 0.625 MG/GM cream INSERT /2 TO 1 GRAM VAGINALLY ONCE DAILY FOR 2 WEEKS, THEN DECREASE TO 1-3 TIMES PER WEEK ONLY NEEDED. 30 g 3 023 Active traZODone (Desyrel) 50 MG tabletIndications :Insomnia, unspecified type TAKE 1 TABLET BY MOUTH EVERY DAY AT BEDTIME 30 tablet 5 024 Active Diclofenac Sodium 1 % gel APPLY 2 GRAMS TOPICALLY TO AFFECTED AREA(S) TWICE DAILY NEEDED 100 g 5 024 Active esomeprazole (NexIUM) [address] capsule Take 1 capsule (20 mg) by mouth before breakfast. Do not open capsule. 30 capsule 11 024 2024 Active docusate sodium (Colace) 100 MG capsule TAKE 1 CAPSULE BY MOUTH TWICE DAILY 60 capsule 3 024 Active gabapentin (Neurontin) 300 MG capsuleIndication s:Osteoarthritis of left knee, unspecified osteoarthritis type TAKE 1 CAPSULE BY MOUTH EVERY DAY IN THE MORNING 90 capsule 1 024 Active levothyroxine (Synthroid, Levoxyl) 75 MCG tabletIndications :Hypothyroidism, unspecified type TAKE 1 TABLET BY MOUTH EVERY DAY IN THE MORNING 30 tablet 025 Active Acetaminophen Extra Strength 500 MG tabletIndications :Osteoarthritis of left knee, unspecified osteoarthritis type TAKE 2 TABLETS BY MOUTH EVERY 8 HOURS NEEDED FOR MILD OR MODERATE PAIN 168 tablet 3 025 Active cyanocobalamin (Vitamin B-12) 1000 MCG tabletIndications :Vitamin B12 deficiency TAKE 1 TABLET BY MOUTH EVERY DAY 30 tablet 3 025 Active traMADol (Ultram) 50 MG tabletIndications :Osteoarthritis of left knee, unspecified osteoarthritis type TAKE 1 TABLET BY MOUTH EVERY DAY NEEDED FOR SEVERE PAIN FOR UP TO 28 DAYS 28 tablet 025 Active Acetaminophen Extra Strength 500 MG tabletIndications :Osteoarthritis of left knee, unspecified osteoarthritis type TAKE 2 TABLETS BY MOUTH EVERY 8 HOURS NEEDED FOR MILD OR MODERATE PAIN 168 tablet 3 024 2024 Discontinued cyanocobalamin (Vitamin B-12) 1000 MCG tabletIndications :Vitamin B12 deficiency TAKE 1 TABLET BY MOUTH ONCE DAILY 30 tablet 024 2024 Discontinued traMADol (Ultram) 50 MG tabletIndications :Osteoarthritis of left knee, unspecified osteoarthritis type TAKE 1 TABLET BY MOUTH DAILY NEEDED FOR SEVERE PAIN FOR UP TO 28 DAYS. 28 tablet 024 2024 Discontinued Active Problems Problem Noted Date Diagnosed Date UTI symptoms 12/14/2023 Assessment & Plan (12/14/2023 9:05 AM EDT): Negative POCT urinalysis Avoid holding your urine Stay hydrated Call the office if hematuria, urine retention, fever, flank pain Lower abdominal pain 12/14/2023 Diarrhea 12/14/2023 Exercise counseling 12/14/2023 Assessment & Plan (12/14/2023 9:41 AM EDT): Be physically active at least 30 minutes a day Dietary counseling 12/14/2023 Assessment & Plan (12/14/2023 9:40 AM EDT): Eat 3 meals a day, especially breakfast Eat healthy and focus on healthyfood choices daily fruits, vegetables, grains, low fat milk, low carbohydrate and fat Maintain healthy weight. Iron deficiency anemia due to chronic blood loss 10/09/2022 Osteoarthritis of left knee 10/09/2022 Benign neoplasm of stomach 07/06/2022 Cirrhosis of liver 07/06/2022 Diverticular disease of colon 07/06/2022 Encounter for screening for malignant neoplasm o f rectum 07/06/2022 Gastro-esophageal reflux disease without esophag itis 07/06/2022 Abnormal gait 03/13/2022 Calcification of breast 03/13/2022 Constipation 03/13/2022 Fatty liver disease, nonalcoholic 03/13/2022 Recurrent falls 03/13/2022 Vertigo 03/13/2022 Osteoarthritis of both hands 03/13/2022 Seasonal allergic reaction 05/07/2018 Insomnia 03/05/2017 Pain in lower limb 03/05/2017 Assessment & Plan (10/06/2022 10:23 AM EDT): Patient requesting appointment with PCP to discuss. Follow up submitted for recall list. Commode ordered due to leg pain. WILLARD positive 10/10/2016 Assessment & Plan (03/13/2022 6:18 PM EST): -Previously following with [facility] for WILLARD positive and OA of left knee and bilat hands -Last available consult note from August 2018 -Referral to re-establish care with Rheum Joint pain 10/01/2016 Nutritional anemia 07/11/2016 Prediabetes 07/11/2016 Knee pain 12/01/2015 Hypothyroidism 01/25/2012 Allergic reaction 10/03/2011 Vitamin B deficiency 07/31/2011 Resolved Problems Problem Noted Date Diagnosed Date Resolved Date Gastritis 07/06/2022 05/06/2023 Hospital discharge follow-up 06/13/2022 06/26/2022 Assessment & Plan (06/13/2022 10:39 AM EDT): Patient seems to be in good spirits today. Physical was negative except for some mild edema and tenderness in LE bilaterally. Patients STUDENT AFFAIRS DEAN reports GI and rheumatology follow ups already scheduled. Denies any color maker dyer f/up. They are requesting a visit with her PCP for leg pain. I ordered the BP cuff and pulse ox but in terms of durable medical equipment I instructed them to bring that up to her PCP at her next appointment. Acute diastolic CHF (congest anton heart failure) 06/13/2022 06/13/2022 Generalized abdominal pain 03/13/2022 0 05/06/2023 Hematochezia 03/13/2022 05/06/2023 Perineal rash in female 07/15/201706/13 Encounters Date Type Department Care Team Description 02/25/2024 Refill [facility] [address] [place] [address] Joseluis Jaeger MD Osteoarthritis of left knee, unspecified osteoarthritis type; Vitamin B12 deficiency; Osteoarthritis of left knee, unspecified osteoarthritis type 02/20/2024 Refill [facility] [address] [place] [address] [place], [place], [facility] Hypothyroidism, unspecified type 02/18/2024 Refill [facility] [address] [place] [address] Joseluis Jaeger MD Osteoarthritis of left knee, unspecified osteoarthritis type 02/14/2024 11:00 AM EST Telemedicine [facility] [address] [place] [address] Gabriella Florez, RN Osteoarthritis of left knee, unspecified osteoarthritis type 02/14/2024 Telephone [facility] [address] [place] [address] Gabriella Florez, RN Recommend FOOD ADVISER Tele Tier 2 01/27/2024 Refill [facility] [address] [place] [address] Diann Booth NP Vitamin B12 deficiency; Osteoarthritis of left knee, unspecified osteoarthritis type 01/09/2024 Refill [facility] [address] [place] [address] Joseluis Jaeger MD Osteoarthritis of left knee, unspecified osteoarthritis type 12/30/2023 Orders Only GENERIC EXTERNAL DATA DEPARTMENT Provider, Generic External Data from Last 3 Months Immunizations Name Administration Dates Next Due Hep A, Adult 07/30/2007,09/02/2006 Hep B, adult 07/30/2007,10/03/2006,09/02/2006 INFLUENZA INJECTABLE QUADRIV ALANT CCIIV4 MDCK Multi-dose vial 01/04/2021 Influenza High-dose Quadriva lent Preservative Free 01/01/2023,12/13/2021,10/15/2019 Influenza injectable quadriv alent IIV4 with preservative 12/01/2015 Influenza injectable quadriv alent preservative free 10/26/2019,11/15/2014 Influenza, High Dose Seasona l, Preservative Free 11/01/2023,01/02/2019,11/04/2017 Influenza, IIV3, injectable 01/02/2022, 5,10/19/2010 Influenza, seasonal, injecta ble, preservative free 11/11/2013 Pfizer Covid-19 Vaccine 12+ 11/01/2023, Pfizer Covid-19 Vaccine 12+ Bivalent 12/13/2021 Pfizer Covid-19 Vaccine 12+ amber-sucrose (Raphael Cap) 08/16/2021,04/18/2020,03/28/2020 Pneumococcal Conjugate PCV 13 10/15/2019, 016 Pneumococcal Polysaccharide PPSV23 03/05/2017 TD (adult), 2 Lf tetanus tox oid, preservative free, adsorbed 02/07/2005 Tdap 12/01/2015 Zoster, Recombinant 03/07/2021,01/04/2021 Social History Tobacco Use Types Packs/Day Years Used Date Smoking Tobacco: Never Smokeless Tobacco: Never Tobacco Cessation:Counseling Given: Not Answered Alcohol Use Standard Drinks/Week Comments Never 0 [...] Orientation Straight 12/11/2021 10 :16 AM EDT Last Filed Vital Signs Vital Sign Reading Time Taken Comments Blood Pressure 116/69 12/13/2023 1:38 PM EDT Pulse 63 12/13/2023 1:38 PM EDT Temperature 37 ??C (98.6 ??F) 12/02/2023 3:39 PM EDT Respiratory Rate 14 12/13/2023 1:38 PM EDT Oxygen Saturation 98% 12/13/2023 1:38 PM EDT Inhaled Oxygen Concentration - - Weight 52.2 kg (115 lb) 12/13/2023 1:38 PM EDT Height 139.7 cm (4' 7 ) 12/02/2023 3:39 PM EDT Body Mass Index 26.73 12/02/2023 3:39 PM EDT Plan of Treatment Upcoming Encounters Date Type Department Care Team (Late st Contact Info) Description 05/01/2024 9:30 AM EDT Telemedicine [facility] [address] [place] [phone] Gabriella Florez, RN Health Maintenance Due Date Last Done Comments CT Colonography 1950 Diabetes: Hemoglobin A1C 1950 FIT DNA/Cologuard 1950 FIT 1950 FOBT 1950 Sigmoidoscopy 1950 Alcohol/Substance Use Screening 1960 SDOH Screening 05/12/2023 05/11/2022 RSV Patients and Patients Aged 60 years or older (1 - 1-dose 75+ series) 08/05/2023 Depression Screening 10/31/2024 11/01/2023, 11/01/19 Tobacco Screening 12/12/2024 12/13/2023 Colonoscopy 09/25/2025 09/26/2015 Colorectal Cancer Screening 09/25/2025 DTaP/Tdap/Td Vaccines (2 - Td or Tdap) 11/30/2025 12/01/2015, 02/07/2005 Hepatitis A Vaccines Completed 07/30/2007, 09/03/19 07 Hepatitis B Vaccines Completed 07/30/2007, 10/03/2006, 09/02/2006 Pneumococcal Vaccine: 50+ Years Completed 10/15/2019, 03/05/2017, 07/26/2015 Zoster Vaccines Completed 03/07/2021, 01/04/2021 Hepatitis C Screening Completed 03/31/2021 COVID-19 Vaccine Completed 11/01/2023, 03/2021, 08/16/2021, Additional history exists Influenza Vaccine Completed 11/01/2023, , 01/02/2022, Additional history exists HIB Vaccines Aged Out No longer eligi ble based on patient's age to complete this topic HPV Vaccines Aged Out No longer eligi ble based on patient's age to complete this topic IPV Vaccines Aged Out No longer eligi ble based on patient's age to complete this topic Meningococcal Vaccine Aged Out No zandra bart eligible based on patient's age to complete this topic RSV under 20 months Aged Out No longe r eligible based on patient's age to complete this topic Rotavirus Vaccines Aged Out No longer eligible based on patient's age to complete this topic Procedures Procedure Name Priority Date/Time Associated Diagnosis Comments BI MAMMOGRAM SCREENING TOMOSYNTHESIS BILATERAL Routine 01/29/2024 2:15 PM EST GASTROINTESTINAL PANEL Routine 3:00 PM EST Lower abdominal pain Diarrhea, unspecified type HEMATOXYLIN AND EOSIN STAIN Routine 12/30/2023 10:34 AM EST ZZZ HISTORICAL HEPATITIS C AB W/REFL TO HCV RNA, QN, PCR Routine 03/31/2021 12:01 PM EST HM COLONOSCOPY Routine 09/26/2015 from Last 3 Months or Most Recently Relevant to Health Maintenance Results * BI Mammogram Screening Tomosynthesis Bilateral (01/29/2024 2:15 PM EST) Anatomical Region Laterality Modality Breast Bilateral Mammography 01/29/2024 2:15 PM EST Narrative 02/24/2024 12:10 PM EST ? [facility] ? [address] ?[place] [address] ? Mammography Report ? Signed ? Patient: Judd,Lena ?MR#: [id number] ?? 4 ? : 1950 ?Acct:[id number] ? Age/Sex: 73 / F ?ADM Date: 12/18/24 ? Loc: HO.MAMMO ? Attending Dr: Tae Reyes MD ? Ordering Physician: Tae Reyes MD ?Results: 2Benign ?? Findings ? Date of Service: 12/18/24 ?Follow Up: 1 Year From Orig ?? inal Mammogram ? Procedure(s): MM tomosynthesis screening BI ?? Accession Number(s): [id number] ? cc: Mil,Joseluis ZAMORA; Tae Reyes MD ? EXAMINATION: ?? MM SCREENING DIGITAL BREAST TOMOSYNTHESIS, BILATERAL ? CLINICAL INFORMATION: ? Screening. Asymptomatic. ? COMPARISON: ?? Mammography: Comparison is made with available priors ? TECHNIQUE: ?? Digital breast mammography with tomosynthesis is performed in both the ?? craniocaudal and mediolateral oblique views along with computer-aided ?? detection (CAD). ? FINDINGS: ?? There are scattered areas of fibroglandular density (ACR BI-RADS breast ?? composition Category b). ?? Left marker clip. ?? There are no significant masses, abnormal calcifications, or other ?? abnormalities. ? MM/MM tomosynthesis screening BI ?? IMPRESSION: ?? No mammographic evidence of malignancy. ? ASSESSMENT: ? BI-RADS BI-RADS 2 - Benign Findings ? RECOMMENDATION: ?? Routine annual mammography screening. ? 1 year F/U ? This examination should not preclude the clinical evaluation of a ?? suspicious palpable abnormality. ? This patient's information was entered into a reminder system with a ?? target due date for their next mammogram. ? Electronically signed by: ??Zohra Reis DO ??02/24/2024 12:07 PM EST ?? RP ? Dictated By: ?Zohra Reis DO ? Signed By: ?<Electronically signed by Zohra Reis, DO in OV> ? 02/24/24 1207 ? DD/ 1415 ? TD/TT: 01/29/24 1427 ? Operator Cavity Pump: ? Procedure Note Kieran, Image - 02/24/2024 [facility] [address] [place] [address] [place] [address] Mammography Report Signed Patient: Michelle Judd#: [id number] 4 : 9Acct:[id number] Age/Sex: 73 / FADM Date: 01/29/24 Loc: HO.MAMMO Attending Dr: Tae Reyes MD Ordering Physician: Tae Reyes MDResults: 2Benign Findings Date of Service: 01/29/24Follow Up: 1 Year From Orig inal Mammogram Procedure(s): MM tomosynthesis screening BI Accession Number(s): [id number] cc: Name,Joseluis ZAMORA; Tae Reyes MD EXAMINATION: MM SCREENING DIGITAL BREAST TOMOSYNTHESIS, BILATERAL CLINICAL INFORMATION: Screening. Asymptomatic. COMPARISON: Mammography: Comparison is made with available priors TECHNIQUE: Digital breast mammography with tomosynthesis is performed in both the craniocaudal and mediolateral oblique views along with computer-aided detection (CAD). FINDINGS: There are scattered areas of fibroglandular density (ACR BI-RADS breast composition Category b). Left marker clip. There are no significant masses, abnormal calcifications, or other abnormalities. MM/MM tomosynthesis screening BI IMPRESSION: No mammographic evidence of malignancy. ASSESSMENT: BI-RADS BI-RADS 2 - Benign Findings RECOMMENDATION: Routine annual mammography screening. 1 year F/U This examination should not preclude the clinical evaluation of a suspicious palpable abnormality. This patient's information was entered into a reminder system with a target due date for their next mammogram. Electronically signed by: Zohra Reis DO 02/24/2024 12:07 PM EST Dictated By: Zohra Reis DO Signed By: <Electronically signed by Zohra Reis DO in OV> 02/24/24 1207 DD/ 1415 TD/TT: 01/29/24 1427 Operator Cavity Pump: [facility] External Provider IMG BI PROCEDURES Edited Result - Final * Gastrointestinal panel (01/17/2024 3:00 PM EST) Campylobacter Not Detected Not Detect. [facility] Plesiomonas shigelloides Not Detected Not Detect. [facility] Salmonella Not Detected Not Detect. [facility] Vibrio Not Detected Not Detect. [facility] Vibrio cholerae Not Detected Not Detect. [facility] YERSINIA ENTEROCOLITICA Not Detected Not Detect. [facility] Enteroaggregative E. coli (EAEC) Not Detected Not Detect. [facility] Enteropathogenic E. coli (EPEC) Not Detected Not Detect. [facility] Enterotoxigenic E. coli (ETEC) lt/st Not Detected Not Detect. [facility] Shiga-like toxin-producing E. coli (STEC) stx1/stx2 Not Detected Not Detect. [facility] E coli O157 Not applicable Not Detect. [facility] Comment:E. coli containing t he O157 antigen are a subset ofShiga-like toxin- producing E. coli (STEC). Shigella/Enteroinvasive E. coli (EIEC) Not Detected Not Detect. [facility] Cryptosporidium Not Detected Not Detect. [facility] Cyclospora cayetanensis Not Detected Not Detect. [facility] Entamoeba histolytica Not Detected Not Detect. [facility] Giardia lamblia Not Detected Not Detect. [facility] Adenovirus F 40/41 Not Detected Not Detect. [facility] Astrovirus Not Detected Not Detect. [facility] Norovirus GI/GII Not Detected Not Detect. [facility] Rotavirus A Not Detected Not Detect. [facility] Sapovirus Not Detected Not Detect. [facility] Comment: All results must be correlated with clinical findings.Negative results do not exclude the possibility ofgastrointestinal infection and should not be used as thesole basis for diagnosis, treatment, or other managementdecisions. Virus, bacteria, and parasite nucleic acid maypersist in vivo independently of organism viability.Additionally, some organisms may be carriedasymptomatically.Detection of organism targets does not imply that thecorresponding organisms are infectious or are the causativeagents for clinical symptoms. There is a risk of falsenegative values due to the presence of sequence variants inthe gene targets of the assay, amplification inhibitors inspecimens, or inadequate numbers of organisms foramplification.The identification of several diarrheagenic E. colipathotypes has historically relied upon phenotypiccharacteristics. This panel targets genetic determinantscharacteristic of most pathogenic strains, but may notdetect all strains having phenotypic characteristics of apathotype.The performance of this test has not been established formonitoring treatment of infection with any of the panelorganisms.This assay is performed by Multiplexed PCR, utilizing [employer] Film Array. Stool Rectal contents / Unknown 01/17/2024 3:00 PM EST 01/17/2024 3:52 PM EST us Joseluis Jaeger MD LAB MICROBIOLOGY - GENERAL ORDER CRISTINE Final Result [facility] [address] [place] [phone] * Hematoxylin and Eosin Stain (12/30/2023 10:34 AM EST) 12/30/2023 10:3 4 AM EST 12/30/2023 1:26 PM EST Narrative [facility] - 01/06/2024 9:16 AM EST ----- ------- Name: Lena Judd ?Age/Sex: 73/F ? : 1950 Unit#: [id number] ?? Attend Dr: Tae Reyes MD ?Re12/30/23 ?Status: DEP REF ? Location: HO.LNP ?Disch: ? ----- ------- SPEC : [id number] ? RECD: 12/30/23-6 ? STATUS: ??SOUT ? REQ NUM: [id number] ? CARLITOS: 12/30/23-4 ? SUBM DR: Tae Reyes MD ? ENTERED: ??12/30/23 ?SP TYPE: Surgical ? OTHR DR: Name,Joseluis ZAMORA ? ORDERED: ??HE Stain/3, Gross Micro L4, IHC, Add. immunos, Specials Gr. 1, p16 ? COMMENTS: Block A sent to [facility] for p53 IHC on 12/31/23. ?Addendum Addendum ??1 ?Entered: 01/06/24 Immunostains show negative p16 and patchy wild-type p53 (limited epithelium). ??Controls stain appropriately. There is no evidence of dysplasia. Addendum Signed (signature on file) Emili [place] 01/06/24915 ? ----- ------- ? Diagnosis ?? 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 ? Comment: ??The features raise the possibility of a lichenoid contact dermatitis or ?? medication reaction. ??Postbiopsy changes could explain some of the lichenoid features. ?? Mild epithelial atypia is present and is likely reactive. ??Immunostains pending; report ?? to follow. ?Clinical History Vulva lesion ?Microscopic Description Microscopic sections reviewed. ??PAS-F stain is negative for fungi. ? Material Received ?? Left labia majora lesion ? Gross Description Received in formalin labeled ?left labia minora (sic) lesion? is a 0.1 cm in diameter punch biopsy of pale barbour skin versus squamous mucosa and subjacent fibrous tissue excised to a maximum depth of 0.25 cm, submitted in toto in a cassette labeled A. CEDS ? CONTINUED ON NEXT PAGE ----- ------- Name: Lena Judd ?Age/Sex: 73/F ? : 1950 Unit#: [id number] ?? Attend Dr: Tae Reyes MD ?Re12/30/23 ?Status: DEP REF ? Location: HO.LNP ?Disch: ? ----- ------- SPEC : [id number] ? RECD: 12/30/23 ? STATUS: ??SOUT ? REQ NUM: [id number] ? CARLITOS: 12/30/23-4 ? SUBM DR: Tae Reyes MD ? ENTERED: ??12/30/23 ?SP TYPE: Surgical ? OTHR DR: Joseluis Jaeger MD ? ORDERED: ??HE Stain/3, Gross Micro L4, IHC, Add. immunos, Specials Gr. 1, p16 ? COMMENTS: Block A sent to [facility] for p53 IHC on 12/31/23. ? Gross Description ?(Continued) This case was reviewed intradepartmentally. Special studies ordered and performed at [facility]: PAS-F on A1; immunostain for p16 on A1. Special studies ordered and performed at [facility]: ??p53 on A1. Copies To: ?? Joseluis Jaeger MD ?? [address] ?? [place] [address] ?? [phone] ?? Tae Reyes MD ?? [facility] ?? [address] ?? [place] [address] ?? [phone] ----- ------- Signed (signature on file) Emili Diomedes 01/02/24 1618 ? ----- ------- ? END OF REPORT ? us Generic External Data Provider LAB BLOOD ORDERAB LES Final Result [facility] [address] [place] [address] [place] [address] [phone] * HEPATITIS C AB W/REFL TO HCV RNA, QN, PCR (03/31/2021 12:01 PM EST) HEPATITIS C ANTIBODY NON-REACT ANTON NON-REACT ANTON [facility] INDEX 0.06 <1.00 [facility] Comment: ?? HCV antibody was non-reactive. There is no laboratory ?? evidence of HCV infection. ?? In most cases, no further action is required. However, if recent HCV exposure is suspected, a test for HCV RNA (test code 94715) is suggested. ?? For additional information please refer to http://education.Jelly HQ/faq/FRG22h0 (This link is being provided for informational/ educational purposes only.) ?? 03/31/2021 12:0 1 PM EST us Joseluis Name HISTORICAL/NON ORDERABLE LABS Fi nal Result [facility] [address] * Colonoscopy (09/26/2015) Colonoscopy Normal Normal Narrative Regina Enamorado - 09/26/2015 Repeat in 10 years us Historical Provider HEALTH MAINTENANCE Final Result from Last 3 Months or Most Recently Relevant to Health Maintenance [place] [facility] Teams Home Care Specialist Relationship Specialty Start Date End Date Name, MD Joseluis [address] [place] [phone] PCP - General Family Medicine 04/14/15
--- OUTSIDE RECORDS SUMMARY | 2024-03-25 16:16 | XMS_ITS | Patient Health Record ---
Author Organization [facility] Address [address] [place] [address] Care Team Providers Care Automobile Insurance Claim Examiner Name Role Phone Name Joseluis ZAMORA Primary Care Provider Clarence Crandall Unavailable [phone] ALLERGIES No Known Allergies REASON FOR REFERRAL Referring Provider First Name Joseluis Referring Provider Last Name Name Referring Provider Speciality Internal M edicine Referred Organization [facility] Referred Provider Clarence Perry Referred Address [address] [facility],[place], [place],[address],[place] Referred Provider Specialty Gastroentero logy General Notes Ny Gonzalez 024 08:13:39 AM EDT > requested a marc referral from [facility] for visit with Dr. Perry on 11-22-2023 Referral Priority Routine MEDICATIONS Medication SIG (Take, Route, Frequency, Duration) Notes Start Date End Date Status Colace 100 MG 1 capsule as needed Orally twice a day Unknown traZODone HCl 50 MG 1/2 to1 tablet at bedtime as needed Orally Once at hs prn insomnia Unknown Omeprazole 20 MG 2 tablets Orally Onc e a day Unknown Levothyroxine Sodium 75 MCG 1 tablet Ora lly Once a day Unknown Dulcolax 10 MG 1 suppository as nee ded Rectal Once a day/as needed Unknown Cyanocobalamin 1000 MCG 1 tablet Orally Once a day/with every 3 month injections Unknown Benadryl Allergy 25 MG 1 tablet as neede d Orally every 8 hrs as needed Unknown Triamcinolone Acetonide 0.1 % 1 application to affected area Externally Twice a day Unknown Clotrimazole 1 % 1 application to affected area Externally Twice a day Unknown Ibuprofen 400 MG 1 tablet Orally Thre e times a day Unknown IMMUNIZATIONS Vaccine Route Administration Date Status Comme nts Flu vaccine no Preserv 3 and > Unknown 11/11/2014 Admin istered Influenza Unknown 01/02/2022 Administered SOCIAL HISTORY Sex Assigned At : Social History Observation Description Sex Assigned At Unknown PROBLEMS Problem Type ICD Code Onset Dates Problem Status W/U Status Risk SNOMED Code Notes Problem Encounter for screening for malignant neoplasm of colon (Z12.11) Active confirmed 791249434 Problem Encounter for screening for malignant neoplasm of rectum (Z12.12) Active confirmed Screening for malignant neoplasm of rectum (507042923) Problem Other cirrhosis of liver (K74.69) Active confirmed 86642709 Problem Gastro-esophageal reflux disease without esophagitis (K21.9) Active confirmed 540511333 Problem Diverticulosis of large intestine without perforation or abscess without bleeding (K57.30) Active confirmed Diverticul ar disease of colon (115254294) Problem Gastritis (K29.70) Active confirmed Gas tritis (3865340) Problem 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 (12943586) Problem Iron deficiency anemia due to chronic blood loss (D50.0) Active confirmed 855514642 VITAL SIGNS Blood pressure diastolic 00 mm Hg 11/22/2023 Height 59 in 11/22/2023 Blood pressure systolic 00 mm Hg 11/22/2023 Weight 121 lbs 11/22/2023 BMI 24.44 kg/m2 11/22/2023 Encounters Encounter Location Date Provider Diagnosis [facility] [address] [place] [id number] 11/22/2023 Clarence Perry Other cirrhosis of liver K74.69 and Iron deficiency anemia due to chronic blood loss D50.0 [facility] [address] [place] [phone] 01/20/2024 Clarence Perry ASSESSMENTS Encounter Date Diagnosis Assessment Notes Treatment Notes Treatment Clinical Notes 11/22/2023 Other cirrhosis of liver (ICD-10 - K74.69) 11/22/2023 Iron deficiency anemia due to chronic blood loss (ICD-10 - D50.0) PLAN OF TREATMENT Pending Test Test Name Order Date LIVER PROFILE 09/12/2022 CBC w DIFF 09/12/2022 ALPHA-FETOPROTEIN,TUMOR MARKER 10/11/202 4 Prothrombin Time INR 11/22/2023 Liver Fibrosis Pnl 11/22/2023 US abdomen comp w elastography 4 Future Test Test Name Order Date UPPER GI ENDOSCOPY 08/30/2015 COLONOSCOPY 08/30/2015 Next Appt Details Provider Name:Clarence Perry , 11/24/2024 01:00:00 PM, [address] [place] [address], [address], [place], [address], Insurance Providers Payer Name Payer Address Payer Phone Subscriber Number Group Number Insured Name Patient Relationship to Insured Coverage Start Date Coverage End Date [employer] [address] [place] [phone] [id number] HUMZA WILLSON Self - patient is the insured MEDICAL (GENERAL) HISTORY Medical History History ICD Code Fatty liver and cirrhosis on an intraoperative liver biopsy by Dr Raphael 03-31-2004--her liver workup was otherwise negative Iron def anemia--Neg. colono scopy in 2001; EGD in 2001--moderate-sized hiatal hernia, tiny area of Holt's esophagus without dysplasia, and normal duodenal biopsies Denies ME,DM,CVA,Lung disease,renal dise ase Hypothyroidism Hospitalized for GI bleeding in May of 2022 with a hemoglobin of approximately 5. 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 There was no evidence of any varices nor portal gastropathy. Her colonoscopy was unremarkable. Surgical History Surgery Date(Month/Year) Laparoscopic cholecystectomy by Dr Raphael 2004
--- OUTSIDE RECORDS SUMMARY | 2024-03-25 16:16 | XMS_ITS | Encounter Summary ---
Author Organization [employer] Address [address] [facility] [address] [place] [address] Care Team Providers Care Cement Breaker Name Role Phone Name, Joseluis ZAMORA Primary Care Provider [phone] Encounter Details Date Type Department Care Team (Late st Contact Info) Description 01/14/2023 Orders Only [facility] & PEDS [address] [place], [place] [phone] Jacy Mccormick LPN Social History Tobacco Use Types Packs/Day [...] 05/01/2024 9:30 AM EDT Telemedicine [facility] MEDICINE [address] [place] [address] Gabriella Florez, KARMEN documented as of this encounter Visit Diagnoses Not on filedocumented in this encounter Additional Health Concerns Assessment Noted Time PHQ-9 Depression Total Score: 0 05/12/19 23 10:10 AM EDT documented as of this encounter Care Teams Cement Breaker Relationship Specialty Start Date End Date Name, MD Joseluis [address] [place] [address] PCP - General Family Medicine 04/14/15 documented as of this encounter
--- OUTSIDE RECORDS SUMMARY | 2024-03-25 16:16 | XMS_ITS ---
Author Organization [facility] Address [address] [place] [address] Care Team Providers Care Senior Storage Engineer Name Role Phone Name Joseluis ZAMORA Primary Care Provider Clarence Crandall [phone] MEDICATIONS Medication SIG (Take, Route, Frequency, Duration) Notes Start Date End Date Status Colace 100 MG 1 capsule as needed Orally twice a day Unknown Omeprazole 20 MG 2 tablets Orally Onc e a day Unknown Levothyroxine Sodium 75 MCG 1 tablet Ora lly Once a day Unknown Dulcolax 10 MG 1 suppository as nee ded Rectal Once a day/as needed Unknown Ibuprofen 400 MG 1 tablet Orally Thre e times a day Unknown traZODone HCl 50 MG 1/2 to1 tablet at bedtime as needed Orally Once at hs prn insomnia Unknown Cyanocobalamin 1000 MCG 1 tablet Orally Once a day/with every 3 month injections Unknown Benadryl Allergy 25 MG 1 tablet as neede d Orally every 8 hrs as needed Unknown Triamcinolone Acetonide 0.1 % 1 application to affected area Externally Twice a day Unknown Clotrimazole 1 % 1 application to affected area Externally Twice a day Unknown Encounters Encounter Location Date Provider Diagnosis [facility] [address] [place] [address] 01/20/2024 Clarence Perry PLAN OF TREATMENT Next Appt Details Provider Name:Clarence Perry , 11/24/2024 01:00:00 PM, [address], [address], [place], [address],
--- OUTSIDE RECORDS SUMMARY | 2024-03-25 16:16 | XMS_ITS | Encounter Summary ---
Author Organization [employer] Address [address] [facility] [address] [place] [address] Care Team Providers Care Court Interpreter Name Role Phone Name, Joseluis ZAMORA Primary Care Provider [phone] Encounter Details Date Type Department Care Team (Late st Contact Info) Description 03/02/2022 Orders Only [facility] CHC MED & PEDS [address] [place] [address] Marielena Neff LPN Social History Tobacco Use [...] Info) Description 05/01/2024 9:30 AM EDT Telemedicine [facility] MEDICINE [address] [place] [address] Gabriella Florez, RN documented as of this encounter Visit Diagnoses Not on filedocumented in this encounter Care Teams Court Interpreter Relationship Specialty Start Date End Date Name, MD Joseluis [address] [place] [address] PCP - General Family Medicine 04/14/15 documented as of this encounter
== END 2024-03-25 15:48 | disposition home or self-care (01) ==
LOC: HO.HWS 15:22
PROVIDERS: PCP Internal Medicine Geriatric Medicine; Visit Provider Obstetrics & Gynecology
DX: D25.9 Leiomyoma of uterus, unspecified (principal)
CPT/HCPCS: 99213

== ENCOUNTER → 2024-03-25 15:22 | Outpatient (BNVA) | payer OTHER, SELFPAY | PROVIDERS: PCP Internal Medicine Geriatric Medicine; Visit Provider Obstetrics & Gynecology | DX: D25.9 Leiomyoma of uterus, unspecified (principal) | CPT/HCPCS: 99212 ==

== ENCOUNTER 2024-05-01 08:51 | Outpatient (REF) | payer OTHER, SELFPAY ==
[2024-05-01 11:13] LABS: MANUAL DIFF FLAG NO
[2024-05-01 11:29] LABS: Basophils Absolute Auto 0.1 X10*3/uL (0.0-0.2); Basophils Percent Auto 1.2 % (0-2); Eosinophils Absolute Auto 0.3 X10*3/uL (0.0-0.4); Eosinophils Percent Auto 6.3 % (0-4); Hematocrit 31.5 % (37.0-47.0); Hemoglobin 10.2 g/dl (12.0-16.0); Imm Gran Abs Auto 0.01 X10*3/uL (0.00-0.03); Imm Gran Pct Auto 0.2 % (0.0-0.4); Lymphocytes Absolute Auto 1.3 X10*3/uL (1.2-4.9); Lymphocytes Percent Auto 25.4 % (20-40); Mean Corpuscular HGB Conc 32.4 g/dl (31.0-35.0); Mean Corpuscular Hemoglobin 26.5 pg (27.0-33.0); Mean Corpuscular Volume 81.8 fL (80.0-98.0); Mean Platelet Volume 10.6 fL (9.4-12.3); Monocytes Absolute Auto 0.4 X10*3/uL (0.1-1.2); Monocytes Percent Auto 8.1 % (2-11); Neutrophils Absolute Auto 3.1 x10*3/uL (2.0-8.3); Neutrophils Percent Auto 58.8 % (45-73); Platelet Count 299 X10*3/uL (160-400); Red Blood Count 3.85 X10*6/uL (4.20-5.50); White Blood Count 5.2 X10*3/uL (4.8-10.8)
[2024-05-01 11:42] LABS: Alanine Aminotransferase 9 U/L (0-31); Albumin Level 3.9 g/dL (3.5-5.0); Alkaline Phosphatase 56 U/L (39-117); Aspartate Amino Transferase 23 U/L (5-31); Bilirubin Total 0.4 mg/dL (0.0-1.0); Blood Urea Nitrogen 11 mg/dL (9-16); C Reactive Protein 0.15 mg/dL (< or = 0.50); Calcium 8.9 mg/dL (8.4-10.2); Estimated Glomerular Filt Rate > 60; Glucose Random 73 mg/dL (60-115); Total Protein 7.5 g/dL (6.5-8.0)
[2024-05-01 11:55] LABS: Anion Gap 10 (12-20); Carbon Dioxide 33 mmol/L (22-29); Chloride 102 mmol/L (96-108); Potassium 2.8 mmol/L (3.3-5.1); Sodium 142 mmol/L (135-145)
[2024-05-01 12:14] LABS: Erythrocyte Sedimentation Rate 25 MM/HR (0-20)
[2024-05-06 14:24] LABS: Vitamin D 25-OH, D2 <4 ng/mL; Vitamin D 25-OH, D3 10 ng/mL; Vitamin D 25-OH, Total 10 ng/mL (30-100)
== END 2024-05-01 08:52 | disposition home or self-care (01) ==
LOC: HO.HHCL 08:51
PROVIDERS: Visit Provider Student in an Organized Health Care Education/Training Program
DX: M81.0 Age-related osteoporosis without current pathological fracture (principal); E55.9 Vitamin D deficiency, unspecified
CPT/HCPCS: 36415; 80053; 82306; 85025; 85652; 86140

== ENCOUNTER 2024-06-04 12:09 | Outpatient (REF) | payer OTHER, SELFPAY ==
[2024-06-04 13:10] LABS: MANUAL DIFF FLAG NO
[2024-06-04 13:22] LABS: Basophils Absolute Auto 0.1 X10*3/uL (0.0-0.2); Basophils Percent Auto 1.2 % (0-2); Eosinophils Absolute Auto 0.3 X10*3/uL (0.0-0.4); Eosinophils Percent Auto 6.2 % (0-4); Hematocrit 29.2 % (37.0-47.0); Hemoglobin 9.2 g/dl (12.0-16.0); Imm Gran Abs Auto 0.01 X10*3/uL (0.00-0.03); Imm Gran Pct Auto 0.2 % (0.0-0.4); Lymphocytes Absolute Auto 0.9 X10*3/uL (1.2-4.9); Lymphocytes Percent Auto 17.7 % (20-40); Mean Corpuscular HGB Conc 31.5 g/dl (31.0-35.0); Mean Corpuscular Hemoglobin 25.3 pg (27.0-33.0); Mean Corpuscular Volume 80.4 fL (80.0-98.0); Monocytes Absolute Auto 0.4 X10*3/uL (0.1-1.2); Monocytes Percent Auto 8.7 % (2-11); Neutrophils Absolute Auto 3.3 x10*3/uL (2.0-8.3); Platelet Count 245 X10*3/uL (160-400); Red Blood Count 3.63 X10*6/uL (4.20-5.50); Red Cell Distribution Width 13.9 % (11.0-16.0)
[2024-06-04 13:41] LABS: Alanine Aminotransferase 8 U/L (0-31); Alkaline Phosphatase 53 U/L (39-117); Anion Gap 7 (12-20); Aspartate Amino Transferase 22 U/L (5-31); Bilirubin Total 0.4 mg/dL (0.0-1.0); Blood Urea Nitrogen 12 mg/dL (9-16); Calcium 9.3 mg/dL (8.4-10.2); Carbon Dioxide 33 mmol/L (22-29); Chloride 103 mmol/L (96-108); Estimated Glomerular Filt Rate > 60; Glucose Random 78 mg/dL (60-115); Iron 21 mcg/dL (30-160); Percent Iron Saturation 7 % (15-50); Potassium 3.3 mmol/L (3.3-5.1); Sodium 140 mmol/L (135-145); Total Iron Binding Capacity 305 mcg/dL (228-428); Total Protein 7.1 g/dL (6.5-8.0); Unsaturated Iron Binding 284 ug/dL
[2024-06-04 13:51] LABS: Ferritin 12 ng/mL (10-250); TSH reflex Free T4 0.46 uIU/mL (0.32-4.0)
[2024-06-04 14:07] LABS: Vitamin B12 1510 pg/mL (200-900)
--- OUTSIDE RECORDS SUMMARY | 2024-06-04 14:26 | XMS_ITS | Encounter Summary ---
Author Organization [employer] Address [address] [facility] [address] [place] [address] Care Team Providers Care Ham Pumper Name Role Phone Name, Joseluis ZAMORA Primary Care Provider [phone] Encounter Details Date Type Department Care Team ([facility] Contact Info) Description 03/20/2022 Orders Only [facility] CHC MED & PEDS [address] [place], [place] [phone] Marielena Neff LPN Social History Tobacco Use [...] Care Team (Late st Contact Info) Description 07/17/2024 11:00 AM EDT Telemedicine [facility] MEDICINE [address] [place] [address] Gabriella Florez RN documented as of this encounter Visit Diagnoses Not on filedocumented in this encounter Care Teams Ham Pumper Relationship Specialty Start Date End Date Name, MD Joseluis [address] [place] [address] PCP - General Family Medicine 04/14/15 documented as of this encounter
--- OUTSIDE RECORDS SUMMARY | 2024-06-04 14:26 | XMS_ITS | Encounter Summary ---
Author Organization [employer] Address [address] [facility] [address] [place] [address] Care Team Providers Care Business Employment Specialist Name Role Phone Name, Joseluis ZAMORA Primary Care Provider [phone] Encounter Details Date Type Department Care Team (Latest Contact Info) Description 06/04/2024 Travel Social History Tobacco Use Types Packs/Day Years Used Date Smoking Tobacco: Never Passive Smoke Exposure: Never Smokeless Tobacco: Never Alcohol Use Standard [...] Info) Description 07/17/2024 11:00 AM EDT Telemedicine [facility] MED[facility]INE [address] [place] [address] Gabriella Florez RN documented as of this encounter Visit Diagnoses Not on filedocumented in this encounter Additional Health Concerns Assessment Noted Time PHQ-9 Depression Total Score: 4 11/01/19 24 4:22 PM EDT documented as of this encounter Care Teams Business Employment Specialist Relationship Specialty Start Date End Date Name, MD Joseluis [address] [place] [address] PCP - General Family Medicine 04/14/15 documented as of this encounter
--- OUTSIDE RECORDS SUMMARY | 2024-06-04 14:26 | XMS_ITS | Encounter Summary ---
Author Organization [employer] Address [address] [facility] [address] [place] [address] Care Team Providers Care Personal Finance Instructor Name Role Phone Name, Joseluis ZAMORA Primary Care Provider [phone] Reason for Visit * Reason Comments Med Refill Encounter Details Date Type Department Care Team ([facility] st Contact Info) Description 02/18/2024 Refill [facility] MED[facility]INE [address] [place], [place] [phone] Name, MD Joseluis [address] [place] [address] Osteoarthritis of left knee, unspecified osteoarthritis type [...] Info) Description 07/17/2024 11:00 AM EDT Telemedicine [facility] [address] [place] [address] Gabriella Florez RN documented as of this encounter Visit Diagnoses Diagnosis Osteoarthritis of left knee, unspecified osteoarthritis type documented in this encounter Additional Health Concerns Assessment Noted Time PHQ-9 Depression Total Score: 4 11/01/19 24 4:22 PM EDT documented as of this encounter Care Teams Personal Finance Instructor Relationship Specialty Start Date End Date Name, MD Joseluis [address] [place] [address] PCP - General Family Medicine 04/14/15 documented as of this encounter
--- OUTSIDE RECORDS SUMMARY | 2024-06-04 14:26 | XMS_ITS | Encounter Summary ---
Author Organization [employer] Address 75 [facility] 7t [place] [address] Care Team Providers Care Heating Systems Installer Name Role Phone Joseluis Jaeger MD Primary Care Provider [phone] Reason for Referral * Imaging (Routine) - Authorized Specialty Diagnoses / Procedures Referred By Contac t Referred To Contact Radiology Diagnoses Fatty liver disease, nonalcoholic Cirrhosis of liver with ascites, unspecified hepatic cirrhosis type (CMS/HCC) (CMS/HCC) Procedures US Abdomen Comp w elastography NameJoseluis MD [address] [place] [phone] Phone: tel: fax: [address] Phone: tel: fax: Referral ID Status Reason Start Date Expiration Date V isits Requested Visits Authorized [id number] Authorized 06/04/2024 06/04/2025 1 1 Reason for Visit * Reason Comments Follow-up Encounter Details Date Type Department Care Team (Late st Contact Info) Description 06/04/2024 11:30 AM EDT Office Visit [facility] [address] [place] [address] [phone] Joseluis Jaeger MD [address] [place] [phone] Cirrhosis of liver with ascites, unspecified hepatic cirrhosis type (CMS/HCC) (CMS/HCC) (Primary Dx); Fatty liver disease, nonalcoholic; History of anemia; B12 deficiency; Vitamin D deficiency; Hypothyroidism, unspecified type; Hypokalemia Social History Tobacco Use Types Packs/Day Years Used Date Smoking Tobacco: Never Passive Smoke Exposure: Never Smokeless Tobacco: Never Tobacco Cessation:Counseling Given: [...] AM EDT documented as of this encounter Last Filed Vital Signs Vital Sign Reading Time Taken Comments Blood Pressure 135/65 06/04/2024 11:37 AM EDT Pulse 65 06/04/2024 11:37 AM EDT Temperature 36.7 ??C (98.1 ??F) 06/04/2024 11:37 AM E DT Respiratory Rate 20 06/04/2024 11:37 AM EDT Oxygen Saturation - - Inhaled Oxygen Concentration - - Weight 52.4 kg (115 lb 8 oz) 06/04/2024 11:37 AM EDT Height 138.4 cm (4' 6.48 ) 06/04/2024 11:37 AM E DT Body Mass Index 27.36 06/04/2024 11:37 AM EDT documented in this encounter Progress Notes * Joseluis Jaeger, - 06/04/2024 11:30 AM EDT Subjective Patient ID: Lena Judd is a 73 y.o. female who presents for Follow-up. Patient comes for a follow-up visit. She is accompanied by her TREE FRUIT AND NUT FARMING SUPERVISOR and she denies any complaints. She continues to follow with rheumatology for history of DJD. TREE FRUIT AND NUT FARMING SUPERVISOR explains to me that she was recently found to have hypokalemia and low vitamin D. The patient was prescribed a few days of potassium replacement and she is currently on vitamin D supplements. She has a personal history of cirrhosis without ascites secondary to nonalcoholic fatty liver. She has previous history of GI bleed about 2 years ago with negative EGD and colonoscopy. She avoids theuse of NSAIDs. She does not have increased abdominal girth or lower extremity edema. She is due to repeat her blood work and ultrasound of the liver. She was hepatitis C negative in the past. She hadhepatitis A and B vaccinations already. Review of Systems Constitutional: Negative for chills and fever. HENT: Negative for sore throat. Respiratory: Negative for cough, shortness of breath and wheezing. Cardiovascular: Negative for chest pain, palpitations and leg swelling. Gastrointestinal: Negative for abdominal pain. Visit Vitals BP 135/65 (BP Location: Right arm, Patient Position: Sitting, BP Cuff Size: Adult) Pulse 65 Temp 98.1 ??F (36.7 ??C) (Oral) Resp 20 Ht 4' 6.48 (1.384 m) Wt 115 lb 8 oz (52.4 kg) BMI 27.36 kg/m?? Smoking Status Never BSA 1.42 m?? Objective Physical Exam Constitutional: Appearance: Normal appearance. Cardiovascular: Rate and Rhythm: Normal rate and regular rhythm. Heart sounds: No murmur heard. No gallop. Pulmonary: Effort: Pulmonary effort is normal. No respiratory distress. Breath sounds: Normal breath sounds. No wheezing. Musculoskeletal: Right lower leg: No edema. Left lower leg: No edema. Neurological: Mental Status: She is alert. Assessment/Plan Diagnoses and all orders for this visit: Cirrhosis of liver with ascites, unspecified hepatic cirrhosis type (CMS/HCC) (CMS/HCC) Comments: Check blood work listed below. Repeat ultrasound of the liver, continue to avoid alcohol. Avoid sweets and soda. Orders: - CBC auto differential; Future - Comprehensive Metabolic Panel; Future - US Abdomen Comp w elastography; Future Fatty liver disease, nonalcoholic - CBC auto differential; Future - Comprehensive Metabolic Panel; Future - US Abdomen Comp w elastography; Future History of anemia Comments: Recheck CBC, iron and B12 levels Orders: - CBC auto differential; Future - Iron And Total Iron Binding Capacity; Future - Ferritin; Future B12 deficiency Comments: See above Orders: - Vitamin B12; Future Vitamin D deficiency Comments: Continue vitamin D supplements as prescribed by rheumatology. I will obtain her most recent blood work ordered by rheumatology Hypothyroidism, unspecified type Comments: Continue thyroid supplementation and recheck TSH. Orders: - TSH W/Reflex to FT4; Future Hypokalemia Comments: She will have recheck potassium with the blood work that I ordered today. documented in this encounter Plan of Treatment Upcoming Encounters Date Type Department Care Team (Late st Contact Info) Description 07/17/2024 11:00 AM EDT Telemedicine [facility] [address] [place] [phone] Gabriella Florez RN Scheduled Orders Name Type Priority Associated Diagnoses Orde r Schedule Comprehensive Metabolic Panel Lab Routine Fatty liver disease, nonalcoholic Cirrhosis of liver with ascites, unspecified hepatic cirrhosis type (CMS/HCC) (CMS/HCC) Expected: 06/04/2024 (Approximate), Expires: 06/04/2025 US Abdomen Comp w elastography Imaging Routine Fatty liver disease, nonalcoholic Cirrhosis of liver with ascites, unspecified hepatic cirrhosis type (CMS/HCC) (CMS/HCC) Expected: 06/04/2024, Expires: 06/04/2025 documented as of this encounter Procedures Procedure Name Priority Date/Time Associated Diagnosis Comments TSH W/REFLEX TO FT4 Routine 06/04/2024 1 2:12 PM EDT Hypothyroidism, unspecified type CBC WITH AUTO DIFFERENTIAL Routine 06/04/2024 12:12 PM EDT Fatty liver disease, nonalcoholic Cirrhosis of liver with ascites, unspecified hepatic cirrhosis type (CMS/HCC) (CMS/HCC) History of anemia IRON AND TOTAL IRON BINDING CAPACITY Routine 06/04/2024 12:12 PM EDT History of anemia FERRITIN Routine 06/04/2024 12:12 PM EDT History of anemia VITAMIN B12 Routine 06/04/2024 12:12 PM EDT B12 deficiency documented in this encounter Results * TSH W/Reflex to FT4 (06/04/2024 12:12 PM EDT) TSH reflex Free T4 0.46 0.32 - 4.0 uIU/mL [facility] Blood Venous blood specimen / Unknown 06/04/2024 12:12 PM EDT 06/04/2024 1:07 PM EDT us Joseluis Jaeger MD LAB BLOOD ORDERABLES Final Resul t Performing Organization Address [facility] Co de Phone Number [facility] [address] [place] [phone] * (ABNORMAL) Vitamin B12 (06/04/2024 12:12 PM EDT) Vitamin B12 1,510(H) 200 - 900 pg/mL [facility] Comment:NORMAL 200-900 PG/ML INDETERMINATE 160-199 PG/ML DEFICIENT < 160 PG/ML Blood Venous blood specimen / Unknown 06/04/2024 12:12 PM EDT 06/04/2024 1:07 PM EDT us Joseluis Jaeger MD LAB BLOOD ORDERABLES Final Resul t Performing Organization Address City/[facility]/ZIP Co de Phone Number [facility] [address] [place] [phone] * Ferritin (06/04/2024 12:12 PM EDT) Pathologist [facility] Ferritin 12 10 - 250 ng/mL [facility] Blood Venous blood specimen / Unknown 06/04/2024 12:12 PM EDT 06/04/2024 1:07 PM EDT us Joseluis Jaeger MD LAB BLOOD ORDERABLES Final Resul t Performing Organization Address City/[facility]/ZIP Co de Phone Number [facility] [address] [place] [phone] * (ABNORMAL) Iron And Total Iron Binding Capacity (06/04/2024 12:12 PM EDT) Pathologist [facility] Iron 21(L) 30 - 160 mcg/dL [facility] Total Iron Binding Capacity 305 228 - 428 mcg/dL [facility] Percent Iron Saturation 7(L) 15 - 50 % [facility] Unsaturated Iron Binding 284 ug/dL [facility] Blood Venous blood specimen / Unknown 06/04/2024 12:12 PM EDT 06/04/2024 1:07 PM EDT us Joseluis Jaeger MD LAB BLOOD ORDERABLES Final Resul t Performing Organization Address [facility]/ZIP Co de Phone Number [facility] [address] [place] [phone] * (ABNORMAL) CBC auto differential (06/04/2024 12:12 PM EDT) Pathologist [facility] White Blood Count 5.0 4.8 - 10.8 X10*3/uL [facility] Red Blood Count 3.63(L) 4.20 - 5.50 X10*6/uL [facility] Hemoglobin 9.2(L) 12.0 - 16.0 g/dl [facility] Hematocrit 29.2(L) 37.0 - 47.0 % [facility] Mean Corpuscular Volume 80.4 80.0 - 98.0 fL [facility] Mean Corpuscular Hemoglobin 25.3(L) 27.0 - 33.0 pg [facility] Mean Corpuscular HGB Conc 31.5 31.0 - 35.0 g/dl [facility] Red Cell Distribution Width 13.9 11.0 - 16.0 % [facility] Platelet Count 245 160 - 400 X10*3/uL [facility] Mean Platelet Volume 11.0 9.4 - 12.3 fL [facility] Neutrophils Percent Auto 66.0 45 - 73 % [facility] Imm Gran Pct Auto 0.2 0.0 - 0.4 % [facility] Lymphocytes Percent Auto 17.7(L) 20 - 40 % [facility] Monocytes Percent Auto 8.7 2 - 11 % [facility] Eosinophils Percent Auto 6.2(H) 0 - 4 % [facility] Basophils Percent Auto 1.2 0 - 2 % [facility] NRBC Pct Auto 0.0 0.0 - 0.2 /100WBC [facility] Neutrophils Absolute Auto 3.3 2.0 - 8.3 x10*3/uL [facility] Imm Gran Abs Auto 0.01 0.00 - 0.03 X10*3/uL [facility] Lymphocytes Absolute Auto 0.9(L) 1.2 - 4.9 X10*3/uL [facility] Monocytes Absolute Auto 0.4 0.1 - 1.2 X10*3/uL [facility] Eosinophils Absolute Auto 0.3 0.0 - 0.4 X10*3/uL [facility] Basophils Absolute Auto 0.1 0.0 - 0.2 X10*3/uL [facility] NRBC Abs Auto 0.000 0.0 - 0.012 X10*3/uL [facility] Blood Venous blood specimen / Unknown 06/04/2024 12:12 PM EDT 06/04/2024 1:07 PM EDT us Joseluis Jaeger MD LAB BLOOD ORDERABLES Final Resul t [facility] [address] [place] [phone] documented in this encounter Visit Diagnoses Diagnosis Cirrhosis of liver with ascites, unspecified hepatic cirrhosis type (CMS/HCC) (CMS/HCC)- Primary Fatty liver disease, nonalcoholic History of anemia Personal history of diseases of blood and blood-forming organs B12 deficiency Vitamin D deficiency Hypothyroidism, unspecified type Hypokalemia Hypopotassemia documented in this encounter Additional Health Concerns Assessment Noted Time PHQ-9 Depression Total Score: 4 11/01/19 24 4:22 PM EDT documented as of this encounter Care Teams Heating Systems Installer Relationship Specialty Start Date End Date Name, MD Joseluis [address] [place] [phone] PCP - General Family Medicine 04/14/15 documented as of this encounter
--- OUTSIDE RECORDS SUMMARY | 2024-06-04 14:26 | XMS_ITS | Encounter Summary ---
Author Organization [employer] Address 75 [facility] 7t [place] [address] Care Team Providers Care Architectural Modeler Name Role Phone Name, Joseluis ZAMORA Primary Care Provider [phone] Reason for Visit * Reason Comments Med Refill Encounter Details Date Type Department Care Team ([facility] st Contact Info) Description 02/05/2023 Refill [facility] [address] [place], [place] [phone] Name, MD Joseluis [address] [place] [address] Osteoarthritis of left knee, unspecified osteoarthritis type; [...] Info) Description 07/17/2024 11:00 AM EDT Telemedicine [facility] [address] [place] [address] Gabriella Florez RN documented as of this encounter Visit Diagnoses Diagnosis Osteoarthritis of left knee, unspecified osteoarthritis type documented in this encounter Additional Health Concerns Assessment Noted Time PHQ-9 Depression Total Score: 0 05/12/19 23 10:10 AM EDT documented as of this encounter Care Teams Architectural Modeler Relationship Specialty Start Date End Date Name, MD Joseluis [address] [place] [address] PCP - General Family Medicine 04/14/15 documented as of this encounter
--- OUTSIDE RECORDS SUMMARY | 2024-06-04 14:26 | XMS_ITS | Encounter Summary ---
Author Organization [employer] Address 75 [facility] 7t [place] [address] Care Team Providers Care Airframe Technician Name Role Phone Name, Joseluis ZAMORA Primary Care Provider [phone] Encounter Details Date Type Department Care Team (Late st Contact Info) Description 03/02/2022 Orders Only [facility] [address] [place] [address] Marielena Neff LPN Social History Tobacco Use [...] Info) Description 07/17/2024 11:00 AM EDT Telemedicine [facility] MED[facility] [address] [place] [address] Gabriella Florez, RN documented as of this encounter Visit Diagnoses Not on filedocumented in this encounter Care Teams Airframe Technician Relationship Specialty Start Date End Date Name, MD Joseluis [address] [place] [address] PCP - General Family Medicine 04/14/15 documented as of this encounter
--- OUTSIDE RECORDS SUMMARY | 2024-06-04 14:26 | XMS_ITS | Encounter Summary ---
Author Organization [employer] Address 75 [facility] 7t [place] [address] Care Team Providers Care Salesperson Men'S Hats Name Role Phone Name, Joseluis ZAMORA Primary Care Provider [phone] Reason for Visit * Reason Comments Med Refill Encounter Details Date Type Department Care Team ([facility] st Contact Info) Description 06/26/2022 Refill [facility] [address] [facility] [place] [address] Carole Elena FNP [address] [place] [address] [employer] Social History Tobacco Use Types Packs/Day [...] Info) Description 07/17/2024 11:00 AM EDT Telemedicine [facility] [address] [place] [address] Gabriella Florez RN documented as of this encounter Visit Diagnoses Diagnosis [employer] Other specified erythematous condition documented in this encounter Additional Health Concerns Assessment Noted Time PHQ-9 Depression Total Score: 0 05/12/19 23 10:10 AM EDT documented as of this encounter Care Teams Salesperson Men'S Hats Relationship Specialty Start Date End Date Name, MD Joseluis [address] [place] [address] PCP - General Family Medicine 04/14/15 documented as of this encounter
--- OUTSIDE RECORDS SUMMARY | 2024-06-04 14:26 | XMS_ITS | Encounter Summary ---
Author Organization [employer] Address 75 [facility] 7t [place] [address] Care Team Providers Care Migration Specialist Name Role Phone Name, Joseluis ZAMORA Primary Care Provider [phone] Encounter Details Date Type Department Care Team (Late st Contact Info) Description 02/14/2022 Orders Only [facility] MED [facility] PEDS [address] [place] [address] Marielena Neff LPN Social History Tobacco Use [...] Info) Description 07/17/2024 11:00 AM EDT Telemedicine [facility] [address] [place] [address] Gabriella Florez, RN documented as of this encounter Visit Diagnoses Not on filedocumented in this encounter Care Teams Migration Specialist Relationship Specialty Start Date End Date Name, MD Joseluis [address] [place] [address] PCP - General Family Medicine 04/14/15 documented as of this encounter
--- OUTSIDE RECORDS SUMMARY | 2024-06-04 14:26 | XMS_ITS | Encounter Summary ---
Author Organization [employer] Address 75 [facility] 7t [place] [address] Care Team Providers Care Audio Visual Facilities Engineer Name Role Phone Name, Joseluis ZAMORA Primary Care Provider [phone] Encounter Details Date Type Department Care Team (Late st Contact Info) Description 01/14/2023 Orders Only [facility] MED [facility] PEDS [address] [place], [place] [phone] Jacy Mccormick LPN Social History Tobacco Use [...] Info) Description 07/17/2024 11:00 AM EDT Telemedicine [facility] [address] [place] [address] Gabriella Florez, KARMEN documented as of this encounter Visit Diagnoses Not on filedocumented in this encounter Additional Health Concerns Assessment Noted Time PHQ-9 Depression Total Score: 0 05/12/19 23 10:10 AM EDT documented as of this encounter Care Teams Audio Visual Facilities Engineer Relationship Specialty Start Date End Date Name, MD Joseluis [address] [place] [address] PCP - General Family Medicine 04/14/15 documented as of this encounter
--- OUTSIDE RECORDS SUMMARY | 2024-06-04 14:26 | XMS_ITS | Encounter Summary ---
Author Organization [employer] Address 75 [facility] 7t [place] [address] Care Team Providers Care Freelance Art Director Name Role Phone Name, Joseulis ZAMORA Primary Care Provider [phone] Encounter Details Date Type Department Care Team (Late st Contact Info) Description 07/16/2022 Abstract [facility] [address] [place] [phone] Name, MD Joseluis [address] [place] [address] Social History Tobacco Use Types Packs/Day Years [...] Info) Description 07/17/2024 11:00 AM EDT Telemedicine [facility] [address] [place] [address] Gabriella Florez, RN documented as of this encounter Visit Diagnoses Not on filedocumented in this encounter Additional Health Concerns Assessment Noted Time PHQ-9 Depression Total Score: 0 05/12/19 23 10:10 AM EDT documented as of this encounter Care Teams Freelance Art Director Relationship Specialty Start Date End Date Name, MD Joseluis [address] [place] [address] PCP - General Family Medicine 04/14/15 documented as of this encounter
--- OUTSIDE RECORDS SUMMARY | 2024-06-04 14:26 | XMS_ITS | Encounter Summary ---
Author Organization [employer] Address 75 [facility] 7t [place] [address] Care Team Providers Care Counter Checker Name Role Phone Name, Joseluis ZAMORA Primary Care Provider [phone] Encounter Details Date Type Department Care Team (Late st Contact Info) Description 12/30/2022 Abstract [facility] [address] [place] [address] Regina Enamorado Social History Tobacco Use Types [...] Info) Description 07/17/2024 11:00 AM EDT Telemedicine [facility] [address] [place] [address] Gabriella Florez, KARMEN documented as of this [...] documented as of this encounter Care Teams Counter Checker Relationship Specialty Start Date End Date Name, MD Joseluis [address] [place] [address] PCP - General Family Medicine 04/14/15 documented as of this encounter
--- OUTSIDE RECORDS SUMMARY | 2024-06-04 14:26 | XMS_ITS | Encounter Summary ---
Author Organization [employer] Address 75 [facility] 7t [place] [address] Care Team Providers Care Estimate Clerk Name Role Phone Name, Joseluis ZAMORA Primary Care Provider [phone] Encounter Details Date Type Department Care Team ([facility] Contact Info) Description 04/09/2022 Orders Only [facility] MED & PEDS [address] [place], [place] [phone] Marielena Neff LPN Social History Tobacco Use [...] Info) Description 07/17/2024 11:00 AM EDT Telemedicine [facility] [address] [place] [address] Gabriella Florez RN documented as of this encounter Visit Diagnoses Not on filedocumented in this encounter Care Teams Estimate Clerk Relationship Specialty Start Date End Date Name, MD Joseluis [address] [place] [address] PCP - General Family Medicine 04/14/15 documented as of this encounter
--- OUTSIDE RECORDS SUMMARY | 2024-06-04 14:26 | XMS_ITS | Encounter Summary ---
Author Organization [employer] Address 75 [facility] 7t [place] [address] Care Team Providers Care Therapeutic Dietitian Name Role Phone Name, Joseluis ZAMORA Primary Care Provider [phone] Encounter Details Date Type Department Care Team (Late st Contact Info) Description 06/04/2024 Orders Only GENER[facility] EXTERNAL DATA DEPARTMENT Provider, Generic External Data Social History Tobacco Use Types Packs/Day Years [...] Info) Description 07/17/2024 11:00 AM EDT Telemedicine [facility] [address] [place] [address] Gabriella Florez RN documented as of this encounter Procedures Procedure Name Priority Date/Time Associated Diagnosis Comments COMPREHENSIVE METABOLIC PANEL Routine 06/04/2024 12:12 PM EDT documented in this encounter Results * (ABNORMAL) Comprehensive Metabolic Panel (06/04/2024 12:12 PM EDT) Sodium 140 135 - 145 mmol/L [facility] Potassium 3.3 3.3 - 5.1 mmol/L [facility] Chloride 103 96 - 108 mmol/L [facility] Carbon Dioxide 33(H) 22 - 29 mmol/L [facility] Anion Gap 7(L) 12 - 20 [facility] Urea Nitrogen (BUN) 12 9 - 16 mg/dL [facility] Creatinine, Serum 0.57 0.5 - 1.4 mg/dL [facility] Estimated Glomerular Filt Rate >60 [facility] Comment:Chronic Kidney Disea se: Estimated GFR < 60 mL/min/[id number] Kidney Disease: Estimated GFR < 15 mL/min/1.73m2 Glucose 78 60 - 115 mg/dL [facility] Calcium 9.3 8.4 - 10.2 mg/dL [facility] Bilirubin, Total 0.4 0.0 - 1.0 mg/dL [facility] Aspartate Amino Transferase 22 5 - 31 U/L [facility] Alanine Aminotransferase 8 0 - 31 U/L [facility] Total Protein 7.1 6.5 - 8.0 g/dL [facility] Albumin Level 4.0 3.5 - 5.0 g/dL [facility] Alkaline Phosphatase 53 39 - 117 U/L [facility] 06/04/2024 12:1 2 PM EDT 06/04/2024 1:07 PM EDT us Generic External Data Provider LAB BLOOD ORDERAB LES Final Result [facility] [address] [place] [phone] documented in this encounter Visit Diagnoses Not on filedocumented in this encounter Additional Health Concerns Assessment Noted Time PHQ-9 Depression Total Score: 4 11/01/19 24 4:22 PM EDT documented as of this encounter Care Teams Therapeutic Dietitian Relationship Specialty Start Date End Date Name, MD Joseluis [address] [place] [phone] PCP - General Family Medicine 04/14/15 documented as of this encounter
--- OUTSIDE RECORDS SUMMARY | 2024-06-04 14:26 | XMS_ITS | Encounter Summary ---
Author Organization [facility] Address [address] [facility] 7t [place] [address] Care Team Providers Care Environmental Services Floor Tech Name Role Phone Name, Joseluis ZAMORA Primary Care Provider [phone] Encounter Details Date Type Department Care Team ([facility] Contact Info) Description 06/13/2022 Telephone [facility] [address] [place] [address] [phone] Serenity Lewis LPN Social History Tobacco Use [...] Upcoming Encounters Date Type Department Care Team ([facility] Contact Info) Description 07/17/2024 11:00 AM EDT Telemedicine [facility] [address] [place] [address] [phone] Gabriella Florez RN documented as of this encounter Visit Diagnoses Not on filedocumented in this encounter Additional Health Concerns Assessment Noted Time PHQ-9 Depression Total Score: 0 05/12/19 23 10:10 AM EDT documented as of this encounter Care Teams Environmental Services Floor Tech Relationship Specialty Start Date End Date Name, MD Joseluis [address] [place] [address] PCP - General Family Medicine 04/14/15 documented as of this encounter
--- OUTSIDE RECORDS SUMMARY | 2024-06-04 14:26 | XMS_ITS | Clinical Summary ---
Author Organization [employer] Address [address] [facility] 7t [place] [address] Care Team Providers Care Agricultural Produce Commission Agent Name Role Phone Name, Joseluis ZAMORA Primary Care Provider [phone] Allergies No known active allergies Medications clotrimazole-bet amethasone (Lotrisone) creamIndications :Intertrigo APPLY TO AFFECTED AREA(S) AND SURROUNDING AREA(S) TWICE DAILY IN THE MORNING AND EVENING 45 g 2 023 Active albuterol 108 (90 Base) MCG/ACT inhaler INHALE 2 PUFFS FOUR TIMES DAILY NEEDED FOR WHEEZING OR SHORTNESS OF BREATH 022 Active Blood Pressure kitIndications:H ospital discharge follow-up 1 kit 2 times daily. 1 kit 023 Active Misc. Devices (Pulse Oximeter) miscIndications: Hospital discharge follow-up 1 Device 2 times daily. 1 each 023 Active Diclofenac Sodium 1 % gel APPLY 2 GRAMS TOPICALLY TO AFFECTED AREA(S) TWICE DAILY NEEDED 100 g 5 024 Active esomeprazole (NexIUM) [address] capsule Take 1 capsule (20 mg) by mouth before breakfast. Do not open capsule. 30 capsule 11 024 2024 Active gabapentin (Neurontin) 300 MG capsuleIndicatio ns:Osteoarthriti s of left knee, unspecified osteoarthritis type TAKE 1 CAPSULE BY MOUTH EVERY DAY IN THE MORNING 90 capsule 1 024 Active Acetaminophen Extra Strength 500 MG tabletIndication s:Osteoarthritis of left knee, unspecified osteoarthritis type TAKE 2 TABLETS BY MOUTH EVERY 8 HOURS NEEDED FOR MILD OR MODERATE PAIN 168 tablet 3 025 Active cyanocobalamin (Vitamin B-12) 1000 MCG tabletIndication s:Vitamin B12 deficiency TAKE 1 TABLET BY MOUTH EVERY DAY 30 tablet 3 025 Active levothyroxine (Synthroid, Levoxyl) 75 MCG tabletIndication s:Hypothyroidism , unspecified type TAKE 1 TABLET BY MOUTH EVERY MORNING 30 tablet 2 025 Active Estrogens Conjugated (Premarin) 0.625 MG/GM cream Insert 1 g into the vagina See administration instructions. INSERT 1/2 TO 1 GRAM VAGINALLY 1-3 TIMES PER WEEK ONLY NEEDED. 30 g 3 025 Active docusate sodium (Colace) 100 MG capsule TAKE 1 CAPSULE BY MOUTH TWICE DAILY 60 capsule 5 025 Active traZODone (Desyrel) 50 MG tabletIndication s:Insomnia, unspecified type TAKE 1 TABLET BY MOUTH AT BEDTIME 30 tablet 5 025 Active traMADol (Ultram) 50 MG tabletIndication s:Osteoarthritis of left knee, unspecified osteoarthritis type Take 1 tablet (50 mg) by mouth if needed each day for severe pain for up to 28 days. 28 tablet 025 2024 Active alendronate (Fosamax) 70 MG tablet take 1 tablet by mouth once a week with 6 to 8 oz of water 30 min before first food of day. do not lie down for 30 minutes 025 Active cholecalciferol (Vitamin D-3) 1.25 MG (15327 UT) capsule Take 1 capsule by mouth every 7 (seven) days. 025 Active traZODone (Desyrel) 50 MG tabletIndication s:Insomnia, unspecified type TAKE 1 TABLET BY MOUTH EVERY DAY AT BEDTIME 30 tablet 5 024 2024 Discontinued docusate sodium (Colace) 100 MG capsule TAKE 1 CAPSULE BY MOUTH TWICE DAILY 60 capsule 3 024 2024 Discontinued traMADol (Ultram) 50 MG tabletIndication s:Osteoarthritis of left knee, unspecified osteoarthritis type Take 1 tablet (50 mg) by mouth if needed each day for severe pain for up to 28 days. Do not start before April 29, 2024. 28 tablet 025 2024 Discontinued(R eorder (will not trigger notification to Pharmacy)) Active Problems Problem Noted Date Diagnosed Date Vitamin D deficiency 06/04/2024 UTI symptoms 12/14/2023 Assessment & Plan (12/14/2023 [...] (03/13/2022 6:18 PM EST): -Previously following with [facility] for WILLARD positive and OA of [...] edema and tenderness in LE bilaterally. 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 Denies any necktie turner f/up. They are requesting a visit with her PCP for leg pain. I ordered the BP cuff and pulse ox but in terms of durable medical equipment I instructed them to bring that up to her PCP at her next appointment. Acute diastolic CHF (congest malvin heart failure) 06/13/2022 06/13/2022 Generalized abdominal pain 03/13/2022 0 05/06/2023 Hematochezia 03/13/2022 05/06/2023 Perineal rash in female 07/15/201706/13 Encounters Date Type Department Care Team Description 06/04/2024 11:30 AM EDT Office Visit [facility] [address] [place] [phone] Name, MD Joseluis Cirrhosis of liver with ascites, unspecified hepatic cirrhosis type (CMS/HCC) (CMS/HCC) (Primary Dx); Fatty liver disease, nonalcoholic; History of anemia; B12 deficiency; Vitamin D deficiency; Hypothyroidism, unspecified type; Hypokalemia 06/04/2024 Orders Only GENERIC EXTERNAL DATA DEPARTMENT Provider, Generic External Data 06/04/2024 Travel 05/27/2024 Refill [facility] [address] [place] [address] Jacy Mccormick LPN Osteoarthritis of left knee, unspecified osteoarthritis type 05/21/2024 Refill [facility] [address] [place] [address] Joseluis Jaeger MD Insomnia, unspecified type 04/29/2024 Refill [facility] [address] [place] [address] Joseluis Jaeger MD 04/29/2024 Telephone [facility] [address] [place] [phone] Joseluis Jaeger MD Lab Orders 04/28/2024 Telephone [facility] [address] [place] [phone] Gabriella Florez RN 04/24/2024 Telephone [facility] [address] [place] [phone] Gabriella Florez, RN BLUEPRINT DUPLICATOR Renewal forms 04/23/2024 Refill [facility] [address] [place] [address] Joseluis Jaeger MD Hypothyroidism, unspecified type 04/23/2024 Refill [facility] [address] [place], [place] [phone] Joseluis Jaeger MD Osteoarthritis of left knee, unspecified osteoarthritis type 03/27/2024 Refill [facility] [address] [place] [phone] Domenica Garcia NP Hypothyroidism, unspecified type; Osteoarthritis of left knee, unspecified osteoarthritis type from Last 3 Months Immunizations Name Administration [...] 20 06/04/2024 11:37 AM EDT Oxygen Saturation 98% 12/13/2023 1:38 PM EDT Inhaled Oxygen Concentration - - Weight 52.4 kg (115 lb 8 oz) 06/04/2024 11:37 AM EDT Height 138.4 cm (4' 6.48 ) 06/04/2024 11:37 AM E DT Body Mass Index 27.36 06/04/2024 11:37 AM EDT Plan of Treatment Upcoming Encounters Date Type Department Care Team (Late st Contact Info) Description 07/17/2024 11:00 AM EDT Telemedicine [facility] [address] [place] [address] Gabriella Florez, RN Health Maintenance Due Date Last Done Comments CT Colonography 1948 Diabetes: Hemoglobin A1C 1948 FIT DNA/Cologuard 1948 FIT 1948 FOBT 1948 Sigmoidoscopy 1948 Alcohol/Substance Use Screening 1960 SDOH Screening 05/12/2023 05/11/2022 RSV Patients and Patients Aged 60 years or older (1 - 1-dose 75+ series) 08/05/2023 Depression Screening 10/31/2024 11/01/2023, 11/01/19 Tobacco Screening 06/04/2025 06/04/2024 Colonoscopy 09/25/2025 09/26/2015 Colorectal Cancer Screening 09/25/2025 [...] METABOLIC PANEL Routine 06/04/2024 12:12 PM EDT TSH W/REFLEX TO FT4 Routine 06/04/2024 1 2:12 PM EDT Hypothyroidism, unspecified type VITAMIN B12 Routine 06/04/2024 12:12 PM EDT B12 deficiency FERRITIN Routine 06/04/2024 12:12 PM EDT History of anemia IRON AND TOTAL IRON BINDING CAPACITY Routine 06/04/2024 12:12 PM EDT History of anemia CBC WITH AUTO DIFFERENTIAL Routine 06/04/2024 12:12 PM EDT Fatty liver disease, nonalcoholic Cirrhosis of liver with ascites, unspecified hepatic cirrhosis type (CMS/HCC) (CMS/HCC) History of anemia ZZZ HISTORICAL HEPATITIS C AB W/REFL TO HCV RNA, QN, PCR Routine 03/31/2021 12:01 PM EST HM COLONOSCOPY Routine 09/26/2015 from Last 3 Months or Most Recently Relevant to Health Maintenance Results * TSH W/Reflex to FT4 (06/04/2024 12:12 PM EDT) Pathologist [facility] TSH reflex Free T4 0.46 0.32 - 4.0 uIU/mL [facility] Blood Venous blood specimen / Unknown 06/04/2024 12:12 PM EDT 06/04/2024 1:07 PM EDT us Joseluis Name MD LAB BLOOD ORDERABLES Final Resul t [facility] [address] [place] [phone] * (ABNORMAL) CBC auto differential (06/04/2024 12:12 PM EDT) Pathologist [facility] White Blood Count 5.0 4.8 - 10.8 X10*3/uL [facility] Red Blood Count 3.63(L) 4.20 - 5.50 X10*6/uL [facility] Hemoglobin 9.2(L) 12.0 - 16.0 g/dl [facility] Hematocrit 29.2(L) 37.0 - 47.0 % [facility] Mean Corpuscular Volume 80.4 80.0 - 98.0 fL [facility] Mean Corpuscular Hemoglobin 25.3(L) 27.0 - 33.0 pg [facility] Mean Corpuscular HGB Conc 31.5 31.0 - 35.0 g/dl [facility] Red Cell Distribution Width 13.9 11.0 - 16.0 % [facility] Platelet Count 245 160 - 400 X10*3/uL [facility] Mean Platelet Volume 11.0 9.4 - 12.3 fL [facility] Neutrophils Percent Auto 66.0 45 - 73 % [facility] Imm Gran Pct Auto 0.2 0.0 - 0.4 % [facility] Lymphocytes Percent Auto 17.7(L) 20 - 40 % [facility] Monocytes Percent Auto 8.7 2 - 11 % [facility] Eosinophils Percent Auto 6.2(H) 0 - 4 % [facility] Basophils Percent Auto 1.2 0 - 2 % [facility] NRBC Pct Auto 0.0 0.0 - 0.2 /100WBC [facility] Neutrophils Absolute Auto 3.3 2.0 - 8.3 x10*3/uL [facility] Imm Gran Abs Auto 0.01 0.00 - 0.03 X10*3/uL [facility] Lymphocytes Absolute Auto 0.9(L) 1.2 - 4.9 X10*3/uL [facility] Monocytes Absolute Auto 0.4 0.1 - 1.2 X10*3/uL [facility] Eosinophils Absolute Auto 0.3 0.0 - 0.4 X10*3/uL [facility] Basophils Absolute Auto 0.1 0.0 - 0.2 X10*3/uL [facility] NRBC Abs Auto 0.000 0.0 - 0.012 X10*3/uL [facility] Blood Venous blood specimen / Unknown 06/04/2024 12:12 PM EDT 06/04/2024 1:07 PM EDT us Joseluis Name LAB BLOOD ORDERABLES Final Resul t [facility] [address] [place] [phone] * (ABNORMAL) Iron And Total Iron Binding Capacity (06/04/2024 12:12 PM EDT) Iron 21(L) 30 - 160 mcg/dL [facility] Total Iron Binding Capacity 305 228 - 428 mcg/dL [facility] Percent Iron Saturation 7(L) 15 - 50 % [facility] Unsaturated Iron Binding 284 ug/dL [facility] Blood Venous blood specimen / Unknown 06/04/2024 12:12 PM EDT 06/04/2024 1:07 PM EDT us Joseluis Jaeger MD LAB BLOOD ORDERABLES Final Resul t Performing Organization Address [facility] Co de Phone Number [facility] [address] [place] [address] [phone] * Ferritin (06/04/2024 12:12 PM EDT) Pathologist [facility] Ferritin 12 10 - 250 ng/mL [facility] Blood Venous blood specimen / Unknown 06/04/2024 12:12 PM EDT 06/04/2024 1:07 PM EDT us Joseluis Jaeger MD LAB BLOOD ORDERABLES Final Resul t Performing Organization Address [facility] de Phone Number [facility] [address] [place] [phone] * (ABNORMAL) Vitamin B12 (06/04/2024 12:12 PM EDT) Pathologist [facility] Vitamin B12 1,510(H) 200 - 900 pg/mL [facility] Comment:NORMAL 200-900 PG/ML INDETERMINATE 160-199 PG/ML DEFICIENT < 160 PG/ML Blood Venous blood specimen / Unknown 06/04/2024 12:12 PM EDT 06/04/2024 1:07 PM EDT us Joseluis Jaeger MD LAB BLOOD ORDERABLES Final Resul t Performing Organization Address [facility] Co de Phone Number [facility] [address] [place] [address] [phone] * (ABNORMAL) Comprehensive Metabolic Panel (06/04/2024 12:12 PM EDT) [facility] Sodium 140 135 - 145 mmol/L [facility] Potassium 3.3 3.3 - 5.1 mmol/L [facility] Chloride 103 96 - 108 mmol/L [facility] Carbon Dioxide 33(H) 22 - 29 mmol/L [facility] Anion Gap 7(L) 12 - 20 [facility] Urea Nitrogen (BUN) 12 9 - 16 mg/dL [facility] Creatinine, Serum 0.57 0.5 - 1.4 mg/dL [facility] Estimated Glomerular Filt Rate >60 [facility] Comment:Chronic Kidney Disea se: Estimated GFR < 60 mL/min/[id number] Kidney Disease: Estimated GFR < 15 mL/min/1.73m2 Glucose 78 60 - 115 mg/dL [facility] Calcium 9.3 8.4 - 10.2 mg/dL [facility] Bilirubin, Total 0.4 0.0 - 1.0 mg/dL [facility] Aspartate Amino Transferase 22 5 - 31 U/L [facility] Alanine Aminotransferase 8 0 - 31 U/L [facility] Total Protein 7.1 6.5 - 8.0 g/dL [facility] Albumin Level 4.0 3.5 - 5.0 g/dL [facility] Alkaline Phosphatase 53 39 - 117 U/L [facility] 06/04/2024 12:1 2 PM EDT 06/04/2024 1:07 PM EDT us Generic External Data Provider LAB BLOOD ORDERAB LES Final Result [facility] [address] [place] [phone] * HEPATITIS C AB W/REFL TO HCV RNA, QN, PCR (03/31/2021 12:01 PM EST) HEPATITIS C ANTIBODY NON-REACT [facility] NON-REACT [facility] INDEX 0.06 <1.00 [facility] Comment: ?? HCV antibody was non-reactive. There is no laboratory ?? evidence of HCV infection. ?? In most cases, no further action is required. However, if recent HCV exposure is suspected, a test for HCV RNA (test code 21775) is suggested. ?? For additional information please refer to http://education.[employer]/faq/MEO91e1 (This link is being provided for informational/ educational purposes only.) ?? 03/31/2021 12:0 1 PM EST us Joseluis Name HISTORICAL/NON ORDERABLE LABS Fi nal Result [facility] [address] * Colonoscopy (09/26/2015) Colonoscopy Normal Normal Narrative Regina Enamorado - 09/26/2015 Repeat in 10 years Historical Provider HEALTH MAINTENANCE Final Result from Last 3 Months or Most Recently Relevant to Health Maintenance Insurance [facility] [place] [id number] Care Teams Agricultural Produce Commission Agent Relationship Specialty Start Date End Date Name, MD Joseluis [address] [place] [phone] PCP - General Family Medicine 04/14/15
--- OUTSIDE RECORDS SUMMARY | 2024-06-04 14:26 | XMS_ITS | Encounter Summary ---
Author Organization [employer] Address [address] [facility] 7t [place] [address] Care Team Providers Care Field Assistant Name Role Phone Name, Joseluis ZAMORA Primary Care Provider [phone] Reason for Visit * Reason Onset Date Comments Durable Medical Equipment 10/02/2023 Encounter Details Date Type Department Care Team ([facility] st Contact Info) Description 10/02/2023 Telephone [facility] [address] [place], [place] [phone] Name, MD Joseluis [address] [place] [address] Durable Medical Equipment Social History Tobacco Use [...] any questions you can contact Tiffany at [phone]. documented in this encounter Plan of Treatment Upcoming Encounters Date Type Department Care Team (Late st Contact Info) Description 07/17/2024 11:00 AM EDT Telemedicine [facility] [address] [place] [phone] Gabriella Florez RN documented as of this encounter Visit Diagnoses Not on filedocumented in this encounter Additional Health Concerns Assessment Noted Time PHQ-9 Depression Total Score: 0 05/12/19 23 10:10 AM EDT documented as of this encounter Care Teams Field Assistant Relationship Specialty Start Date End Date Name, MD Joseluis [address] [place] [address] PCP - General Family Medicine 04/14/15 documented as of this encounter
== END 2024-06-04 12:10 | disposition home or self-care (01) ==
LOC: HO.HHCL 12:09
PROVIDERS: Student in an Organized Health Care Education/Training Program; Visit Provider Internal Medicine Geriatric Medicine
DX: E87.6 Hypokalemia (principal); R18.8 Other ascites; K76.0 Fatty (change of) liver, not elsewhere classified; Z86.2 Personal history of diseases of the blood and blood-forming organs and certain disorders involving the immune mechanism; E53.8 Deficiency of other specified B group vitamins; E03.9 Hypothyroidism, unspecified; K74.60 Unspecified cirrhosis of liver
CPT/HCPCS: 36415; 80053; 82607; 82728; 83540; 84443; 85025

== ENCOUNTER 2024-08-11 09:39 | Outpatient (REF) | payer OTHER, SELFPAY ==
--- OUTSIDE RECORDS SUMMARY | 2024-08-11 10:28 | XMS_ITS | Patient Health Record ---
Author Organization [facility] Address [address] [place] [address] Care Team Providers Care Account Technician Name Role Phone Name Joseluis ZAMORA Primary Care Provider Clarence Crandall Unavailable [phone] Allergies No Known Allergies Reason For Referral Referring Provider First Name Joseluis Referring Provider Last Name Name Referring Provider Speciality Internal M edicine Referred Organization [facility] Referred Provider Clarence Perry Referred Address [address] [facility] [address],[place], [place],[address],[place] Referred Provider Specialty Gastroentero logy General Notes Ny Gonzalez 024 08:13:39 AM EDT > requested a marc referral from [facility] for visit with Dr. Perry on 11-22-2023 Referral Priority Routine Medications Medication SIG (Take, Route, Frequency, Duration) Notes [...] Orally Thre e times a day Unknown Immunizations Vaccine Route Administration Date Status Comme nts Flu vaccine no Preserv 3 and > Unknown 11/11/2014 Admin istered Influenza Unknown 01/02/2022 Administered Problems Problem Type SNOMED Code ICD Code Onset Dates Problem Status W/U Status Risk Notes Problem 338034443 Gastro-esophagea l reflux disease without esophagitis (K21.9) Active confirmed Problem 484895696 Encounter for screening for malignant neoplasm of colon (Z12.11) Active confirmed Problem 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 Problem Diverticular disease of colon (547802587) Diverticulosis of large intestine without perforation or abscess without bleeding (K57.30) Active confirmed Problem 01966908 Other cirrhosis of liver (K74.69) Active confirmed Problem Screening for malignant neoplasm of rectum (524070471) Encounter for screening for malignant neoplasm of rectum (Z12.12) Active confirmed Problem 683925364 Iron deficiency anemia due to chronic blood loss (D50.0) Active confirmed Problem Gastritis (3897331) Gastritis (K29.70) Active confirmed Vital Signs Blood pressure diastolic 00 mm Hg 11/22/2023 Height 59 in 11/22/2023 Blood pressure systolic 00 mm Hg 11/22/2023 Weight 121 lbs 11/22/2023 BMI 24.44 kg/m2 11/22/2023 Encounters Encounter Location Date Provider Diagnosis [facility] [address] [place] [phone] 11/22/2023 Clarence Perry Other cirrhosis of liver K74.69 and Iron deficiency anemia due to chronic blood loss D50.0 [facility] [address] [place] [phone] 01/20/2024 Clarence Perry Assessments Encounter Date Diagnosis (ICD Code) Assessment Notes Treatment Notes Treatment Clinical Notes Section Notes 11/22/2023 Other cirrhosis of liver (ICD-10 - K74.69) Overall, Lena appears well. She does not seem to be having any worrisome GI complaints at the present time. We did review her bowel movement irregularity in the morning and discussed that this might be related to her coffee and dairy products that she has in the morning. Given her good clinical appearance and clinical history I don't think this represents anything such as inflammatory bowel disease or other significant pathology since the remainder of the day her bowel movements are not problematic for her. I did advise her to certainly let me know if this worsens. Her anemia from last year also seems to be remaining quite stable based on her normal hemoglobin and MCV from just this past week. I don't think that needs any further evaluation on my part. In regard to the underlying liver disease I did recommend an abdominal ultrasound, alpha-fetoprotei n level, PT with INR, and liver fibrosis score for further assessment of the underlying cirrhosis. Given her upper endoscopy and colonoscopy done just last year I don't think she will need any further studies in that regard. If things remain well I will plan to see her in one year for a followup visit. I did advise her to contact me to prior to that if she has any problems or questions I can be of assistance with. Lena and Ana Rosa were comfortable with this plan. Thank you again for allowing me to participate in Lena's care. I shall continue to keep you advised of her progress. 11/22/2023 Iron deficiency anemia due to chronic blood loss (ICD-10 - D50.0) Overall, Lena appears well. She does not seem to be having any worrisome GI complaints at the present time. We did review her bowel movement irregularity in the morning and discussed that this might be related to her coffee and dairy products that she has in the morning. Given her good clinical appearance and clinical history I don't think this represents anything such as inflammatory bowel disease or other significant pathology since the remainder of the day her bowel movements are not problematic for her. I did advise her to certainly let me know if this worsens. Her anemia from last year also seems to be remaining quite stable based on her normal hemoglobin and MCV from just this past week. I don't think that needs any further evaluation on my part. In regard to the underlying liver disease I did recommend an abdominal ultrasound, alpha-fetoprotei n level, PT with INR, and liver fibrosis score for further assessment of the underlying cirrhosis. Given her upper endoscopy and colonoscopy done just last year I don't think she will need any further studies in that regard. If things remain well I will plan to see her in one year for a followup visit. I did advise her to contact me to prior to that if she has any problems or questions I can be of assistance with. Lena and Ana Rosa were comfortable with this plan. Thank you again for allowing me to participate in Lena's care. I shall continue to keep you advised of her progress. Plan Of Treatment Pending Test Test Name Order Date LIVER PROFILE 09/12/2022 CBC w DIFF 09/12/2022 ALPHA-FETOPROTEIN,TUMOR MARKER 4 Prothrombin Time INR 11/22/2023 Liver Fibrosis Pnl 11/22/2023 US abdomen comp w elastography 4 Future Test Test Name Order Date UPPER GI ENDOSCOPY 08/30/2015 COLONOSCOPY 08/30/2015 Next Appt Details Provider Name:Clarence Perry , 11/24/2024 01:00:00 PM, [address] [facility], [address], [place], [address], Insurance Providers Payer Name Payer Address Payer Phone Subscriber Number Group Number Insured Name Patient Relationship to Insured Coverage Start Date Coverage End Date [employer] [facility] [address] [place] [phone] [id number] LENA WILLSON Self - patient is the insured Medical (General) History Medical History History ICD Code Fatty liver and cirrhosis on an intraoperative liver biopsy by Dr Raphael 03-31-2004--her liver workup was otherwise negative Iron def anemia--Neg. colono scopy in 2001; EGD in 2001--moderate-sized hiatal hernia, tiny area of Holt's esophagus without dysplasia, and normal duodenal biopsies Denies [place],DM,CVA,Lung disease,renal dise ase Hypothyroidism Hospitalized for GI [...]
[2024-08-11 12:32] LABS: Alanine Aminotransferase 13 U/L (0-31); Albumin Level 4.2 g/dL (3.5-5.0); Alkaline Phosphatase 53 U/L (39-117); Anion Gap 12 (12-20); Aspartate Amino Transferase 22 U/L (5-31); Blood Urea Nitrogen 11 mg/dL (9-16); Calcium 9.2 mg/dL (8.4-10.2); Carbon Dioxide 31 mmol/L (22-29); Chloride 104 mmol/L (96-108); Estimated Glomerular Filt Rate > 60; Potassium 3.5 mmol/L (3.3-5.1); Sodium 143 mmol/L (135-145); Total Protein 7.1 g/dL (6.5-8.0)
== END 2024-08-11 09:40 | disposition home or self-care (01) ==
LOC: HO.HHCL 09:39
PROVIDERS: PCP Internal Medicine Geriatric Medicine; Visit Provider Student in an Organized Health Care Education/Training Program
DX: R18.8 Other ascites (principal); E55.9 Vitamin D deficiency, unspecified; K76.0 Fatty (change of) liver, not elsewhere classified; K74.60 Unspecified cirrhosis of liver
CPT/HCPCS: 36415; 80053; 82306

== ENCOUNTER 2024-08-26 08:53 | Outpatient (REF) | payer OTHER, SELFPAY ==
--- NOTE | ~2024-08-26 | US_ITS ---
EXAMINATION: US ABDOMEN COMPLETE WITH LIVER ELASTOGRAPHY HISTORY: Fatty liver/non alcoholic cirrhosis TECHNIQUE: Real-time grayscale ultrasound imaging of the abdomen was performed and images were reviewed. COMPARISON: Comparison is made with the prior examination dated 09/14/2015. Correlation is also made with a CT of the abdomen with contrast dated 11/30/2023. FINDINGS: Liver: The right lobe of the liver measures 14.2 cm in size. The left lobe of the liver measures 11.1 cm in size. The liver demonstrates coarsened echotexture and a somewhat nodular contour, suggestive of cirrhosis. No focal mass or intrahepatic biliary ductal dilatation is identified. There is normal hepatopedal flow in the portal vein. Ultrasound elastography of the liver was performed with 10 separate measurements of the liver parenchyma with the patient in the supine position. Measurements were obtained approximately 2 cm below Fan's capsule and perpendicular to the capsule. The median shear wave velocity is 1.76 m/s. The interquartile range/median (IQR/median) is 0.10. Gallbladder and biliary tree: The gallbladder is surgically absent. The common bile duct is normal in caliber measuring 4 mm. Kidneys: The right kidney measures 11.5 cm in length and demonstrates a hypertrophied column of Daniel. The left kidney measures 11.5 cm in length. The kidneys are otherwise unremarkable, without evidence of masses, hydronephrosis, or calculi. Pancreas: The pancreatic head, neck, and body are unremarkable. The pancreatic tail is obscured by bowel gas. Spleen: The spleen is normal in size and contour, measuring 9.9 cm in length. Abdominal aorta and inferior vena cava: The visualized portions of the abdominal aorta and inferior vena cava are normal in caliber. There is no free fluid in the abdomen. US/US abdomen comp w elastography IMPRESSION: Coarsened echotexture and a nodular liver contour, suggestive of cirrhosis. The median shear wave velocity in the liver is 1.76 m/s, corresponding to a median liver stiffness of 9.35 kPa. The IQR/median value is 0.10. This is indicative of a quality data set. Findings are indicative of a high elastography value indicating advanced chronic liver disease. REFERENCE: Society of Radiologists in Ultrasound Liver Stiffness Thresholds (2020): LIVER STIFFNESS THRESHOLDS: *Shear wave velocity less than 1.3 m/s (Liver Stiffness equal or less than 5 kPa): High probability of being normal. *Shear wave velocity less than 1.7 m/s (Liver Stiffness less than 9 kPa): In the absence of other known clinical signs, rules out compensated advanced chronic liver disease. *Shear wave velocity between 1.7-2.1 m/s (Liver Stiffness 9-13 kPa): Suggestive of compensated advanced chronic liver disease but need further test for confirmation. *Shear wave velocity between 2.1-2.4 m/s (Liver Stiffness 13-17 kPa): Rules in compensated advanced chronic liver disease. *Shear wave velocity greater than 2.4 m/s (Liver Stiffness over 17 kPa): Suggestive of clinically significant portal hypertension. QUALITY OF DATA SET: *IQR/Median value equal or less than 0.15 implies a quality data set. *IQR/Median value over 0.15 implies a poor quality data set. SIGNIFICANT CHANGE FROM PRIOR EXAM: Significant change if liver stiffness measurement is 10% or greater from prior exam. OTHER CONSIDERATIONS: The stage of liver fibrosis may be overestimated in the setting of acute hepatitis, liver inflammation, elevated liver function tests, hepatic vascular congestion, obstructive cholestasis, non-fasting state, and infiltrative diseases such as amyloidosis and lymphoma. In some patients with NAFLD, the liver stiffness thresholds for compensated advanced chronic liver disease may be lower. In causes other than viral hepatitis and NAFLD, liver stiffness thresholds are not well established. Electronically signed by: Clarence Vergara MD 08/26/2024 09:38 AM EDT
--- OUTSIDE RECORDS SUMMARY | 2024-08-26 09:05 | XMS_ITS | Encounter Summary ---
Author Organization [employer] Address [address] [facility] [address] [place] [address] Care Team Providers Care Journeyman Electrician Name Role Phone Name, Joseluis ZAMORA Primary Care Provider [phone] Reason for Visit * Reason Onset Date Comments Durable Medical Equipment 10/02/2023 Encounter Details Date Type Department Care Team ([facility] st Contact Info) Description 10/02/2023 Telephone [facility] [address] [place], [place] [phone] Name, MD Joseluis [address] [place] [address] Durable Medical Equipment Social History Tobacco Use [...] any questions you can contact Tiffany at [phone]. documented in this encounter Plan of Treatment Upcoming Encounters Date Type Department Care Team (Late st Contact Info) Description 09/25/2024 1:30 PM EDT Telemedicine [facility] [address] [place] [id number] Gabriella Floerz RN documented as of this encounter Visit Diagnoses Not on filedocumented in this encounter Additional Health Concerns Assessment Noted Time PHQ-9 Depression Total Score: 0 05/12/19 23 10:10 AM EDT documented as of this encounter Care Teams Journeyman Electrician Relationship Specialty Start Date End Date Name, MD Joseluis [address] [place] [address] PCP - General Family Medicine 04/14/15 documented as of this encounter
--- OUTSIDE RECORDS SUMMARY | 2024-08-26 09:05 | XMS_ITS | Patient Health Record ---
Author Organization [facility] Address [address] [place] [address] Care Team Providers Care Directional Drill Operator Name Role Phone Name Joseluis ZAMORA Primary Care Provider Clarence Crandall Unavailable [phone] Allergies No Known Allergies Reason For Referral Referring Provider First Name Joseluis Referring Provider Last Name Name Referring Provider Speciality Internal M edicine Referred Organization [facility] Referred Provider Clarence Perry Referred Address [address] [facility],[address],[place], [place],[address],[place] Referred Provider Specialty Gastroentero logy General Notes Ny Gonzalez 024 08:13:39 AM EDT > requested a marc referral from [facility] for visit with Dr. 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 confirmed Problem Diverticular disease of colon (779955461) Diverticulosis of large intestine without perforation or abscess without bleeding (K57.30) Active confirmed Problem 42302636 Other cirrhosis of liver (K74.69) Active confirmed Problem Screening for malignant neoplasm of rectum (342789321) Encounter for screening for malignant neoplasm of rectum (Z12.12) Active confirmed Problem 767918789 Iron deficiency anemia due to chronic blood loss (D50.0) Active confirmed Problem Gastritis (4464789) Gastritis (K29.70) Active confirmed Vital Signs Blood pressure diastolic 00 mm Hg 11/22/2023 Height 59 in 11/22/2023 Blood pressure systolic 00 mm Hg 11/22/2023 Weight 121 lbs 11/22/2023 BMI 24.44 kg/m2 11/22/2023 Encounters Encounter Location Date Provider Diagnosis [facility] [address] [place] [phone] 11/22/2023 Clarence Perry Other cirrhosis of liver K74.69 and Iron deficiency anemia due to chronic blood loss D50.0 [facility] [address] [place] [phone] 01/20/2024 Clarence Perry Assessments Encounter Date Diagnosis [...] Name:Clarence Perry , 11/24/2024 01:00:00 PM, [address] [facility], [address], [place], [address], Insurance Providers Payer Name Payer Address Payer Phone Subscriber Number Group Number Insured Name Patient Relationship to Insured Coverage Start Date Coverage End Date [employer] [facility] [address] [place] [address] [id number] LENA WILLSON Self - patient is the insured Medical (General) History Medical History History ICD Code Fatty liver and cirrhosis on an intraoperative liver biopsy by Dr Raphael 03-31-2004--her liver workup was otherwise negative Iron def anemia--Neg. colono scopy in 2001; EGD in 2001--moderate-sized hiatal hernia, tiny area of Holt's esophagus without dysplasia, and normal duodenal biopsies Denies MD,DM,CVA,Lung disease,renal dise ase Hypothyroidism Hospitalized for GI [...]
== END 2024-08-26 08:54 | disposition home or self-care (01) ==
LOC: HO.US 08:53
PROVIDERS: PCP Internal Medicine Geriatric Medicine; Visit Provider Internal Medicine Geriatric Medicine
DX: K76.0 Fatty (change of) liver, not elsewhere classified (principal); K74.60 Unspecified cirrhosis of liver; R18.8 Other ascites
CPT/HCPCS: 76700; 76981

== ENCOUNTER → 2024-08-26 08:55 | Outpatient (BNV) | payer OTHER, SELFPAY | PROVIDERS: PCP Internal Medicine Geriatric Medicine; Visit Provider Radiology Diagnostic Radiology | DX: K76.89 Other specified diseases of liver (principal) | CPT/HCPCS: 76700 ==

== ENCOUNTER 2024-09-16 14:05 | Outpatient (AMB) | payer OTHER, SELFPAY ==
[2024-09-16 14:12] VITALS: BP 116/68; PULSE 60; O2SAT 95; BMI 25.8
--- NOTE | 2024-09-16 14:12 | A.OFFVIS_ITS ---
Vital Signs 09/16/24 14:12 Height 4 ft 8 in Weight 115 lb 3 oz BMI 25.8 BP 116/68 Blood Pressure Location Lt brachial Position Standing Pulse 60 Pulse Source Pulse Oximeter Pulse Oximetry (%) 95 Oxygen Delivery Method Room Air Intake Visit Reasons: Foot and Ankle swelling Intake Note: Patient last seen by Doctor Sallie Gimenez on 12/25/23. Presents today for foot and ankle swelling follow up. Patient is requesting Potassium refill today, and Calcium. Staff Physical Therapist Services: Staff Physical Therapist Present Staff Physical Therapist Name: [id number] Sherwin Accompanied by: INSPECTOR [employer]CISION Allergies percocet Allergy (Mild, Uncoded 03/25/24 15:40) Vomiting Medication List - Last Reconciled 09/16/24 by Sallie Gimenez MD acetaminophen 500 mg PO Q8H PRN albuterol sulfate 90 mcg/actuation 2 puffs inhalation Q6H PRN alendronate 70 mg PO QWEEK cholecalciferol (vitamin D3) 1,250 mcg PO QWEEK 90 days clotrimazole-betamethasone 1-0.05 % 1 appl topical BID colchicine 0.6 mg PO DAILY conjugated estrogens (Premarin) vaginal cyanocobalamin (vitamin B-12) 1,000 mcg PO DAILY diclofenac sodium 1% 2 grams topical BID PRN ferrous sulfate (FeroSul) 325 mg PO DAILY gabapentin 300 mg PO BEDTIME levothyroxine 75 mcg PO DAILY loperamide 2 mg PO Q4H PRN omeprazole 40 mg PO DAILY@0630 30 days potassium chloride ER 20 mEq (2 x 10 mEq) PO DAILY 14 days tramadol 50 mg PO DAILY PRN trazodone 50 mg PO BEDTIME HPI Comments Details: Patient is a 74-year-old female with heart failure with reduced ejection fraction, polyarticular osteoarthritis complicated by fibromyalgia here today for follow-up Interval History: Last seen 12/25/23 with me - On alendronate 70mg weekly for osteoporosis - Completed prednisone and hand improvement in ankle swelling - Started on colchicine for possible CCPD Today - Here with INSPECT[employer] - States that her swelling is improved but still complaining of foot pain - Requesting an increase in tramadol Rheumatologic History: Patient was initially seen 09/05/2022. At that time she was complaining of widespread pain. Of note she had seen rheumatology in the past and had a trial of treatment with methotrexate that was not helpful. This was back in 2019. She had a positive WILLARD but negative anti DNA and AREN antibodies. Rheumatoid factor and CCP was also negative. Have that evaluation in August there was no evidence of synovitis and the assessment was likely osteoarthritis On re-evaluation 12/06/2022 it was again confirmed that her pain was likely from osteoarthritis of the were no signs of active inflammatory arthritis. She was started on alendronate 70 mg weekly given DEXA scan 10/10/2022 showing osteoporosis with highest T-score -3.5 at the spine At the visit in February 2023 she was given a trial of prednisone for foot and ankle pain with improvement on follow-up in April. At this time she does not have a formal diagnosis of inflammatory arthritis Current Rheumatology Medication(s): Alendronate 70mg weekly Colchicine 0.6mg daily PFSH Medical History Left leg swelling Foot and ankle pain FH: breast cancer Hepatic cirrhosis FH: cholecystectomy Hypothyroid Arthritis Surgical History Hx of cholecystectomy Family History Family/Other Breast cancer Maternal Grandfather Throat cancer Social History Household Members: None Housing: Apartment Do you presently have visiting nurse or other home services: Yes ([employer] every other day) Alcohol intake: never Patient Tobacco Use Status: Never used Tobacco Second Hand Smoke Exposure: No service: No Current occupational status: retired Review of Systems Const Unobtainable due to mental condition Physical Exam Exam Exam: Vital signs reviewed Physical Examination CONSTITUITIONAL Patient alert and cooperative. Well appearing and in no apparent painful distress MSK Hands * Right Hand: Able to make a fist. No swelling or tenderness to palpation of these joints. * Left Hand: Able to make a fist. No swelling or tenderness to palpation of these joints. Wrists * Right Wrist: Full ROM. 70 degrees of wrist flexion, 80 degrees of wrist extension. No swelling or TTP * Left Wrist: Full ROM. 70 degrees of wrist flexion, 80 degrees of wrist extension. No swelling or TTP Elbows * Right Elbow: Full ROM. No swelling or TTP. No TTP of the medial and lateral epicondyles * Left Elbow: Full ROM. No swelling or TTP. No TTP of the medial and lateral epicondyles Shoulders * Decreased ROM bilaterally Knees * Right knee: Full ROM. No swelling noted. No TTP of the knee joint lie or pes anserine bursa * Left knee: Full ROM. No swelling noted. No TTP of the knee joint lie or pes anserine bursa. Ankles * Bilateral ankle with improved swelling and TTP of the lateral malleolus bilaterally Feet * Right foot: Negative squeeze test * Left foot: Negative squeeze test Tender points? * No tenderness to palpation of the bilateral trapezius, supraspinatus, anterior costochondral junctions, bilateral suboccipital muscle insertions SKIN No rashes Vital Signs: Last Vital Signs Pulse 60 09/16/24 14:12 BP 116/68 09/16/24 14:12 Pulse Ox 95 09/16/24 14:12 Oxygen Delivery Method Room Air 09/16/24 14:12 BMI result Body Mass Index 25.8 Results Reviewed Results Reviewed: Laboratory Tests 05/01/24 06/04/24 08/11/24 08:58 12:12 09:46 WBC 5.0 RBC 3.63 L Hgb 9.2 L Hct 29.2 L Plt Count 245 ESR 25 H Sodium 143 Potassium 3.5 Chloride 104 Carbon Dioxide 31 H BUN 11 Creatinine 0.61 AST 22 ALT 13 Alkaline Phosphatase 53 25-OH Vitamin D Total 51.6 Assessment & Plan Assessment & Plan (1) Peroneal tenosynovitis: Code(s): M65.979 - Unspecified synovitis and tenosynovitis, unspecified ankle and foot Plan: #Peroneal tenosynovitis Patient is a 74-year-old female here today for follow up. Peroneal tenosynovitis differentials include CPPD, seronegative RA and OA of ankle with malpositioning. Colchicine has improved her symptoms we will increase the dose to twice a day Plan - Colchicine 0.6mg bid - RTC 4 months - CBC, CMP, ESR, CRP (2) Osteoporosis: Comment: 09/2022 T Scores: fem neck -2.5; femur -0.9; LS -3.5; alendronate started 11/2022 Code(s): M81.0 - Age-related osteoporosis without current pathological fracture Category: Medical Qualifiers: Osteoporosis type: age-related Presence of current pathological fracture: without current pathological fracture Qualified Code(s): M81.0 - Age- related osteoporosis without current pathological fracture Plan: #Osteoporosis Tolerating alendronate Repeat DEXA (3) Osteoarthritis, hand: Code(s): M19.049 - Primary osteoarthritis, unspecified hand Category: Medical Qualifiers: Osteoarthritis type: primary Laterality: bilateral Qualified Code(s): M19.041 - Primary osteoarthritis, right hand; M19.042 - Primary osteoarthritis, left hand Plan: #Polyarticular OA Stable Increase tramadol to 50mg bid (4) Osteoarthritis of knees, bilateral: Code(s): M17.0 - Bilateral primary osteoarthritis of knee Category: Medical Qualifiers: Osteoarthritis type: primary Qualified Code(s): M17.0 - Bilateral primary osteoarthritis of knee Plan: #Polyarticular OA Stable (5) On colchicine therapy: Code(s): Z79.899 - Other fci (current) drug therapy Plan: #Long-term use of colchicine Risks and benefits of long-term colchicine for the management of this patient's gout discussed with patient. Benefits include reduced occurrence of flares while we titrate and regulate his uric acid on allopurinol and other uric acid lowering medications. ? Risks include worsening myalgias especially if on statins and GI upset including diarrhea Plan I spent 30 minutes reviewing the record and labs, seeing the patient, discussing the treatment plan and documenting in the medical record ? Orders: Orders Comprehensive [place]. Panel Fast 4 Months Z79.60 - intermediate card tender (current) use of unspecified immunomodulators and immunosuppressants C Reactive Protein 4 Months Z79.60 - senior care (current) use of unspecified immunomodulators and immunosuppressants Erythrocyte Sedimentation Rate 4 Months Z79.60 - intermediate card tender (current) use of unspecified immunomodulators and immunosuppressants Complete Blood Count Auto Diff 4 Months Z79.60 - senior care (current) use of unspecified immunomodulators and immunosuppressants XR DEXA axial skeleton Today M81.0 - Age-related osteoporosis without current pathological fracture Medications: Changed From tramadol 50 mg PO DAILY PRN To tramadol 50 mg PO BID 60 tabs 5RF From colchicine 0.6 mg PO DAILY 90 tabs 1RF M11.20 - Other chondrocalcinosis, unspecified site To colchicine 0.6 mg PO BID 180 tabs 1RF 90 days M11.20 - Other chondrocalcinosis, unspecified site Refilled cholecalciferol (vitamin D3) 1,250 mcg PO QWEEK 13 caps 1RF 90 days E55.9 - Vitamin D deficiency, unspecified alendronate Take 1 tab once weekly, 1st thing in the morning, on an empty stomach, with a large glass of water (at least 6 oz) and stay upright for 30 minutes 70 mg PO QWEEK 12 tabs 0RF M81.0 - Age-related osteoporosis without current pathological fracture Coding Level of Care Code Est Pt Level 4 (14918) Complex EM visit Add On G2211 Diagnoses Peroneal tenosynovitis M65.979 Age-related osteoporosis without current pathological fracture M81.0 Osteoporosis type: age-related Presence of current pathological fracture: without current pathological fracture Primary osteoarthritis of both hands M19.041; M19.042 Osteoarthritis type: primary Laterality: bilateral Primary osteoarthritis of both knees M17.0 Osteoarthritis type: primary On colchicine therapy Z79.899
--- OUTSIDE RECORDS SUMMARY | 2024-09-16 14:37 | XMS_ITS | Encounter Summary ---
Author Organization [employer] Address [address] [facility] 7t [place] [address] Care Team Providers Care Instrument Designer Name Role Phone Name, Joseluis ZAMORA Primary Care Provider [phone] Reason for Visit * Reason Onset Date Comments Durable Medical Equipment 10/02/2023 Encounter Details Date Type Department Care Team ([facility] st Contact Info) Description 10/02/2023 Telephone [facility] MEDICINE [address] [place], [place] [phone] Name, MD Joseluis [address] [place] [address] Durable Medical Equipment Social History Tobacco Use [...] any questions you can contact Tiffany at [phone]. documented in this encounter Plan of Treatment Upcoming Encounters Date Type Department Care Team (Late st Contact Info) Description 09/25/2024 1:30 PM EDT Telemedicine [facility] MEDICINE [address] [place] [id number] Gabriella Florez RN documented as of this encounter Visit Diagnoses Not on filedocumented in this encounter Additional Health Concerns Assessment Noted Time PHQ-9 Depression Total Score: 0 05/12/19 23 10:10 AM EDT documented as of this encounter Care Teams Instrument Designer Relationship Specialty Start Date End Date Name, MD Joseluis [address] [place] [address] PCP - General Family Medicine 04/14/15 documented as of this encounter
--- OUTSIDE RECORDS SUMMARY | 2024-09-16 14:37 | XMS_ITS | Patient Health Record ---
Author Organization [facility] Address [address] [place] [address] Care Team Providers Care Tractor Sweeper Driver Name Role Phone Name Joseluis ZAMORA Primary Care Provider Clarence Crandall Unavailable [phone] Allergies No Known Allergies Reason For Referral Referring Provider First Name Joseluis Referring Provider Last Name Name Referring Provider Speciality Internal M edicine Referred Organization [facility] Referred Provider Clarence Perry Referred Address [address] [facility],[place], [place],[address],[place] Referred Provider Specialty Gastroentero logy General Notes Ny Gonzalez 024 08:13:39 AM EDT > requested a marc referral from [facility] for visit with Dr. 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 confirmed Problem Diverticular disease of colon (622597742) Diverticulosis of large intestine without perforation or abscess without bleeding (K57.30) Active confirmed Problem 70253625 Other cirrhosis of liver (K74.69) Active confirmed Problem Screening for malignant neoplasm of rectum (276701959) Encounter for screening for malignant neoplasm of rectum (Z12.12) Active confirmed Problem 549453998 Iron deficiency anemia due to chronic blood loss (D50.0) Active confirmed Problem Gastritis (2948502) Gastritis (K29.70) Active confirmed Vital Signs Blood pressure diastolic 00 mm Hg 11/22/2023 Height 59 in 11/22/2023 Blood pressure systolic 00 mm Hg 11/22/2023 Weight 121 lbs 11/22/2023 BMI 24.44 kg/m2 11/22/2023 Encounters Encounter Location Date Provider Diagnosis [facility] [address] [place] [phone] 11/22/2023 Clarence Perry Other cirrhosis of liver K74.69 and Iron deficiency anemia due to chronic blood loss D50.0 [facility] [address] [place] [phone] 01/20/2024 Clarence Perry Assessments Encounter Date Diagnosis [...] Name:Clarence Perry , 11/24/2024 01:00:00 PM, [address] [facility], [address], [place], [address], Insurance Providers Payer Name Payer Address Payer Phone Subscriber Number Group Number Insured Name Patient Relationship to Insured Coverage Start Date Coverage End Date [employer] [facility] [address] [place] [phone] [id number] LENA WILLSON Self - patient is the insured Medical (General) History Medical History History ICD Code Fatty liver and cirrhosis on an intraoperative liver biopsy by Dr Raphael 03-31-2004--her liver workup was otherwise negative Iron def anemia--Neg. colono scopy in 2001; EGD in 2001--moderate-sized hiatal hernia, tiny area of Holt's esophagus without dysplasia, and normal duodenal biopsies Denies OH,DM,CVA,Lung disease,renal dise ase Hypothyroidism Hospitalized for GI [...]
== END 2024-09-16 14:52 | disposition home or self-care (01) ==
LOC: HO.RHES 14:05
PROVIDERS: PCP Internal Medicine Geriatric Medicine; Visit Provider Student in an Organized Health Care Education/Training Program
DX: M65.979 Unspecified synovitis and tenosynovitis, unspecified ankle and foot (principal); M81.0 Age-related osteoporosis without current pathological fracture; M19.041 Primary osteoarthritis, right hand; M19.042 Primary osteoarthritis, left hand; M17.0 Bilateral primary osteoarthritis of knee; Z79.899 Other long term (current) drug therapy
CPT/HCPCS: 99214; G2211

== ENCOUNTER → 2024-09-16 14:05 | Outpatient (BNVA) | payer OTHER, SELFPAY | PROVIDERS: PCP Internal Medicine Geriatric Medicine; Visit Provider Student in an Organized Health Care Education/Training Program | DX: M65.979 Unspecified synovitis and tenosynovitis, unspecified ankle and foot (principal); M81.0 Age-related osteoporosis without current pathological fracture; M19.041 Primary osteoarthritis, right hand; M19.042 Primary osteoarthritis, left hand; M17.0 Bilateral primary osteoarthritis of knee; Z79.899 Other long term (current) drug therapy | CPT/HCPCS: 99212 ==

== ENCOUNTER → 2024-10-30 13:00 | Outpatient (BNV) | payer OTHER, SELFPAY | PROVIDERS: PCP Internal Medicine Geriatric Medicine; Visit Provider Radiology Diagnostic Radiology | DX: E28.39 Other primary ovarian failure (principal) | CPT/HCPCS: 77080 ==

== ENCOUNTER 2024-10-30 13:04 | Outpatient (REF) | payer OTHER, SELFPAY ==
--- NOTE | ~2024-10-30 | MM_ITS ---
EXAMINATION: DXA BONE DENSITY AXIAL HISTORY: M81.0 - Age-related osteoporosis without current pathological fracture TECHNIQUE: [employer] Dual energy absorptiometry (DEXA) of the lumbar spine, total left hip, and femoral neck was performed. COMPARISON: Comparison is made with the prior examination dated 10/10/2022. FINDINGS: The bone mineral density of the lumbar spine is 0.884 g/cm2, corresponding to a T-score of -2.5, and a Z-score of -0.5. This is indicative of osteoporosis. This represents a BMD change of 16.5% compared to the prior exam. This is statistically significant. The bone mineral density of the left total hip is 0.867 g/cm2, corresponding to a T-score of -1.1, and a Z-score of 0.8. This is indicative of osteopenia. This represents a BMD change of -2.5% compared to the prior exam. This is not statistically significant. The bone mineral density of the left femoral neck is 0.712 g/cm2, corresponding to a T-score of -2.3, and a Z-score of -0.2. This is indicative of osteopenia. This represents a BMD change of 3.6% compared to the prior exam. FRACTURE RISK: The FRAX index suggests a ten year probability of major osteoporotic fracture of 13.8%, and of hip fracture 3.8%. MM/XR DEXA axial skeleton IMPRESSION: Based on bone mineral density, and according to World Health Organization (WHO) criteria, the diagnosis is consistent with osteoporosis. Statistically, 68% of repeat scans fall within 1 SD (+/- 0.010 g/cm2 for AP spine L1-L4) and 1 SD (+/- 0.012 g/cm2 for femur total) FRAX is a trademark of the [employer]'s [employer] Metabolic Bone Disease, a World Health Organization (WHO) Collaborating Center. Electronically signed by: Clarence Vergara MD 10/30/2024 02:10 PM EDT
--- OUTSIDE RECORDS SUMMARY | 2024-10-30 13:06 | XMS_ITS | Encounter Summary ---
Author Organization [employer] Address [address] [facility] 7[address] [place] [address] Care Team Providers Care Oven Heater Helper Name Role Phone Name, Joseluis ZAMORA Primary Care Provider Encounter Details Date Type Department Care Team (Late st Contact Info) Description 02/14/2022 Orders Only [facility] MED & PEDS [address] [place] [address] Marielena Neff LPN Social History Tobacco Use [...] Care Team (Late st Contact Info) Description 12/29/2024 1:45 PM EST Office Visit [facility] MEDICINE [address] [place] [address] Joseluis Jaeger MD [address] [place] [address] documented as of this encounter Visit Diagnoses Not on filedocumented in this encounter Care Teams Oven Heater Helper Relationship Specialty Start Date End Date Joseluis Jaeger MD [address] [place] [address] PCP - General Family Medicine 04/14/15 documented as of this encounter
--- OUTSIDE RECORDS SUMMARY | 2024-10-30 13:06 | XMS_ITS | Encounter Summary ---
Author Organization [employer] Address [address] [facility] 7t [place] [address] Care Team Providers Care Dress Fitter Name Role Phone Name, Joseluis ZAMORA Primary Care Provider [phone] Encounter Details Date Type Department Care Team (Late Contact Info) Description 03/20/2022 Orders Only [facility] CHC MED & PEDS [address] [place], [place] [phone] Marielena Neff LPN Social History Tobacco Use [...] Description 12/29/2024 1:45 PM EST Office Visit [facility] MEDICINE [address] [place] [address] NameJoseluis MD [address] [place] [address] documented as of this encounter Visit Diagnoses Not on filedocumented in this encounter Care Teams Dress Fitter Relationship Specialty Start Date End Date NameJoseluis MD [address] [place] [address] PCP - General Family Medicine 04/14/15 documented as of this encounter
--- OUTSIDE RECORDS SUMMARY | 2024-10-30 13:06 | XMS_ITS | Encounter Summary ---
Author Organization [employer] Address [address] [facility] [address] [place] [address] Care Team Providers Care Outside Sales Representative Name Role Phone Name, Joseluis ZAMORA Primary Care Provider [phone] Reason for Visit * Reason Onset Date Comments Durable Medical Equipment 10/02/2023 Encounter Details Date Type Department Care Team ([facility] st Contact Info) Description 10/02/2023 Telephone [facility] MEDICINE [address] [place], [place] [phone] Name, MD Joseluis [address] [place] [address] Durable Medical Equipment Social History Tobacco Use [...] any questions you can contact Tiffany at [phone]. documented in this encounter Plan of Treatment Upcoming Encounters Date Type Department Care Team (Late st Contact Info) Description 12/29/2024 1:45 PM EST Office Visit [facility] MEDICINE [address] [place] [phone] Name, MD Joseluis [address] [place] [address] documented as of this encounter Visit Diagnoses Not on filedocumented in this encounter Additional Health Concerns Assessment Noted Time PHQ-9 Depression Total Score: 0 05/12/19 23 10:10 AM EDT documented as of this encounter Care Teams Outside Sales Representative Relationship Specialty Start Date End Date Name, MD Joseluis [address] [place] [address] PCP - General Family Medicine 04/14/15 documented as of this encounter
--- OUTSIDE RECORDS SUMMARY | 2024-10-30 13:06 | XMS_ITS | Encounter Summary ---
Author Organization [employer] Address [address] [facility] [address] [place] [address] Care Team Providers Care Manager Training Name Role Phone Name, Joseluis ZAMORA Primary Care Provider [phone] Encounter Details Date Type Department Care Team ([facility] Contact Info) Description 04/09/2022 Orders Only [facility] CHC MED & PEDS [address] [place], [place] [phone] Marielena Neff LPN Social History Tobacco Use [...] Description 12/29/2024 1:45 PM EST Office Visit [facility] MEDICINE [address] [place] [address] NameJoseluis MD [address] [place] [address] documented as of this encounter Visit Diagnoses Not on filedocumented in this encounter Care Teams Manager Training Relationship Specialty Start Date End Date NameJoseluis MD [address] [place] [address] PCP - General Family Medicine 04/14/15 documented as of this encounter
--- OUTSIDE RECORDS SUMMARY | 2024-10-30 13:06 | XMS_ITS | Clinical Summary ---
Author Organization [employer] Address [address] [place] [address] Care Team Providers Care Saw Runner Name Role Phone Name, Joseluis ZAMORA Primary Care Provider [phone] Allergies No known active allergies Medications clotrimazole-beta [...] 2 times daily. 1 each 023 Active esomeprazole (NexIUM) [address] capsule Take 1 capsule (20 mg) by mouth before breakfast. Do not open capsule. 30 capsule 11 024 2024 Active Estrogens Conjugated (Premarin) 0.625 MG/GM cream Insert 1 g into the vagina See administration instructions. INSERT 1/2 TO 1 GRAM VAGINALLY 1-3 TIMES PER WEEK ONLY NEEDED. 30 g 3 025 Active docusate sodium (Colace) 100 MG capsule TAKE 1 CAPSULE BY MOUTH TWICE DAILY 60 capsule 5 025 Active traZODone (Desyrel) 50 MG tabletIndications :Insomnia, unspecified type TAKE 1 TABLET BY MOUTH AT BEDTIME 30 tablet 5 Active alendronate (Fosamax) 70 MG tablet take 1 tablet by mouth once a week with 6 to 8 oz of water 30 min before first food of day. do not lie down for 30 minutes Active cholecalciferol (Vitamin D-3) 1.25 MG (35229 UT) capsule Take 1 capsule by mouth every 7 (seven) days. Active ferrous sulfate (Fe Tabs) 325 (65 Fe) MG EC tablet Take 1 tablet (325 mg) by mouth with breakfast. Do not crush, chew, or split. 30 tablet 11 025 2025 Active cyanocobalamin (Vitamin B-12) 1000 MCG tabletIndications :Vitamin B12 deficiency TAKE 1 TABLET BY MOUTH EVERY DAY 30 tablet 3 025 Active gabapentin (Neurontin) 300 MG capsuleIndication s:Osteoarthritis of left knee, unspecified osteoarthritis type TAKE 1 CAPSULE BY MOUTH EVERY DAY IN THE MORNING 90 capsule 1 Active naloxone (Narcan) 4 mg/0.1 mL nasal sprayIndications: Long-term current use of opiate analgesic Administer 1 spray (4 mg) into affected nostril(s) if needed for opioid reversal. May repeat every 2-3 minutes if needed, alternating nostrils, until medical assistance becomes available. 2 each 3 025 2025 Active levothyroxine (Synthroid, Levoxyl) 75 MCG tabletIndications :Hypothyroidism, unspecified type TAKE 1 TABLET BY MOUTH EVERY DAY IN THE MORNING 30 tablet 2 Active Diclofenac Sodium 1 % gelIndications:Os teoarthritis of left knee, unspecified osteoarthritis type APPLY TO THE AFFECTED AREA(S) 2 GRAM TWICE DAILY NEEDED 100 g 5 025 Active traMADol (Ultram) 50 MG tabletIndications :Osteoarthritis of left knee, unspecified osteoarthritis type TAKE 1 TABLET BY MOUTH EVERY DAY NEEDED FOR SEVERE PAIN 28 tablet 025 Active Acetaminophen Extra Strength 500 MG tabletIndications :Osteoarthritis of left knee, unspecified osteoarthritis type TAKE 2 TABLETS BY MOUTH EVERY 8 HOURS NEEDED FOR PAIN 168 tablet 3 025 Active Acetaminophen Extra Strength 500 MG tabletIndications :Osteoarthritis of left knee, unspecified osteoarthritis type TAKE 2 TABLETS BY MOUTH EVERY 8 HOURS NEEDED FOR PAIN 168 tablet 3 025 2024 Discontinued Active Problems Problem Noted Date Diagnosed Date Long-term current use of opiate analgesic 2024 Vitamin D deficiency 06/04/2024 UTI symptoms 12/14/2023 [...] (03/13/2022 6:18 PM EST): -Previously following with [facility] Rheum for WILLARD positive and OA of [...] edema and tenderness in LE bilaterally. 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 They are requesting a visit with [...] Encounters Date Type Department Care Team Description 10/13/2024 Refill [facility] [address] [place] [phone] NameJoseluis MD Osteoarthritis of left knee, unspecified osteoarthritis type 10/07/2024 Telephone [facility] [address] [place] [address] NameJoseluis MD 10/02/2024 Telephone [facility] [address] [place] [address] Nicolas Mayorga [place] oct recalls 10/01/2024 Telephone [facility] [address] [place] [address] NameJoseluis MD Outreach 09/25/2024 1:30 PM EDT Telemedicine [facility] [address] [place] [address] [place] [address] Gabriella Florez, RN Long-term current use of opiate analgesic 09/25/2024 Refill [facility] [address] [place] [address] Gabriella Florez, KARMEN 09/25/2024 Refill [facility] [address] [place] [address] Gabriella Florez, RN Osteoarthritis of left knee, unspecified osteoarthritis type 09/25/2024 Travel 08/24/2024 Refill [facility] [address] [place] [address] Name, MD Joseluis Osteoarthritis of left knee, unspecified osteoarthritis type 08/11/2024 Orders Only GENERIC EXTERNAL DATA DEPARTMENT Provider, Generic External Data from Last 3 Months Immunizations Immunization Administration Dates Next Due Hep A, Adult [...] your housing situation today? I have sonja ana 11/28/[address] you li [...] 65 06/04/2024 11:37 AM EDT Temperature 36.7 C (98.1 F) 06/04/2024 11:37 AM EDT Respiratory Rate 20 06/04/2024 11:37 AM EDT [...] Description 12/29/2024 1:45 PM EST Office Visit [facility] [address] [place] [address] Name, MD Joseluis [address] [place] [address] Health Maintenance Due Date Last Done Comments Diabetes: Hemoglobin A1C 1950 Alcohol/Substance Use Screening 1962 SDOH Screening 05/12/2023 05/11/2022 RSV Patients and Patients Aged 60 years or older (1 - 1-dose 75+ series) 08/05/2023 COVID-19 Vaccine ( season) 2024 11/01/2023, 12/13/2021, 08/16/2021, Additional history exists Influenza Vaccine (#1) 2024 , 01/01/2023, 01/02/2022, Additional history exists Depression Screening 10/31/2024 11/01/2023, 11/01/19 24 Tobacco Screening 06/04/2025 06/04/2024 DTaP/Tdap/Td Vaccines (2 - Td or Tdap) 11/30/2025 12/01/2015, 02/07/2005 Hepatitis A Vaccines Completed 07/30/2007, 09/03/19 07 Hepatitis B Vaccines Completed 07/30/2007, 10/03/2006, 09/02/2006 Colonoscopy Discontinued 09/26/2015 Colorectal Cancer Screening Discontinued Pneumococcal Vaccine: 50+ Years Completed 10/15/2019, 03/05/2017, 07/26/2015 Zoster Vaccines Completed 03/07/2021, 01/04/2021 Hepatitis C Screening Completed 03/31/2021 CT Colonography Discontinued FIT DNA/Cologuard Discontinued FIT Discontinued FOBT Discontinued HIB Vaccines Aged Out No longer eligi ble based on patient's age to complete this topic HPV Vaccines Aged Out No longer eligi ble based on patient's age to complete this topic IPV Vaccines Aged Out No longer eligi ble based on patient's age to complete this topic Meningococcal B Vaccine Aged Out No l onger eligible based on patient's age to complete this topic Meningococcal Vaccine Aged Out No zandra bart eligible based on patient's age to complete this topic RSV under 20 months Aged Out No longe r eligible based on patient's age to complete this topic Rotavirus Vaccines Aged Out No longer eligible based on patient's age to complete this topic Sigmoidoscopy Discontinued Procedures Procedure Name Priority Date/Time Associated Diagnosis Comments US ABDOMEN COMPLETE WITH ELASTOGRAPHY Routine 08/26/2024 9:00 AM EDT Fatty liver disease, nonalcoholic Cirrhosis of liver with ascites, unspecified hepatic cirrhosis type (CMS/HCC) (CMS/HCC) VITAMIN D,25-OH,TOTAL,IA Routine 08/11/2024 9:46 AM EDT COMPREHENSIVE METABOLIC PANEL Routine 08/11/2024 9:46 AM EDT Fatty liver disease, nonalcoholic Cirrhosis of liver with ascites, unspecified hepatic cirrhosis type (CMS/HCC) (CMS/HCC) ZZZ HISTORICAL HEPATITIS C AB W/REFL TO HCV RNA, QN, PCR Routine 03/31/2021 12:01 PM EST HM COLONOSCOPY Routine 09/26/2015 from Last 3 Months or Most Recently Relevant to Health Maintenance Results * US Abdomen Comp w elastography (08/26/2024 9:00 AM EDT) Anatomical Region Laterality Modality Abdomen Ultrasound 08/26/2024 9:00 AM EDT Narrative 08/26/2024 9:41 AM EDT [address] [address] Ultrasound Report Signed Patient: Lena Judd MR#: [id number] 4 : 1950 Acct:[id number] Age/Sex: 74 / F ADM Date: 08/26/24 Loc: HO.US Attending Dr: Joseluis Jaeger MD Ordering Physician: Joseluis Jaeger MD Date of Service: 08/26/24 Procedure(s): US abdomen comp w elastography Accession Number(s): [id number] cc: Name,Joseluis ZAMORA EXAMINATION: US ABDOMEN COMPLETE WITH LIVER ELASTOGRAPHY HISTORY: Fatty liver/non alcoholic cirrhosis TECHNIQUE: Real-time grayscale ultrasound imaging of the abdomen was performed and images were reviewed. COMPARISON: Comparison is made with the prior examination dated 09/14/2015. Correlation is also made with a CT of the abdomen with contrast dated 11/30/2023. FINDINGS: Liver: The right lobe of the liver measures 14.2 cm in size. The left lobe of the liver measures 11.1 cm in size. The liver demonstrates coarsened echotexture and a somewhat nodular contour, suggestive of cirrhosis. No focal mass or intrahepatic biliary ductal dilatation is identified. There is normal hepatopedal flow in the portal vein. Ultrasound elastography of the liver was performed with 10 separate measurements of the liver parenchyma with the patient in the supine position. Measurements were obtained approximately 2 cm below Fan's capsule and perpendicular to the capsule. The median shear wave velocity is 1.76 m/s. The interquartile range/median (IQR/median) is 0.10. Gallbladder and biliary tree: The gallbladder is surgically absent. The common bile duct is normal in caliber measuring 4 mm. Kidneys: The right kidney measures 11.5 cm in length and demonstrates a hypertrophied column of Daniel. The left kidney measures 11.5 cm in length. The kidneys are otherwise unremarkable, without evidence of masses, hydronephrosis, or calculi. Pancreas: The pancreatic head, neck, and body are unremarkable. The pancreatic tail is obscured by bowel gas. Spleen: The spleen is normal in size and contour, measuring 9.9 cm in length. Abdominal aorta and inferior vena cava: The visualized portions of the abdominal aorta and inferior vena cava are normal in caliber. There is no free fluid in the abdomen. US/US abdomen comp w elastography IMPRESSION: Coarsened echotexture and a nodular liver contour, suggestive of cirrhosis. The median shear wave velocity in the liver is 1.76 m/s, corresponding to a median liver stiffness of 9.35 kPa. The IQR/median value is 0.10. This is indicative of a quality data set. Findings are indicative of a high elastography value indicating advanced chronic liver disease. REFERENCE: Society of Radiologists in Ultrasound Liver Stiffness Thresholds (2020): LIVER STIFFNESS THRESHOLDS: *Shear wave velocity less than 1.3 m/s (Liver Stiffness equal or less than 5 kPa): High probability of being normal. *Shear wave velocity less than 1.7 m/s (Liver Stiffness less than 9 kPa): In the absence of other known clinical signs, rules out compensated advanced chronic liver disease. *Shear wave velocity between 1.7-2.1 m/s (Liver Stiffness 9-13 kPa): Suggestive of compensated advanced chronic liver disease but need further test for confirmation. *Shear wave velocity between 2.1-2.4 m/s (Liver Stiffness 13-17 kPa): Rules in compensated advanced chronic liver disease. *Shear wave velocity greater than 2.4 m/s (Liver Stiffness over 17 kPa): Suggestive of clinically significant portal hypertension. QUALITY OF DATA SET: *IQR/Median value equal or less than 0.15 implies a quality data set. *IQR/Median value over 0.15 implies a poor quality data set. SIGNIFICANT CHANGE FROM PRIOR EXAM: Significant change if liver stiffness measurement is 10% or greater from prior exam. OTHER CONSIDERATIONS: The stage of liver fibrosis may be overestimated in the setting of acute hepatitis, liver inflammation, elevated liver function tests, hepatic vascular congestion, obstructive cholestasis, non-fasting state, and infiltrative diseases such as amyloidosis and lymphoma. In some patients with NAFLD, the liver stiffness thresholds for compensated advanced chronic liver disease may be lower. In causes other than viral hepatitis and NAFLD, liver stiffness thresholds are not well established. Electronically signed by: Clarence Vergara MD 08/26/2024 09:38 AM EDT Dictated By: Clarence Vergara MD Signed By: <Electronically signed by Clarence Vergara MD in OV> 08/26/24937 DD/ 9 TD/TT: 08/26/24916 Technical Photographer: Procedure Note Donotuseinterpreter, Image - 08/26/[address] [address] Ultrasound Report Signed Patient: Lena JuddMR#: [id number] 4 : 9Acct:[id number] Age/Sex: 74 / FADM Date: 08/26/24 Loc: HO.US Attending Dr: Joseluis Jaeger MD Ordering Physician: Joseluis Jaeger MD Date of Service: 08/26/24 Procedure(s): US abdomen comp w elastography Accession Number(s): [id number] cc: Name,Joseluis ZAMORA EXAMINATION: US ABDOMEN COMPLETE WITH LIVER ELASTOGRAPHY HISTORY: Fatty liver/non alcoholic cirrhosis TECHNIQUE: Real-time grayscale ultrasound imaging of the abdomen was performed and images were reviewed. COMPARISON: Comparison is made with the prior examination dated 09/14/2015. Correlation is also made with a CT of the abdomen with contrast dated 11/30/2023. FINDINGS: Liver: The right lobe of the liver measures 14.2 cm in size. The left lobe of the liver measures 11.1 cm in size. The liver demonstrates coarsened echotexture and a somewhat nodular contour, suggestive of cirrhosis. No focal mass or intrahepatic biliary ductal dilatation is identified. There is normal hepatopedal flow in the portal vein. Ultrasound elastography of the liver was performed with 10 separate measurements of the liver parenchyma with the patient in the supine position. Measurements were obtained approximately 2 cm below Fan's capsule and perpendicular to the capsule. The median shear wave velocity is 1.76 m/s. The interquartile range/median (IQR/median) is 0.10. Gallbladder and biliary tree: The gallbladder is surgically absent. The common bile duct is normal in caliber measuring 4 mm. Kidneys: The right kidney measures 11.5 cm in length and demonstrates a hypertrophied column of Daniel. The left kidney measures 11.5 cm in length. The kidneys are otherwise unremarkable, without evidence of masses, hydronephrosis, or calculi. Pancreas: The pancreatic head, neck, and body are unremarkable. The pancreatic tail is obscured by bowel gas. Spleen: The spleen is normal in size and contour, measuring 9.9 cm in length. Abdominal aorta and inferior vena cava: The visualized portions of the abdominal aorta and inferior vena cava are normal in caliber. There is no free fluid in the abdomen. US/US abdomen comp w elastography IMPRESSION: Coarsened echotexture and a nodular liver contour, suggestive of cirrhosis. The median shear wave velocity in the liver is 1.76 m/s, corresponding to a median liver stiffness of 9.35 kPa. The IQR/median value is 0.10. This is indicative of a quality data set. Findings are indicative of a high elastography value indicating advanced chronic liver disease. REFERENCE: Society of Radiologists in Ultrasound Liver Stiffness Thresholds (2019): LIVER STIFFNESS THRESHOLDS: *Shear wave velocity less than 1.3 m/s (Liver Stiffness equal or less than 5 kPa): High probability of being normal. *Shear wave velocity less than 1.7 m/s (Liver Stiffness less than 9 kPa): In the absence of other known clinical signs, rules out compensated advanced chronic liver disease. *Shear wave velocity between 1.7-2.1 m/s (Liver Stiffness 9-13 kPa): Suggestive of compensated advanced chronic liver disease but need further test for confirmation. *Shear wave velocity between 2.1-2.4 m/s (Liver Stiffness 13-17 kPa): Rules in compensated advanced chronic liver disease. *Shear wave velocity greater than 2.4 m/s (Liver Stiffness over 17 kPa): Suggestive of clinically significant portal hypertension. QUALITY OF DATA SET: *IQR/Median value equal or less than 0.15 implies a quality data set. *IQR/Median value over 0.15 implies a poor quality data set. SIGNIFICANT CHANGE FROM PRIOR EXAM: Significant change if liver stiffness measurement is 10% or greater from prior exam. OTHER CONSIDERATIONS: The stage of liver fibrosis may be overestimated in the setting of acute hepatitis, liver inflammation, elevated liver function tests, hepatic vascular congestion, obstructive cholestasis, non-fasting state, and infiltrative diseases such as amyloidosis and lymphoma. In some patients with NAFLD, the liver stiffness thresholds for compensated advanced chronic liver disease may be lower. In causes other than viral hepatitis and NAFLD, liver stiffness thresholds are not well established. Electronically signed by: Clarence Vergara MD 08/26/2024 09:38 AM EDT Dictated By: Clarence Vergara MD Signed By: <Electronically signed by Clarence Vergara MD in OV> 08/26/2438 DD/ 9 TD/TT: 08/26/24916 Technical Photographer: Joseluis Name MD SOLIS US PROCEDURES Final Result * Vitamin D, 25-Hydroxy, Total, Immunoassay (08/11/2024 9:46 AM EDT) Vitamin D 25-OH Total 51.6 >30 ng/mL [facility] Comment: Health Based Reference Values*< 20 ng/mL Ituswiuaf61-74 ng/mL Insufficient> 30 ng/mL Sufficient*Mode SCHAFER. N Engl J Med. 2007;357:266-280There is no well-established upper level of normal vitamin Dlevels. Some laboratories use 50 ng/mL as an upper limit ofnormal. However, toxicity is patient-dependent and may occurat any level. Careful correlation with the patient'spresentation is necessary and, if there is concern forvitamin D toxicity, treatment should be consideredirrespective of the serum level.Care must be taken in interpreting Vitamin D results fromdifferent laboratories and methodologies. Published datademonstrated that results from patients undergoinghemodialysis may show a negative bias when tested withvarious automated 25-OH vitamin D assays when compared toLC-MS/MS.When testing samples from patients whose predominant form ofVitamin D is Vitamin D2, such as patients receiving VitaminD2 supplementation, results that are subtherapeutic shouldbe confirmed with another method such as LC-MS/MS. 08/11/2024 9:46 AM EDT 08/11/2024 11:38 AM EDT us Generic External Data Provider LAB BLOOD ORDERAB LES Final Result [facility] [address] [place] [address] [phone] * (ABNORMAL) Comprehensive Metabolic Panel (08/11/2024 9:46 AM EDT) Sodium 143 135 - 145 mmol/L [facility] Potassium 3.5 3.3 - 5.1 mmol/L [facility] Chloride 104 96 - 108 mmol/L [facility] Carbon Dioxide 31(H) 22 - 29 mmol/L [facility] Anion Gap 12 12 - 20 [facility] Urea Nitrogen (BUN) 11 9 - 16 mg/dL [facility] Creatinine, Serum 0.61 0.5 - 1.4 mg/dL [facility] Estimated Glomerular Filt Rate >60 [facility] Comment:Chronic Kidney Disea se: Estimated GFR < 60 mL/min/1.81m4Vqvxaj Kidney Disease: Estimated GFR < 15 mL/min/1.73m2 Glucose 79 60 - 115 mg/dL [facility] Calcium 9.2 8.4 - 10.2 mg/dL [facility] Bilirubin, Total 0.4 0.0 - 1.0 mg/dL [facility] Aspartate Amino Transferase 22 5 - 31 U/L [facility] Alanine Aminotransferase 13 0 - 31 U/L [facility] Total Protein 7.1 6.5 - 8.0 g/dL [facility] Albumin Level 4.2 3.5 - 5.0 g/dL [facility] Alkaline Phosphatase 53 39 - 117 U/L [facility] Blood Venous blood specimen / Unknown 08/11/2024 9:46 AM EDT 08/11/2024 11:38 AM EDT us Joseluis Jaeger MD LAB BLOOD ORDERABLES Final Resul t [facility] [address] [place] [address] [phone] * HEPATITIS C AB W/REFL TO HCV RNA, QN, PCR (03/31/2021 12:01 PM EST) HEPATITIS C ANTIBODY NON-REACT [facility] NON-REACT [facility] INDEX 0.06 <1.00 [facility] Comment: HCV antibody was non-reactive. There is no laboratory evidence of HCV infection. In most cases, no further action is required. However, if recent HCV exposure is suspected, a test for HCV RNA (test code 46191) is suggested. For additional information please refer to http://education.[employer]/faq/MCV14w9 (This link is being provided for informational/ educational purposes only.) 03/31/2021 12:0 1 PM EST us Joseluis Jaeger MD HISTORICAL/NON ORDERABLE LABS Fi nal Result [facility] [address] [place] [address], * Hm Colonoscopy (09/26/2015) Colonoscopy Normal Normal Narrative Regina Enamorado - 09/26/2015 Repeat in 10 years us Historical Provider HEALTH MAINTENANCE Final Result from Last 3 Months or Most Recently Relevant to Health Maintenance Insurance [facility] Care Teams Saw Runner Relationship Specialty Start Date End Date Name, MD Joseluis [address] [place] [address] PCP - General Family Medicine 04/14/15
--- OUTSIDE RECORDS SUMMARY | 2024-10-30 13:07 | XMS_ITS | Encounter Summary ---
Author Organization [employer] Address [address] [facility] [address] [place] [address] Care Team Providers Care Nutritional Chemist Name Role Phone Name, Joseluis ZAMORA Primary Care Provider [phone] Reason for Visit * Reason Comments Med Refill Encounter Details Date Type Department Care Team ([facility] st Contact Info) Description 06/26/2022 Refill [facility] [address] [place] [address] Carole Elena FNP [address] [place] [address] [facility] Social History Tobacco Use Types Packs/Day [...] Description 12/29/2024 1:45 PM EST Office Visit [facility] [address] [place] [phone] Name, MD Joseluis [address] [place] [phone] documented as of this encounter Visit Diagnoses Diagnosis Intertrigo Other specified erythematous condition documented in this encounter Additional Health Concerns Assessment Noted Time PHQ-9 Depression Total Score: 0 05/12/19 23 10:10 AM EDT documented as of this encounter Care Teams Nutritional Chemist Relationship Specialty Start Date End Date Name, MD Joseluis [address] [place] [phone] PCP - General Family Medicine 04/14/15 documented as of this encounter
--- OUTSIDE RECORDS SUMMARY | 2024-10-30 13:07 | XMS_ITS | Encounter Summary ---
Author Organization [employer] Address [address] [facility] 7[address] [place] [address] Care Team Providers Care Frame Assembler Name Role Phone Name, Joseluis ZAMORA Primary Care Provider [phone] Reason for Visit * Reason Comments Med Refill Encounter Details Date Type Department Care Team ([facility] st Contact Info) Description 02/18/2024 Refill [facility] [address] [place], [place] [phone] Name, MD Joseluis [address] [place] [address] Osteoarthritis of left knee, unspecified osteoarthritis type [...] Description 12/29/2024 1:45 PM EST Office Visit [facility] [address] [place] [phone] Name, MD Joseluis [address] [place] [address] documented as of this encounter Visit Diagnoses Diagnosis Osteoarthritis of left knee, unspecified osteoarthritis type documented in this encounter Additional Health Concerns Assessment Noted Time PHQ-9 Depression Total Score: 4 11/01/19 24 4:22 PM EDT documented as of this encounter Care Teams Frame Assembler Relationship Specialty Start Date End Date Name, MD Joseluis [address] [place] [id number] PCP - General Family Medicine 04/14/15 documented as of this encounter
--- OUTSIDE RECORDS SUMMARY | 2024-10-30 13:07 | XMS_ITS | Encounter Summary ---
Author Organization [employer] Address [address] [facility] 7t [place] [address] Care Team Providers Care Sleever Name Role Phone Name, Joseluis ZAMORA Primary Care Provider [phone] Reason for Visit * Reason Comments Med Refill Encounter Details Date Type Department Care Team ([facility] st Contact Info) Description 02/05/2023 Refill [facility] [address] [place], [place] [phone] Name, MD Joseluis [address] [place] [address] Osteoarthritis of left knee, unspecified osteoarthritis type; [...] Description 12/29/2024 1:45 PM EST Office Visit [facility] [address] [place] [address] NameJoseluis MD [address] [place] [address] documented as of this encounter Visit Diagnoses Diagnosis Osteoarthritis of left knee, unspecified osteoarthritis type documented in this encounter Additional Health Concerns Assessment Noted Time PHQ-9 Depression Total Score: 0 05/12/19 23 10:10 AM EDT documented as of this encounter Care Teams Sleever Relationship Specialty Start Date End Date Name, MD Joseluis [address] [place] [address] PCP - General Family Medicine 04/14/15 documented as of this encounter
--- OUTSIDE RECORDS SUMMARY | 2024-10-30 13:07 | XMS_ITS | Encounter Summary ---
Author Organization [employer] Address [address] [facility] 7t [place] [address] Care Team Providers Care Webmaster Name Role Phone Name, Joseluis ZAMORA Primary Care Provider [phone] Encounter Details Date Type Department Care Team ([facility] Contact Info) Description 06/13/2022 Telephone [facility] [address] [place] [address] [phone] Serenity Lewis LPN Social History Tobacco Use [...] Department Care Team (Late Contact Info) Description 12/29/2024 1:45 PM EST Office Visit [facility] [address] [place] [address] [phone] Name, MD Joseluis [address] [place] [address] [phone] documented as of this encounter Visit Diagnoses Not on filedocumented in this encounter Additional Health Concerns Assessment Noted Time PHQ-9 Depression Total Score: 0 05/12/19 23 10:10 AM EDT documented as of this encounter Care Teams Webmaster Relationship Specialty Start Date End Date Name, MD Joseluis [address] [place] [address] PCP - General Family Medicine 04/14/15 documented as of this encounter
--- OUTSIDE RECORDS SUMMARY | 2024-10-30 13:07 | XMS_ITS | Encounter Summary ---
Author Organization [employer] Address [address] [facility] 7t [place] [address] Care Team Providers Care Natural Gas Plant Technician Name Role Phone Name, Joseluis ZAMORA Primary Care Provider [phone] Encounter Details Date Type Department Care Team (Late st Contact Info) Description 03/02/2022 Orders Only [facility] [address] [place] [address] Marielena Neff LPN Social History Tobacco Use [...] Description 12/29/2024 1:45 PM EST Office Visit [facility] [address] [place] [address] Joseluis Jaeger MD [address] [place] [address] documented as of this encounter Visit Diagnoses Not on filedocumented in this encounter Care Teams Natural Gas Plant Technician Relationship Specialty Start Date End Date Joseluis Jaeger MD [address] [place] [address] PCP - General Family Medicine 04/14/15 documented as of this encounter
--- OUTSIDE RECORDS SUMMARY | 2024-10-30 13:07 | XMS_ITS | Encounter Summary ---
Author Organization [employer] Address [address] [facility] 7t [place] [address] Care Team Providers Care Pyrotechnic Assembler Name Role Phone Name, Joseluis ZAMORA Primary Care Provider [phone] Encounter Details Date Type Department Care Team (Late Contact Info) Description 07/16/2022 Abstract [facility] [address] [place] [address] Name, MD Joseluis [address] [place] [address] Social History Tobacco Use Types Packs/Day Years [...] Description 12/29/2024 1:45 PM EST Office Visit [facility] [address] [place] [address] [phone] Name, MD Joseluis [address] [place] [address] documented as of this encounter Visit Diagnoses Not on filedocumented in this encounter Additional Health Concerns Assessment Noted Time PHQ-9 Depression Total Score: 0 05/12/19 23 10:10 AM EDT documented as of this encounter Care Teams Pyrotechnic Assembler Relationship Specialty Start Date End Date Name, MD Joseluis [address] [place] [address] PCP - General Family Medicine 04/14/15 documented as of this encounter
--- OUTSIDE RECORDS SUMMARY | 2024-10-30 13:07 | XMS_ITS | Encounter Summary ---
Author Organization [employer] Address [address] [facility] 7t [place] [address] Care Team Providers Care Structural Steel Worker Name Role Phone Name, Joseluis ZAMORA Primary Care Provider [phone] Encounter Details Date Type Department Care Team ([facility] st Contact Info) Description 01/14/2023 Orders Only [facility] & [facility]EDS [address] [place], [place] [phone] Jacy Mccormick LPN Social History Tobacco Use [...] Description 12/29/2024 1:45 PM EST Office Visit [facility] [address] [place] [address] Name, MD Joseluis [address] [place] [address] documented as of this encounter Visit Diagnoses Not on filedocumented in this encounter Additional Health Concerns Assessment Noted Time PHQ-9 Depression Total Score: 0 05/12/19 23 10:10 AM EDT documented as of this encounter Care Teams Structural Steel Worker Relationship Specialty Start Date End Date Name, MD Joselius [address] [place] [address] PCP - General Family Medicine 04/14/15 documented as of this encounter
--- OUTSIDE RECORDS SUMMARY | 2024-10-30 13:07 | XMS_ITS | Encounter Summary ---
Author Organization [employer] Address [address] [facility] 7t [place] [address] Care Team Providers Care Sander And Polisher Name Role Phone Name, Joseluis ZAMORA Primary Care Provider [phone] Encounter Details Date Type Department Care Team ([facility] st Contact Info) Description 12/30/2022 Abstract [facility] [address] [place] [address] Regina Enamorado Social History Tobacco Use Types [...] Description 12/29/2024 1:45 PM EST Office Visit [facility] [address] [place] [address] Name, MD Joseluis [address] [place] [address] documented as of this encounter Procedures Procedure Name Priority Date/Time Associated Diagnosis Comments COLONOSCOPY Routine 09/26/2015 documented in this encounter Results * Colonoscopy (09/26/2015) Colonoscopy Normal Normal Narrative Regina Enamorado - 09/26/2015 Repeat in 10 years us Historical Provider HEALTH MAINTENANCE Final Result documented in this encounter Visit Diagnoses Not on filedocumented in this encounter Additional Health Concerns Assessment Noted Time PHQ-9 Depression Total Score: 0 05/12/19 23 10:10 AM EDT documented as of this encounter Care Teams Sander And Polisher Relationship Specialty Start Date End Date NameJoseluis MD [address] [place] [address] PCP - General Family Medicine 04/14/15 documented as of this encounter
== END 2024-10-30 13:05 | disposition home or self-care (01) ==
LOC: HO.MAMMO 13:04
PROVIDERS: PCP Internal Medicine Geriatric Medicine; Visit Provider Student in an Organized Health Care Education/Training Program
DX: M81.0 Age-related osteoporosis without current pathological fracture (principal)
CPT/HCPCS: 77080

== ENCOUNTER 2024-12-23 10:17 | Outpatient (AMB) | payer OTHER, SELFPAY ==
--- OUTSIDE RECORDS SUMMARY | 2024-11-24 08:00 | XMS_ITS ---
Author Organization [facility] Address [address] [place] [address] Care Team Providers Care Coremaker Apprentice Name Role Phone Name Joseluis ZAMORA Primary Care Provider Clarence Crandall [phone] REASON FOR VISIT Patient presents today for cirrhosis Encounters Encounter Location Date Provider Diagnosis [facility] [address] [place] [address] 11/24/2024 Clarence Perry Plan Of Treatment Next Appt Details Provider Name:Clarence Perry , 03/24/2025 02:20:00 PM, [address], [address], [place], [address], Progress Notes * ABRAHAM WILLSONWILLARDDOB:1950 (74 yo F)Acc No.[id number]:11/24/2024 Progress Notes Patient: HUMZA PALOMARES Provider: Vandana Perry MD :1950 A ge:74 Y S ex:Female Date:11/24/2024 Address:[address] [place] [address] Pcp:Joseluis Jaeger MD Subjective: * Chief Complaints: * 1 . Patient presents today for cirrhosis. * Medical History: Objective: * Vitals: Assessment: Plan: * Treatment: * * The named appointment provid er may or may not be the originator of this progress note, and it is not deemed complete until electronically signed by the appointment provider. Sign off status: Pending * Provider: Vandana Perry MD Date: 1 Generated for Inna kemp/Bradley/Herbertitting on: 1 02/23/2024 12:08 PM EST
[2024-12-23 10:24] VITALS: BP 122/70; BMI 25.3
--- NOTE | 2024-12-23 10:24 | A.OFFVIS_ITS ---
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 No complaints. Last Pap/HPV was many years ago no history of abnormal Pap smear last 25 years Last Mammogram was BI-RADS 2 in 02/03 Last Colonoscopy was in 06/03 Last DEXA scan was in 11/05 the patient is alendronate since 2022 [facility] Medical History Left leg swelling Foot and ankle pain FH: breast cancer Hepatic cirrhosis FH: cholecystectomy Hypothyroid Arthritis Surgical History Hx of cholecystectomy Family History Family/Other Breast cancer Maternal Grandfather Throat cancer Social History Household Members: None Housing: Apartment Do you presently have visiting nurse or other home services: Yes ([employer] CUSTODIAN every other day) Alcohol intake: never Patient Tobacco Use Status: Never used Tobacco Second Hand Smoke Exposure: No service: No Current occupational status: retired Review of Systems Const All systems reviewed & are unremarkable except as noted in HPI and below Card Reports as per HPI Resp Reports as per HPI GI Reports as per HPI and Reports no additional complaints Reports as per HPI Physical Exam Const General: cooperative, healthy appearing and comfortable Chest Chest palpation & inspection: normal inspection of the chest and normal palpation of entire chest wall Breast/axilla inspection: normal inspection of the breasts and normal inspection of the axillae Breast/axilla palpation: normal palpation of the breasts, normal palpation of the axillae and no axillary lymphadenopathy Resp Effort & Inspection: normal respiratory effort Auscultation: clear to auscultation bilaterally Percussion: percussion normal Cardio Palpation: normal PMI Rate: regular rate Rhythm: regular rhythm Heart sounds: no murmurs and no rubs Peripheral pulses: Peripheral pulses 2+ throughout GI Inspection: Yes normal to inspection Palpation (GI): Soft to palpation, nontender, no guarding, not rigid and No hepatosplenomegaly present Percussion: Yes normal to percussion Auscultation: normal bowel sounds Rectal Exam - Female: deferred General: Yes bladder normal to palpation External Female Exam: No lesion Speculum Exam - Vagina: normal appearance of the vagina, normal palpation, normal vaginal discharge and not erythematous Speculum Exam - Cervix: normal appearance of the cervix and normal palpation Bimanual exam- vagina & uterus: normal bimanual exam, normal palpation, uterine size normal, bladder normal to palpation, consistency normal and normal palpation Bimanual Exam- Adnexa, other: normal adnexae, no masses and no tenderness Assessment & Plan Assessment & Plan (1) Well woman exam: Code(s): Z01.419 - Encounter for gynecological examination (general) (routine) without abnormal findings Category: Medical Plan: Co testing not indicated since the patient 's age is above 65 with no history of abnormal Pap smears last 25 years, adequately screen for the last 10 years with no history of immunosuppression. Counseled the patient about the recommended dietary allowance of 1200 mg of Calcium & 800 IU of vitamin D. Mammogram scheduled on 02/10/2025. The patient was instructed to perform monthly self-breast exams and to schedule an annual exam in a year; All questions answered and the patient verbalized understanding. Coding Level of Care Code Est Pt Prev Care >65y(99257) Diagnoses Well woman exam Z01.419
--- OUTSIDE RECORDS SUMMARY | 2024-12-23 12:09 | XMS_ITS | Patient Health Record ---
Author Organization [facility] Address [address] [place] [address] Care Team Providers Care Salvage Mechanic Name Role Phone Name Joseluis ZAMORA Primary Care Provider Clarence Crandall Unavailable [phone] Allergies No Known Allergies Reason For Referral Referring Provider First Name Joseluis Referring Provider Last Name Name Referring Provider Speciality Internal M edicine Referred Organization [facility] Referred Provider Clarence Perry Referred Address [address] [facility],[place], [place],[address], Referred Provider Specialty Gastroentero logy General Notes Ny Gonzalez 2024 03:55:27 PM >requested a marc referral from Dr. Mandujano' office for visit with Dr. 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 Problem Diverticular disease of colon (552642781) Diverticulosis of large intestine without perforation or abscess without bleeding (K57.30) Active confirmed Problem Cirrhosis of liver (22982765) Other cirrhosis of liver (K74.69) Active confirmed Problem Screening for malignant neoplasm of rectum (328688515) Encounter for screening for malignant neoplasm of rectum (Z12.12) Active confirmed Problem Iron deficiency anemia due to chronic blood loss (849963707) Iron deficiency anemia due to chronic blood loss (D50.0) Active confirmed Problem Gastritis (6856369) Gastritis (K29.70) Active confirmed Encounters Encounter Location Date Provider Diagnosis [facility] [address] [place] [address] 01/20/2024 Clarence Perry [facility] [address] [facility] [address] [place] [address] 11/24/2024 Clarence Perry Plan Of Treatment Pending Test Test Name Order Date LIVER PROFILE 09/12/2022 CBC w DIFF 09/12/2022 ALPHA-FETOPROTEIN,TUMOR MARKER 4 Prothrombin Time INR 11/22/2023 Liver Fibrosis Pnl 11/22/2023 US abdomen comp w elastography 4 Future Test Test Name Order Date UPPER GI ENDOSCOPY 08/30/2015 COLONOSCOPY 08/30/2015 Next Appt Details Provider Name:Clarence Senait Perry , 03/24/2025 02:20:00 PM, [address] [facility], [address], [place], [address], Insurance Providers Payer Name Payer Address Payer Phone Subscriber Number Group Number Insured Name Patient Relationship to Insured Coverage Start Date Coverage End Date [employer] [address] [place] [phone] [id number] HUMZA WILLSON Self - patient is the insured Medical (General) History Medical History History ICD Code Fatty liver and cirrhosis on an intraoperative liver biopsy by Dr Raphael 03-31-2004--her liver workup was otherwise negative Iron def anemia--Neg. colono scopy in 2001; EGD in 2001--moderate-sized hiatal hernia, tiny area of Holt's esophagus without dysplasia, and normal duodenal biopsies Denies [place],DM,CVA,Lung disease,renal dise ase Hypothyroidism Hospitalized for GI [...]
--- OUTSIDE RECORDS SUMMARY | 2024-12-23 12:09 | XMS_ITS | Encounter Summary ---
Author Organization [employer] Address [address] [facility] 7t [place] [address] Care Team Providers Care Predatory Hunter Name Role Phone Name, Joseluis ZAMORA Primary Care Provider [phone] Reason for Visit * Reason Comments Med Refill Encounter Details Date Type Department Care Team ([facility] st Contact Info) Description 06/26/2022 Refill [facility] [address] [place] [address] Carole Elena FNP [address] [place] [address] [employer] Social History Tobacco Use Types Packs/Day [...] Description 12/29/2024 1:45 PM EST Office Visit [facility] [address] [place] [address] Name, MD Joseluis [address] [place] [address] documented as of this encounter Visit Diagnoses Diagnosis [employer] Other specified erythematous condition documented in this encounter Additional Health Concerns Assessment Noted Time PHQ-9 Depression Total Score: 0 05/12/19 23 10:10 AM EDT documented as of this encounter Care Teams Predatory Hunter Relationship Specialty Start Date End Date Name, MD Joseluis [address] [place] [address] PCP - General Family Medicine 04/14/15 documented as of this encounter
--- OUTSIDE RECORDS SUMMARY | 2024-12-23 12:09 | XMS_ITS | Encounter Summary ---
Author Organization [employer] Address [address] [facility] 7t [place] [address] Care Team Providers Care Purchase Price Analyst Name Role Phone Name, Joseluis ZAMORA Primary Care Provider [phone] Encounter Details Date Type Department Care Team (Late st Contact Info) Description 03/02/2022 Orders Only [facility]EDS [address] [place] [address] Marielena Neff LPN Social History Tobacco Use [...] 12/29/2024 1:45 PM EST Office Visit [facility] [address] [place] [address] Joseluis Jaeger MD [address] [place] [address] documented as of this encounter Visit Diagnoses Not on filedocumented in this encounter Care Teams Purchase Price Analyst Relationship Specialty Start Date End Date Joseluis Jaeger MD [address] [place] [address] PCP - General Family Medicine 04/14/15 documented as of this encounter
--- OUTSIDE RECORDS SUMMARY | 2024-12-23 12:09 | XMS_ITS | Encounter Summary ---
Author Organization [employer] Address [address] [facility] 7t [place] [address] Care Team Providers Care Management Liaison Name Role Phone Name, Joseluis ZAMORA Primary Care Provider [phone] Encounter Details Date Type Department Care Team ([facility] st Contact Info) Description 01/14/[address] [facility] PEDS [address] [place], [place] [phone] Jacy Mccormick LPN Social History Tobacco Use [...] Description 12/29/2024 1:45 PM EST Office Visit [facility] [address] [place] [address] Name, MD Joseluis [address] [place] [address] documented as of this encounter Visit Diagnoses Not on filedocumented in this encounter Additional Health Concerns Assessment Noted Time PHQ-9 Depression Total Score: 0 05/12/19 23 10:10 AM EDT documented as of this encounter Care Teams Management Liaison Relationship Specialty Start Date End Date Name, MD Joseluis [address] [place] [address] PCP - General Family Medicine 04/14/15 documented as of this encounter
--- OUTSIDE RECORDS SUMMARY | 2024-12-23 12:09 | XMS_ITS | Encounter Summary ---
Author Organization [employer] Address 75 [facility] 7t [place] [address] Care Team Providers Care Bridge Ironworker Name Role Phone Name, Joseluis ZAMORA Primary Care Provider [phone] Reason for Visit * Reason Comments Med Refill Encounter Details Date Type Department Care Team ([facility] st Contact Info) Description 02/05/2023 Refill [facility] MEDICINE [address] [place], [place] [phone] Name, MD Joseluis [address] [place] [address] Osteoarthritis of left knee, unspecified osteoarthritis type; [...] Description 12/29/2024 1:45 PM EST Office Visit [facility] MED[facility]INE [address] [place] [phone] NameJoseluis MD [address] [place] [address] documented as of this encounter Visit Diagnoses Diagnosis Osteoarthritis of left knee, unspecified osteoarthritis type documented in this encounter Additional Health Concerns Assessment Noted Time PHQ-9 Depression Total Score: 0 05/12/19 23 10:10 AM EDT documented as of this encounter Care Teams Bridge Ironworker Relationship Specialty Start Date End Date Name, MD Joseluis [address] [place] [address] PCP - General Family Medicine 04/14/15 documented as of this encounter
--- OUTSIDE RECORDS SUMMARY | 2024-12-23 12:09 | XMS_ITS | Encounter Summary ---
Author Organization [employer] Address 75 [facility] 7t [place] [address] Care Team Providers Care Silk Screen Frame Assembler Name Role Phone Name, Joseluis ZAMORA Primary Care Provider [phone] Encounter Details Date Type Department Care Team ([facility] Contact Info) Description 04/09/2022 Orders Only [facility] MED & PEDS [address] [place], [place] [phone] Marielena Neff LPN Social History Tobacco Use [...] Description 12/29/2024 1:45 PM EST Office Visit [facility] [address] [place] [address] NameJoseluis MD [address] [place] [address] documented as of this encounter Visit Diagnoses Not on filedocumented in this encounter Care Teams Silk Screen Frame Assembler Relationship Specialty Start Date End Date NameJoseluis MD 230 [place] [address] PCP - General Family Medicine 04/14/15 documented as of this encounter
--- OUTSIDE RECORDS SUMMARY | 2024-12-23 12:09 | XMS_ITS | Encounter Summary ---
Author Organization [employer] Address 75 [facility] 7t [place] [address] Care Team Providers Care Community Engagement Coordinator Name Role Phone Name, Joseluis ZAMORA Primary Care Provider [phone] Encounter Details Date Type Department Care Team ([facility] Contact Info) Description 06/13/2022 Telephone [facility] MEDICINE [address] [place] [address] [phone] Serenity Lewis LPN Social History Tobacco Use [...] Description 12/29/2024 1:45 PM EST Office Visit [facility] [address] [place] [address] [phone] Name, MD Joseluis [address] [place] [address] [phone] documented as of this encounter Visit Diagnoses Not on filedocumented in this encounter Additional Health Concerns Assessment Noted Time PHQ-9 Depression Total Score: 0 05/12/19 23 10:10 AM EDT documented as of this encounter Care Teams Community Engagement Coordinator Relationship Specialty Start Date End Date Name, MD Joseluis 230 [place] [address] PCP - General Family Medicine 04/14/15 documented as of this encounter
--- OUTSIDE RECORDS SUMMARY | 2024-12-23 12:09 | XMS_ITS | Encounter Summary ---
Author Organization [employer] Address 75 [facility] 7t [place] [address] Care Team Providers Care Blind Installer Name Role Phone Name, Joseluis ZAMORA Primary Care Provider [phone] Reason for Visit * Reason Comments Med Refill Encounter Details Date Type Department Care Team ([facility] st Contact Info) Description 02/18/2024 Refill [facility] MED[facility]INE 230 [place], [place] [phone] Name, MD Joseluis 230 [place] [address] Osteoarthritis of left knee, unspecified osteoarthritis type [...] Description 12/29/2024 1:45 PM EST Office Visit [facility] [address] [place] [phone] Name, MD Joseluis [address] [place] [address] documented as of this encounter Visit Diagnoses Diagnosis Osteoarthritis of left knee, unspecified osteoarthritis type documented in this encounter Additional Health Concerns Assessment Noted Time PHQ-9 Depression Total Score: 4 11/01/19 24 4:22 PM EDT documented as of this encounter Care Teams Blind Installer Relationship Specialty Start Date End Date Name, MD Joseluis [address] [place] [address] PCP - General Family Medicine 04/14/15 documented as of this encounter
--- OUTSIDE RECORDS SUMMARY | 2024-12-23 12:09 | XMS_ITS | Encounter Summary ---
Author Organization [employer] Address 75 [facility] 7t [place] [address] Care Team Providers Care Assistant Director Of Financial Aid Name Role Phone Name, Joseluis ZAMORA Primary Care Provider [phone] Encounter Details Date Type Department Care Team (Late Contact Info) Description 07/16/2022 Abstract [facility] MEDICINE [address] [place] [phone] Name, MD Joseluis [address] [place] [phone] Social History Tobacco Use Types Packs/Day Years [...] Description 12/29/2024 1:45 PM EST Office Visit [facility] MED[facility]INE [address] [place] [address] [phone] Name, MD Joseluis 230 [place] [address] documented as of this encounter Visit Diagnoses Not on filedocumented in this encounter Additional Health Concerns Assessment Noted Time PHQ-9 Depression Total Score: 0 05/12/19 23 10:10 AM EDT documented as of this encounter Care Teams Assistant Director Of Financial Aid Relationship Specialty Start Date End Date Name, MD Joseluis [address] [place] [address] PCP - General Family Medicine 04/14/15 documented as of this encounter
--- OUTSIDE RECORDS SUMMARY | 2024-12-23 12:09 | XMS_ITS | Encounter Summary ---
Author Organization [employer] Address 75 [facility] 7t [place] [address] Care Team Providers Care Dowel Setting Machine Operator Name Role Phone Name, Joseluis ZAMORA Primary Care Provider [phone] Encounter Details Date Type Department Care Team (Late st Contact Info) Description 02/14/2022 Orders Only [facility] CH[facility] MED & PEDS [address] [place] [address] Marielena Neff LPN Social History Tobacco Use [...] EST Office Visit [facility] MEDICINE [address] [place] [address] Joseluis Jaeger MD [address] [place] [address] documented as of this encounter Visit Diagnoses Not on filedocumented in this encounter Care Teams Dowel Setting Machine Operator Relationship Specialty Start Date End Date Joseluis Jaeger MD 230 [place] [address] PCP - General Family Medicine 04/14/15 documented as of this encounter
--- OUTSIDE RECORDS SUMMARY | 2024-12-23 12:09 | XMS_ITS | Encounter Summary ---
Author Organization [employer] Address [address] [facility] 7t [place] [address] Care Team Providers Care Settlement Technician Name Role Phone Name, Joseluis ZAMORA Primary Care Provider [phone] Encounter Details Date Type Department Care Team ([facility] st Contact Info) Description 12/30/2022 Abstract [facility] MEDICINE [address] [place] [address] Regina Enamorado Social History Tobacco Use Types [...] 12/29/2024 1:45 PM EST Office Visit [facility] MEDICINE [address] [place] [address] Name, MD Joseluis [address] [place] [address] documented as of this encounter Procedures Procedure [...] documented as of this encounter Care Teams Settlement Technician Relationship Specialty Start Date End Date NameJoseluis MD [address] [place] [address] PCP - General Family Medicine 04/14/15 documented as of this encounter
--- OUTSIDE RECORDS SUMMARY | 2024-12-23 12:09 | XMS_ITS | Encounter Summary ---
Author Organization [employer] Address 75 [facility] 7t [place] [address] Care Team Providers Care Brewery Technician Name Role Phone Name, Joseluis ZAMORA Primary Care Provider [phone] Reason for Visit * Reason Onset Date Comments Durable Medical Equipment 10/02/2023 Encounter Details Date Type Department Care Team ([facility] st Contact Info) Description 10/02/2023 Telephone [facility] MEDICINE [address] [place], [place] [phone] Name, MD Joseluis [address] [place] [address] Durable Medical Equipment Social History Tobacco Use [...] any questions you can contact Tiffany at [phone]. documented in this encounter Plan of Treatment Upcoming Encounters Date Type Department Care Team (Late st Contact Info) Description 12/29/2024 1:45 PM EST Office Visit [facility] MED[facility]INE [address] [place] [phone] Name, MD Joseluis [address] [place] [address] documented as of this encounter Visit Diagnoses Not on filedocumented in this encounter Additional Health Concerns Assessment Noted Time PHQ-9 Depression Total Score: 0 05/12/19 23 10:10 AM EDT documented as of this encounter Care Teams Brewery Technician Relationship Specialty Start Date End Date Name, MD Joseluis [address] [place] [address] PCP - General Family Medicine 04/14/15 documented as of this encounter
--- OUTSIDE RECORDS SUMMARY | 2024-12-23 12:09 | XMS_ITS | Clinical Summary ---
Author Organization [facility] [employer] Address 75 [facility] 7t [place] [address] Care Team Providers Care Django Developer Name Role Phone Name, Joseluis ZAMORA Primary Care Provider Allergies No known active allergies Medications clotrimazole-beta [...] not open capsule. 30 capsule 11 024 Active Estrogens Conjugated (Premarin) 0.625 MG/GM cream Insert 1 g into the vagina See administration instructions. INSERT 1/2 TO 1 GRAM VAGINALLY 1-3 TIMES PER WEEK ONLY NEEDED. 30 g 3 025 Active docusate sodium (Colace) 100 MG capsule TAKE 1 CAPSULE BY MOUTH TWICE DAILY 60 capsule 5 025 Active alendronate (Fosamax) 70 MG tablet take 1 tablet by mouth once a week with 6 to 8 oz of water 30 min before first food of day. do not lie down for 30 minutes Active cholecalciferol (Vitamin D-3) 1.25 MG (82107 UT) capsule Take 1 capsule by mouth every 7 (seven) days. Active ferrous sulfate (Fe Tabs) 325 (65 Fe) MG EC tablet Take 1 tablet (325 mg) by mouth with breakfast. Do not crush, chew, or split. 30 tablet 11 025 2025 Active gabapentin (Neurontin) 300 MG capsuleIndication s:Osteoarthritis [...] medical assistance becomes available. 2 each 3 2025 Active Diclofenac Sodium 1 % gelIndications:Os teoarthritis of left knee, unspecified osteoarthritis type APPLY TO THE AFFECTED AREA(S) 2 GRAM TWICE DAILY NEEDED 100 g 5 Active traMADol (Ultram) 50 MG tabletIndications :Osteoarthritis of left knee, unspecified osteoarthritis type TAKE 1 TABLET BY MOUTH EVERY DAY NEEDED FOR SEVERE PAIN 28 tablet Active Acetaminophen Extra Strength 500 MG tabletIndications :Osteoarthritis of left knee, unspecified osteoarthritis type TAKE 2 TABLETS BY MOUTH EVERY 8 HOURS NEEDED FOR PAIN 168 tablet 3 Active cyanocobalamin (Vitamin B-12) 1000 MCG tabletIndications :Vitamin B12 deficiency TAKE 1 TABLET BY MOUTH EVERY DAY 30 tablet 3 Active levothyroxine (Synthroid, Levoxyl) 75 MCG tabletIndications :Hypothyroidism, unspecified type TAKE 1 TABLET BY MOUTH EVERY DAY IN THE MORNING 30 tablet 3 Active traZODone (Desyrel) 50 MG tabletIndications :Insomnia, unspecified type TAKE 1 TABLET BY MOUTH EVERY DAY AT BEDTIME 30 tablet 5 025 Active traZODone (Desyrel) 50 MG tabletIndications :Insomnia, unspecified type TAKE 1 TABLET BY MOUTH AT BEDTIME 30 tablet 5 025 2024 Discontinued Active Problems Problem Noted [...] 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 Patients WORM RAISER reports GI and rheumatology follow ups already scheduled. Denies any signals collection technician f/up. They are requesting a visit with [...] Encounters Date Type Department Care Team Description 12/13/2024 Refill [facility] MEDICINE [address] [place] [address] NameJoseluis MD Insomnia, unspecified type 11/18/2024 Telephone [facility] MEDICINE [address] [place], [place] [phone] Name, MD Joseluis Durable Medical Equipment 11/05/2024 Refill [facility] MED & PEDS [address] [place], [place] [phone] Diann Booth NP Hypothyroidism, unspecified type 11/05/2024 Refill [facility] MEDICINE [address] [place] [address] Name, MD Joseluis Vitamin B12 deficiency; Hypothyroidism, unspecified type 10/30/2024 Orders Only [facility] External Provider, [facility] 10/13/2024 Refill [facility] MEDICINE [address] [place] [phone] NameJoseluis MD Osteoarthritis of left knee, unspecified osteoarthritis type 10/07/2024 Telephone [facility] MED[facility]INE [address] [place] [phone] Joseluis Jaeger MD 10/02/2024 Telephone [facility] MED[facility] [address] [place] [phone] Nicolas Mayorga MA oct recalls 10/01/2024 Telephone [facility] [address] [place] [phone] Name, MD Joseluis Outreach 09/25/2024 1:30 PM EDT Telemedicine [facility] MED[facility]INE [address] [place] [phone] Gabriella Florez, RN Long-term current use of opiate analgesic 09/25/2024 Refill [facility] MED[facility]INE [address] [place] [address] Gabriella Florez, KARMEN 09/25/2024 Refill [facility] MED[facility] [address] [place] [phone] Gabriella Florez, RN Osteoarthritis of left knee, unspecified osteoarthritis type 09/25/2024 Travel from Last 3 Months Immunizations Immunization Administration [...] Description 12/29/2024 1:45 PM EST Office Visit [facility] MEDICINE [address] [place] [address] Name, MD Joseluis [address] [place] [address] Health Maintenance Due Date Last Done Comments Diabetes: Hemoglobin A1C 1950 HIB Vaccines (1 of 1 - Risk 1-dose series) 11/04/1951 Meningococcal Vaccine (1 - Risk 2-dose series) 1950 Meningococcal B Vaccine (1 of 4 - Increased Risk) 1958 Alcohol/Substance Use Screening 1960 SDOH Screening 05/12/2023 05/11/2022 RSV Patients and Patients Aged 60 years or older (1 - 1-dose 75+ series) 08/05/2023 COVID-19 Vaccine ( season) 2024 11/01/2023, 12/13/2021, 08/16/2021, Additional history exists Influenza Vaccine (#1) 2024 , 01/01/2023, 01/02/2022, Additional history exists Depression Screening 10/31/2024 11/01/2023, 11/01/19 Tobacco Screening 06/04/2025 06/04/2024 DTaP/Tdap/Td Vaccines (2 - Td or Tdap) 11/30/2025 12/01/2015, 02/07/2005 Hepatitis A Vaccines Completed 07/30/2007, 09/03/19 07 Hepatitis B Vaccines Completed 07/30/2007, 10/03/2006, 09/02/2006 Colonoscopy Discontinued 09/26/2015 Colorectal Cancer Screening Discontinued Pneumococcal Vaccine: 50+ Years Completed 10/15/2019, 03/05/2017, 07/26/2015 Zoster Vaccines Completed 03/07/2021, 01/04/2021 Hepatitis C Screening Completed 03/31/2021 CT Colonography Discontinued FIT DNA/Cologuard Discontinued FIT Discontinued FOBT Discontinued HPV Vaccines Aged Out No longer eligi [...] Procedure Name Priority Date/Time Associated Diagnosis Comments BD DEXA AXIAL Routine 10/30/2024 1:10 PM EDT ZZZ HISTORICAL HEPATITIS C AB W/REFL TO HCV RNA, QN, PCR Routine 03/31/2021 12:01 PM EST HM COLONOSCOPY Routine 09/26/2015 from Last 3 Months or Most Recently Relevant to Health Maintenance Results * BD DEXA Axial (10/30/2024 1:10 PM EDT) Anatomical Region Laterality Modality Body Radiographic [place] 10/30/2024 1:10 PM EDT Narrative 10/30/2024 2:12 PM EDT [facility] [address] [place], [place] [address] Mammography Report Signed Patient: Lena Judd MR#: [id number] 4 : 1950 Acct:[id number] Age/Sex: 74 / F ADM Date: 10/30/24 Loc: [facility] Attending Dr: Sallie Gimenez MD Ordering Physician: Sallie Gimenez MD Results: Date of Service: 10/30/24 Follow Up: Procedure(s): XR DEXA axial skeleton Accession Number(s): [id number] cc: Sallie Gimenez MD; Name,Joseluis ZAMORA Reason For Exam: M81.0 - Age-related osteoporosis without current pathological fracture EXAMINATION: DXA BONE DENSITY AXIAL HISTORY: M81.0 - Age-related osteoporosis without current pathological fracture TECHNIQUE: [employer] Dual energy absorptiometry (DEXA) of the lumbar spine, total left hip, and femoral neck was performed. COMPARISON: Comparison is made with the prior examination dated 10/10/2022. FINDINGS: The bone mineral density of the lumbar spine is 0.884 g/cm2, corresponding to a T-score of -2.5, and a Z-score of -0.5. This is indicative of osteoporosis. This represents a BMD change of 16.5% compared to the prior exam. This is statistically significant. The bone mineral density of the left total hip is 0.867 g/cm2, corresponding to a T-score of -1.1, and a Z-score of 0.8. This is indicative of osteopenia. This represents a BMD change of -2.5% compared to the prior exam. This is not statistically significant. The bone mineral density of the left femoral neck is 0.712 g/cm2, corresponding to a T-score of -2.3, and a Z-score of -0.2. This is indicative of osteopenia. This represents a BMD change of 3.6% compared to the prior exam. FRACTURE RISK: The FRAX index suggests a ten year probability of major osteoporotic fracture of 13.8%, and of hip fracture 3.8%. MM/XR DEXA axial skeleton IMPRESSION: Based on bone mineral density, and according to World Health Organization (WHO) criteria, the diagnosis is consistent with osteoporosis. Statistically, 68% of repeat scans fall within 1 SD (+/- 0.010 g/cm2 for AP spine L1-L4) and 1 SD (+/- 0.012 g/cm2 for femur total) FRAX is a trademark of the [employer]'s [place] for Metabolic Bone Disease, a World Health Organization (WHO) Collaborating Center. Electronically signed by: Clarence Vergara MD 10/30/2024 02:10 PM EDT RP Dictated By: Clarence Vergara MD Signed By: <Electronically signed by Clarence Vergara MD in OV> 10/30/24 1410 DD/ 1310 TD/TT: 10/30/24 [address] Buyer: Procedure Note Donotuseinterpreter, Image - 10/30/2024 [facility] [address] [place] [address] Mammography Report Signed Patient: Lena Judd#: [id number] 4 : 9Acct:[id number] Age/Sex: 74 / FADM Date: 10/30/24 Loc: HO.MAMMO Attending Dr: Sallie Gimenez MD Ordering Physician: Sallie Gimenezesults: Date of Service: 10/30/24Follow Up: Procedure(s): XR DEXA axial skeleton Accession Number(s): [id number] cc: Sallie Gimenez MD; Name,Joseluis ZAMORA Reason For Exam: M81.0 - Age-related osteoporosis without currentpathological fracture EXAMINATION: DXA BONE DENSITY AXIAL HISTORY: M81.0 - Age-related osteoporosis without current pathological fracture TECHNIQUE: [employer] Dual energy absorptiometry (DEXA) of the lumbar spine, total left hip, and femoral neck was performed. COMPARISON: Comparison is made with the prior examination dated 10/10/2022. FINDINGS: The bone mineral density of the lumbar spine is 0.884 g/cm2, corresponding to a T-score of -2.5, and a Z-score of -0.5. This is indicative of osteoporosis. This represents a BMD change of 16.5% compared to the prior exam. This is statistically significant. The bone mineral density of the left total hip is 0.867 g/cm2, corresponding to a T-score of -1.1, and a Z-score of 0.8. This is indicative of osteopenia. This represents a BMD change of -2.5% compared to the prior exam. This is not statistically significant. The bone mineral density of the left femoral neck is 0.712 g/cm2, corresponding to a T-score of -2.3, and a Z-score of -0.2. This is indicative of osteopenia. This represents a BMD change of 3.6% compared to the prior exam. FRACTURE RISK: The FRAX index suggests a ten year probability of major osteoporotic fracture of 13.8%, and of hip fracture 3.8%. MM/XR DEXA axial skeleton IMPRESSION: Based on bone mineral density, and according to World Health Organization (WHO) criteria, the diagnosis is consistent with osteoporosis. Statistically, 68% of repeat scans fall within 1 SD (+/- 0.010 g/cm2 for AP spine L1-L4) and 1 SD (+/- 0.012 g/cm2 for femur total) FRAX is a trademark of the [employer] [place] for Metabolic Bone Disease, a World Health Organization (WHO) Collaborating Center. Electronically signed by: Clarence Vergara MD 10/30/2024 02:10 PM EDT Dictated By: Clarence Vergara MD Signed By: <Electronically signed by Clarence Vergara MD in OV> 10/30/24 1410 DD/ 1310 TD/TT: 10/30/24 [address] Buyer: [facility] External Provider IM DXA PROCEDURES Edited Result - Final * HEPATITIS C AB W/REFL TO HCV RNA, QN, PCR (03/31/2021 12:01 PM EST) HEPATITIS C ANTIBODY NON-REACT ANTON NON-REACT ANTON [facility] INDEX 0.06 <1.00 [facility] Comment: HCV antibody was non-reactive. There is no laboratory evidence of HCV infection. In most cases, no further action is required. However, if recent HCV exposure is suspected, a test for HCV RNA (test code 18592) is suggested. For additional information please refer to http://education.Handpressions/faq/PNR42j1 (This link is being provided for informational/ educational purposes only.) 03/31/2021 12:0 1 PM EST us Joseluis Name HISTORICAL/NON ORDERABLE LABS Fi nal Result [facility] [address] [place] [address], * Colonoscopy (09/26/2015) Colonoscopy Normal Normal Narrative Regina Enamorado - 09/26/2015 Repeat in 10 years Historical Provider HEALTH MAINTENANCE Final Result from Last 3 Months or Most Recently Relevant to Health Maintenance [facility] Care Teams Django Developer Relationship Specialty Start Date End Date Name, MD Joseluis [address] [place] [address] PCP - General Family Medicine 04/14/15
--- OUTSIDE RECORDS SUMMARY | 2024-12-23 12:09 | XMS_ITS | Encounter Summary ---
Author Organization [employer] Address [address] [facility] 7t [place] [address] Care Team Providers Care Biztalk Software Developer Name Role Phone Name, Joseluis ZAMORA Primary Care Provider [phone] Encounter Details Date Type Department Care Team (Late Contact Info) Description 03/20/2022 Orders Only [facility] MED & PEDS [address] [place], [place] [phone] Marielena Neff LPN Social History Tobacco Use [...] Description 12/29/2024 1:45 PM EST Office Visit [facility] MEDICINE [address] [place] [address] NameJoseluis MD [address] [place] [address] documented as of this encounter Visit Diagnoses Not on filedocumented in this encounter Care Teams Biztalk Software Developer Relationship Specialty Start Date End Date NameJoseluis MD [address] [place] [address] PCP - General Family Medicine 04/14/15 documented as of this encounter
== END 2024-12-23 11:11 | disposition home or self-care (01) ==
LOC: HO.HWS 10:17
PROVIDERS: PCP Internal Medicine Geriatric Medicine; Visit Provider Obstetrics & Gynecology
DX: Z01.419 Encounter for gynecological examination (general) (routine) without abnormal findings (principal)
CPT/HCPCS: 99397; 99459

== ENCOUNTER → 2024-12-23 10:17 | Outpatient (BNVA) | payer OTHER, SELFPAY | PROVIDERS: PCP Internal Medicine Geriatric Medicine; Visit Provider Obstetrics & Gynecology | DX: Z01.419 Encounter for gynecological examination (general) (routine) without abnormal findings (principal) | CPT/HCPCS: 99397 ==

== ENCOUNTER 2025-01-28 10:31 | Outpatient (REF) | payer OTHER, SELFPAY ==
--- NOTE | ~2025-01-28 | XR_ITS ---
EXAMINATION: XR FOOT 3 OR MORE VIEWS BILATERAL HISTORY: M79.671 - Pain in right foot AND LEFT FOOT COMPARISON: Comparison is made with the prior examination dated 09/05/2022. FINDINGS: Six views of the bilateral feet are submitted. The bones are osteopenic. There is no fracture or dislocation. The joint spaces are preserved. There are calcaneal spurs at the plantar aspects and at the insertion of the Achilles tendons. The soft tissues are unremarkable. XR/XR Foot Mina 3V IMPRESSION: Bilateral calcaneal spurs. Electronically signed by: Clarence Vergara MD 01/28/2025 12:26 PM [facility]
[2025-01-28 14:16] LABS: MANUAL DIFF FLAG NO
[2025-01-28 14:28] LABS: Hematocrit 36.8 % (37.0-47.0); Hemoglobin 12.0 g/dl (12.0-16.0); Imm Gran Abs Auto 0.01 X10*3/uL (0.00-0.03); Imm Gran Pct Auto 0.2 % (0.0-0.4); Lymphocytes Absolute Auto 0.9 X10*3/uL (1.2-4.9); Mean Corpuscular HGB Conc 32.6 g/dl (31.0-35.0); Mean Corpuscular Hemoglobin 30.5 pg (27.0-33.0); Mean Corpuscular Volume 93.4 fL (80.0-98.0); NRBC Abs Auto 0.000 X10*3/uL (0.0-0.012); NRBC Pct Auto 0.0 /100WBC (0.0-0.2); Platelet Count 237 X10*3/uL (160-400); Red Blood Count 3.94 X10*6/uL (4.20-5.50); White Blood Count 5.7 X10*3/uL (4.8-10.8)
[2025-01-28 14:49] LABS: Alanine Aminotransferase 12 U/L (0-31); Albumin Level 4.3 g/dL (3.5-5.0); Alkaline Phosphatase 61 U/L (39-117); Anion Gap 9 (12-20); Aspartate Amino Transferase 27 U/L (5-31); Blood Urea Nitrogen 15 mg/dL (9-16); Calcium 9.9 mg/dL (8.4-10.2); Carbon Dioxide 32 mmol/L (22-29); Chloride 103 mmol/L (96-108); Estimated Glomerular Filt Rate > 60; Potassium 3.5 mmol/L (3.3-5.1); Sodium 140 mmol/L (135-145); Total Protein 7.3 g/dL (6.5-8.0); Uric Acid 4.3 mg/dL (2.4-5.7)
--- OUTSIDE RECORDS SUMMARY | 2025-01-28 14:50 | XMS_ITS | Encounter Summary ---
Author Organization [employer] Address [address] [facility] [address] [place] [address] Care Team Providers Care Segmental Paver Installer Name Role Phone Name, Joseluis ZAMORA Primary Care Provider Encounter Details Date Type Department Care Team (Late st Contact Info) Description 01/28/2025 Orders Only [facility] External Provider, [facility] Social History Tobacco Use Types Packs/Day Years Used Date Smoking Tobacco: Never Passive Smoke Exposure: Never Smokeless Tobacco: Never Alcohol Use Standard Drinks/Week Comments Never 0 (1 standard drink = 0.6 oz pur e alcohol) Depression Answer Date Recorded Patient Health Questionnaire-9 Score 4 12/29/2024 Patient Health Questionnaire-9 Score 4 12/29/2024 Last PHQ-9: Questionnaire Data Not on file 1 02/29/2024 Housing Stability Answer Date Recorded What is your housing situation today? I have sonja perez 12/29/[address] you li ve. Do you have problems with any of the following? None of the above 12/29/2024 Food Insecurity Answer Date Recorded Within the past 12 months, y ou worried that your food would run out before you got money to buy more: Never True 12/29/2024 Within the past 12 months,th e food you bought just didn't last and you didn't have enough money to get more: Never True Transportation Answer Date Recorded In the past 12 months, has l ack of transportation kept you from medical appts, meetings, work or from getting things needed for daily living? No 12/29/2024 Utilities Answer Date Recorded In the past 12 months, has t he electric, gas, oil or water company threatened to shut off services in your home? No 12/29/2024 Depression Answer Date Recorded Patient Health Questionnaire-2 Score 2 12/29/2024 Internet Access Answer Date Recorded Internet Access Q1 No 12/29/2024 Internet Access Q2 Internet/Wi-Fi access is not available where I live 12/29/2024 Comments Unknown Sex and Gender Information Value Date Recorded Sex Assigned at Female 12/11/2021 10:16 AM EDT Legal Sex Female 10:16 AM EDT Gender Identity Female 12/11/2021 10:16 AM EDT Sexual Orientation Straight 12/11/2021 10 :16 AM EDT documented as of this encounter Plan of Treatment Not on file documented as of this encounter Procedures Procedure Name Priority Date/Time Associated Diagnosis Comments XR FOOT 3+ VIEWS BILATERAL Routine 01/28/2025 12:10 PM EST CBC WITH AUTO DIFFERENTIAL Routine 01/28/2025 11:23 AM EST SED RATE BY MODIFIED WESTERGREN Routine 01/28/2025 11:23 AM EST RHEUMATOID FACTOR Routine 01/28/2025 11: 23 AM EST documented in this encounter Results * XR Foot 3+ Views Bilateral (01/28/2025 12:10 PM EST) Anatomical Region Laterality Modality Lower Extremities, Foot Bilateral Radiogra phic Imaging 01/28/2025 12:1 0 PM EST Narrative 01/28/2025 12:29 PM EST [place] [address] XRay Report Signed Patient: Lena Judd MR#: [id number] 4 : 1950 Acct:[id number] Age/Sex: 74 / F ADM Date: 01/28/25 Loc: [facility] Attending Dr: Sallie Gimenez MD Ordering Physician: Sallie Gimenez MD Date of Service: 01/28/25 Procedure(s): XR Foot Mina 3V Accession Number(s): [id number] cc: Sallie Gimenez MD; Name,Joseluis ZAMORA Reason for Exam: M79.671 - Pain in right foot AND LEFT FOOT EXAMINATION: XR FOOT 3 OR MORE VIEWS BILATERAL HISTORY: M79.671 - Pain in right foot AND LEFT FOOT COMPARISON: Comparison is made with the prior examination dated 09/05/2022. FINDINGS: Six views of the bilateral feet are submitted. The bones are osteopenic. There is no fracture or dislocation. The joint spaces are preserved. There are calcaneal spurs at the plantar aspects and at the insertion of the Achilles tendons. The soft tissues are unremarkable. XR/XR Foot Mina 3V IMPRESSION: Bilateral calcaneal spurs. Electronically signed by: Clarence Vergara MD 01/28/2025 12:26 PM EST Dictated By: Clarence Vergara MD Signed By: <Electronically signed by Clarence Vergara MD in OV> 01/28/25 1226 DD/ 1210 TD/TT: 01/28/25 1215 Solar Manager: Procedure Note Donotuseinterpreter, Image - 01/28/[address] [address] XRay Report Signed Patient: Lena JuddMR#: [id number] 4 : 9Acct:[id number] Age/Sex: 74 / FADM Date: 01/28/25 Loc: HO.XRAY Attending Dr: Sallie Gimenez MD Ordering Physician: Sallie Gimenez MD Date of Service: 01/28/25 Procedure(s): XR Foot Mina 3V Accession Number(s): [id number] cc: Sallie Gimenez MD; Name,Joseluis ZAMORA Reason for Exam: M79.671 - Pain in right foot AND LEFT FOOT EXAMINATION: XR FOOT 3 OR MORE VIEWS BILATERAL HISTORY: M79.671 - Pain in right foot AND LEFT FOOT COMPARISON: Comparison is made with the prior examination dated 09/05/2022. FINDINGS: Six views of the bilateral feet are submitted. The bones are osteopenic. There is no fracture or dislocation. The joint spaces are preserved. There are calcaneal spurs at the plantar aspects and at the insertion of the Achilles tendons. The soft tissues are unremarkable. XR/XR Foot Mina 3V IMPRESSION: Bilateral calcaneal spurs. Electronically signed by: Clarence Vergara MD 01/28/2025 12:26 PM EST Dictated By: Clarence Vergara MD Signed By: <Electronically signed by Clarence Vergara MD in OV> 01/28/25 1226 DD/ 1210 TD/TT: 01/28/25 1215 Solar Manager: [facility] External Provider IMG XR PROCEDURES Final Result * Rheumatoid Factor (01/28/2025 11:23 AM EST) Pathologist [facility] Rheumatoid Factor <13.0 <15.0 IU/mL [facility] 01/28/2025 11:2 3 AM EST 01/28/2025 2:13 PM EST Generic External Data Provider LAB BLOOD ORDERAB LES Final Result Performing Organization Address [facility] Co de Phone Number [facility] [address] [place] [phone] * Sed Rate by Modified Yesiren (01/28/2025 11:23 AM EST) Pathologist [facility] Erythrocyte Sedimentation Rate 20 1 - 30 MM/HR [facility] Comment:Patients with polycy themia and many hemoglobin abnormalitiesmay have depressed sed rates whereas patients with anemiamay have elevated sed rates. 01/28/2025 11:2 3 AM EST 01/28/2025 2:13 PM EST Generic External Data Provider LAB BLOOD ORDERAB LES Final Result Performing Organization Address [facility] Co de Phone Number [facility] [address] [place] [phone] * (ABNORMAL) CBC auto differential (01/28/2025 11:23 AM EST) Pathologist [facility] White Blood Count 5.7 4.8 - 10.8 X10*3/uL [facility] Red Blood Count 3.94(L) 4.20 - 5.50 X10*6/uL [facility] Hemoglobin 12.0 12.0 - 16.0 g/dl [facility] Hematocrit 36.8(L) 37.0 - 47.0 % [facility] Mean Corpuscular Volume 93.4 80.0 - 98.0 fL [facility] Mean Corpuscular Hemoglobin 30.5 27.0 - 33.0 pg [facility] Mean Corpuscular HGB Conc 32.6 31.0 - 35.0 g/dl [facility] Red Cell Distribution Width 12.1 11.0 - 16.0 % [facility] Platelet Count 237 160 - 400 X10*3/uL [facility] Mean Platelet Volume 10.6 9.4 - 12.3 fL [facility] Neutrophils Percent Auto 70.1 45 - 73 % [facility] Imm Gran Pct Auto 0.2 0.0 - 0.4 % [facility] Lymphocytes Percent Auto 16.0(L) 20 - 40 % [facility] Monocytes Percent Auto 8.6 2 - 11 % [facility] Eosinophils Percent Auto 3.9 0 - 4 % [facility] Basophils Percent Auto 1.2 0 - 2 % [facility] NRBC Pct Auto 0.0 0.0 - 0.2 /100WBC [facility] Neutrophils Absolute Auto 4.0 2.0 - 8.3 x10*3/uL [facility] Imm Gran Abs Auto 0.01 0.00 - 0.03 X10*3/uL [facility] Lymphocytes Absolute Auto 0.9(L) 1.2 - 4.9 X10*3/uL [facility] Monocytes Absolute Auto 0.5 0.1 - 1.2 X10*3/uL [facility] Eosinophils Absolute Auto 0.2 0.0 - 0.4 X10*3/uL [facility] Basophils Absolute Auto 0.1 0.0 - 0.2 X10*3/uL [facility] NRBC Abs Auto 0.000 0.0 - 0.012 X10*3/uL [facility] 01/28/2025 11:2 3 AM EST 01/28/2025 2:13 PM EST us Generic External Data Provider LAB BLOOD ORDERAB LES Final Result Performing Organization Address City/State/[facility] Co de Phone Number [facility] [address] [place] [address] [phone] documented in this encounter Visit Diagnoses Not on filedocumented in this encounter Additional Health Concerns Assessment Noted Time PHQ-9 Depression Total Score: 4 12/30/19 25 2:24 PM EST documented as of this encounter Care Teams Segmental Paver Installer Relationship Specialty Start Date End Date Name, MD Joseluis [address] [place] [address] PCP - General Family Medicine 04/14/15 documented as of this encounter
--- OUTSIDE RECORDS SUMMARY | 2025-01-28 14:50 | XMS_ITS | Encounter Summary ---
Author Organization [employer] Address [address] [facility] [address] [place] [address] Care Team Providers Care Plastics Engineer Name Role Phone Name, Joseluis ZAMORA Primary Care Provider [phone] Encounter Details Date Type Department Care Team (Late st Contact Info) Description 02/14/2022 Orders Only [facility] [address] [place] [address] Marielena Neff LPN Social History Tobacco Use [...] on file documented as of this encounter Visit Diagnoses Not on filedocumented in this encounter Care Teams Plastics Engineer Relationship Specialty Start Date End Date Name, MD Joseluis [address] [place] [address] PCP - General Family Medicine 04/14/15 documented as of this encounter
--- OUTSIDE RECORDS SUMMARY | 2025-01-28 14:50 | XMS_ITS | Clinical Summary ---
Author Organization [facility] Address [address] [facility] 7t [place] [address] Care Team Providers Care Financial Management Name Role Phone Name, Joseluis ZAMORA Primary Care Provider [phone] Allergies No known active allergies Medications clotrimazole-beta [...] 2 times daily. 1 each 023 Active Estrogens Conjugated (Premarin) 0.625 MG/GM cream Insert 1 g into the vagina See administration instructions. INSERT 1/2 TO 1 GRAM VAGINALLY 1-3 TIMES PER WEEK ONLY NEEDED. 30 g 3 01/16/20 25 4:36 PM EST 025 Active docusate sodium (Colace) 100 MG capsule TAKE 1 CAPSULE BY MOUTH TWICE DAILY 60 capsule 5 025 Active alendronate (Fosamax) 70 MG tablet take 1 tablet by mouth once a week with 6 to 8 oz of water 30 min before first food of day. do not lie down for 30 minutes 025 Active gabapentin (Neurontin) 300 MG capsuleIndication s:Osteoarthritis of left knee, unspecified osteoarthritis type TAKE 1 CAPSULE BY MOUTH EVERY DAY IN THE MORNING 90 capsule 1 025 Active naloxone (Narcan) 4 mg/0.1 mL nasal sprayIndications: Long-term current use of opiate analgesic Administer 1 spray (4 mg) into affected nostril(s) if needed for opioid reversal. May repeat every 2-3 minutes if needed, alternating nostrils, until medical assistance becomes available. 2 each 3 025 2025 Active Diclofenac Sodium 1 % gelIndications:Os [...] HOURS NEEDED FOR PAIN 168 tablet 3 01/16/20 25 4:36 PM EST 025 Active cyanocobalamin (Vitamin B-12) 1000 MCG tabletIndications :Vitamin B12 deficiency TAKE 1 TABLET BY MOUTH EVERY DAY 30 tablet 3 01/16/20 25 4:36 PM EST 025 Active levothyroxine (Synthroid, Levoxyl) 75 MCG tabletIndications :Hypothyroidism, unspecified type TAKE 1 TABLET BY MOUTH EVERY DAY IN THE MORNING 30 tablet 3 01/16/20 25 4:36 PM EST 025 Active traZODone (Desyrel) 50 MG tabletIndications :Insomnia, unspecified type TAKE 1 TABLET BY MOUTH EVERY DAY AT BEDTIME 30 tablet 5 025 Active cholecalciferol (Vitamin D-3) 25 MCG (1000 UT) tabletIndications :Vitamin D Deficiency Take 1 tablet (25 mcg) by mouth Once per day. 90 tablet 3 01/05/20 25 2:08 PM EST 025 2025 Active ferrous sulfate (Fe Tabs) 325 (65 Fe) MG EC tablet Take 1 tablet (325 mg) by mouth every other day. Do not crush, chew, or split. 15 tablet 11 01/28/20 25 4:01 PM EST 025 2025 Active esomeprazole (NexIUM) [address] capsule TAKE 1 CAPSULE BY MOUTH EVERY DAY BEFORE BREAKFAST. DO NOT BREAK, CRUSH, DISSOLVE OR CHEW. 30 capsule 11 01/05/20 25 2:08 PM EST 025 Active esomeprazole (NexIUM) [address] capsule Take 1 capsule (20 mg) by mouth before breakfast. Do not open capsule. 30 capsule 11 024 2024 Discontinued Active Problems Problem Noted [...] (03/13/2022 6:18 PM EST): -Previously following with [facility] Rheum for WILLARD [...] edema and tenderness in LE bilaterally. 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 Denies any apartment leasing specialist f/up. They are requesting a visit with [...] Encounters Date Type Department Care Team Description 01/28/2025 Orders Only [facility] External Provider, [facility] 12/30/2024 Refill [facility] [address] [place] [address] Denisse Harkins MD 12/29/2024 1:45 PM EST Office Visit [facility] [address] [place] [address] Name, MD Joseluis Prediabetes (Primary Dx); History of GI bleed 12/29/2024 Travel 12/13/2024 Refill [facility] [address] [place] [address] NameJoseluis MD Insomnia, unspecified type 11/18/2024 Telephone [facility] [address] [place] [address] Name, MD Joseluis Durable Medical Equipment 11/05/2024 Refill [facility] [address] [place], [place] [phone] Diann Booth NP Hypothyroidism, unspecified type 11/05/2024 Refill [facility] [address] [place] [address] Name, MD Joseluis Vitamin B12 deficiency; Hypothyroidism, unspecified type 10/30/2024 Orders Only [facility] External Provider, [facility] from Last 3 Months Immunizations Immunization Administration [...] free 11/11/2013 Pfizer Covid-19 Vaccine 12+ 11/01/2023, 2 Pfizer Covid-19 Vaccine 12+ Bivalent 12/13/2021 Pfizer [...] housing situation today? I have sonja ana 12/29/[address] you li [...] Sign Reading Time Taken Comments Blood Pressure 115/68 12/29/2024 2:03 PM EST Pulse 65 12/29/2024 2:03 PM EST Temperature 35.8 C (96.4 F) 12/29/2024 2:03 PM EST Respiratory Rate 18 12/29/2024 2:03 PM EST Oxygen Saturation 98% 12/29/2024 2:03 PM EST Inhaled Oxygen Concentration - - Weight 52.7 kg (116 lb 3.2 oz) 12/29/2024 2:03 P M EST Height 138 cm (4' 6.33 ) 12/29/2024 2:03 PM EST Body Mass Index 27.68 12/29/2024 2:03 PM EST Plan of Treatment Health Maintenance Due Date Last Done Comments RSV Patients and Patients Aged 60 years or older (1 - 1-dose 75+ series) 08/05/2023 COVID-19 Vaccine ( season) 2025 10/28/2024, 11/01/2023, 12/13/2021, Additional history exists DTaP/Tdap/Td Vaccines (2 - Td or Tdap) 11/30/2025 12/01/2015, 02/07/2005 Alcohol/Substance Use Screening 12/29/2025 12/29/2024 Depression Screening 12/29/2025 12/29/2024, 12/30/19 25 Diabetes: Hemoglobin A1C 12/29/2025 12/29/2024 SDOH Screening 12/29/2025 12/29/2024 Tobacco Screening 12/29/2025 12/29/2024 Hepatitis A Vaccines Completed 07/30/2007, 09/03/19 07 Hepatitis B Vaccines Completed 07/30/2007, 10/03/2006, 09/02/2006 Colonoscopy Discontinued 09/26/2015 Colorectal Cancer Screening Discontinued Pneumococcal Vaccine: 50+ Years Completed 10/15/2019, 03/05/2017, 07/26/2015 Zoster Vaccines Completed 03/07/2021, 01/04/2021 Hepatitis C Screening Completed 03/31/2021 Influenza Vaccine Completed 10/28/2024, , 01/01/2023, Additional history exists CT Colonography Discontinued FIT DNA/Cologuard Discontinued FIT [...] VIEWS BILATERAL Routine 01/28/2025 12:10 PM EST RHEUMATOID FACTOR Routine 01/28/2025 11: 23 AM EST SED RATE BY MODIFIED WESTERGREN Routine 01/28/2025 11:23 AM EST CBC WITH AUTO DIFFERENTIAL Routine 01/28/2025 11:23 AM EST POCT GLYCATED HEMOGLOBIN, TOTAL Routine 12/29/2024 2:23 PM EST Prediabetes POCT HEMOGLOBIN Routine 12/29/2024 2:21 PM EST History of GI bleed BD DEXA AXIAL Routine 10/30/2024 1:10 PM EDT ZZZ HISTORICAL HEPATITIS C AB W/REFL TO HCV RNA, QN, PCR Routine 03/31/2021 12:01 PM EST HM COLONOSCOPY Routine 09/26/2015 from Last 3 Months or Most Recently Relevant to Health Maintenance Results * XR Foot 3+ Views Bilateral (01/28/2025 12:10 PM EST) Anatomical Region Laterality Modality Lower Extremities, Foot Bilateral Radiogra phic Imaging 01/28/2025 12:1 0 PM EST Narrative 01/28/2025 12:29 PM EST [address] [address] XRay Report Signed Patient: Lena Judd MR#: [id number] 4 : 1950 Acct:[id number] Age/Sex: 74 / F ADM Date: 01/28/25 Loc: [facility] Attending Dr: Sallie Gimenez MD Ordering Physician: Sallie Gimenez MD Date of Service: 01/28/25 Procedure(s): XR Foot Mina 3V Accession Number(s): [id number] cc: Salile Gimenez MD; Name,Joseluis ZAMORA Reason for Exam: [...] 01/28/25 1226 DD/ 1210 TD/TT: 01/28/25 1215 Spiral Winder: Procedure Note Donotuseinterpreter, Image - 01/28/[address] [address] XRay Report Signed Patient: Lena JuddMR#: [id number] 4 : 1950cct:[id number] Age/Sex: 74 / FADM Date: 01/28/25 Loc: EMY Attending Dr: Sallie Gimenez MD Ordering Physician: Sallie Gimenez MD Date of Service: 01/28/25 Procedure(s): XR Foot Mina 3V Accession Number(s): [id number] cc: Sallie Gimenez MD; Name,Joseluis ZAMORA Reason [...] Clarence Vergara MD 01/28/2025 12:26 PM EST RP Dictated By: Clarence Vergara MD Signed By: <Electronically signed by Clarence Vergara MD in OV> 01/28/25 1226 DD/ 1210 TD/TT: 01/28/25 1215 Spiral Winder: [facility] External Provider IMG XR PROCEDURES Final Result * (ABNORMAL) CBC auto differential (01/28/2025 11:23 AM EST) White Blood Count 5.7 4.8 - 10.8 X10*3/uL [facility] Red Blood Count 3.94(L) 4.20 - 5.50 X10*6/uL [facility] Hemoglobin 12.0 12.0 - 16.0 g/dl [facility] Hematocrit 36.8(L) 37.0 - 47.0 % [facility] Mean Corpuscular Volume 93.4 80.0 - 98.0 fL [facility] Mean Corpuscular Hemoglobin 30.5 27.0 - 33.0 pg [facility] Mean Corpuscular HGB Conc 32.6 31.0 - 35.0 g/dl [facility] Red Cell Distribution Width 12.1 11.0 - 16.0 % [facility] Platelet Count 237 160 - 400 X10*3/uL [facility] Mean Platelet Volume 10.6 9.4 - 12.3 fL [facility] Neutrophils Percent Auto 70.1 45 - 73 % [facility] Imm Gran Pct Auto 0.2 0.0 - 0.4 % [facility] Lymphocytes Percent Auto 16.0(L) 20 - 40 % [facility] Monocytes Percent Auto 8.6 2 - 11 % [facility] Eosinophils Percent Auto 3.9 0 - 4 % [facility] Basophils Percent Auto 1.2 0 - 2 % [facility] NRBC Pct Auto 0.0 0.0 - 0.2 /100WBC [facility] Neutrophils Absolute Auto 4.0 2.0 - 8.3 x10*3/uL [facility] Imm Gran Abs Auto 0.01 0.00 - 0.03 X10*3/uL [facility] Lymphocytes Absolute Auto 0.9(L) 1.2 - 4.9 X10*3/uL [facility] Monocytes Absolute Auto 0.5 0.1 - 1.2 X10*3/uL [facility] Eosinophils Absolute Auto 0.2 0.0 - 0.4 X10*3/uL [facility] Basophils Absolute Auto 0.1 0.0 - 0.2 X10*3/uL [facility] NRBC Abs Auto 0.000 0.0 - 0.012 X10*3/uL [facility] 01/28/2025 11:2 3 AM EST 01/28/2025 2:13 PM EST us Generic External Data Provider LAB BLOOD ORDERAB LES Final Result [facility] [address] [place] [phone] * Sed Rate by Modified Mg (01/28/2025 11:23 AM EST) Erythrocyte Sedimentation Rate 20 1 - 30 MM/HR [facility] Comment:Patients with polycy themia and many hemoglobin abnormalitiesmay have depressed sed rates whereas patients with anemiamay have elevated sed rates. 01/28/2025 11:2 3 AM EST 01/28/2025 2:13 PM EST Generic External Data Provider LAB BLOOD ORDERAB LES Final Result Performing Organization Address [facility] Co de Phone Number [facility] [address] [place] [phone] * Rheumatoid Factor (01/28/2025 11:23 AM EST) Rheumatoid Factor <13.0 <15.0 IU/mL [facility] 01/28/2025 11:2 3 AM EST 01/28/2025 2:13 PM EST Generic External Data Provider LAB BLOOD ORDERAB LES Final Result Performing Organization Address [facility] de Phone Number [facility] [address] [place] [phone] * POCT Hgb A1c (12/29/2024 2:23 PM EST) Hemoglobin A1C 5.2 4.0 - 5.7 % QC Media Lot # [id number] Lot# Expiration Date [id number] Blood 12/29/2024 2:23 PM EST Joseluis Jaeger MD POINT OF CARE TEST ENTER/EDIT OR DERABLES Final Result * POCT Hemoglobin (12/29/2024 2:21 PM EST) Hemoglobin 13.9 12.0 - 15.0 QC Media Lot # [id number] Lot# Expiration Date 4,927 Blood 12/29/2024 2:21 PM EST Joseluis Jaeger MD POINT OF CARE TEST ENTER/EDIT OR DERABLES Final Result * BD DEXA Axial (10/30/2024 1:10 PM EDT) Anatomical Region Laterality Modality Body Radiographic Palma ging 10/30/2024 1:10 PM EDT Narrative 10/30/2024 2:12 PM EDT [facility] [address] [place] [address] Mammography Report Signed Patient: Lena Judd MR#: [id number] 4 : 1950 Acct:[id number] Age/Sex: 74 / F ADM Date: 10/30/24 Loc: HO.MAMMO Attending Dr: Sallie Gimenez MD Ordering Physician: Sallie Gimenez MD Results: Date of Service: 10/30/24 Follow Up: Procedure(s): XR DEXA axial skeleton Accession Number(s): [id number] cc: Sallie Gimenez MD; Name,Joseluis ZAMORA Reason For Exam: M81.0 - Age-related osteoporosis without current pathological fracture EXAMINATION: DXA BONE DENSITY AXIAL HISTORY: M81.0 - Age-related osteoporosis without current pathological fracture TECHNIQUE: [place] Dual energy absorptiometry (DEXA) of the lumbar [...] is a trademark of the [employer] [place] for Metabolic Bone Disease, a World Health Organization (WHO) Collaborating Center. Electronically signed by: Clarence Vergara MD 10/30/2024 02:10 PM EDT RP Dictated By: Clarence Vergara MD Signed By: <Electronically signed by Clarence Vergara MD in OV> 10/30/24 1410 DD/ 1310 TD/TT: 10/30/24 1334 Spiral Winder: Procedure Note Donotuseinterpreter, Image - 10/30/2024 [facility] [address] [place] [address] Mammography Report Signed Patient: Lena Judd#: [id number] 4 : 9Acct:[id number] Age/Sex: 74 / FADM Date: 10/30/24 Loc: MAMMO Attending Dr: Sallie Gimenez MD Ordering Physician: Sallie Gimenezesults: Date of Service: 10/30/24Follow Up: Procedure(s): XR DEXA axial skeleton Accession Number(s): [id number] cc: Sallie Gimenez MD; Name,Joseluis ZAMORA Reason For Exam: M81.0 - Age-related osteoporosis without currentpathological fracture EXAMINATION: DXA BONE DENSITY AXIAL HISTORY: M81.0 - Age-related osteoporosis without current pathological fracture TECHNIQUE: [place] Dual energy absorptiometry (DEXA) of the lumbar [...] is a trademark of the [employer] [place] for Metabolic Bone Disease, a World Health Organization (WHO) Collaborating Center. Electronically signed by: Clarence Vergara MD 10/30/2024 02:10 PM EDT Dictated By: Clarence Vergara MD Signed By: <Electronically signed by Clarence Vergara MD in OV> 10/30/24 1410 DD/ 1310 TD/TT: 10/30/24 1334 Spiral Winder: [facility] External Provider IMG DXA PROCEDURES Edited Result - Final * HEPATITIS C AB W/REFL TO HCV RNA, QN, PCR (03/31/2021 12:01 PM EST) HEPATITIS C ANTIBODY NON-REACT ANTON NON-REACT ANTON [facility] INDEX 0.06 <1.00 [facility] Comment: HCV antibody was non-reactive. There is no laboratory evidence of HCV infection. In most cases, no further action is required. However, if recent HCV exposure is suspected, a test for HCV RNA (test code 96150) is suggested. For additional information please refer to http://education.Control de Pacientes/faq/BIK53x1 (This link is being provided for informational/ educational purposes only.) 03/31/2021 12:0 1 PM EST Joseluis Name HISTORICAL/NON ORDERABLE LABS Fi nal Result [facility] [address] * Hm Colonoscopy (09/26/2015) Colonoscopy Normal Normal Narrative Regina Enamorado - 09/26/2015 Repeat in 10 years Historical Provider HEALTH MAINTENANCE Final Result from Last 3 Months or Most Recently Relevant to Health Maintenance Insurance [facility] Care Teams Financial Management Relationship Specialty Start Date End Date Name, MD Joseluis [address] [place] [phone] PCP - General Family Medicine 04/14/15
--- OUTSIDE RECORDS SUMMARY | 2025-01-28 14:50 | XMS_ITS | Encounter Summary ---
Author Organization [employer] Address 75 [facility] 7t [place] [address] Care Team Providers Care Supervisor Buffing And Pasting Name Role Phone Name, Joseluis ZAMORA Primary Care Provider [phone] Encounter Details Date Type Department Care Team ([facility] st Contact Info) Description 06/13/2022 Telephone [facility] [address] [place], [place] [phone] Serenity Lewis LPN Social History Tobacco Use [...] documented as of this encounter Care Teams Supervisor Buffing And Pasting Relationship Specialty Start Date End Date Name, MD Joseluis [address] [place] [address] PCP - General Family Medicine 04/14/15 documented as of this encounter
--- OUTSIDE RECORDS SUMMARY | 2025-01-28 14:50 | XMS_ITS | Encounter Summary ---
Author Organization [employer] Address 75 [facility] 7t [place] [address] Care Team Providers Care Electric Motorman Name Role Phone Name, Joseluis ZAMORA Primary Care Provider [phone] Encounter Details Date Type Department Care Team (Late st Contact Info) Description 03/02/2022 Orders Only [facility] [address] [place] [address] Marielena Neff LPN Social History Tobacco Use [...] on filedocumented in this encounter Care Teams Electric Motorman Relationship Specialty Start Date End Date Name, MD Joseluis [address] [place] [address] PCP - General Family Medicine 04/14/15 documented as of this encounter
--- OUTSIDE RECORDS SUMMARY | 2025-01-28 14:50 | XMS_ITS | Encounter Summary ---
Author Organization [employer] Address [address] [facility] [address]t [place] [address] Care Team Providers Care Carbon Sequestration Plant Engineer Name Role Phone Name, Joseluis ZAMORA Primary Care Provider [phone] Encounter Details Date Type Department Care Team (Late st Contact Info) Description 03/20/2022 Orders Only [facility] [address] [place] [address] Marielena Neff LPN Social History Tobacco Use [...] on filedocumented in this encounter Care Teams Carbon Sequestration Plant Engineer Relationship Specialty Start Date End Date Name, MD Joseluis [address] [place] [address] PCP - General Family Medicine 04/14/15 documented as of this encounter
--- OUTSIDE RECORDS SUMMARY | 2025-01-28 14:50 | XMS_ITS | Encounter Summary ---
Author Organization [employer] Address 75 [facility] 7t [place] [address] Care Team Providers Care Service Captain Name Role Phone Name, Joseluis ZAMORA Primary Care Provider [phone] Encounter Details Date Type Department Care Team ([facility] st Contact Info) Description 04/09/2022 Orders Only [facility] [address] [place] [address] Marielena Neff LPN Social History Tobacco Use [...] on filedocumented in this encounter Care Teams Service Captain Relationship Specialty Start Date End Date Name, MD Joseluis [address] [place] [address] PCP - General Family Medicine 04/14/15 documented as of this encounter
--- OUTSIDE RECORDS SUMMARY | 2025-01-28 14:50 | XMS_ITS | Encounter Summary ---
Author Organization [employer] Address 75 [facility] 7t [place] [address] Care Team Providers Care Beater Engineer Helper Name Role Phone Name, Joseluis ZAMORA Primary Care Provider Reason for Visit * Reason Onset Date Comments Durable Medical Equipment 10/02/2023 Encounter Details Date Type Department Care Team ([facility] st Contact Info) Description 10/02/2023 Telephone [facility] [address] [place], [place] [phone] Name, MD Joseluis [address] [place] [address] Durable Medical Equipment Social History Tobacco Use [...] any questions you can contact Tiffany at [phone]. documented in this encounter Plan of Treatment Not on file documented as of this encounter Visit Diagnoses Not on filedocumented in this encounter Additional Health Concerns Assessment Noted Time PHQ-9 Depression Total Score: 0 05/12/19 10:10 AM EDT documented as of this encounter Care Teams Beater Engineer Helper Relationship Specialty Start Date End Date Name, MD Joseluis [address] [place] [address] PCP - General Family Medicine 04/14/15 documented as of this encounter
--- OUTSIDE RECORDS SUMMARY | 2025-01-28 14:50 | XMS_ITS | Encounter Summary ---
Author Organization [employer] Address [address] [facility] [address]t [place] [address] Care Team Providers Care Drafter Tool Design Name Role Phone Name, Joseluis ZAMORA Primary Care Provider [phone] Encounter Details Date Type Department Care Team ([facility] st Contact Info) Description 07/16/[address] [facility] MED[facility] [address] [place], [place] [phone] Name, MD Joseluis [address] [place] [address] Social History Tobacco Use Types Packs/Day Years [...] documented as of this encounter Care Teams Drafter Tool Design Relationship Specialty Start Date End Date Name, MD Joseluis [address] [place] [address] PCP - General Family Medicine 04/14/15 documented as of this encounter
--- OUTSIDE RECORDS SUMMARY | 2025-01-28 14:51 | XMS_ITS | Encounter Summary ---
Author Organization [employer] Address [address] [facility] 7t [place] [address] Care Team Providers Care Special Education Professional Name Role Phone Name, Joseluis ZAMORA Primary Care Provider [phone] Encounter Details Date Type Department Care Team (Late st Contact Info) Description 01/14/2023 Orders Only [facility]EDS [address] [place], [place] [phone] Jacy Mccormick LPN Social History Tobacco Use [...] documented as of this encounter Care Teams Special Education Professional Relationship Specialty Start Date End Date Name, MD Joseluis [address] [place] [phone] PCP - General Family Medicine 04/14/15 documented as of this encounter
--- OUTSIDE RECORDS SUMMARY | 2025-01-28 14:51 | XMS_ITS | Encounter Summary ---
Author Organization [employer] Address 75 [facility] [address]t [place] [address] Care Team Providers Care Pharmacy Technician Assistant Name Role Phone Name, Joseluis ZAMORA Primary Care Provider [phone] Encounter Details Date Type Department Care Team ([facility] st Contact Info) Description 12/30/2022 Abstract [facility] [address] [place] [address] Regina Enamorado Social History Tobacco Use Types [...] Procedure Name Priority Date/Time Associated Diagnosis Comments HM COLONOSCOPY Routine 09/26/2015 documented in this encounter Results * Hm Colonoscopy (09/26/2015) Colonoscopy Normal Normal Narrative Regina Enamorado - 09/26/2015 Repeat in 10 years Historical Provider HEALTH MAINTENANCE Final Result documented in this encounter Visit Diagnoses Not on filedocumented in this encounter Additional Health Concerns Assessment Noted Time PHQ-9 Depression Total Score: 0 05/12/19 23 10:10 AM EDT documented as of this encounter Care Teams Pharmacy Technician Assistant Relationship Specialty Start Date End Date Name, MD Joseluis [address] [place] [address] PCP - General Family Medicine 04/14/15 documented as of this encounter
--- OUTSIDE RECORDS SUMMARY | 2025-01-28 14:51 | XMS_ITS | Encounter Summary ---
Author Organization [employer] Address 75 [facility] 7t [place] [address] Care Team Providers Care Switching Clerk Name Role Phone Name, Joseluis ZAMORA Primary Care Provider [phone] Reason for Visit * Reason Comments Med Refill Encounter Details Date Type Department Care Team ([facility] st Contact Info) Description 06/26/2022 Refill [facility] 230 [facility] [place] [address] Carole Elena FNP [address] [place] [address] [employer] Social History Tobacco Use Types Packs/Day [...] documented as of this encounter Care Teams Switching Clerk Relationship Specialty Start Date End Date Name, MD Joseluis [address] [place] [address] PCP - General Family Medicine 04/14/15 documented as of this encounter
--- OUTSIDE RECORDS SUMMARY | 2025-01-28 14:51 | XMS_ITS | Encounter Summary ---
Author Organization [employer] Address [address] [facility] [address] [place] [address] Care Team Providers Care Flower Stripper Name Role Phone Name, Joseluis ZAMORA Primary Care Provider [phone] Reason for Visit * Reason Comments Med Refill Encounter Details Date Type Department Care Team ([facility] st Contact Info) Description 02/18/2024 Refill [facility] [address] [place], [place] [phone] Name, MD Joseluis [address] [place] [address] Osteoarthritis of left knee, unspecified osteoarthritis type [...] documented as of this encounter Care Teams Flower Stripper Relationship Specialty Start Date End Date Name, MD Joseluis [address] [place] [address] PCP - General Family Medicine 04/14/15 documented as of this encounter
--- OUTSIDE RECORDS SUMMARY | 2025-01-28 14:51 | XMS_ITS | Encounter Summary ---
Author Organization [employer] Address [address] [facility] [address] [place] [address] Care Team Providers Care Sergeant Of Officers Name Role Phone Name, Joseluis ZAMORA Primary Care Provider [phone] Reason for Visit * Reason Comments Med Refill Encounter Details Date Type Department Care Team ([facility] st Contact Info) Description 02/05/2023 Refill [facility] [address] [place], [place] [phone] Name, MD Joseluis [address] [place] [address] Osteoarthritis of left knee, unspecified osteoarthritis type; [...] documented as of this encounter Care Teams Sergeant Of Officers Relationship Specialty Start Date End Date Name, MD Joseluis [address] [place] [address] PCP - General Family Medicine 04/14/15 documented as of this encounter
== END 2025-01-28 10:32 | disposition home or self-care (01) ==
LOC: HO.XRAY 10:31
PROVIDERS: PCP Internal Medicine Geriatric Medicine; Visit Provider Student in an Organized Health Care Education/Training Program
DX: M11.20 Other chondrocalcinosis, unspecified site (principal); E55.9 Vitamin D deficiency, unspecified; M81.0 Age-related osteoporosis without current pathological fracture; M17.0 Bilateral primary osteoarthritis of knee; M65.961 Unspecified synovitis and tenosynovitis, right lower leg; M65.962 Unspecified synovitis and tenosynovitis, left lower leg; Z79.899 Other long term (current) drug therapy
CPT/HCPCS: 36415; 73630; 80053; 82306; 84550; 85025; 85652; 86140; 86200; 86431; 99212

== ENCOUNTER 2025-01-28 10:31 | Outpatient (AMB) | payer OTHER, SELFPAY ==
--- OUTSIDE RECORDS SUMMARY | 2024-11-24 08:00 | XMS_ITS ---
Author Organization [facility] Address [address] [place] [address] Care Team Providers Care Clipping Marker Name Role Phone Name Joseluis ZAMORA Primary Care Provider Clarence Crandall [phone] REASON FOR VISIT Patient presents today for cirrhosis Encounters Encounter Location Date Provider Diagnosis [facility] [address] [place] [address] 11/24/2024 Clarence Perry Plan Of Treatment Next Appt Details Provider Name:Clarence Perry , 03/24/2025 02:20:00 PM, [address], [address], [place], [address], Progress Notes * WILLSONABRAHAM YEWILLARDDOB:1950 (74 yo F)Acc No.[id number]:11/24/2024 Progress Notes Patient: HUMZA PALOMARES Provider: Vandana Perry MD :1950 A ge:74 Y S ex:Female Date:11/24/2024 Address:[address] [place] [address] Pcp:Joseluis Jaeger MD Subjective: * Chief Complaints: * P atient presents today for cirrhosis * The named appointment provid er may or may not be the originator of this progress note, and it is not deemed complete until electronically signed by the appointment provider. Sign off status: Pending * Provider: Vandana Perry MD Date: 1 Generated for Printi ng/Faxing/eTransmitting on: 1 03/31/2024 01:14 PM EST
--- NOTE | 2025-01-28 10:32 | A.OFFVIS_ITS ---
Vital Signs 01/28/25 10:43 Height 4 ft 8 in Weight 118 lb 9.739 oz BMI 26.6 BP 118/72 Blood Pressure Location Lt brachial Position Sitting Pulse 62 Pulse Source Pulse Oximeter Pulse Oximetry (%) 98 Oxygen Delivery Method Room Air Intake Visit Reasons: follow up Intake Note: Patient presents today for Peroneal Tenosynovitis follow up and test results. Lumber Tailer Required: Yes Lumber Tailer Language: Qc Analyst Services: Lumber Tailer Present Lumber Tailer Name: Med [id number] Information Interpreted: non-clinical & clinical [employer]: [employer] Present (Ana Rosa Reyes) Accompanied by: INFORMATION ASSURANCE SPECIALIST Allergies percocet Allergy (Mild, Uncoded 12/23/24 10:30) Vomiting Medication List - Last Reconciled 01/28/25 by Sallie Gimenez MD acetaminophen 500 mg PO Q8H PRN albuterol sulfate 90 mcg/actuation 2 puffs inhalation Q6H PRN alendronate 70 mg PO QWEEK cholecalciferol (vitamin D3) 1,250 mcg PO QWEEK 90 days clotrimazole-betamethasone 1-0.05 % 1 appl topical BID colchicine 0.6 mg PO BID 90 days conjugated estrogens (Premarin) vaginal cyanocobalamin (vitamin B-12) 1,000 mcg PO DAILY diclofenac sodium 1% 2 grams topical BID PRN ferrous sulfate (FeroSul) 325 mg PO DAILY gabapentin 300 mg PO BEDTIME levothyroxine 75 mcg PO DAILY loperamide 2 mg PO Q4H PRN omeprazole 40 mg PO DAILY@0630 30 days potassium chloride ER 20 mEq (2 x 10 mEq) PO DAILY 14 days tramadol 50 mg PO BID trazodone 50 mg PO BEDTIME HPI Comments Details: Patient is a 74-year-old female with heart failure with reduced ejection fraction, osteoporosis, polyarticular osteoarthritis complicated by fibromyalgia here today for follow-up Interval History: Last seen 09/16/2024 with me - On alendronate 70mg weekly for osteoporosis - Here with INFORMATION ASSURANCE SPECIALIST - States that her swelling is improved but still complaining of foot pain - Requesting an increase in tramadol Today - On alendronate 70mg weekly, colchicine 0.6mg bid, tramadol 50mg bid - Here with INFORMATION ASSURANCE SPECIALIST - Osteoporosis: Taking alendronate, most recent bone density showed 16% increase in the spine and 4% increase in the femoral neck - Foot pain: Patient has been having bilateral foot pain for the past year. Prednisolone did not improve it. Started on colchicine for potential crystal induced inflammation/CPPD with improvement in the swelling was still having pain Rheumatologic History: Patient was initially seen 09/05/2022. At that time she was complaining of widespread pain. Of note she had seen rheumatology in the past and had a trial of treatment with methotrexate that was not helpful. This was back in 2019. She had a positive WILLARD but negative anti DNA and AREN antibodies. Rheumatoid factor and CCP was also negative. Have that evaluation in August there was no evidence of synovitis and the assessment was likely osteoarthritis On re-evaluation 12/06/2022 it was again confirmed that her pain was likely from osteoarthritis of the were no signs of active inflammatory arthritis. She was started on alendronate 70 mg weekly given DEXA scan 10/10/2022 showing osteoporosis with highest T-score -3.5 at the spine At the visit in February 2023 she was given a trial of prednisone for foot and ankle pain with improvement on follow-up in April. At this time she does not have a formal diagnosis of inflammatory arthritis Current Rheumatology Medication(s): Alendronate 70mg weekly Colchicine 0.6mg bid Tramadol 50mg bid [facility] Medical History Left leg swelling Foot and ankle pain FH: breast cancer Hepatic cirrhosis FH: cholecystectomy Hypothyroid Arthritis Surgical History Hx of cholecystectomy Family History Family/Other Breast cancer Maternal Grandfather Throat cancer Social History Household Members: None Housing: Apartment Do you presently have visiting nurse or other home services: Yes (INFORMATION ASSURANCE SPECIALIST every other day) Alcohol intake: never Patient Tobacco Use Status: Never used Tobacco Second Hand Smoke Exposure: No service: No Current occupational status: retired Review of Systems Narrative Review of Systems Constitutional: Denies fever, chills, weight loss ENT: Denies vision changes, eye pain or eye redness, dental caries, dry mouth GI: Denies nausea, vomiting, diarrhea, abdominal pain, change in BM Pulm: Denies SOB, FAGAN, hemoptysis, wheezing Cards: Denies chest pain, palpitations Skin: Denies Raynaud's, rash, nail changes, photosensitivity, CELLAR PUMPER: Denies headaches, weakness, paresthesias, recurrent falls MSK: as per HPI All other systems reviewed and are unremarkable except noted above Physical Exam Exam Exam: Vital signs reviewed Physical Examination CONSTITUITIONAL Patient alert and cooperative. Well appearing and in no apparent painful distress MSK Hands * Right Hand: Able to make a fist. No swelling or tenderness to palpation of the MCPs, PIPs or DIPs. * Left Hand: Able to make a fist. No swelling or tenderness to palpation of the MCPs, PIPs or DIPs. Wrists * Right Wrist: Full ROM to flexion and extension. No swelling or TTP * Left Wrist: Full ROM to flexion and extension. No swelling or TTP Elbows * Right Elbow: Full ROM. No swelling or TTP. No TTP of the medial epicondyle. No TTP of the lateral epicondyle * Left Elbow: Full ROM. No swelling or TTP. No TTP of the medial epicondyle. No TTP of the lateral epicondyle Shoulders * Right shoulder: No swelling noted. No TTP of the AC joint. No TTP of the subacromial bursa. No TTP of the posterior shoulder * Left shoulder: No swelling noted. No TTP of the AC joint. No TTP of the subacromial bursa. No TTP of the posterior shoulder Knees * Right knee: Good ROM. No swelling noted. No TTP of the knee joint line. No TTP of pes anserine bursa * Left knee: Good ROM. No swelling noted. No TTP of the knee joint line. No TTP of pes anserine bursa. * Crepitations felt bilaterally Ankles * Right ankle: Good ankle dorsiflexion and plantar flexion. Mild swelling noted over the lateral malleolus with TTP of the subtalar joint and achilles tendon * Left ankle: Good ankle dorsiflexion and plantar flexion. Mild swelling noted over the lateral malleolus with TTP of the subtalar joint and achilles tendon Feet * Positive squeeze test bilaterally Vital Signs: BMI result Body Mass Index 26.6 Results Reviewed Results Reviewed: Laboratory Tests 08/11/24 09:46 Sodium 143 Potassium 3.5 Chloride 104 Carbon Dioxide 31 H BUN 11 Creatinine 0.61 AST 22 ALT 13 25-OH Vitamin D Total 51.6 DEXA 10/2024 FINDINGS: The bone mineral density of the lumbar spine is 0.884 g/cm2, corresponding to a T-score of -2.5, and a Z-score of -0.5. This is indicative of osteoporosis. This represents a BMD change of 16.5% compared to the prior exam. This is statistically significant. The bone mineral density of the left total hip is 0.867 g/cm2, corresponding to a T-score of -1.1, and a Z-score of 0.8. This is indicative of osteopenia. This represents a BMD change of -2.5% compared to the prior exam. This is not statistically significant. The bone mineral density of the left femoral neck is 0.712 g/cm2, corresponding to a T-score of -2.3, and a Z-score of -0.2. This is indicative of osteopenia. This represents a BMD change of 3.6% compared to the prior exam. FRACTURE RISK: The FRAX index suggests a ten year probability of major osteoporotic fracture of 13.8%, and of hip fracture 3.8%. Assessment & Plan Assessment & Plan (1) Osteoporosis: Comment: 09/2022: AP Spine -3.5, Left femur neck -2.5, Left femur total -0.9; alendronate started 11/2022: AP Spine -2.5, Left femur neck -2.3, Left femur total -1.1 Code(s): M81.0 - Age-related osteoporosis without current pathological fracture Category: Medical Qualifiers: Osteoporosis type: age-related Presence of current pathological fracture: without current pathological fracture Qualified Code(s): M81.0 - Age- related osteoporosis without current pathological fracture Plan: #Osteoporosis Patient is a 74-year-old female osteoporosis. Repeat bone density done in October shows a 16 5% increase in bone density at the spine and a 3.6 % increase in bone density at the left femoral neck. No change in bone density of the total femur. Based on this we will continue alendronate for a total of 5 years and then consider a drug holiday Plan - Alendronate 70mg weekly - PO Vit D - Labs: CMP, Vit D (2) Pain in both feet: Code(s): M79.671 - Pain in right foot; M79.672 - Pain in left foot Plan: #Bilateral foot pain The patient reports pain in her toes despite taking colchicine twice daily. To determine the underlying cause of her symptoms before considering treatment with prednisone, foot X-rays will be obtained, with a possible MRI to follow if needed. She is to continue colchicine one tablet twice daily, as this dose cannot be increased. A referral to podiatry will be placed, and blood work will be ordered. A follow-up is scheduled in three months. Plan - XR bilateral feet - Refer to podiatry - Consider MRI (3) Osteoarthritis, hand: Code(s): M19.049 - Primary osteoarthritis, unspecified hand Category: Medical Qualifiers: Osteoarthritis type: primary Laterality: bilateral Qualified Code(s): M19.041 - Primary osteoarthritis, right hand; M19.042 - Primary osteoarthritis, left hand Plan: #Polyarticular OA Stable Tramadol to 50mg bid (4) Osteoarthritis of knees, bilateral: Code(s): M17.0 - Bilateral primary osteoarthritis of knee Category: Medical Qualifiers: Osteoarthritis type: primary Qualified Code(s): M17.0 - Bilateral primary osteoarthritis of knee Plan: #Polyarticular OA Stable (5) On colchicine therapy: Code(s): Z79.899 - Other exterminator (current) drug therapy Plan: #Long-term use of colchicine Risks and benefits of long-term colchicine for the management of this patient's gout discussed with patient. Benefits include reduced occurrence of flares while we titrate and regulate his uric acid on allopurinol and other uric acid lowering medications. ? Risks include worsening myalgias especially if on statins and GI upset including diarrhea Plan I spent 30 minutes reviewing the record and labs, seeing the patient, discussing the treatment plan and documenting in the medical record ? Orders: Orders C Reactive Protein Today M65.979 - Unspecified synovitis and tenosynovitis, unspecified ankle and foot Erythrocyte Sedimentation Rate Today M65.979 - Unspecified synovitis and tenosynovitis, unspecified ankle and foot Uric Acid Today M65.979 - Unspecified synovitis and tenosynovitis, unspecified ankle and foot Rheumatoid Factor Today M65.979 - Unspecified synovitis and tenosynovitis, unspecified ankle and foot Complete Blood Count Auto Diff 3 Months Z79.899 - Other exterminator (current) drug therapy C Reactive Protein 3 Months Z79.89 - Other exterminator (current) drug therapy Erythrocyte Sedimentation Rate 3 Months Z79.89 - Other correction (current) drug therapy XR foot RT min 3V Today M79.671 - Pain in right foot, M79.672 - Pain in left foot Complete Blood Count Auto Diff Today M65.979 - Unspecified synovitis and tenosynovitis, unspecified ankle and foot Comprehensive Met. Panel Today M65.979 - Unspecified synovitis and tenosynovitis, unspecified ankle and foot Cyclic Citrullinated Peptide Today M65.979 - Unspecified synovitis and tenosynovitis, unspecified ankle and foot Vitamin D 25-OH Total Today E55.9 - Vitamin D deficiency, unspecified Comprehensive Met. Panel 3 Months Z. - Other exterminator (current) drug therapy Referrals Podiatry Referral M79.671 - Pain in right foot, M79.672 - Pain in left foot Coding Level of Care Code Est Pt Level 4 (67981) Add On Problem Visit Only Diagnoses Age-related osteoporosis without current pathological fracture M81.0 Osteoporosis type: age-related Presence of current pathological fracture: without current pathological fracture Pain in both feet M79.671; M79.672 Primary osteoarthritis of both hands M19.041; M19.042 Osteoarthritis type: primary Laterality: bilateral Primary osteoarthritis of both knees M17.0 Osteoarthritis type: primary On colchicine therapy Z
[2025-01-28 10:43] VITALS: BP 118/72; PULSE 62; O2SAT 98; BMI 26.6
--- OUTSIDE RECORDS SUMMARY | 2025-01-28 13:14 | XMS_ITS | Patient Health Record ---
Author Organization [facility] Address [address] [place] [address] Care Team Providers Care Radio Interference Trouble Shooter Name Role Phone Name Joseluis ZAMORA Primary Care Provider Clarence Crandall Unavailable [phone] Allergies No Known Allergies Reason For Referral Referring Provider First Name Joseluis Referring Provider Last Name Name Referring Provider Speciality Internal M edicine Referred Organization [facility] Referred Provider Clarence Perry Referred Address [address],[place], [place],[address], Referred Provider Specialty Gastroentero logy General Notes Ny Gonzalez 2024 03:55:27 PM >requested a marc referral from Dr. Mandujano' office for visit with Dr. Perry on 11-24-24 Referral Priority Routine Medications Medication SIG (Take, Route, Frequency, Duration) Notes Start Date End Date Status Colace 100 MG Capsule 1 capsule as neede d Orally twice a day Unknown traZODone HCl 50 MG Tablet 1/2 to1 table t at bedtime as needed Orally Once at hs prn insomnia Unknown Omeprazole 20 MG Tablet Delayed Release 2 tablets Orally Once a day Unknown Levothyroxine Sodium 75 MCG Tablet 1 tablet Orally Once a day Unknown Dulcolax 10 MG Suppository 1 suppository as needed Rectal Once a day/as needed Unknown Cyanocobalamin 1000 MCG Tablet 1 tablet Orally Once a day/with every 3 month injections Unknown Benadryl Allergy 25 MG Tablet 1 tablet as needed Orally every 8 hrs as needed Unknown Triamcinolone Acetonide 0.1 % Cream 1 application to affected area Externally Twice a day Unknown Clotrimazole 1 % Cream 1 application to affected area Externally Twice a day Unknown Ibuprofen 400 MG Tablet 1 tablet Orally Three times a day Unknown Immunizations Vaccine Route Administration Date Status Comme nts Flu vaccine no Preserv 3 and > Unknown 11/11/2014 Admin istered Influenza Unknown 01/02/2022 Administered Social History Social History Additional Details Category Social Info Options Details Miscellaneous: Marital status: single Occupation: home Section Notes: Nonsmoker; no alcohol Nonsmoker; no alcohol Nonsmoker; no alcohol Problems Problem Type SNOMED Code ICD Code Onset Dates Problem Status W/U Status Risk Notes Problem Gastro-esophagea l reflux disease without esophagitis (754856637) Gastro-esophageal reflux disease without esophagitis (K21.9) Active confirmed Problem Screening for malignant neoplasm of colon (915244316) Encounter for screening for malignant neoplasm of colon (Z12.11) Active confirmed Problem 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 confirmed Problem Diverticular disease of colon (921128340) Diverticulosis of large intestine without perforation or abscess without bleeding (K57.30) Active confirmed Problem Cirrhosis of liver (25395052) Other cirrhosis of liver (K74.69) Active confirmed Problem Screening for malignant neoplasm of rectum (191683749) Encounter for screening for malignant neoplasm of rectum (Z12.12) Active confirmed Problem Iron deficiency anemia due to chronic blood loss (035913924) Iron deficiency anemia due to chronic blood loss (D50.0) Active confirmed Problem Gastritis (2759765) Gastritis (K29.70) Active confirmed Encounters Encounter Location Date Provider Diagnosis [facility] [address] [place] [address] 11/24/2024 Clarence Perry Plan Of Treatment Pending Test Test Name Order Date LIVER PROFILE 09/12/2022 CBC w DIFF 09/12/2022 ALPHA-FETOPROTEIN,TUMOR MARKER 4 Prothrombin Time INR 11/22/2023 Liver Fibrosis Pnl 11/22/2023 US abdomen comp w elastography 4 Future Test Test Name Order Date UPPER GI ENDOSCOPY 08/30/2015 COLONOSCOPY 08/30/2015 Next Appt Details Provider Name:Clarence Perry , 03/24/2025 02:20:00 PM, [address], [address], [place], [address], Insurance Providers Payer Name Payer Address Payer Phone Subscriber Number Group Number Insured Name Patient Relationship to Insured Coverage Start Date Coverage End Date [employer] [address] [place] [phone] [id number] HUMZA WILLSON Self - patient is the [...]
== END 2025-01-28 11:18 | disposition home or self-care (01) ==
LOC: HO.RHES 10:31
PROVIDERS: PCP Internal Medicine Geriatric Medicine; Visit Provider Student in an Organized Health Care Education/Training Program
DX: M81.0 Age-related osteoporosis without current pathological fracture (principal); M79.671 Pain in right foot; M79.672 Pain in left foot; M19.041 Primary osteoarthritis, right hand; M19.042 Primary osteoarthritis, left hand; M17.0 Bilateral primary osteoarthritis of knee; Z79.899 Other long term (current) drug therapy
CPT/HCPCS: 99214; G2211

== ENCOUNTER → 2025-01-28 11:52 | Outpatient (BNV) | payer OTHER, SELFPAY | PROVIDERS: PCP Internal Medicine Geriatric Medicine; Visit Provider Radiology Diagnostic Radiology | DX: M77.31 Calcaneal spur, right foot (principal); M77.32 Calcaneal spur, left foot | CPT/HCPCS: 73630 ==